=== PATIENT | female | born 1960 | race Caucasian/White ===

== ENCOUNTER → 2017-12-16 08:55 | Outpatient (CLI) | payer OTHER, SELFPAY ==
--- NOTE | 2017-12-16 08:57 | HPBD_ITS ---
STUDY: DUAL ENERGY X-RAY ABSORPTIOMETRY / DXA REASON FOR EXAM: Female, 57 years old. The patient is postmenopausal. No loss of height. TECHNIQUE: Bone Mineral Density (BMD) measurements of lumbar spine and bilateral hips were obtained. COMPARISON: None. FINDINGS: Lumbar Spine (L1-L4): g/cm2 (0.957) / T-score (-1.9) / Z-score (-0.8) Findings are suggestive of osteopenia with a moderate fracture risk. Left Femur Total: g/cm2 (0.695) / T-score (-2.5) / Z-score (-1.7) Left Femoral Neck: g/cm2 (0.738) / T-score (-2.2) / Z-score (-1.0) Right Femur Total: g/cm2 (0.682) / T-score (-2.6) / Z-score (-1.8) Right Femoral Neck: g/cm2 (0.671) / T-score (-2.6) / Z-score (-1.5) HPBD/Dexa Bone Density Study (HP) IMPRESSION: The patient is considered osteoporotic as outlined below according to World Samy Organization (WHO) criteria with a high fracture risk. Reference Information: The T-score is the number of standard deviations above or below the standard which is normal for young adults at their peak bone mineral density. The World Health Organization (WHO) interprets the T-scores as follows: Above -1 Normal bone density Between -1 and -2.5 Osteopenia Equal to / or below -2.5 Osteoporosis As a practical clinical guideline, osteopenia may be graded as follows: Mild -1 through -1.5 Moderate -1.6 through -2.0 Severe -2.1 through -2.4 The Z-score is the number of standard deviations above or below age-matched controls. A Z-score of less than -1.5 would be considered abnormal. References: 1. NIH Osteoporosis and Related Bone Diseases http://www.osteo.org 2. International Society for Clinical Densitometry http://www.iscd.org 3. National Osteoporosis Foundation http://www.nof.org Electronically Signed: Cheng Strickland MD at 9:56 EST Tel [phone], Service support ,
== END ==
PROVIDERS: Family Provider Family Medicine; PCP Family Medicine; Visit Provider Obstetrics & Gynecology
DX: Z78.0 Asymptomatic menopausal state (principal)
CPT/HCPCS: 77080

== ENCOUNTER → 2018-11-22 07:49 | Outpatient (CLI) | payer OTHER, SELFPAY ==
--- NOTE | 2018-11-22 07:55 | BI_ITS ---
MAMMOGRAPHY - BILATERAL SCREENING REASON FOR EXAM: Female, 58 years old. Routine annual screening examination. PERTINENT HISTORY: Mother with breast cancer. Grandmother with breast cancer. TECHNIQUE: Digital bilateral breast tuan (3D mammographic acquisition) in the CC and MLO projections. 2-D mediolateral oblique (MLO) and craniocaudad (CC) views of both breasts were obtained. CAD: Full Field Digital Mammography with Computer Added Detection was performed. COMPARISON: Comparison is made with prior study dated April 17, 2018 and November 14, 2016. FINDINGS: Breast Composition: The breasts are heterogeneously dense, which may obscure small masses. There are no dominant masses or suspicious calcifications. No other significant abnormalities are identified. There has been no significant change since the prior study. BI/SCREENING MAMM (CAD), BILAT IMPRESSION: Stable bilateral screening mammogram. Yearly follow-up mammogram recommended. (A) ASSESSMENT CATEGORY: BIRADS Category 1: Negative. A letter regarding these results will be sent to the patient by the facility within 30 days. Approximately 10% of breast cancers are not detected by mammography. A normal mammogram should not delay biopsy of a clinically suspicious abnormality. [id number] Electronically Signed: Cheng Strickland MD at 9:17 EST Tel [phone], Service support ,
== END ==
PROVIDERS: Family Provider Family Medicine; PCP Family Medicine; Referring Provider Obstetrics & Gynecology; Visit Provider Obstetrics & Gynecology
DX: Z12.31 Encounter for screening mammogram for malignant neoplasm of breast (principal)
CPT/HCPCS: 77063; 77067

== ENCOUNTER → 2019-01-03 12:40 | Outpatient (CLI) | payer OTHER, SELFPAY ==
--- NOTE | 2019-01-03 12:47 | MRI_ITS ---
STUDY: BILATERAL BREAST MR WITHOUT AND WITH CONTRAST REASON FOR EXAM: Female, 58 years old. Family history of breast cancer. Dense breasts on mammography. TECHNIQUE: Multi-sequence multi-echo imaging of both breasts was performed with a dedicated breast coil. T1-weighted and T2-weighted images were performed before the administration of contrast. T1-weighted images were also performed after the administration of Gadavist 7 IV without complications. COMPARISON: Bilateral screening mammograms dated November 17, 2017 and November 22, 2018. FINDINGS: RIGHT BREAST: The breast tissue is heterogeneously dense with no background enhancement. There are no abnormal enhancing masses or areas of non-mass enhancement in the right breast. LEFT BREAST: The breast tissue is heterogeneously dense with no background enhancement. There are no abnormal enhancing masses or areas of non-mass enhancement in the left breast. There are no enlarged or abnormal lymph nodes. There is no abnormality in the visualized regions of the chest or liver. MRI/Breast Bilateral W/O and W IMPRESSION: Normal breast MR examination with contrast. CATEGORY: BIRADS Category 1: Negative. A letter regarding these results will be sent to the patient by the facility within 30 days. Electronically Signed: Justus Rai MD at 11:10 EST , Service support ,
== END ==
PROVIDERS: Family Provider Family Medicine; PCP Family Medicine; Referring Provider Obstetrics & Gynecology; Visit Provider Obstetrics & Gynecology
DX: R92.2 Inconclusive mammogram (principal)
CPT/HCPCS: 77049; A9585; C8908

== ENCOUNTER → 2019-03-23 11:22 | Outpatient (CLI) | payer OTHER, SELFPAY ==
[2019-03-25 14:00] LABS: HPV Reflexed? NOT INDICATED
== END ==
PROVIDERS: Visit Provider Obstetrics & Gynecology
DX: Z12.4 Encounter for screening for malignant neoplasm of cervix (principal)
CPT/HCPCS: 88175; G0145

== ENCOUNTER → 2020-04-23 12:26 | Outpatient (CLI) | payer OTHER, SELFPAY ==
--- NOTE | 2020-04-23 12:28 | BI_ITS ---
MAMMOGRAPHY - BILATERAL SCREENING REASON FOR EXAM: Female, 59 years old. Routine annual screening examination. PERTINENT HISTORY: Mother with breast cancer. Grandmother with breast cancer. TECHNIQUE: Digital bilateral breast rinku (3D mammographic acquisition) in the CC and MLO projections. 2-D mediolateral oblique (MLO) and craniocaudad (CC) views of both breasts were obtained. CAD: Full Field Digital Mammography with Computer Added Detection was performed. COMPARISON: Comparison is made with prior study dated November 22, 2018 and November 17, 2017. FINDINGS: Breast Composition: The breasts are heterogeneously dense, which may obscure small masses. There are no dominant masses or suspicious calcifications. No other significant abnormalities are identified. There has been no significant change since the prior study. BI/SCREEN MAMM (CAD) W/RINKU BILAT IMPRESSION: Stable bilateral screening mammogram. Yearly follow-up mammogram recommended. (A) ASSESSMENT CATEGORY: BIRADS Category 1: Negative. A letter regarding these results will be sent to the patient by the facility within 30 days. Approximately 10% of breast cancers are not detected by mammography. A normal mammogram should not delay biopsy of a clinically suspicious abnormality. [id number] Electronically Signed: Cheng Strickland, at 13:25 EDT , Service support ,
== END ==
PROVIDERS: PCP Family Medicine; Referring Provider Family Medicine; Visit Provider Family Medicine
DX: Z12.31 Encounter for screening mammogram for malignant neoplasm of breast (principal)
CPT/HCPCS: 77063; 77067

== ENCOUNTER → 2020-07-16 11:53 | Outpatient (CLI) | payer OTHER, SELFPAY ==
[2020-07-16 12:53] LABS: Bacteria 0 SEEN /hpf (None Seen); Mucous, Urine 0 SEEN /hpf (<or=2+); Red Blood Cells-Urine 0 SEEN /hpf (0-5); Squamous Epithelial Cells - UA 0 SEEN /hpf (5-10)
[2020-07-16 15:54] LABS: Color, Urine Yellow (Yellow); Glucose, Dipstick Normal (Normal); Ketone-Dipstick Negative (Negative); Leukocyte Esterase-Dipstick 100 /ul (Negative); Nitrite-Dipstick Negative (Negative); Occult Blood-Urine Negative /ul (Negative); Protein-Dipstick Negative (Negative); Urine Bilirubin Dipstick Negative (Negative); Urine Clarity Clear (Clear); Urine Urobilinogen Normal (Normal)
[2020-07-16 16:21] LABS: White Blood Cells 0-5 SEEN /hpf (0-5)
== END ==
PROVIDERS: PCP Family Medicine; Referring Provider Family Medicine; Visit Provider Family Medicine
DX: R31.9 Hematuria, unspecified (principal)
CPT/HCPCS: 81001

== ENCOUNTER 2020-11-21 14:24 | Outpatient (RCR) | payer OTHER, SELFPAY | END 2020-12-16 23:59 | LOC: LABSPEC 14:24 | PROVIDERS: PCP Family Medicine; Referring Provider Family Medicine Geriatric Medicine; Visit Provider Family Medicine Geriatric Medicine | DX: Z03.818 Encounter for observation for suspected exposure to other biological agents ruled out (principal) | CPT/HCPCS: 87426 ==

== ENCOUNTER 2021-01-24 08:22 | Inpatient (IN) | payer OTHER, SELFPAY ==
[2021-01-24] VITALS (18 sets, daily range): BP systolic 97–138; BP diastolic 53–103; PULSE 69–112; RESP 12–21; TEMP 36.2–37.1; O2SAT 97–100; BMI 21.4; BMI 21.3
--- NOTE | 2021-01-24 08:41 | ED.DCSUM_ITS ---
History of Present Illness Chief Complaint: Nausea/Vomiting Informant: Patient Narrative: 60-year-old female presenting with abdominal pain which she states is in her lower abdomen as well as acid reflux symptoms. She states that when she eats she starts to get dyspepsia and abdominal pains. She is not had a fever. Her first time vomiting was this morning. She is not tried anything for acid reflux or pain. Patient denies any significant medical history although she has had an appendectomy. Patient has not had fever or chills. She denies urinary complaints. She denies diarrhea but states that she is somewhat constipated. Past Medical History - Allergies and Home Meds Allergies/Adverse Reactions: Allergies No Known Allergies Allergy (Verified 01/24/21 08:26) Prior records reviewed: Yes Past Medical History: - - Denies significant medical history Lives: Spouse/ Significant Other Smoking Status: Never smoker Alcohol: Occasional Drugs: None Review of Systems General: Denies: Chills, Fever, Sweats Eyes: Denies: Visual changes - bilaterally, Diplopia ENT: Denies: Rhinorrhea, Sore throat Cardiovascular: Denies: Chest pain, Palpitations Respiratory: Denies: Dyspnea, Cough, Dyspnea on exertion Gastrointestinal: Reports: Abdominal pain, Nausea, Vomiting, Constipation. Denies: Diarrhea, Melena, Hematochezia Genitourinary: Denies: Dysuria, Hematuria, Frequency Musculoskeletal: Denies: Myalgias, Arthralgias Skin: Denies: Rash, Abscess Neurological: Denies: Headache, Weakness, Parasthesia, Numbness Psych: Denies: Depression, Anxiety, Suicidal thoughts Physical Exam Vital Signs/Narrative: Vital Signs Temp Pulse Resp BP Pulse Ox 01/24/21 08:26 97.1 F L 112 H 16 136/103 H 99 01/24/21 08:24 97.1 F L 112 H 16 136/103 H 99 Inital Vital Signs reviewed: Yes General: Well nourished, No Acute Distress Head: Normocephalic, Atraumatic Eyes: Perrl, EOMI. Negative for: Pale conjunctiva, Scleral icterus ENT: Moist mucous membranes, No rhinorrhea Cardiovascular: Regular rate, Regular rhythm Respiratory: No distress, CTA bilaterally Abdomen: Soft, Nondistended, Tender - Tenderness to palpation in the supraumbilical region in the midline. Abdomen is nonperitoneal. Extremities: Nontender, No edema Skin: Normal color, No rash. Negative for: Cyanosis, Diaphoresis Neurological: Alert, Oriented x3, Cranial nerves II-XII grossly intact Psychological: Normal affect, Normal Mood Diagnostic/Tx/Re-eval Clinical Impression(s) from Imaging Studies Abdomen/Pelvis CT 01/24/21 08:43 IMPRESSION: Severe constipation Hepatic hemangioma versus venous malformation (consider nonemergent ultrasound/MRI evaluation) Nonobstructing bilateral renal stones Additional nonemergent findings, as above Electronically Signed: Zhang Washington, at 10:08 EST Tel , Service support , Laboratory Data 01/24/21 01/24/21 01/24/21 08:59 08:59 08:59 WBC 5.9 RBC 5.19 Hgb 16.6 H Hct 48.1 H MCV 92.7 MCH 32.0 MCHC 34.5 RDW Std Deviation 42.7 RDW Coeff of Hope 12.7 Plt Count 225 MPV 10.1 Immature Gran % (Auto) 0.200 Neut % (Auto) 70.0 Lymph % (Auto) 23.6 [place] % (Auto) 5.2 Eos % (Auto) 0.3 Baso % (Auto) 0.7 Absolute Neuts (auto) 4.2 Absolute Lymphs (auto) 1.40 Nucleated RBC % 0 Sodium 139 Potassium 3.8 Chloride 103 Carbon Dioxide 15.0 L Anion Gap 21 H BUN 11 Creatinine 1.38 H Estim Creat Clear Calc 36.97 Est GFR (MDRD) Af Amer 50 L Est GFR (MDRD) Non-Af 41 L BUN/Creatinine Ratio 8.0 L Glucose 499 H* Calcium 9.6 Total Bilirubin 0.80 AST 7 L ALT 21 Alkaline Phosphatase 83 Total Protein 7.8 Albumin 4.4 Globulin 3.4 Albumin/Globulin Ratio 1.3 Lipase 45 L Acetone Level MODERATE H - Medical Decision Making 60-year-old female presenting with nausea and vomiting for a couple of weeks he also describes dyspepsia and GERD symptoms. She has lower abdominal pain and cramping. Lab work shows white blood cell count 5.9, hemoglobin 16.6, platelets 225. On CMP creatinine is 1.38 from previous 0.76 and her GFR is down from 82- 41 representing acute kidney injury LFTs are normal. Glucose 499 anion gap 21 moderate acetone representing DKA. Patient was given 2 L of IV fluids. CT of the abdomen pelvis showed constipation without acute abnormality. Repeat GGT was 321. Hospitalist requests admission to ICU and starting of insulin drip. This was started at a slow rate. Patient transported to ICU in stable condition. Impression: 1. Diabetic ketoacidosis 2. 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
--- NOTE | 2021-01-24 08:43 | CT_ITS ---
STUDY: CT ABDOMEN AND PELVIS WITH CONTRAST REASON FOR EXAM: Female, 60 years old. abdominal pain RADIATION DOSAGE (If Supplied By Facility): CTDIvol = ( 8.02 ) mGy, DLP = ( 286.96 ) mGycm TECHNIQUE: Transaxial images were obtained from the dome of the diaphragm to the symphysis pubis without oral contrast. IV 100mL Isovue-300 was administered. Sagittal and coronal images were reconstructed. Individualized dose optimization techniques were used for this CT. COMPARISON: None. FINDINGS: Lung bases: Unremarkable. Heart: Unremarkable. Liver: 2.5 cm hypervascular hepatic lesion (axial image 6 series 2). Mild hepatic steatosis. Gallbladder/biliary ducts: Unremarkable. Pancreas: Unremarkable. Spleen: Unremarkable. Adrenal glands: Unremarkable. Kidneys/ureters/bladder: Bilateral extrarenal pelvis. Bilateral nonobstructing renal stones measuring up to 4 mm (axial image 24 series 2). Nondilated ureters. Distended urinary bladder without focal wall abnormality. Uterus/adnexa: Physiologic appearance/atrophy. Large bowel/small bowel: Severe constipation. No perforation. No pneumatosis. No obstruction. Appendix: Poorly visualized. No secondary signs of acute appendicitis. Gastroesophageal junction/stomach: Unremarkable. Retroperitoneum/lymph nodes: No intra-abdominal free air. No ascites. No pathologically enlarged lymph nodes. Vascular: Unremarkable. Osseous structures: Degenerative changes with grade 1 spondylolisthesis at L4-5. Chronic appearing L1 superior endplate collapse Schmorl''s node versus compression fracture. No acute process. Subcutaneous/soft tissues: Small fat-containing umbilical hernia. No acute process. CT/Abdomen/Pelvis W IV Cont ONLY IMPRESSION: Severe constipation Hepatic hemangioma versus venous malformation (consider nonemergent ultrasound/MRI evaluation) Nonobstructing bilateral renal stones Additional nonemergent findings, as above Electronically Signed: Zhang Washington DO at 10:08 EST Tel , Service support ,
[2021-01-24] MEDS: 0.9% Normal Saline 1,000 ML 999 ML IV ×3 (09:00→12:05)
[2021-01-24 09:09] LABS: Absolute Neutrophil Count 4.2 X10^3/uL (2.0-7.7); Basophil# 0.04 X10^3/uL; Basophil% 0.7 % (0-1); Eosinophil# 0.02 X10^3/uL; Eosinophils% 0.3 % (0-5); Hematocrit 48.1 % (37-47); Hemoglobin 16.6 g/dL (12.0-15.0); Lymphocyte % 23.6 % (19-41); Mean Corp Hgb Conc 34.5 g/dL (32-36); Mean Corpuscular Volume 92.7 fL (81-99); Mean Platelet Vol. 10.1 fl (6.2-12.0); Monocyte# 0.31 X10^3/uL; Monocyte% 5.2 % (0-10); NRBC Flagged by Analyzer 0 % (0-5); Neutrophil # 4.16 X10^3/uL (2.7-7.7); Platelet Count 225 K/mm3 (150-450); RBC Distribution Width CV 12.7 % (11.6-14.6); RBC Distribution Width SD 42.7 fl (35.1-43.9); Red Blood Count 5.19 M/mm3 (4.2-5.4); White Blood Count 5.9 K/mm3 (4.4-11.0)
[2021-01-24] MEDS: Famotidine 200 MG/20 ML MDV 20 MG in 0.9% Normal Saline (Pres. free 8 ML 300 MG IV (09:11)
[2021-01-24 09:37] LABS: ALB/GLOB Ratio 1.3 RATIO (0.9-2.4); AST(SGOT) 7 U/L (15-37); Alanine Aminotransfer ALT/SGPT 21 U/L (13-56); Albumin, Serum 4.4 g/dL (3.2-5.0); Alkaline Phosphatase 83 U/L (45-117); Anion Gap 21 (5-15); BUN 11 mg/dL (7-18); Calcium,Total 9.6 mg/dL (8.5-10.1); Chloride 103 mmol/L (98-107); Creatinine, Serum 1.38 mg/dL (0.55-1.02); EST Glomerular Filtration Rate 41 mL/min (>60); Est Glom Filt Rate - Afr Amer 50 mL/min (>60); Estimated Creatinine Clearance 36.97 ml/min; Globulin 3.4 g/dL (2.2-4.2); Glucose 499 mg/dL (74-106); Lipase 45 U/L (73-393); Potassium 3.8 mmol/L (3.5-5.1); Protein, Total 7.8 g/dL (6.4-8.2); Sodium Level 139 mmol/L (136-145)
[2021-01-24 12:16] LABS: Bedside Glucose 321 mg/dL (70-110)
--- NOTE | 2021-01-24 12:16 | ED.RN ---
insulin did not come before the pt went up to the floor, yousuf bill in icu was made aware that the medication was not given yet.
[2021-01-24 12:48] LABS: Anion Gap 15 (5-15); BUN 7 mg/dL (7-18); BUN/Creat Ratio 12.8 RATIO (10-20); Calcium,Total 5.8 mg/dL (8.5-10.1); Chloride 123 mmol/L (98-107); Creatinine, Serum 0.55 mg/dL (0.55-1.02); EST Glomerular Filtration Rate 120 mL/min (>60); Est Glom Filt Rate - Afr Amer 145 mL/min (>60); Estimated Creatinine Clearance 92.76 ml/min; Glucose 273 mg/dL (74-106); Potassium 3.2 mmol/L (3.5-5.1); Sodium Level 147 mmol/L (136-145)
[2021-01-24 12:49] LABS: Hemoglobin A1c 12.4 % (3.8-5.6)
[2021-01-24] MEDS: 0.9% Normal Saline 1,000 ML 500 ML IV (13:09)
[2021-01-24 13:20] LABS: Bedside Glucose 317 mg/dL (70-110)
--- NOTE | 2021-01-24 13:35 | CON.PCM_ITS ---
Reason for Consult Date of Consultation: 01/24/21 Reason for Consultation: Diabetic ketoacidosis History of Present Illness: The patient is a 60-year-old female, with a history as outlined below, who presented to the emergency department on January 24 with complaints of abdominal pain, nausea and vomiting. The patient reported that her symptoms have been present now for the course of the last week. She also reported the presence of dysuria. She denies a prior diagnosis of diabetes mellitus. On presentation to the emergency department, the patient was noted to be afebrile but was tachycardic and otherwise hemodynamically stable. She was maintaining appropriate oxygen saturations on room air. Laboratory evaluation revealed a normal white blood cell count. Chemistry profile was notable for a bicarbonate of 15, anion gap of 21 and creatinine of 1.38. Glucose was elevated to 499. Hemoglobin A1c was noted to be 12.4. Moderate serum acetone was noted. CT abdomen/pelvis revealed severe constipation with nonobstructing bilateral renal stones. The patient received supplemental IV fluid hydration and was started on a continuous insulin infusion. She was subsequently admitted to the medical intensive care unit for management of her diabetic ketoacidosis. Past Medical History Allergies No Known Allergies Allergy (Verified 01/24/21 08:26) Home Medications: Ambulatory Orders Medication Instructions Recorded NK 01/24/21 Lives: Spouse/ Significant Other Smoking Status: Never smoker Alcohol: Occasional Drugs: None Review of Systems Constitutional: Denies: Chills, Fever, Weight Change HEENT: Denies: Head Aches, Sinus Congestion, Sinus Drainage Cardiovascular: Denies: Chest Pain, Palpitations Respiratory: Denies: Cough, Shortness of breath at rest, Sputum production Gastrointestinal: Reports: Abdominal Pain, Nausea, Vomiting Genitourinary: Reports: Dysuria Musculoskeletal: Denies: Joint Pain, Joint Tenderness Skin: Denies: Rash, Wounds Neurological: Denies: Numbness, Tingling, Focal weakness Psychiatric: Denies: Anxiety, Depression, Homicidal Ideations, Suicidal Ideations Hematologic/ Lymphatic: Denies: Easy Bruising, Easy Bleeding Objective: The patient's most recent lab work, culture data and imaging studies have all been personally reviewed. - Physical Exam Vitals/I&O's: Vital Signs Temp Pulse Resp BP Pulse Ox 97.6 F L 85 16 126/70 H 98 01/24/21 11:15 01/24/21 11:15 01/24/21 11:15 01/24/21 11:15 01/24/21 11:15 Oxygen Delivery Method Room Air Weight: 125 lb Body Mass Index (BMI) 21.4 Finger Stick Blood Glucose 317 Intake and Output for Last 24 Hours 01/22/21 01/23/21 01/24/21 23:59 23:59 23:59 Intake Total Balance General: Alert, Cooperative, No apparent distress HEENT: Atraumatic, PERRLA, Normocephalic Oral: Dry Mucosa Neck: Supple, No Nodes, Trachea Midline Lungs: Normal air movement, No rhonchi, No wheeze, No rales Cardiovascular: Normal S1, Normal S2, Tachycardic Abdomen: Bowel Sounds Present, Soft, Non Tender Extremities: No clubbing, No cyanosis, No edema Skin: No breakdown Musculoskeletal: No Tenderness to Palpation of Joints or Extremities Lymphatic: No Cervical, Supraclavicular, or Inguinal Adenopathy Neurological: Cranial nerves II-XII grossly intact, Neuro grossly intact Psych/Mental Status: Alert and oriented to time, place, person, mood and affect Labs (Last 48 Hours) 01/24/21 01/24/21 01/24/21 08:59 08:59 08:59 WBC 5.9 RBC 5.19 Hgb 16.6 H Hct 48.1 H MCV 92.7 MCH 32.0 MCHC 34.5 RDW Std Deviation 42.7 RDW Coeff of Hope 12.7 Plt Count 225 MPV 10.1 Immature Gran % (Auto) 0.200 Neut % (Auto) 70.0 Lymph % (Auto) 23.6 [place] % (Auto) 5.2 Eos % (Auto) 0.3 Baso % (Auto) 0.7 Absolute Neuts (auto) 4.2 Absolute Lymphs (auto) 1.40 Nucleated RBC % 0 Sodium 139 Potassium 3.8 Chloride 103 Carbon Dioxide 15.0 L Anion Gap 21 H BUN 11 Creatinine 1.38 H Estim Creat Clear Calc 36.97 Est GFR (MDRD) Af Amer 50 L Est GFR (MDRD) Non-Af 41 L BUN/Creatinine Ratio 8.0 L Glucose 499 H* Hemoglobin A1c Calcium 9.6 Total Bilirubin 0.80 AST 7 L ALT 21 Alkaline Phosphatase 83 Total Protein 7.8 Albumin 4.4 Globulin 3.4 Albumin/Globulin Ratio 1.3 Lipase 45 L Acetone Level MODERATE H POC Glucose 01/24/21 01/24/21 01/24/21 12:12 12:18 12:18 WBC RBC Hgb Hct MCV MCH MCHC RDW Std Deviation RDW Coeff of Hope Plt Count MPV Immature Gran % (Auto) Neut % (Auto) Lymph % (Auto) [place] % (Auto) Eos % (Auto) Baso % (Auto) Absolute Neuts (auto) Absolute Lymphs (auto) Nucleated RBC % Sodium 147 H Potassium 3.2 L Chloride 123 H Carbon Dioxide 9.0 L* Anion Gap 15 BUN 7 Creatinine 0.55 Estim Creat Clear Calc 92.76 Est GFR (MDRD) Af Amer 145 Est GFR (MDRD) Non-Af 120 BUN/Creatinine Ratio 12.8 Glucose 273 H Hemoglobin A1c 12.4 H Calcium 5.8 L* Total Bilirubin AST ALT Alkaline Phosphatase Total Protein Albumin Globulin Albumin/Globulin Ratio Lipase Acetone Level POC Glucose 321 H 01/24/21 13:06 WBC RBC Hgb Hct MCV MCH MCHC RDW Std Deviation RDW Coeff of Hope Plt Count MPV Immature Gran % (Auto) Neut % (Auto) Lymph % (Auto) [place] % (Auto) Eos % (Auto) Baso % (Auto) Absolute Neuts (auto) Absolute Lymphs (auto) Nucleated RBC % Sodium Potassium Chloride Carbon Dioxide Anion Gap BUN Creatinine Estim Creat Clear Calc Est GFR (MDRD) Af Amer Est GFR (MDRD) Non-Af BUN/Creatinine Ratio Glucose Hemoglobin A1c Calcium Total Bilirubin AST ALT Alkaline Phosphatase Total Protein Albumin Globulin Albumin/Globulin Ratio Lipase Acetone Level POC Glucose 317 H Clinical Impression(s) from Imaging Studies Abdomen/Pelvis CT 01/24/21 08:43 IMPRESSION: Severe constipation Hepatic hemangioma versus venous malformation (consider nonemergent ultrasound/MRI evaluation) Nonobstructing bilateral renal stones Additional nonemergent findings, as above Electronically Signed: Zhang Washington DO at 10:08 EST Tel , Service support , Current Medications Dextrose (Dextrose 50%-Water 25 Gm/50 Ml Disp.Syrin) 0 gm IV X1 PRN; Protocol PRN Reason: Hypoglycemia Protocol Dextrose (Dextrose 50%-Water 25 Gm/50 Ml Disp.Syrin) 0 gm IV X1 PRN; Protocol PRN Reason: HYPOGLYCEMIA Enoxaparin Sodium (Enoxaparin 40 Mg/0.4 Ml Syringe) 40 mg SC DAILY [facility] Insulin Human Lispro 100 unit/ (Sodium Chloride) 100 mls @ 2.835 mls/hr CONT INF .[id number] [facility]; Protocol Last Infusion: 01/24/21 13:00 Dose: 3 mls/hr Documented by: Sodium Chloride () 1,000 mls @ 500 mls/hr IV .Q2H [facility] Stop: 01/24/21 14:59 Last Admin: 01/24/21 13:09 Dose: 500 mls/hr Documented by: Nitroglycerin (Nitroglycerin (Inpatient Use) 0.4 Mg Tab.Subl) 0.4 mg SL Q5M PRN PRN Reason: CARDIAC/CHEST PAIN Ondansetron HCl (Ondansetron 4 Mg/2 Ml Vial) 4 mg IV Q8H PRN PRN PRN Reason: NAUSEA/VOMITING Assessment/Plan RECOMMENDATIONS: 1. Continue aggressive supplemental IV fluid hydration. 2. Aggressive electrolyte repletion. 3. Continue insulin infusion until anion gap has been closed x2. 4. Nutrition services to provide diabetic education. IMPRESSIONS: 1. Newly diagnosed diabetes mellitus with DKA Continue current medical management per DKA protocol with aggressive supplemental IV fluid hydration, electrolyte repletion and continuous insulin infusion until anion gap has been closed x2. Following this, the patient can be transition to a basal insulin regimen with sliding scale coverage. Diabetic education to be provided by nutrition services. 2. Acute kidney injury Likely prerenal in etiology and related to osmotic diuresis in the setting of diabetic ketoacidosis. Anticipate improvement with volume resuscitation. Continue to monitor urine output. No current indication for renal replacement therapy. This note was generated with [employer] dictation software. It may contain incorrect words, spelling, and punctuation that were not noted in checking the note before signing. Inpatient E&M: 01205 Init Hosp L3
[2021-01-24 14:20] LABS: Bedside Glucose 228 mg/dL (70-110)
--- NOTE | 2021-01-24 14:29 | HP.PCM_ITS ---
History of Present Illness Date of Admission: 01/24/21 Chief Complaint: nausea, general malaise The patient is a 60 year old F with no significant past medical history who was admitted through the ED with a complaint of general malaise and nausea. Patient said she has been feeling this way for a few days, and had also been eating frequently without feeling full. He also complained of lower abdominal pain but denied any fever or chest pain. She says she has been urinating frequently but she thought it was because she had been drinking a lot of water. Review of systems otherwise negative. She does admit to a family history of diabetes but does not have any significant personal health history. In the ED, she was noted to have a temperature of 97.6 with blood pressure of 126/70, pulse rate of 85 and respiratory rate of 16. Labs done showed sodium of 139 with bicarb of 15 and anion gap of 21 with potassium of 3.8 and creatinine of 1.38. Blood glucose was 499. CT of the abdomen and pelvis showed severe constipation and hepatic hemangioma versus venous malformation as well as nonobstructing bilateral renal stones. She has been admitted to be managed for DKA in the newly diagnosed diabetic. [] Past Medical History Allergies No Known Allergies Allergy (Verified 01/24/21 08:26) Home Medications: Ambulatory Orders Medication Instructions Recorded NK 01/24/21 Surgical History: no surgical history Lives: Spouse/ Significant Other Smoking Status: Never smoker Tobacco Use: Non-smoker Alcohol: Occasional Drugs: None Review of Systems Constitutional: Reports: Malaise, Weakness, Fatigue. Denies: Anorexia, Chills, Fever, Weight Change Eyes: Denies: Blurred vision HEENT: Denies: Head Aches, Sinus Congestion, Sinus Drainage Cardiovascular: Denies: Chest Pain, Palpitations Respiratory: Denies: Cough, Shortness of Breath, Shortness of breath at rest, Shortness of breath upon exertion, Sputum production Gastrointestinal: Reports: Abdominal Pain. Denies: Nausea, Vomiting Genitourinary: Denies: Dysuria Musculoskeletal: Denies: Joint Pain, Joint Tenderness Skin: Denies: Rash, Wounds Neurological: Denies: Numbness, Tingling, Focal weakness Psychiatric: Denies: Anxiety, Depression, Homicidal Ideations, Suicidal Ideations Hematologic/ Lymphatic: Denies: Easy Bruising, Easy Bleeding VTE Information - Inpt Only VTE Present on Admission: No VTE Pharm Prophylaxis ordered?: Yes - Physical Exam Vitals/I&O's: Vital Signs Temp Pulse Resp BP Pulse Ox 97.6 F L 85 16 126/70 H 98 01/24/21 11:15 01/24/21 11:15 01/24/21 11:15 01/24/21 11:15 01/24/21 11:15 Oxygen Delivery Method Room Air Weight: 125 lb 0.034 oz Body Mass Index (BMI) 21.3 Finger Stick Blood Glucose 317 Intake and Output for Last 24 Hours 01/22/21 01/23/21 01/24/21 23:59 23:59 23:59 Intake Total 3011.4 / 3011.4 Balance 3011.4 / 3011.4 General: Alert, Oriented x3, Cooperative, No apparent distress HEENT: Atraumatic, PERRLA, EOMI, Normocephalic Oral: Dry Mucosa Neck: Supple, No JVD, Negative Carotid Bruits Lungs: Clear to auscultation, Normal air movement, No rhonchi, No wheeze, No rales Cardiovascular: Regular rate, Regular Rhythm, Normal S1, Normal S2, No murmurs Abdomen: Bowel Sounds Present, Soft, Non Tender, Non-Distended, No Hepato- splenomegaly Extremities: No clubbing, No cyanosis, No edema, Capillary Refill Less than 3 Seconds Skin: No rashes, No breakdown Musculoskeletal: No Tenderness to Palpation of Joints or Extremities Lymphatic: No Cervical, Supraclavicular, or Inguinal Adenopathy Neurological: Cranial nerves II-XII grossly intact, Neuro grossly intact, Motor Exam 5/5 strength throughout Psych/Mental Status: Normal Affect, Appropriate, Alert and oriented to time, place, person, mood and affect Laboratory Results 01/24/21 08:59: WBC 5.9, RBC 5.19, Hgb 16.6 H, Hct 48.1 H, MCV 92.7, MCH 32.0, MCHC 34.5, RDW Std Deviation 42.7, RDW Coeff of Hope 12.7, Plt Count 225, MPV 10.1, Immature Gran % (Auto) 0.200, Neut % (Auto) 70.0, Lymph % (Auto) 23.6, [place] % (Auto) 5.2, Eos % (Auto) 0.3, Baso % (Auto) 0.7, Absolute Neuts (auto) 4.2, Absolute Lymphs (auto) 1.40, Nucleated RBC % 0 01/24/21 08:59: Sodium 139, Potassium 3.8, Chloride 103, Carbon Dioxide 15.0 L, Anion Gap 21 H, BUN 11, Creatinine 1.38 H, Estim Creat Clear Calc 36.97, Est GFR (MDRD) Af Amer 50 L, Est GFR (MDRD) Non-Af 41 L, BUN/Creatinine Ratio 8.0 L, Glucose 499 H*, Calcium 9.6, Total Bilirubin 0.80, AST 7 L, ALT 21, Alkaline Phosphatase 83, Total Protein 7.8, Albumin 4.4, Globulin 3.4, Albumin/Globulin Ratio 1.3, Lipase 45 L 01/24/21 08:59: Acetone Level MODERATE H 01/24/21 12:12: POC Glucose 321 H 01/24/21 12:18: Hemoglobin A1c 12.4 H 01/24/21 12:18: Sodium 147 H, Potassium 3.2 L, Chloride 123 H, Carbon Dioxide 9.0 L*, Anion Gap 15, BUN 7, Creatinine 0.55, Estim Creat Clear Calc 92.76, Est GFR (MDRD) Af Amer 145, Est GFR (MDRD) Non-Af 120, BUN/Creatinine Ratio 12.8, Glucose 273 H, Calcium 5.8 L* 01/24/21 13:06: POC Glucose 317 H 01/24/21 14:16: POC Glucose 228 H Diagnostic Data Abdomen/Pelvis CT 01/24/21 08:43 IMPRESSION: Severe constipation Hepatic hemangioma versus venous malformation (consider nonemergent ultrasound/MRI evaluation) Nonobstructing bilateral renal stones Additional nonemergent findings, as above Electronically Signed: Zhang Washington DO at 10:08 EST Tel , Service support , Current Medications Dextrose (Dextrose 50%-Water 25 Gm/50 Ml Disp.Syrin) 0 gm IV X1 PRN; Protocol PRN Reason: Hypoglycemia Protocol Dextrose (Dextrose 50%-Water 25 Gm/50 Ml Disp.Syrin) 0 gm IV X1 PRN; Protocol PRN Reason: HYPOGLYCEMIA Enoxaparin Sodium (Enoxaparin 40 Mg/0.4 Ml Syringe) 40 mg SC DAILY [facility] Insulin Human Lispro 100 unit/ (Sodium Chloride) 100 mls @ 2.835 mls/hr CONT INF .[id number] [facility]; Protocol Last Infusion: 01/24/21 13:00 Dose: 3 mls/hr Documented by: Sodium Chloride () 1,000 mls @ 500 mls/hr IV .Q2H [facility] Stop: 01/24/21 14:59 Last Admin: 01/24/21 13:09 Dose: 500 mls/hr Documented by: Nitroglycerin (Nitroglycerin (Inpatient Use) 0.4 Mg Tab.Subl) 0.4 mg SL Q5M PRN PRN Reason: CARDIAC/CHEST PAIN Ondansetron HCl (Ondansetron 4 Mg/2 Ml Vial) 4 mg IV Q8H PRN PRN PRN Reason: NAUSEA/VOMITING Sodium Chloride (0.9% Saline Lock 10 Ml Syringe) 10 - 40 ml IV UD PRN PRN Reason: SALINE FLUSH Assessment/Plan 60 y/o admitted with a complaint of nausea and abdominal pain as well as generalised malaise #Diabetic ketoacidosis in a newly diagnosed diabetic * admit to ICU * anion gap was 21, and bicarb was 15; serum acetone was moderate * hydrate with IVF NS * start on insulin drip * accuchecks q1hrly * BMP q4hrly * A1C checked is 12.6 * CT of the abdomen showed severe constipation, hepatic hemangioma vs venouos malformation and nonobstructing renal stones * critical care consulted * once blood sugar is <250, will switch to D5 1/2NS and start on SQ insulin * #Newly diagnosed diabetes mellitus: currently in DKA as above. #Anion gap metabolic acidosis * Anion gap is 21. This is likely due to DKA. Will hydrate with IV fluids and trend. #Hypocalcemia; calcium is 5.8. Will replace. Will check magnesium level. #GALINDO: Creatinine was 1.38. Most likely due to dehydration from DKA. Will hydrate with fluids and trend creatinine. DVT prophylaxis: lovenox Code status: Full code * Patient counseled extensively about different types of CODE STATUS including full code, DNR CCA and DNR CCA. Patient elects to be full code. * Total [id number] time 17 minutes. Inpatient E&M: 63013 Init Hosp L3 Procedures: 22896 Advncd Care Plan 30 Min
--- NOTE | 2021-01-24 15:43 | PCM.NTREPORT ---
Nutrition Therapy Report - History Nutrition Services has been consulted to:: Manage nutrient details of diet order, Conduct nutrition education Current diet / nutrition support order:: NPO - Anthropometric Measurements Height:: 5 ft 4.17 in Weight:: 56.7 kg Body Mass Index (BMI):: 21.3 - Relevant Labs Relevant Labs:: Hgb 16.6 g/dL (12.0-15.0) H 01/24/21 08:59 Hct 48.1 % (37-47) H 01/24/21 08:59 Sodium 147 mmol/L (136-145) H 01/24/21 12:18 Potassium 3.2 mmol/L (3.5-5.1) L 01/24/21 12:18 Chloride 123 mmol/L (98-107) H 01/24/21 12:18 Carbon Dioxide 9.0 mmol/L (21.0-32.0) L* 01/24/21 12:18 Anion Gap 21 (5-15) H 01/24/21 08:59 Creatinine 1.38 mg/dL (0.55-1.02) H 01/24/21 08:59 Est GFR (MDRD) Af Amer 50 mL/min (>60) L 01/24/21 08:59 Est GFR (MDRD) Non-Af 41 mL/min (>60) L 01/24/21 08:59 BUN/Creatinine Ratio 8.0 RATIO (10-20) L 01/24/21 08:59 Glucose 273 mg/dL (74-106) H 01/24/21 12:18 Hemoglobin A1c 12.4 % (3.8-5.6) H 01/24/21 12:18 Calcium 5.8 mg/dL (8.5-10.1) L* 01/24/21 12:18 AST 7 U/L (15-37) L 01/24/21 08:59 Lipase 45 U/L (73-393) L 01/24/21 08:59 - Assessment Food / Nutrition-Related History:: Reports decreased appetite d/t feeling unwell. Was eating more frequently (every 2 hours) recently vs standard 3 meals/day d/t nausea. Reports ~15-20# wt loss x 1 month, significant for acute malnutrition. 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 - Nutrition Diagnosis Problem / Etiology / Signs & Symptoms (PES):: acute, severe malnutrition r/t inadequate energy intake and metabolic dysfunction d/t hyperglycemia as evidenced by reported wt loss of 20#/14% x 1 month, estimated PO intake meeting <75% of nutritional needs x 1 month Evidence of Malnutrition Exists:: Yes Severe PCM:: Acute Illness - Nutrition Intervention Nutrition Prescription:: [id number] calories/day (1.3xRMR). 50-60 g protein/day (1g/kg). 1680mL fluid/day (1mL/calorie) - Food / Nutrient Delivery Interventions Summary of nutrition intervention:: Extensive discussion w/ pt about sources of CHO in diet. Encouraged to use plate method for CHO control. Discussed relationship of fiber and blood sugar. Pt was receptive to information and appeared interested in outpatient follow-up for further education and teaching. Nutrition support ordered as / adjusted to:: when appropriate for PO diet, recommend consistent CHO, 1600 calorie controlled diet. Nutrition education provided?: Yes - MNT Monitoring Further MNT monitoring and evaluation required?: Yes MNT Follow-up in:: 1-2 days
[2021-01-24 16:14] LABS: Anion Gap 12 (5-15); BUN 7 mg/dL (7-18); BUN/Creat Ratio 10.5 RATIO (10-20); Calcium,Total 6.5 mg/dL (8.5-10.1); Chloride 126 mmol/L (98-107); Creatinine, Serum 0.66 mg/dL (0.55-1.02); EST Glomerular Filtration Rate 96 mL/min (>60); Est Glom Filt Rate - Afr Amer 116 mL/min (>60); Glucose 179 mg/dL (74-106); Sodium Level 151 mmol/L (136-145)
[2021-01-24 19:01] LABS: Anion Gap 12 (5-15); BUN 7 mg/dL (7-18); BUN/Creat Ratio 8.1 RATIO (10-20); Calcium,Total 8.7 mg/dL (8.5-10.1); Chloride 121 mmol/L (98-107); Creatinine, Serum 0.86 mg/dL (0.55-1.02); EST Glomerular Filtration Rate 71 mL/min (>60); Est Glom Filt Rate - Afr Amer 86 mL/min (>60); Estimated Creatinine Clearance 59.32 ml/min; Glucose 129 mg/dL (74-106); Potassium 4.4 mmol/L (3.5-5.1); Sodium Level 148 mmol/L (136-145)
[2021-01-24 22:50] LABS: Bedside Glucose 269 mg/dL (70-110)
--- NOTE | 2021-01-24 23:48 | NURSING ---
2233: Dr. Butcher notified of patient's HS blood sugar of 268. Patient was not ordered any night time insulin coverage. Via telephone order, Dr. Butcher ordered to give 15units of Lantus at [address] patient back on insulin drip at 1unit/hour for 4 hours and then to discontinue the insulin gtt.
[2021-01-25] VITALS (18 sets, daily range): BP systolic 96–109; BP diastolic 47–63; PULSE 64–87; RESP 10–21; TEMP 36.7–37.1; O2SAT 97–100
[2021-01-25] LABS: Anion Gap 9 (5-15); BUN 8 mg/dL (7-18); BUN/Creat Ratio 8.6 RATIO (10-20); Calcium,Total 8.2 mg/dL (8.5-10.1); Chloride 116 mmol/L (98-107); Creatinine, Serum 0.93 mg/dL (0.55-1.02); EST Glomerular Filtration Rate 65 mL/min (>60); Est Glom Filt Rate - Afr Amer 79 mL/min (>60); Estimated Creatinine Clearance 54.86 ml/min; Glucose 257 mg/dL (74-106); Potassium 3.5 mmol/L (3.5-5.1); Sodium Level 144 mmol/L (136-145)
[2021-01-25] MEDS: Potassium Chloride Oral Tablet 20 MEQ 40 MEQ PO (01:00)
[2021-01-25 05:40] LABS: Absolute Neutrophil Count 3.3 X10^3/uL (2.0-7.7); Basophil# 0.03 X10^3/uL; Basophil% 0.5 % (0-1); Eosinophil# 0.07 X10^3/uL; Eosinophils% 1.2 % (0-5); Hemoglobin 11.8 g/dL (12.0-15.0); Lymphocyte % 33.5 % (19-41); Mean Corp Hgb Conc 34.7 g/dL (32-36); Mean Corpuscular Hgb 32.2 pg (27.0-32.0); Mean Corpuscular Volume 92.9 fL (81-99); Monocyte% 7.1 % (0-10); NRBC Flagged by Analyzer 0 % (0-5); Neutrophil # 3.25 X10^3/uL (2.7-7.7); Neutrophil % 57.3 % (47-70); Platelet Count 144 K/mm3 (150-450); RBC Distribution Width CV 12.9 % (11.6-14.6); RBC Distribution Width SD 43.6 fl (35.1-43.9); Red Blood Count 3.66 M/mm3 (4.2-5.4); White Blood Count 5.7 K/mm3 (4.4-11.0)
--- NOTE | 2021-01-25 05:42 | PN_ITS ---
Subjective: The patient was seen and examined at the bedside this morning. Events from the last 24 hours have been reviewed. The patient is currently afebrile, hemodynamically stable and maintaining appropriate oxygen saturations on room air. The patient's anion gap remains closed. Potassium is low this morning at 3.3. Objective: The patient's most recent lab work, culture data and imaging studies have all been personally reviewed. General: Alert, Oriented x3, Cooperative, No apparent distress HEENT: Atraumatic, PERRLA, Normocephalic Oral: Moist Mucosa, No Gingival or Mucosal Lesions/ Ulcerations Neck: Supple, No Nodes, Trachea Midline Lungs: Normal air movement Cardiovascular: Regular rate, Regular Rhythm Abdomen: Bowel Sounds Present, Soft, Non Tender Extremities: No clubbing, No cyanosis, No edema Skin: No breakdown Musculoskeletal: No Tenderness to Palpation of Joints or Extremities Lymphatic: No Cervical, Supraclavicular, or Inguinal Adenopathy Neurological: Cranial nerves II-XII grossly intact, Neuro grossly intact Psych/Mental Status: Alert and oriented to time, place, person, mood and affect Vital Signs Temp Pulse Resp BP Pulse Ox 98.2 F 73 12 103/51 L 99 01/25/21 00:00 01/25/21 03:46 01/25/21 03:00 01/25/21 02:00 01/25/21 03:00 Oxygen Delivery Method Room Air Weight: 124 lb 1.924 oz Body Mass Index (BMI) 21.3 Finger Stick Blood Glucose 317 Intake and Output for Last 24 Hours 01/23/21 01/24/21 01/25/21 23:59 23:59 23:59 Intake Total 4143.0 / 4143.0 Output Total 300 / 300 Balance 4143.0 / 4143.0 -300 / -300 Labs (Last 48 Hours) 01/24/21 01/24/21 01/24/21 08:59 08:59 08:59 WBC 5.9 RBC 5.19 Hgb 16.6 H Hct 48.1 H MCV 92.7 MCH 32.0 MCHC 34.5 RDW Std Deviation 42.7 RDW Coeff of Hope 12.7 Plt Count 225 MPV 10.1 Immature Gran % (Auto) 0.200 Neut % (Auto) 70.0 Lymph % (Auto) 23.6 [place] % (Auto) 5.2 Eos % (Auto) 0.3 Baso % (Auto) 0.7 Absolute Neuts (auto) 4.2 Absolute Lymphs (auto) 1.40 Nucleated RBC % 0 Sodium 139 Potassium 3.8 Chloride 103 Carbon Dioxide 15.0 L Anion Gap 21 H BUN 11 Creatinine 1.38 H Estim Creat Clear Calc 36.97 Est GFR (MDRD) Af Amer 50 L Est GFR (MDRD) Non-Af 41 L BUN/Creatinine Ratio 8.0 L Glucose 499 H* Hemoglobin A1c Calcium 9.6 Total Bilirubin 0.80 AST 7 L ALT 21 Alkaline Phosphatase 83 Troponin I Total Protein 7.8 Albumin 4.4 Globulin 3.4 Albumin/Globulin Ratio 1.3 Lipase 45 L Acetone Level MODERATE H POC Glucose 01/24/21 01/24/21 01/24/21 12:12 12:18 12:18 WBC RBC Hgb Hct MCV MCH MCHC RDW Std Deviation RDW Coeff of Hope Plt Count MPV Immature Gran % (Auto) Neut % (Auto) Lymph % (Auto) [place] % (Auto) Eos % (Auto) Baso % (Auto) Absolute Neuts (auto) Absolute Lymphs (auto) Nucleated RBC % Sodium 147 H Potassium 3.2 L Chloride 123 H Carbon Dioxide 9.0 L* Anion Gap 15 BUN 7 Creatinine 0.55 Estim Creat Clear Calc 92.76 Est GFR (MDRD) Af Amer 145 Est GFR (MDRD) Non-Af 120 BUN/Creatinine Ratio 12.8 Glucose 273 H Hemoglobin A1c 12.4 H Calcium 5.8 L* Total Bilirubin AST ALT Alkaline Phosphatase Troponin I Total Protein Albumin Globulin Albumin/Globulin Ratio Lipase Acetone Level POC Glucose 321 H 01/24/21 01/24/21 01/24/21 12:18 13:06 14:16 WBC RBC Hgb Hct MCV MCH MCHC RDW Std Deviation RDW Coeff of Hope Plt Count MPV Immature Gran % (Auto) Neut % (Auto) Lymph % (Auto) [place] % (Auto) Eos % (Auto) Baso % (Auto) Absolute Neuts (auto) Absolute Lymphs (auto) Nucleated RBC % Sodium Potassium Chloride Carbon Dioxide Anion Gap BUN Creatinine Estim Creat Clear Calc Est GFR (MDRD) Af Amer Est GFR (MDRD) Non-Af BUN/Creatinine Ratio Glucose Hemoglobin A1c Calcium Total Bilirubin AST ALT Alkaline Phosphatase Troponin I < 0.015 Total Protein Albumin Globulin Albumin/Globulin Ratio Lipase Acetone Level POC Glucose 317 H 228 H 01/24/21 01/24/21 01/24/21 15:25 15:25 18:15 WBC RBC Hgb Hct MCV MCH MCHC RDW Std Deviation RDW Coeff of Hope Plt Count MPV Immature Gran % (Auto) Neut % (Auto) Lymph % (Auto) [place] % (Auto) Eos % (Auto) Baso % (Auto) Absolute Neuts (auto) Absolute Lymphs (auto) Nucleated RBC % Sodium 151 H 148 H Potassium 3.0 L 4.4 Chloride 126 H 121 H Carbon Dioxide 13.0 L 15.0 L Anion Gap 12 12 BUN 7 7 Creatinine 0.66 0.86 Estim Creat Clear Calc 77.30 59.32 Est GFR (MDRD) Af Amer 116 86 Est GFR (MDRD) Non-Af 96 71 BUN/Creatinine Ratio 10.5 8.1 L Glucose 179 H 129 H Hemoglobin A1c Calcium 6.5 L* 8.7 Total Bilirubin AST ALT Alkaline Phosphatase Troponin I < 0.015 Total Protein Albumin Globulin Albumin/Globulin Ratio Lipase Acetone Level POC Glucose 01/24/21 01/24/21 01/24/21 18:15 22:19 23:30 WBC RBC Hgb Hct MCV MCH MCHC RDW Std Deviation RDW Coeff of Hope Plt Count MPV Immature Gran % (Auto) Neut % (Auto) Lymph % (Auto) [place] % (Auto) Eos % (Auto) Baso % (Auto) Absolute Neuts (auto) Absolute Lymphs (auto) Nucleated RBC % Sodium 144 Potassium 3.5 Chloride 116 H Carbon Dioxide 19.0 L Anion Gap 9 BUN 8 Creatinine 0.93 Estim Creat Clear Calc 54.86 Est GFR (MDRD) Af Amer 79 Est GFR (MDRD) Non-Af 65 BUN/Creatinine Ratio 8.6 L Glucose 257 H Hemoglobin A1c Calcium 8.2 L Total Bilirubin AST ALT Alkaline Phosphatase Troponin I < 0.015 Total Protein Albumin Globulin Albumin/Globulin Ratio Lipase Acetone Level POC Glucose 269 H 01/24/21 01/25/21 01/25/21 23:30 05:30 05:30 WBC 5.7 RBC 3.66 L Hgb 11.8 L Hct 34.0 L MCV 92.9 MCH 32.2 H MCHC 34.7 RDW Std Deviation 43.6 RDW Coeff of Hope 12.9 Plt Count 144 L MPV 10.0 Immature Gran % (Auto) 0.400 Neut % (Auto) 57.3 Lymph % (Auto) 33.5 [place] % (Auto) 7.1 Eos % (Auto) 1.2 Baso % (Auto) 0.5 Absolute Neuts (auto) 3.3 Absolute Lymphs (auto) 1.90 Nucleated RBC % 0 Sodium Pending Potassium Pending Chloride Pending Carbon Dioxide Pending Anion Gap Pending BUN Pending Creatinine Pending Estim Creat Clear Calc Est GFR (MDRD) Af Amer Pending Est GFR (MDRD) Non-Af Pending BUN/Creatinine Ratio Pending Glucose Pending Hemoglobin A1c Calcium Pending Total Bilirubin AST ALT Alkaline Phosphatase Troponin I Total Protein Albumin Globulin Albumin/Globulin Ratio Lipase Acetone Level MODERATE H POC Glucose 01/25/21 05:30 WBC RBC Hgb Hct MCV MCH MCHC RDW Std Deviation RDW Coeff of Hope Plt Count MPV Immature Gran % (Auto) Neut % (Auto) Lymph % (Auto) [place] % (Auto) Eos % (Auto) Baso % (Auto) Absolute Neuts (auto) Absolute Lymphs (auto) Nucleated RBC % Sodium Potassium Chloride Carbon Dioxide Anion Gap BUN Creatinine Estim Creat Clear Calc Est GFR (MDRD) Af Amer Est GFR (MDRD) Non-Af BUN/Creatinine Ratio Glucose Hemoglobin A1c Calcium Total Bilirubin AST ALT Alkaline Phosphatase Troponin I Total Protein Albumin Globulin Albumin/Globulin Ratio Lipase Acetone Level Pending POC Glucose Clinical Impression(s) from Imaging Studies Abdomen/Pelvis CT 01/24/21 08:43 IMPRESSION: Severe constipation Hepatic hemangioma versus venous malformation (consider nonemergent ultrasound/MRI evaluation) Nonobstructing bilateral renal stones Additional nonemergent findings, as above Electronically Signed: Zhang Washington DO at 10:08 EST Tel , Service support , Medical Necessity - Tobacco Use Smoking Status: Never smoker Tobacco Use: Non-smoker Assessment/Plan RECOMMENDATIONS: 1. Okay to discontinue insulin infusion and transition to basal and sliding scale insulin coverage. 2. Additional potassium repletion as ordered. 3. Advance diet. 4. The patient is medically stable for transfer out of the intensive care unit. Will sign off from a critical care perspective. IMPRESSIONS: 1. Newly diagnosed diabetes mellitus with DKA Resolved. The patient was treated per protocol with supplemental IV fluid hydration and continuous insulin infusion until anion gap was closed x2. She will be transition to basal and sliding scale insulin coverage at this time. Diet can be advanced accordingly. Diabetic education provided. The patient will require close outpatient follow-up. 2. Acute kidney injury Resolved. Likely prerenal in etiology and related to osmotic diuresis in the setting of diabetic ketoacidosis. 3. Hypokalemia Additional electrolyte repletion as ordered. Recheck levels in the morning. This note was generated with [employer] dictation software. It may contain incorrect words, spelling, and punctuation that were not noted in checking the note before signing. Inpatient E&M: 74737 Subs Hosp L2
[2021-01-25 05:58] LABS: Anion Gap 7 (5-15); BUN 8 mg/dL (7-18); BUN/Creat Ratio 10.6 RATIO (10-20); Calcium,Total 8.2 mg/dL (8.5-10.1); Chloride 116 mmol/L (98-107); Creatinine, Serum 0.76 mg/dL (0.55-1.02); EST Glomerular Filtration Rate 83 mL/min (>60); Est Glom Filt Rate - Afr Amer 100 mL/min (>60); Estimated Creatinine Clearance 67.13 ml/min; Glucose 161 mg/dL (74-106); Potassium 3.3 mmol/L (3.5-5.1); Sodium Level 144 mmol/L (136-145)
[2021-01-25] MEDS: Insulin Lispro 100 UNIT/ML INSULN.PEN SC ×7 (08:16→22:34)
[2021-01-25] MEDS: Potassium Chloride Oral Tablet 20 MEQ 60 MEQ PO (08:16)
[2021-01-25] MEDS: Enoxaparin 40 MG/0.4 ML Syringe SC (08:17)
[2021-01-25] MEDS: 0.9% Saline Lock 10 ML Syringe IV (08:23)
--- NOTE | 2021-01-25 10:05 | CASEMGMT ---
RN CM DELIVERY STOCK CLERK CM to room to meet with patient for initial transition planning/care coordination assessment. RN CM introduced self and role at [facility]. Pt voices understanding and consents to assessment at this time. Pt resting in bed in no distress at this time. Pt is A/O at this time and answers all questions appropriately. Care providers, pharmacy, and demographics verified/updated at this time. PCP: Dr Marie--has an appt on Sunday 01/28 @ 1000 Specialists: None. 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 Pt given Dr Crawford's rac card w/address and contact info. Preferred Pharmacy: [facility] Retail pharmacy Insurance: [facility] [employer] Prescription Benefit: Yes LNOK: Has both LW and Healthcare POA, who is her , Jeremy. Pt states she would like to talk to SW to update POA. CAM, Brittney, updated. Living Arrangements: Lives w/her in 2-story home w/1-2 steps to enter. Independent. Works part-time as a [employer] @ [employer]. Transportation: Pt states drives self and states no transportation concerns at this time. also drives. DME/Diabetic teaching: Has no DME. Pt is a new diabetic. Pt will need a glucometer. Script obtained from Dr Crouch and given to pt. electronic engineering draftsperson to provide diabetic teaching, BS's checks, and self-admin of insulin. Fundraising Director has met with pt and provided Diabetic Clinic info for further education/teaching. HHC/SNF: No history of either. No needs identified. Pt wishes to return home and states has no concerns with going home at time of discharge. CM to follow for any further discharge planning/needs. Pt voices no further concerns/needs at this time. Advised pt to ask for CM if any further questions/concerns/needs arise. Voices understanding. PLAN: Home w/spousal support and discharge plans in place. electronic engineering draftsperson to provide diabetic teaching, BS's checks, and self-admin of insulin. Fundraising Director has met with pt and provided Diabetic Clinic info for further education/teaching. Zahar CORCORANN RN TIFFANIE
--- NOTE | 2021-01-25 11:10 | PCM.PN.HOSP ---
Subjective: Patient seen and examined. She has no complaints this morning. Review of symptoms otherwise negative. Anion gap is closed and she is now on subcu Lantus. She has remained hemodynamically stable. Vitals/I&O's: Vital Signs Temp Pulse Resp BP Pulse Ox 98.8 F 74 18 104/62 97 01/25/21 11:00 01/25/21 11:00 01/25/21 11:00 01/25/21 11:00 01/25/21 11:00 Oxygen Delivery Method Room Air Weight: 124 lb 1.924 oz Body Mass Index (BMI) 21.3 Finger Stick Blood Glucose 317 Intake and Output for Last 24 Hours 01/23/21 01/24/21 01/25/21 23:59 23:59 23:59 Intake Total 4143.0 / 4143.0 1726.35 / 1726.35 Output Total 300 / 300 Balance 4143.0 / 4143.0 1426.35 / 1426.35 General: Alert, Oriented x3, Cooperative, No apparent distress HEENT: Atraumatic, PERRLA, EOMI, Normocephalic Oral: moist mucosa Neck: Supple, No JVD, Negative Carotid Bruits Lungs: Clear to auscultation, Normal air movement, No rhonchi, No wheeze, No rales Cardiovascular: Regular rate, Regular Rhythm, Normal S1, Normal S2, No murmurs Abdomen: Bowel Sounds Present, Soft, Non Tender, Non-Distended, No Hepato-splenomegaly Extremities: No clubbing, No cyanosis, No edema, Capillary Refill Less than 3 Seconds Skin: No rashes, No breakdown Musculoskeletal: No Tenderness to Palpation of Joints or Extremities Lymphatic: No Cervical, Supraclavicular, or Inguinal Adenopathy Neurological: Cranial nerves II-XII grossly intact, Neuro grossly intact, Motor Exam 5/5 strength throughout Psych/Mental Status: Normal Affect, Appropriate, Alert and oriented to time, place, person, mood and affect Laboratory Results 01/24/21 12:12: POC Glucose 321 H 01/24/21 12:18: Hemoglobin A1c 12.4 H 01/24/21 12:18: Sodium 147 H, Potassium 3.2 L, Chloride 123 H, Carbon Dioxide 9.0 L*, Anion Gap 15, BUN 7, Creatinine 0.55, Estim Creat Clear Calc 92.76, Est GFR (MDRD) Af Amer 145, Est GFR (MDRD) Non-Af 120, BUN/Creatinine Ratio 12.8, Glucose 273 H, Calcium 5.8 L* 01/24/21 12:18: Troponin I < 0.015 01/24/21 13:06: POC Glucose 317 H 01/24/21 14:16: POC Glucose 228 H 01/24/21 15:25: Sodium 151 H, Potassium 3.0 L, Chloride 126 H, Carbon Dioxide 13.0 L, Anion Gap 12, BUN 7, Creatinine 0.66, Estim Creat Clear Calc 77.30, Est GFR (MDRD) Af Amer 116, Est GFR (MDRD) Non-Af 96, BUN/Creatinine Ratio 10.5, Glucose 179 H, Calcium 6.5 L* 01/24/21 15:25: Troponin I < 0.015 01/24/21 18:15: Sodium 148 H, Potassium 4.4, Chloride 121 H, Carbon Dioxide 15.0 L, Anion Gap 12, BUN 7, Creatinine 0.86, Estim Creat Clear Calc 59.32, Est GFR (MDRD) Af Amer 86, Est GFR (MDRD) Non-Af 71, BUN/Creatinine Ratio 8.1 L, Glucose 129 H, Calcium 8.7 01/24/21 18:15: Troponin I < 0.015 01/24/21 22:19: POC Glucose 269 H 01/24/21 23:30: Sodium 144, Potassium 3.5, Chloride 116 H, Carbon Dioxide 19.0 L, Anion Gap 9, BUN 8, Creatinine 0.93, Estim Creat Clear Calc 54.86, Est GFR (MDRD) Af Amer 79, Est GFR (MDRD) Non-Af 65, BUN/Creatinine Ratio 8.6 L, Glucose 257 H, Calcium 8.2 L 01/24/21 23:30: Acetone Level MODERATE H 01/25/21 05:30: WBC 5.7, RBC 3.66 L, Hgb 11.8 L, Hct 34.0 L, MCV 92.9, MCH 32.2 H, MCHC 34.7, RDW Std Deviation 43.6, RDW Coeff of Hope 12.9, Plt Count 144 L, MPV 10.0, Immature Gran % (Auto) 0.400, Neut % (Auto) 57.3, Lymph % (Auto) 33.5, Beadle % (Auto) 7.1, Eos % (Auto) 1.2, Baso % (Auto) 0.5, Absolute Neuts (auto) 3.3, Absolute Lymphs (auto) 1.90, Nucleated RBC % 0 01/25/21 05:30: Sodium 144, Potassium 3.3 L, Chloride 116 H, Carbon Dioxide 21.0, Anion Gap 7, BUN 8, Creatinine 0.76, Estim Creat Clear Calc 67.13, Est GFR (MDRD) Af Amer 100, Est GFR (MDRD) Non-Af 83, BUN/Creatinine Ratio 10.6, Glucose 161 H, Calcium 8.2 L 01/25/21 05:30: Acetone Level SMALL H Diagnostic Data Abdomen/Pelvis CT 01/24/21 08:43 IMPRESSION: Severe constipation Hepatic hemangioma versus venous malformation (consider nonemergent ultrasound/MRI evaluation) Nonobstructing bilateral renal stones Additional nonemergent findings, as above Electronically Signed: Zhang Washington DO at 10:08 EST Tel , Service support , Current Medications Dextrose (Dextrose 50%-Water 25 Gm/50 Ml Disp.Syrin) 0 gm IV X1 PRN; Protocol PRN Reason: Hypoglycemia Protocol Dextrose (Dextrose 50%-Water 25 Gm/50 Ml Disp.Syrin) 0 gm IV X1 PRN; Protocol PRN Reason: HYPOGLYCEMIA Enoxaparin Sodium (Enoxaparin 40 Mg/0.4 Ml Syringe) 40 mg SC DAILY [facility] Last Admin: 01/25/21 08:17 Dose: 40 mg Documented by: Glucagon (Glucagon 1 Mg/Ml Syringe) 1 mg IM .X1 PRN PRN Reason: Hypoglycemia Insulin Glargine (Insulin Glargine 100 Units/Ml Pen) 15 units SC BID [facility] Last Admin: 01/25/21 08:17 Dose: 15 u Documented by: Insulin Human Lispro (Insulin Lispro 100 Unit/Ml Insuln.Pen) 0 unit SC ACHS [facility]; Protocol Last Admin: 01/25/21 08:17 Dose: 2 u Documented by: Insulin Human Lispro (Insulin Lispro 100 Unit/Ml Insuln.Pen) 5 unit SC TIDAC [facility] Last Admin: 01/25/21 08:16 Dose: 5 u Documented by: Nitroglycerin (Nitroglycerin (Inpatient Use) 0.4 Mg Tab.Subl) 0.4 mg SL Q5M PRN PRN Reason: CARDIAC/CHEST PAIN Ondansetron HCl (Ondansetron 4 Mg/2 Ml Vial) 4 mg IV Q8H PRN PRN PRN Reason: NAUSEA/VOMITING Sodium Chloride (0.9% Saline Lock 10 Ml Syringe) 10 - 40 ml IV UD PRN PRN Reason: SALINE FLUSH Last Admin: 01/25/21 08:23 Dose: 10 ml Documented by: STROKE Vital Signs/Narrative: Vital Signs Temp Pulse Resp BP BP Pulse Ox 01/25/21 11:00 98.8 F 74 18 104/62 97 01/25/21 10:00 84 19 H 105/60 98 01/25/21 09:00 81 17 109/56 L 98 01/25/21 08:00 98.8 F 74 17 105/63 99 Medical Necessity - Tobacco Use Smoking Status: Never smoker Tobacco Use: Non-smoker Assessment/Plan 60 y/o admitted with a complaint of nausea and abdominal pain as well as generalised malaise #Diabetic ketoacidosis in a newly diagnosed diabetic anion gap has now closed. on lantus sq 10 units daily will start on metformin 500mg bid critical care on board accuchecks [facility]. ISS. #Newly diagnosed diabetes mellitus: as above. A1C was 12.4 #Anion gap metabolic acidosis resolved. bicarb is 21 today and anion gap is 7 #Hypocalcemia; resolved. calcium is now 8.2. #GALINDO: Resolved. Cr is 0.76 now DVT prophylaxis: lovenox Code status: Full code Disposition; transfer out of the ICU to Med surg today. For likely dc tomorrow Inpatient E&M: 37089 Subs Hosp L2
[2021-01-25 11:36] LABS: Bedside Glucose 221 mg/dL (70-110)
--- NOTE | 2021-01-25 13:32 | NURSING ---
report called to ashli at 1330 on MS3
--- NOTE | 2021-01-25 14:50 | CASEMGMT ---
Social Work SW assisted pt in completing health care POA and Living Will. Pt naming her Jeremy glasgow as HCPOA. Original given to pt and copy placed on pt chart. BART Patterson
[2021-01-25 16:46] LABS: Bedside Glucose 269 mg/dL (70-110)
[2021-01-25 22:40] LABS: Bedside Glucose 327 mg/dL (70-110)
[2021-01-26] VITALS (7 sets, daily range): BP systolic 93–112; BP diastolic 58–66; PULSE 75–94; RESP 16–18; TEMP 36.7–36.8; O2SAT 97–98
--- NOTE | 2021-01-26 | NURSING ---
2233. this RN went in to check blood sugar and give insulin for pts HS med pass. this RN educated pt about the different types of insulin and taught pt using the teachback method of how to self check her sugars and how to self administer insulin via the insulin pens. pt administered insulin in her ABD. pt also taught where she can administer the injections, and was educated to rotate sites. this RN made sure that pt had newly diabetic teaching packet and pt agreed. pt denies further questions at this time
[2021-01-26] MEDS: Insulin Lispro 100 UNIT/ML INSULN.PEN SC ×4 (06:38→12:14)
[2021-01-26 06:45] LABS: Bedside Glucose 205 mg/dL (70-110)
[2021-01-26 09:05] LABS: Anion Gap 8 (5-15); BUN 9 mg/dL (7-18); BUN/Creat Ratio 10.1 RATIO (10-20); Calcium,Total 8.1 mg/dL (8.5-10.1); Chloride 107 mmol/L (98-107); Creatinine, Serum 0.89 mg/dL (0.55-1.02); EST Glomerular Filtration Rate 68 mL/min (>60); Est Glom Filt Rate - Afr Amer 82 mL/min (>60); Estimated Creatinine Clearance 57.32 ml/min; Glucose 202 mg/dL (74-106); Potassium 3.4 mmol/L (3.5-5.1); Sodium Level 139 mmol/L (136-145)
--- NOTE | 2021-01-26 10:43 | DCINST_ITS ---
You will use the following diet at home:: Calorie/Carbohydrate Controlled (specify 1200, 1400, etc) - 1800 calories Your food should be the consistency of: Regular Your liquids should be the consistency of: Regular/Thin Discharge Activity: Return to Normal Activity Weight Bearing Status: Weight bearing as tolerated Call your doctor if you observe: Shortness of breath, Swelling in the ankles, Chest pain, Increased palpitations (irregular heartbeat) Instructions: Using Injected Insulin, Oral Therapy for Type 2 Diabetes, Diabetes: Understanding Carbohydrates, Healthy Meals for Diabetes, Diabetes: Caring for Your Body Additional Instructions: check your blood sugar in the morning and evening before meals, and keep a blood sugar log. Present this to your PCP and sunglass clip attacher when you follow up, for adjustment of insulin dose as needed. Follow up with ict educator on outpatient basis. Allergies/Adverse Reactions: Allergies No Known Allergies Allergy (Verified 01/24/21 08:26) Medications to take at Discharge Insulin Glargine [Lantus SoloStar Pen] 20 units SC DAILY #10 pen 01/26/21 Metformin HCl 500 mg PO BID #60 tab 01/26/21 The following prescriptions were given: Insulin Glargine [Lantus SoloStar Pen] 20 units SC DAILY #10 pen Transmission Status: Pending to [facility] Metformin HCl 500 mg PO BID #60 tab Transmission Status: Pending to [facility] Orders to be completed after discharge: Glucometer Location: None Selected Primary Care Physician: Alfredo Marie MD [Primary Care Provider] - Please follow up with your Primary Care Physician in: 1-2 weeks Test Results: Test results from this visit will be discussed in further detail at your follow- up appointment, if applicable. Please Follow Up With: Alfredo Marie MD Please Follow Up With: Mayo Crawford MD When: 1-2 weeks to establish care for diabetes mellitus Proposed Discharge Date: 01/26/21
--- NOTE | 2021-01-26 10:46 | DS.PCM_ITS ---
Discharge Date and Diagnosis Date of Admission: 01/24/21 Date of Discharge: 01/26/21 - Primary Discharge Diagnosis Acute Problems: DKA newly diagnosed diabetes Hospital Course and Treatment Imaging Results: Diagnostic Data Abdomen/Pelvis CT 01/24/21 08:43 IMPRESSION: Severe constipation Hepatic hemangioma versus venous malformation (consider nonemergent ultrasound/MRI evaluation) Nonobstructing bilateral renal stones Additional nonemergent findings, as above Electronically Signed: Zhang Monacojohn, DO at 10:08 EST Tel , Service support , critical care- Dr Crouch Operations: None Summary of Care Provided: The patient is a 60 year old F with no significant past medical history who was admitted through the ED with a complaint of general malaise and nausea. Patient said she has been feeling this way for a few days, and had also been eating frequently without feeling full. He also complained of lower abdominal pain but denied any fever or chest pain. She says she has been urinating frequently but she thought it was because she had been drinking a lot of water. Review of systems otherwise negative. She does admit to a family history of diabetes but does not have any significant personal health history. In the ED, she was noted to have a temperature of 97.6 with blood pressure of 126/70, pulse rate of 85 and respiratory rate of 16. Labs done showed sodium of 139 with bicarb of 15 and anion gap of 21 with potassium of 3.8 and creatinine of 1.38. Blood glucose was 499. CT of the abdomen and pelvis showed severe constipation and hepatic hemangioma versus venous malformation as well as nonobstructing bilateral renal stones. She was admitted to be managed for DKA in a newly diagnosed diabetic as well as anion gap metabolic acidosis due to DKA. She was started on insulin drip, and admitted to the ICU. SHe was also aggressively hydrated with IVF. A1C was 12.4. Her sugars trended down and anion gap closed. She was switched to Lantus and was initially 10 units daily but this was increased to 15 units twice daily. She was transferred out of the ICU. Postop course was unclear about mild hypokalemia. She remained stable and was discharged home on 02/13/2020 with. She was started on Metformin 500 mg twice daily and discharged on Lantus 20 units daily; she was given a daily dose to help with compliance as she recently diagnosed diabetic. She was counseled to check care blood sugars in the mornings and evenings and to keep a log to present to her PCP and metal and plastic heater to evaluate, for decision to be made about adjustment of insulin dose as needed. She was referred to [place] [facility] and is to follow- up with her PCP as well. Patient seen and examined prior to discharge. She had no complaints. Review of systems otherwise negative. Labs and vitals reviewed. Home medication reviewed and reconciled. O/E: Vital Signs Temp Pulse Resp BP Pulse Ox 98.0 F 87 16 112/66 97 01/26/21 11:10 01/26/21 11:10 01/26/21 11:10 01/26/21 11:10 01/26/21 11:10 General: Alert, Oriented x3, Cooperative, No apparent distress HEENT: Atraumatic, PERRLA, EOMI, Normocephalic Oral: moist mucosa Neck: Supple, No JVD, Negative Carotid Bruits Lungs: Clear to auscultation, Normal air movement, No rhonchi, No wheeze, No rales Cardiovascular: Regular rate, Regular Rhythm, Normal S1, Normal S2, No murmurs Abdomen: Bowel Sounds Present, Soft, Non Tender, Non-Distended, No Hepato- splenomegaly Extremities: No clubbing, No cyanosis, No edema, Capillary Refill Less than 3 Seconds Skin: No rashes, No breakdown Musculoskeletal: No Tenderness to Palpation of Joints or Extremities Lymphatic: No Cervical, Supraclavicular, or Inguinal Adenopathy Neurological: Cranial nerves II-XII grossly intact, Neuro grossly intact, Motor Exam 5/5 strength throughout Psych/Mental Status: Normal Affect, Appropriate, Alert and oriented to time, place, person, mood and affect Plan is for discharge home today. - Physical Exam Vitals/I&O's: Vital Signs Temp Pulse Resp BP Pulse Ox 98.2 F 94 16 108/66 98 01/26/21 07:54 01/26/21 08:02 01/26/21 07:54 01/26/21 07:54 01/26/21 07:54 Oxygen Delivery Method Room Air Weight: 125 lb 10.616 oz Body Mass Index (BMI) 21.3 Finger Stick Blood Glucose 317 Intake and Output for Last 24 Hours 01/24/21 01/25/21 01/26/21 23:59 23:59 23:59 Intake Total 4143.0 / 4143.0 2176.35 / 2176.35 350 / 350 Output Total 300 / 300 Balance 4143.0 / 4143.0 1876.35 / 1876.35 350 / 350 Laboratory Results 01/25/21 11:20: POC Glucose 221 H 01/25/21 16:36: POC Glucose 269 H 01/25/21 22:29: POC Glucose 327 H 01/26/21 06:37: POC Glucose 205 H 01/26/21 08:45: Sodium 139, Potassium 3.4 L, Chloride 107, Carbon Dioxide 24.0, Anion Gap 8, BUN 9, Creatinine 0.89, Estim Creat Clear Calc 57.32, Est GFR (MDRD) Af Amer 82, Est GFR (MDRD) Non-Af 68, BUN/Creatinine Ratio 10.1, Glucose 202 H, Calcium 8.1 L Current Medications Dextrose (Dextrose 50%-Water 25 Gm/50 Ml Disp.Syrin) 0 gm IV X1 PRN; Protocol PRN Reason: Hypoglycemia Protocol Dextrose (Dextrose 50%-Water 25 Gm/50 Ml Disp.Syrin) 0 gm IV X1 PRN; Protocol PRN Reason: HYPOGLYCEMIA Enoxaparin Sodium (Enoxaparin 40 Mg/0.4 Ml Syringe) 40 mg SC DAILY [facility] Last Admin: 01/25/21 08:17 Dose: 40 mg Documented by: Glucagon (Glucagon 1 Mg/Ml Syringe) 1 mg IM .X1 PRN PRN Reason: Hypoglycemia Insulin Glargine (Insulin Glargine 100 Units/Ml Pen) 15 units SC BID [facility] Last Admin: 01/25/21 22:30 Dose: 15 u Documented by: Insulin Human Lispro (Insulin Lispro 100 Unit/Ml Insuln.Pen) 0 unit SC ACHS [facility]; Protocol Last Admin: 01/26/21 06:38 Dose: 4 u Documented by: Insulin Human Lispro (Insulin Lispro 100 Unit/Ml Insuln.Pen) 5 unit SC TIDAC [facility] Last Admin: 01/26/21 06:38 Dose: 5 u Documented by: Nitroglycerin (Nitroglycerin (Inpatient Use) 0.4 Mg Tab.Subl) 0.4 mg SL Q5M PRN PRN Reason: CARDIAC/CHEST PAIN Ondansetron HCl (Ondansetron 4 Mg/2 Ml Vial) 4 mg IV Q8H PRN PRN PRN Reason: NAUSEA/VOMITING Sodium Chloride (0.9% Saline Lock 10 Ml Syringe) 10 - 40 ml IV UD PRN PRN Reason: SALINE FLUSH Last Admin: 01/25/21 08:23 Dose: 10 ml Documented by: Discharge Diet: Low fat/ Low Cholesterol Discharge Activity: Return to Normal Activity Weight Bearing Status: Weight bearing as tolerated Call your doctor if you observe: Shortness of breath, Swelling in the ankles, Chest pain, Increased palpitations (irregular heartbeat) Home Medications: Medications to take at Discharge Insulin Glargine [Lantus SoloStar Pen] 20 units SC DAILY #10 pen 01/26/21 Metformin HCl 500 mg PO BID #60 tab 01/26/21 [place], Insulin Disposable [Novofine Autocover 30G Needle] 1 ea MISCELL. UD #1 box 01/26/21 Following Prescriptions Were Given to Patient: Insulin Glargine [Lantus SoloStar Pen] 20 units SC DAILY #10 pen Transmission Status: Received by [facility] Metformin HCl 500 mg PO BID #60 tab Transmission Status: Received by [facility] [place], Insulin Disposable [Novofine Autocover 30G Needle] 1 ea MISCELL. UD #1 box Transmission Status: Pending to [facility] Other Amb Orders: Glucometer Location: None Selected Primary Care Physician: Alfredo Marie MD [Primary Care Provider] - Please follow up with your Primary Care Physician in: 1-2 weeks Please Follow Up With: Alfredo Marie MD Please Follow Up With: Mayo Crawford MD When: 1-2 weeks to establish care for diabetes mellitus Patient Instructions: Using Injected Insulin, Oral Therapy for Type 2 Diabetes, Healthy Meals for Diabetes, Diabetes: Understanding Carbohydrates, Diabetes: Caring for Your Body Disposition: Home Minutes spent on discharge:: 40 Patient Condition:: Stable Medical Necessity - Tobacco Use Smoking Status: Never smoker Tobacco Use: Non-smoker Meaningful Use Info Meaningful Use Diagnoses (Choose all that apply): None applicable Inpatient E&M: 59791 Disch Hosp
[2021-01-26] MEDS: Potassium Chloride Oral Tablet 20 MEQ 40 MEQ PO (11:12)
--- NOTE | 2021-01-26 12:18 | NURSING ---
Pt checked blood sugar of 321 with home glucometer for discharge teaching.
== END 2021-01-26 13:25 | disposition home or self-care (01) | DRG 638 ==
LOC: ED 09:23 → ICU 11:13 → MS3 01-25 14:16
PROVIDERS: Internal Medicine; Admitting Provider Student in an Organized Health Care Education/Training Program; Emergency Provider Student in an Organized Health Care Education/Training Program; PCP Family Medicine; Visit Provider Student in an Organized Health Care Education/Training Program
DX: E11.10 Type 2 diabetes mellitus with ketoacidosis without coma (principal); N17.9 Acute kidney failure, unspecified; Z83.3 Family history of diabetes mellitus; E83.51 Hypocalcemia; E86.0 Dehydration; E87.6 Hypokalemia; K59.00 Constipation, unspecified
CPT/HCPCS: 36415; 74177; 80048; 80053; 82009; 82962; 83036; 83690; 84484; 85025; 94762; 97802; 97803; 99284; J7030; Q9967; A4216; J0610; J3490

== ENCOUNTER → 2021-01-28 10:55 | Outpatient (CLI) | payer OTHER, SELFPAY ==
[2021-01-24 15:55] VITALS: BMI 21.3
[2021-01-28 12:58] LABS: Anion Gap 12 (5-15); BUN 9 mg/dL (7-18); BUN/Creat Ratio 12.6 RATIO (10-20); Calcium,Total 8.8 mg/dL (8.5-10.1); Chloride 97 mmol/L (98-107); Creatinine, Serum 0.72 mg/dL (0.55-1.02); EST Glomerular Filtration Rate 88 mL/min (>60); Est Glom Filt Rate - Afr Amer 107 mL/min (>60); Glucose 339 mg/dL (74-106); Potassium 4.1 mmol/L (3.5-5.1); Sodium Level 135 mmol/L (136-145)
== END ==
PROVIDERS: PCP Family Medicine; Visit Provider Family Medicine
DX: E11.9 Type 2 diabetes mellitus without complications (principal)
CPT/HCPCS: 36415; 80048

== ENCOUNTER 2021-01-30 14:30 | Outpatient (RCR) | payer OTHER, SELFPAY ==
[2021-01-24 15:55] VITALS: BMI 21.3
== END 2021-02-13 23:59 ==
LOC: DC 14:30
PROVIDERS: PCP Family Medicine; Visit Provider Family Medicine
DX: E11.9 Type 2 diabetes mellitus without complications (principal)
CPT/HCPCS: G0108

== ENCOUNTER → 2021-02-13 06:36 | Outpatient (CLI) | payer OTHER, SELFPAY ==
[2021-01-24 15:55] VITALS: BMI 21.3
--- NOTE | 2021-02-13 06:48 | MRI_ITS ---
MR Abdomen WO/W Contrast 02/13/2021 7:15 AM COMPARISON: CT 01/24/2021 CLINICAL HISTORY: LIVER LESION TECHNIQUE: Multiplanar T1 and T2 weighted, diffusion and dynamic post-gadolinium images were obtained through the abdomen. FINDINGS: Liver: In the dome of the liver there is an irregularly-shaped T1 hypointense/T2 hyperintense lesion measuring 2 x 2.9 x 1.4 cm. It is in close proximity to a branch of the right hepatic vein and branches of the portal vein. It follows the signal characteristics of the hepatic vein, including after contrast administration. Gallbladder: Unremarkable Spleen: Unremarkable Pancreas: Unremarkable Adrenal Glands: Unremarkable Kidneys: Bilateral non-obstructing renal stones. 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 Electronically Signed: Kali López MD at 23:48 EDT Tel , Service support ,
== END ==
PROVIDERS: PCP Family Medicine; Referring Provider Family Medicine; Visit Provider Family Medicine
DX: K76.9 Liver disease, unspecified (principal)
CPT/HCPCS: 74183; A9575; A4216

== ENCOUNTER 2021-02-27 08:30 | Outpatient (RCR) | payer OTHER, SELFPAY ==
[2021-01-24 15:55] VITALS: BMI 21.3
== END 2021-03-15 23:59 ==
LOC: DC 08:30
PROVIDERS: PCP Family Medicine; Visit Provider Family Medicine
DX: E11.9 Type 2 diabetes mellitus without complications (principal)
CPT/HCPCS: 97802; G0108

== ENCOUNTER → 2021-03-18 15:21 | Outpatient (CLI) | payer OTHER, SELFPAY ==
[2021-01-24 15:55] VITALS: BMI 21.3
[2021-03-18 17:55] LABS: Insulin 6.1 mU/L (2.6-37.6)
[2021-03-18 18:16] LABS: ALB/GLOB Ratio 1.4 RATIO (0.9-2.4); AST(SGOT) 18 U/L (15-37); Alanine Aminotransfer ALT/SGPT 30 U/L (13-56); Albumin, Serum 4.2 g/dL (3.2-5.0); Alkaline Phosphatase 67 U/L (45-117); Anion Gap 7 (5-15); BUN 13 mg/dL (7-18); BUN/Creat Ratio 18.7 RATIO (10-20); Calcium,Total 9.1 mg/dL (8.5-10.1); Chloride 100 mmol/L (98-107); EST Glomerular Filtration Rate 91 mL/min (>60); Est Glom Filt Rate - Afr Amer 110 mL/min (>60); Globulin 3.1 g/dL (2.2-4.2); Glucose 211 mg/dL (74-106); Magnesium 2.2 mg/dL (1.6-2.6); Protein, Total 7.3 g/dL (6.4-8.2); Sodium Level 137 mmol/L (136-145); Thyroid Stim Hormone (TSH) 1.48 uIU/mL (0.358-3.74)
[2021-03-18 18:17] LABS: Microalbumin,Random Urine 13.2 mg/L (NO RANGE EST.); Microalbumin:Creatinine Ratio 14.5 mg/g CRE (<30 mg/g CRE)
[2021-03-20 16:38] LABS: Anti-Thyroglobulin AB < 1.0 IU/mL (0.0-0.9); Thyroglobulin, Serum Qt. 17.8 ng/mL (1.5-38.5); Thyroid Peroxidase AB 255 IU/mL (0-34)
== END ==
PROVIDERS: PCP Family Medicine; Referring Provider Internal Medicine Endocrinology, Diabetes & Metabolism; Visit Provider Internal Medicine Endocrinology, Diabetes & Metabolism
DX: E11.9 Type 2 diabetes mellitus without complications (principal); E04.0 Nontoxic diffuse goiter; E55.9 Vitamin D deficiency, unspecified; E83.42 Hypomagnesemia
CPT/HCPCS: 36415; 80053; 82043; 82306; 82570; 83525; 83735; 84432; 84443; 86376; 86800

== ENCOUNTER 2021-04-10 07:58 | Outpatient (RCR) | payer OTHER, SELFPAY ==
[2021-01-24 15:55] VITALS: BMI 21.3
== END 2021-04-10 23:59 | disposition home or self-care (01) ==
LOC: DC 07:58
PROVIDERS: PCP Family Medicine; Visit Provider Family Medicine
DX: E11.9 Type 2 diabetes mellitus without complications (principal)
CPT/HCPCS: 97803

== ENCOUNTER → 2021-05-01 08:28 | Outpatient (CLI) | payer OTHER, SELFPAY ==
[2021-01-24 15:55] VITALS: BMI 21.3
--- NOTE | 2021-05-01 08:31 | BI_ITS ---
MAMMOGRAPHY - BILATERAL SCREENING REASON FOR EXAM: Female, 60 years old. Routine annual screening examination. PERTINENT HISTORY: Mother with breast cancer. Grandmother with breast cancer. TECHNIQUE: Digital bilateral breast tuan (3D mammographic acquisition) in the CC and MLO projections. 2-D mediolateral oblique (MLO) and craniocaudad (CC) views of both breasts were obtained. CAD: Full Field Digital Mammography with Computer Added Detection was performed. COMPARISON: Comparison is made with prior examination dated 04/23/2020 and 11/22/2018. FINDINGS: Breast Composition: The breasts are heterogeneously dense, which may obscure small masses. There are no dominant masses or suspicious calcifications. No other significant abnormalities are identified. There has been no significant change since the prior study. BI/SCREENING MAMM (CAD), BILAT IMPRESSION: Stable bilateral screening mammogram. Yearly follow-up mammogram recommended. (A) ASSESSMENT CATEGORY: BIRADS Category 1: Negative. A letter regarding these results will be sent to the patient by the facility within 30 days. Approximately 10% of breast cancers are not detected by mammography. A normal mammogram should not delay biopsy of a clinically suspicious abnormality. [id number] Electronically Signed: Cheng Strickland MD at 9:23 EDT , Service support ,
== END ==
PROVIDERS: PCP Family Medicine; Referring Provider Family Medicine; Visit Provider Family Medicine
DX: Z12.31 Encounter for screening mammogram for malignant neoplasm of breast (principal)
CPT/HCPCS: 77063; 77067

== ENCOUNTER → 2021-05-06 10:25 | Outpatient (CLI) | payer OTHER, SELFPAY ==
[2021-01-24 15:55] VITALS: BMI 21.3
[2021-05-06 12:38] LABS: Hemoglobin A1c 5.7 % (3.8-5.6)
[2021-05-06 12:50] LABS: ALB/GLOB Ratio 1.3 RATIO (0.9-2.4); AST(SGOT) 12 U/L (15-37); Alanine Aminotransfer ALT/SGPT 20 U/L (13-56); Albumin, Serum 3.9 g/dL (3.2-5.0); Alkaline Phosphatase 53 U/L (45-117); Anion Gap 6 (5-15); BUN 15 mg/dL (7-18); BUN/Creat Ratio 21.6 RATIO (10-20); Calcium,Total 9.1 mg/dL (8.5-10.1); Chloride 103 mmol/L (98-107); Cholesterol 190 mg/dL (200); Creatinine, Serum 0.69 mg/dL (0.55-1.02); EST Glomerular Filtration Rate 91 mL/min (>60); Est Glom Filt Rate - Afr Amer 111 mL/min (>60); Glucose 108 mg/dL (74-106); High Density Lipoprotein 89 mg/dL; Potassium 3.8 mmol/L (3.5-5.1); Protein, Total 6.9 g/dL (6.4-8.2); Sodium Level 138 mmol/L (136-145); Triglycerides 65 mg/dL; Very Low Density Lipoprotein 13 mg/dL (5-40)
== END ==
PROVIDERS: PCP Family Medicine
DX: E11.9 Type 2 diabetes mellitus without complications (principal); E78.2 Mixed hyperlipidemia
CPT/HCPCS: 36415; 80053; 80061; 83036

== ENCOUNTER → 2021-06-03 15:05 | Outpatient (CLI) | payer OTHER, SELFPAY ==
[2021-01-24 15:55] VITALS: BMI 21.3
[2021-06-03 18:12] LABS: Vitamin B12 458 pg/mL (211-911); Vitamin D,25 Hydroxy 51.5 ng/mL
[2021-06-03 18:30] LABS: ALB/GLOB Ratio 1.4 RATIO (0.9-2.4); AST(SGOT) 20 U/L (15-37); Alanine Aminotransfer ALT/SGPT 54 U/L (13-56); Albumin, Serum 4.1 g/dL (3.2-5.0); Alkaline Phosphatase 59 U/L (45-117); Anion Gap 6 (5-15); BUN 14 mg/dL (7-18); BUN/Creat Ratio 17.8 RATIO (10-20); Calcium,Total 8.9 mg/dL (8.5-10.1); Chloride 107 mmol/L (98-107); Creatinine, Serum 0.79 mg/dL (0.55-1.02); EST Glomerular Filtration Rate 79 mL/min (>60); Est Glom Filt Rate - Afr Amer 95 mL/min (>60); Ferritin 130 ng/mL (8-252); Glucose 95 mg/dL (74-106); Iron 93 ug/dL (50-170); Potassium 3.8 mmol/L (3.5-5.1); Protein, Total 7.1 g/dL (6.4-8.2); Sodium Level 141 mmol/L (136-145); Thyroid Stim Hormone (TSH) 0.98 uIU/mL (0.358-3.74)
[2021-06-05 16:08] LABS: Endomysial Antibody IgA Negative (Negative); Immunoglobulin A 201 mg/dL (87-352)
[2021-06-05 16:45] LABS: C-Peptide 1.1 ng/mL (1.1-4.4); t-Transglutaminase IgA <2 U/mL (0-3)
== END ==
PROVIDERS: PCP Family Medicine
DX: E10.9 Type 1 diabetes mellitus without complications (principal); E06.3 Autoimmune thyroiditis; E55.9 Vitamin D deficiency, unspecified; E61.1 Iron deficiency; K90.9 Intestinal malabsorption, unspecified; N20.0 Calculus of kidney
CPT/HCPCS: 36415; 80053; 82306; 82607; 82728; 82784; 83516; 83540; 84443; 84681; 86255

== ENCOUNTER → 2021-06-06 07:19 | Outpatient (CLI) | payer OTHER, SELFPAY ==
[2021-01-24 15:55] VITALS: BMI 21.3
== END ==
PROVIDERS: PCP Family Medicine
DX: E10.9 Type 1 diabetes mellitus without complications (principal); E06.3 Autoimmune thyroiditis; E55.9 Vitamin D deficiency, unspecified; E61.1 Iron deficiency; D51.9 Vitamin B12 deficiency anemia, unspecified; K90.9 Intestinal malabsorption, unspecified
CPT/HCPCS: 81050

== ENCOUNTER → 2021-07-08 11:15 | Outpatient (CLI) | payer OTHER, SELFPAY ==
[2021-07-11 08:59] LABS: HPV APTIMA, High Risk Negative (Negative)
[2021-07-11 09:00] LABS: HPV Reflexed? YES, CHARGE PATIENT
== END ==
PROVIDERS: PCP Family Medicine; Referring Provider Family Medicine; Visit Provider Nurse Practitioner Family
DX: Z12.4 Encounter for screening for malignant neoplasm of cervix (principal)
CPT/HCPCS: 87624; 88175; G0145

== ENCOUNTER → 2021-08-14 09:04 | Outpatient (CLI) | payer OTHER, SELFPAY ==
--- NOTE | 2021-08-14 09:22 | BD_ITS ---
STUDY: DUAL ENERGY X-RAY ABSORPTIOMETRY / DXA REASON FOR EXAM: Female, 60 years old. M85.89. Patient is postmenopausal. TECHNIQUE: Bone Mineral Density (BMD) measurements of lumbar spine and bilateral hips were obtained. COMPARISON: Comparison is made with prior study dated 12/16/2017. FINDINGS: Lumbar Spine (L1-L4): g/cm2 (0.809) / T-score (-2.2) / Z-score (-0.6) Findings are suggestive of osteopenia with a high fracture risk. Left Femur Total: g/cm2 (0.656) / T-score (-2.3) / Z-score (-1.3) Left Femoral Neck: g/cm2 (0.544) / T-score (-2.7) / Z-score (-1.4) Right Femur Total: g/cm2 (0.636) / T-score (-2.5) / Z-score (-1.5) Right Femoral Neck: g/cm2 (0.493) / T-score (-3.2) / Z-score (-1.8) The T-Scores on the most recent prior examination were: Lumbar Spine (L1-L4): There has been worsening of bone density since the previous examination. Left Femur Total: which represents an improvement of 2.9%. Right Femur Total: which represents an improvement of 1.8%. BD/Dexa Bone Density Study IMPRESSION: The patient is considered osteoporotic as outlined below according to World Samy Organization (WHO) criteria with a high fracture risk. There has been improvement of bone density since the previous examination. Reference Information: The T-score is the number of standard deviations above or below the standard which is normal for young adults at their peak bone mineral density. The World Health Organization (WHO) interprets the T-scores as follows: Above -1 Normal bone density Between -1 and -2.5 Osteopenia Equal to / or below -2.5 Osteoporosis As a practical clinical guideline, osteopenia may be graded as follows: Mild -1 through -1.5 Moderate -1.6 through -2.0 Severe -2.1 through -2.4 The Z-score is the number of standard deviations above or below age-matched controls. A Z-score of less than -1.5 would be considered abnormal. References: 1. NIH Osteoporosis and Related Bone Diseases www osteo.org 2. International Society for Clinical Densitometry www iscd.org 3. National Osteoporosis Foundation www nof.org Electronically Signed: Cheng Strickland MD at 8:42 EDT , Service support ,
== END ==
PROVIDERS: PCP Family Medicine; Referring Provider Internal Medicine Endocrinology, Diabetes & Metabolism; Visit Provider Internal Medicine Endocrinology, Diabetes & Metabolism
DX: M85.89 Other specified disorders of bone density and structure, multiple sites (principal)
CPT/HCPCS: 77080

== ENCOUNTER → 2021-08-26 08:07 | Outpatient (CLI) | payer OTHER, SELFPAY ==
[2021-08-26 10:10] LABS: Hemoglobin A1c 5.5 % (3.8-5.6)
[2021-08-26 10:17] LABS: ALB/GLOB Ratio 1.2 RATIO (0.9-2.4); AST(SGOT) 20 U/L (15-37); Alanine Aminotransfer ALT/SGPT 34 U/L (13-56); Albumin, Serum 3.6 g/dL (3.2-5.0); Alkaline Phosphatase 50 U/L (45-117); Anion Gap 7 (5-15); BUN 14 mg/dL (7-18); BUN/Creat Ratio 19.6 RATIO (10-20); Calcium,Total 8.7 mg/dL (8.5-10.1); Chloride 104 mmol/L (98-107); Creatinine, Serum 0.72 mg/dL (0.55-1.02); EST Glomerular Filtration Rate 88 mL/min (>60); Est Glom Filt Rate - Afr Amer 106 mL/min (>60); Glucose 104 mg/dL (74-106); Potassium 3.9 mmol/L (3.5-5.1); Protein, Total 6.6 g/dL (6.4-8.2); Sodium Level 141 mmol/L (136-145)
== END ==
PROVIDERS: PCP Family Medicine; Referring Provider Internal Medicine Endocrinology, Diabetes & Metabolism; Visit Provider Internal Medicine Endocrinology, Diabetes & Metabolism
DX: E11.9 Type 2 diabetes mellitus without complications (principal)
CPT/HCPCS: 36415; 80053; 83036

== ENCOUNTER → 2021-09-11 12:43 | Outpatient (CLI) | payer OTHER, SELFPAY ==
[2021-09-11 15:27] LABS: ALB/GLOB Ratio 1.1 RATIO (0.9-2.4); AST(SGOT) 22 U/L (15-37); Alanine Aminotransfer ALT/SGPT 42 U/L (13-56); Albumin, Serum 3.9 g/dL (3.2-5.0); Alkaline Phosphatase 56 U/L (45-117); Anion Gap 6 (5-15); BUN 21 mg/dL (7-18); BUN/Creat Ratio 27.5 RATIO (10-20); Calcium,Total 9.1 mg/dL (8.5-10.1); Chloride 102 mmol/L (98-107); Creatinine, Serum 0.76 mg/dL (0.55-1.02); EST Glomerular Filtration Rate 81 mL/min (>60); Est Glom Filt Rate - Afr Amer 98 mL/min (>60); Globulin 3.4 g/dL (2.2-4.2); Glucose 142 mg/dL (74-106); Potassium 4.2 mmol/L (3.5-5.1); Protein, Total 7.3 g/dL (6.4-8.2); Sodium Level 138 mmol/L (136-145)
[2021-09-12 08:22] LABS: PTHIN 43.3 pg/mL (18.4-80.1)
== END ==
PROVIDERS: PCP Family Medicine; Referring Provider Internal Medicine Endocrinology, Diabetes & Metabolism; Visit Provider Internal Medicine Endocrinology, Diabetes & Metabolism
DX: E10.9 Type 1 diabetes mellitus without complications (principal); E21.5 Disorder of parathyroid gland, unspecified
CPT/HCPCS: 36415; 80053; 83970

== ENCOUNTER → 2021-11-14 07:08 | Outpatient (CLI) | payer OTHER, SELFPAY ==
[2021-11-14 10:42] LABS: ALB/GLOB Ratio 1.2 RATIO (0.9-2.4); AST(SGOT) 23 U/L (15-37); Alanine Aminotransfer ALT/SGPT 37 U/L (13-56); Albumin, Serum 3.6 g/dL (3.2-5.0); Alkaline Phosphatase 51 U/L (45-117); Anion Gap 7 (5-15); BUN 16 mg/dL (7-18); BUN/Creat Ratio 23.2 RATIO (10-20); Calcium,Total 8.9 mg/dL (8.5-10.1); Chloride 104 mmol/L (98-107); Creatinine, Serum 0.69 mg/dL (0.55-1.02); EST Glomerular Filtration Rate 92 mL/min (>60); Est Glom Filt Rate - Afr Amer 111 mL/min (>60); Globulin 2.9 g/dL (2.2-4.2); Glucose 100 mg/dL (74-106); Potassium 3.7 mmol/L (3.5-5.1); Protein, Total 6.5 g/dL (6.4-8.2); Sodium Level 140 mmol/L (136-145)
[2021-11-14 10:48] LABS: Hemoglobin A1c 5.8 % (3.8-5.6)
== END ==
PROVIDERS: PCP Nurse Practitioner Family; Referring Provider Internal Medicine Endocrinology, Diabetes & Metabolism; Visit Provider Internal Medicine Endocrinology, Diabetes & Metabolism
DX: E11.9 Type 2 diabetes mellitus without complications (principal)
CPT/HCPCS: 36415; 80053; 83036

== ENCOUNTER 2021-11-21 10:30 | Outpatient (CLI) | payer OTHER, SELFPAY | END 2021-11-21 23:59 | disposition short-term general hospital (02) | LOC: LABSPEC 10:30 | PROVIDERS: PCP Nurse Practitioner Family; Referring Provider Physician Assistant; Visit Provider Physician Assistant | DX: Z11.52 Encounter for screening for COVID-19 (principal) | CPT/HCPCS: 87635; U0003; U0005 ==

== ENCOUNTER 2022-02-26 07:32 | Outpatient (CLI) | payer OTHER, SELFPAY ==
[2022-02-26 10:46] LABS: Microalbumin:Creatinine Ratio 10.3 mg/g CRE (<30 mg/g CRE)
[2022-02-26 10:50] LABS: ALB/GLOB Ratio 1.3 RATIO (0.9-2.4); AST(SGOT) 21 U/L (15-37); Alanine Aminotransfer ALT/SGPT 39 U/L (13-56); Albumin, Serum 3.7 g/dL (3.2-5.0); Alkaline Phosphatase 55 U/L (45-117); Anion Gap 5 (5-15); BUN 15 mg/dL (7-18); BUN/Creat Ratio 18.2 RATIO (10-20); Calcium,Total 8.9 mg/dL (8.5-10.1); Chloride 107 mmol/L (98-107); Cholesterol 205 mg/dL (200); Creatinine, Serum 0.83 mg/dL (0.55-1.02); EST Glomerular Filtration Rate 74 mL/min (>60); Est Glom Filt Rate - Afr Amer 90 mL/min (>60); Globulin 2.9 g/dL (2.2-4.2); Glucose 81 mg/dL (74-106); High Density Lipoprotein 97 mg/dL; Potassium 3.8 mmol/L (3.5-5.1); Protein, Total 6.6 g/dL (6.4-8.2); Sodium Level 141 mmol/L (136-145); Thyroid Stim Hormone (TSH) 2.54 uIU/mL (0.358-3.74); Triglycerides 42 mg/dL; Very Low Density Lipoprotein 8 mg/dL (5-40)
== END 2022-02-26 23:59 | disposition home or self-care (01) ==
LOC: MTLAB 07:34
PROVIDERS: PCP Nurse Practitioner Family; Referring Provider Internal Medicine Endocrinology, Diabetes & Metabolism; Visit Provider Internal Medicine Endocrinology, Diabetes & Metabolism
DX: E10.9 Type 1 diabetes mellitus without complications (principal); E04.0 Nontoxic diffuse goiter; E78.2 Mixed hyperlipidemia
CPT/HCPCS: 36415; 80053; 80061; 82043; 82570; 83036; 84443

== ENCOUNTER → 2022-06-20 | Outpatient (CLI) | payer OTHER, SELFPAY ==
[2022-06-20 10:25] LABS: Vitamin D,25 Hydroxy 77.5 ng/mL
[2022-06-20 10:42] LABS: ALB/GLOB Ratio 1.3 RATIO (0.9-2.4); AST(SGOT) 28 U/L (15-37); Alanine Aminotransfer ALT/SGPT 43 U/L (13-56); Albumin, Serum 3.8 g/dL (3.2-5.0); Alkaline Phosphatase 49 U/L (45-117); Anion Gap 5 (5-15); BUN 19 mg/dL (7-18); BUN/Creat Ratio 25.5 RATIO (10-20); Calcium,Total 8.7 mg/dL (8.5-10.1); Chloride 105 mmol/L (98-107); Cholesterol 192 mg/dL (200); Creatinine, Serum 0.74 mg/dL (0.55-1.02); EST Glomerular Filtration Rate 84 mL/min (>60); Est Glom Filt Rate - Afr Amer 101 mL/min (>60); Glucose 80 mg/dL (74-106); High Density Lipoprotein 96 mg/dL; Potassium 3.7 mmol/L (3.5-5.1); Protein, Total 6.8 g/dL (6.4-8.2); Sodium Level 139 mmol/L (136-145); Triglycerides 47 mg/dL; Very Low Density Lipoprotein 9 mg/dL (5-40)
== END | disposition home or self-care (01) ==
LOC: MTLAB 07:05
PROVIDERS: PCP Nurse Practitioner Family; Referring Provider Internal Medicine Endocrinology, Diabetes & Metabolism; Visit Provider Internal Medicine Endocrinology, Diabetes & Metabolism
DX: E10.9 Type 1 diabetes mellitus without complications (principal); E55.9 Vitamin D deficiency, unspecified; E78.2 Mixed hyperlipidemia
CPT/HCPCS: 36415; 80053; 80061; 82306

== ENCOUNTER → 2022-07-14 | Outpatient (CLI) | payer OTHER, SELFPAY ==
--- NOTE | 2022-07-14 12:33 | BI_ITS ---
MAMMOGRAPHY - BILATERAL SCREENING REASON FOR EXAM: Female, 61 years old. Routine annual screening examination. PERTINENT HISTORY: Mother with breast cancer. Grandmother with breast cancer. TECHNIQUE: Digital bilateral breast rinku (3D mammographic acquisition) in the CC and MLO projections. 2-D mediolateral oblique (MLO) and craniocaudad (CC) views of both breasts were obtained. CAD: Full Field Digital Mammography with Computer Added Detection was performed. COMPARISON: Comparison is made with prior study dated 05/01/2021 and 04/23/2020. FINDINGS: Breast Composition: The breasts are extremely dense, which lowers the sensitivity of mammography. There are no dominant masses or suspicious calcifications. No other significant abnormalities are identified. There has been no significant change since the prior study. BI/SCRN MAMM (CAD)W/RINKU BILAT IMPRESSION: Stable bilateral screening mammogram. Yearly follow-up mammogram recommended. (A) ASSESSMENT CATEGORY: BIRADS Category 1: Negative. A letter regarding these results will be sent to the patient by the facility within 30 days. Approximately 10% of breast cancers are not detected by mammography. A normal mammogram should not delay biopsy of a clinically suspicious abnormality. [id number] Electronically Signed: Cheng Strickland MD at 13:13 EDT ,
== END | disposition home or self-care (01) ==
LOC: OPBI 12:31
PROVIDERS: PCP Family Medicine; Visit Provider Family Medicine
DX: Z12.31 Encounter for screening mammogram for malignant neoplasm of breast (principal)
CPT/HCPCS: 77063; 77067

== ENCOUNTER → 2022-11-03 | Outpatient (CLI) | payer OTHER, SELFPAY ==
[2022-11-03 10:35] LABS: Hemoglobin A1c 6.2 % (3.8-5.6)
[2022-11-03 11:01] LABS: ALB/GLOB Ratio 1.1 RATIO (0.9-2.4); AST(SGOT) 26 U/L (15-37); Alanine Aminotransfer ALT/SGPT 41 U/L (13-56); Albumin, Serum 3.7 g/dL (3.2-5.0); Alkaline Phosphatase 49 U/L (45-117); Anion Gap 3 (5-15); BUN 17 mg/dL (7-18); Chloride 104 mmol/L (98-107); Creatinine, Serum 0.74 mg/dL (0.55-1.02); EST Glomerular Filtration Rate 85 mL/min (>60); Est Glom Filt Rate - Afr Amer 102 mL/min (>60); Globulin 3.3 g/dL (2.2-4.2); Glucose 101 mg/dL (74-106); Potassium 4.3 mmol/L (3.5-5.1); Sodium Level 138 mmol/L (136-145); Thyroid Stim Hormone (TSH) 1.99 uIU/mL (0.358-3.74)
== END | disposition home or self-care (01) ==
LOC: LAB 09:35
PROVIDERS: PCP Family Medicine; Referring Provider Internal Medicine Endocrinology, Diabetes & Metabolism; Visit Provider Internal Medicine Endocrinology, Diabetes & Metabolism
DX: E10.9 Type 1 diabetes mellitus without complications (principal); E04.0 Nontoxic diffuse goiter
CPT/HCPCS: 36415; 80053; 83036; 84443

== ENCOUNTER 2022-12-03 08:48 | Day surgery (SDC) | payer OTHER, SELFPAY ==
[2022-12-03] VITALS (8 sets, daily range): BP systolic 86–108; BP diastolic 48–59; PULSE 60–70; RESP 14–16; TEMP 36.1–36.6; O2SAT 100; BMI 18.9
[2022-12-03] MEDS: Lactated Ringers 1,000 ML 15 ML IV (09:15)
--- NOTE | 2022-12-03 09:23 | PCM.HP.STD ---
HPI - General General Date of Admission: 12/03/22 Date of Service: 12/03/22 Chief Complaint: Screening colonoscopy HPI Narrative TEMITOPE WELLS, is a 62 F who presents today for screening colonoscopy. She has past medical history positive for insulin-dependent diabetes mellitus. She is not having abdominal pain. She denied any cramping. She denied any nausea. She denies any chest pain or shortness of breath. All other 16 review of systems are negative except as per body mentioned HPI. COUNTS INCLUDE 234 BEDS AT THE [facility] Medical History (Updated 11/28/22 @ 11:20 by Latoya Graham) Diabetes type I Dietary restriction Cierra's disease Insulin dependent diabetes mellitus Non-smoker Post-menopausal Thyroid disease Home Medications pen needle, diabetic, safety 30 gauge x 1/3 ##1 01/26/21 [Rx Last Taken Unknown] calcium phosphate-vitamin D3 250 mg calcium-250 unit chewable tablet 1 tab PO DAILY 10/06/22 [History Last Taken Unknown] cholecalciferol (vitamin D3) 25 mcg (1,000 unit) capsule 25 mcg PO DAILY 10/06/22 [History Last Taken Unknown] ibandronate 150 mg tablet 150 mg PO QMONTH 10/06/22 [History Last Taken Unknown] pen needle, diabetic 31 gauge x 1/4 (1st Tier Unifine Pentips) 10/06/22 [History Last Taken Unknown] selenium 200 mcg capsule 200 mcg PO DAILY 10/06/22 [History Last Taken Unknown] insulin glargine U-300 conc 300 unit/mL (1.5 mL) subcutaneous pen (Toujeo SoloStar U-300 Insulin) 60 unit subcut DAILY 11/28/22 [History Last Taken Unknown] Allergy/AdvReac Type Severity Reaction Status Date / Time No Known Allergies Allergy Verified 12/03/22 09:12 Family History (Updated 10/06/22 @ 10:22 by Martha Crawford) Father Cancer Myelofibrosis Brother Diabetes Renal failure Renal transplant recipient Uncle Diabetes Grandmother Myocardial infarction Mother Myocardial infarction Breast cancer Surgical History Hx of appendectomy Social History Smoking Status: Never smoker alcohol intake: current alcohol intake frequency: a few times a month Alcohol type: wine substance use type: does not use what type of physical activity do you participate in: walking ROS Review of Systems ROS Unobtainable: other Constitutional Constitutional: Denies fatigue, fever(s), poor appetite, weight gain or weight loss ENT HEENT: Denies mouth lesions Cardiovascular Cardiovascular: Denies abdominal bloating, abdominal edema or abdominal pain Respiratory/Chest Respiratory/Chest: Denies change in mental status, change in phlegm color, chest congestion or chest tightness Gastrointestinal Gastrointestinal: Denies belching, bloating, change in bowel habits, change in stool character, chewing difficulty, coffee ground emesis, constipation, cramping, diarrhea, dyspepsia, dysphagia, early satiety, excessive flatus, fecal incontinence, heartburn, hematemesis, hematochezia, hemorrhoids, loose stools, melena, nausea, odynophagia, rectal bleeding, tenesmus, vomiting or weight changes Genitourinary Genitourinary: Denies abdominal discomfort, burning urination or itching Musculoskeletal Musculoskeletal: Reports as per HPI; Denies muscle weakness or myalgias Integumentary Integumentary: Denies jaundice Neurologic Neurologic: Denies lack of coordination or weakness Psychiatric Psychiatric: Denies confusion, depression, memory loss, mood swings, paranoia or suicidal ideation Endocrine Endocrinology: Denies systems reviewed and no addt'l complaints, except as documented Hematologic/Lymphatic Hematologic/Lymphatic: Denies anemia, easy bleeding, easy bruising or lymphadenopathy Allergic/Immunologic Allergic/Immunologic: Denies systems reviewed and no addt'l complaints, except as documented Vital Signs Vital Signs Vital Signs: 12/03/22 09:13 12/03/22 09:13 Temperature 97.9 F Temperature Source Temporal Pulse Rate 70 Respiratory Rate 16 Respiratory Pattern Normal Blood Pressure 108/57 L Blood Pressure Mean 74 Blood Pressure Source Monitor Blood Pressure Position Semi-Fowlers Blood Pressure Location Right Arm Pulse Ox 100 Oxygen Delivery Method Room Air Weight Weight: 110 lb 3.698 oz Body Mass Index (BMI) 18.9 Physical Exam Const alert, oriented x3, no apparent distress, healthy appearing and well nourished General Appearance: cooperative, comfortable, well kempt and well developed Orientation / Consciousness: awake and oriented to person HEENT Head and Scalp: normocephalic and atraumatic Face and Sinus: normal facial exam Mouth: oral and palatal mucosa normal Eyes General Eye: normal appearance of both eyes Neck full ROM Lymph Lymphatic: no lymphadenopathy noted Chest inspection of chest normal Resp normal respiratory effort and no use of accessory muscles Cardio regular rate and regular rhythm GI normal to inspection, nondistended, normoactive bowel sounds, soft to palpation, non-tender, non-distended and no masses Auscultation: normoactive bowel sounds Palpation: soft Percussion: normal to percussion Rectal Exam: visual inspection normal and normal sphincter tone no CVA tenderness Back/Spine no CVA tenderness and normal ROM Extremity normal to inspection Peripheral Pulses: Yes pulses 2+ throughout Skin no rashes or lesions noted General Skin Exam: no breakdown, elasticity normal and turgor normal Neuro oriented x3 Motor Exam: strength 5/5 throughout Psych mental status grossly normal Appearance: grossly normal Attitude: calm Activity / Motor Behavior: appropriate eye contact Speech: normal speech Thought Process: normal thought process Thought Content: normal thought content Attention / Concentration: attention grossly intact Memory / Cognition: memory grossly intact Insight: insight good Judgement: judgement good Assessment & Plan Assessment/Plan (1) Encounter for screening for malignant neoplasm of colon: PLAN: She was explained alternatives, risk, benefits including not withstanding bleeding, infection, sepsis, perforation, need for emergent urgent . She will have an ASA of 1.
--- NOTE | 2022-12-03 09:56 | OP.COLON_ITS ---
Patient Name: Racheal Dias Procedure Date: 12/03/2022 9:54 AM Date of : 1960 Age: 62 Procedure: Colonoscopy Indications: Screening for colorectal malignant neoplasm Providers: Gunner Nolen DO Medicines: Monitored Anesthesia Care Patient Profile: Last Colonoscopy: more than 10 years ago. Complications: No immediate complications. Procedure: Pre-Anesthesia Assessment: - Prior to the procedure, a History and Physical was performed, and patient medications and allergies were reviewed. The risks and benefits of the procedure and the sedation options and risks were discussed with the patient. All questions were answered and informed consent was obtained. Patient identification and proposed procedure were verified by the physician in the pre-procedure area. Mental Status Examination: alert and oriented. Airway Examination: normal oropharyngeal airway and neck mobility. Respiratory Examination: clear to auscultation. Prophylactic Antibiotics: The patient does not require prophylactic antibiotics. Prior Anticoagulants: The patient has taken no previous anticoagulant or antiplatelet agents. ASA Grade Assessment: II - A patient with mild systemic disease. After reviewing the risks and benefits, the patient was deemed in satisfactory condition to undergo the procedure. The anesthesia plan was to use monitored anesthesia care (MAC). Immediately prior to administration of medications, the patient was re-assessed for adequacy to receive sedatives. The heart rate, respiratory rate, oxygen saturations, blood pressure, adequacy of pulmonary ventilation, and response to care were monitored throughout the procedure. The physical status of the patient was re-assessed after the procedure. After I obtained informed consent, the scope was passed under direct vision. Throughout the procedure, the patient's blood pressure, pulse, and oxygen saturations were monitored continuously. The colonoscope was introduced through the anus and advanced to the cecum, identified by appendiceal orifice and ileocecal valve. The colonoscopy was performed without difficulty. The patient tolerated the procedure well. The quality of the bowel preparation was good. Findings: The perianal and digital rectal examinations were normal. No other significant abnormalities were identified in a careful examination of the remainder of the colon. The retroflexed view of the distal rectum and anal verge was normal and showed no anal or rectal abnormalities. Impression: - No specimens collected. Recommendation: - Discharge patient to home. - Resume previous diet. - Continue present medications. - Repeat colonoscopy in 10 years for screening purposes. Procedure Code(s): --- Professional --- G0121, Colorectal cancer screening; colonoscopy on individual not meeting criteria for high risk CPT copyright 2017 [employer]. All rights reserved. The codes documented in this report are preliminary and upon remote medical coder review may be revised to meet current compliance requirements. Gunner Nolen DO 12/03/2022 9:56:21 AM This report has been signed electronically. Number of Addenda: 0 Note Initiated On: 12/03/2022 9:54 AM
--- NOTE | 2022-12-03 09:56 | OP.CCLET_ITS ---
12/03/2022 Deena Gibbons Do Re : Colonoscopy procedure for Racheal Dias Dear Shai This procedure was performed on Saturday, December 03, 2022. My impressions and recommendations are as follows: Impressions : - No specimens collected. Recommendations : - Discharge patient to home. - Resume previous diet. - Continue present medications. - Repeat colonoscopy in 10 years for screening purposes. My findings are described in the full procedure note, which is enclosed. If I can be of further assistance, please feel free to contact me at . Sincerely, Gunner Nolen, 12/03/2022 9:56:21 AM This report has been signed electronically.
[2022-12-03 10:01] LABS: Bedside Glucose 91 mg/dL (74-106)
== END 2022-12-03 10:51 | disposition home or self-care (01) ==
LOC: EN 08:53 → AC 08:54
PROVIDERS: PCP Family Medicine; Referring Provider Family Medicine; Visit Provider Internal Medicine Gastroenterology
PROC: 0DJD8ZZ Inspection of Lower Intestinal Tract, Via Natural or Artificial Opening Endoscopic (ICD-10-PCS; CPT 45378; principal; 2022-12-03 09:55)
DX: Z12.11 Encounter for screening for malignant neoplasm of colon (principal); E10.9 Type 1 diabetes mellitus without complications; Z79.4 Long term (current) use of insulin
CPT/HCPCS: G0121; 82962; J7120; J2405

== ENCOUNTER → 2023-02-19 | Outpatient (CLI) | payer OTHER, SELFPAY ==
[2023-02-19 10:06] LABS: ALB/GLOB Ratio 1.3 RATIO (0.9-2.4); AST(SGOT) 22 U/L (15-37); Alanine Aminotransfer ALT/SGPT 39 U/L (13-56); Albumin, Serum 3.6 g/dL (3.2-5.0); Alkaline Phosphatase 42 U/L (45-117); Anion Gap 9 (5-15); BUN 15 mg/dL (7-18); BUN/Creat Ratio 19.3 RATIO (10-20); Calcium,Total 8.6 mg/dL (8.5-10.1); Chloride 104 mmol/L (98-107); Cholesterol 200 mg/dL (200); Creatinine, Serum 0.78 mg/dL (0.55-1.02); EST Glomerular Filtration Rate 80 mL/min (>60); Est Glom Filt Rate - Afr Amer 96 mL/min (>60); Globulin 2.7 g/dL (2.2-4.2); Glucose 81 mg/dL (74-106); High Density Lipoprotein 96 mg/dL; Potassium 3.9 mmol/L (3.5-5.1); Protein, Total 6.3 g/dL (6.4-8.2); Sodium Level 141 mmol/L (136-145); Thyroid Stim Hormone (TSH) 2.17 uIU/mL (0.358-3.74); Triglycerides 39 mg/dL; Very Low Density Lipoprotein 8 mg/dL (5-40)
[2023-02-19 10:12] LABS: Hemoglobin A1c 5.9 % (3.8-5.6); Microalbumin,Random Urine 14.6 mg/L (NO RANGE EST.); Vitamin D,25 Hydroxy 82.4 ng/mL
== END | disposition home or self-care (01) ==
LOC: MTLAB 07:16
PROVIDERS: PCP Family Medicine; Referring Provider Internal Medicine Endocrinology, Diabetes & Metabolism; Visit Provider Internal Medicine Endocrinology, Diabetes & Metabolism
DX: E10.9 Type 1 diabetes mellitus without complications (principal); E78.2 Mixed hyperlipidemia; E06.3 Autoimmune thyroiditis; E55.9 Vitamin D deficiency, unspecified
CPT/HCPCS: 36415; 80053; 80061; 82043; 82306; 83036; 84443

== ENCOUNTER → 2023-05-22 | Outpatient (CLI) | payer OTHER, SELFPAY ==
[2023-05-22 15:43] LABS: ALB/GLOB Ratio 1.3 RATIO (0.9-2.4); AST(SGOT) 23 U/L (15-37); Alanine Aminotransfer ALT/SGPT 35 U/L (13-56); Albumin, Serum 3.8 g/dL (3.2-5.0); Alkaline Phosphatase 42 U/L (45-117); Anion Gap 3 (5-15); BUN 15 mg/dL (7-18); BUN/Creat Ratio 19.9 RATIO (10-20); Calcium,Total 8.7 mg/dL (8.5-10.1); Chloride 103 mmol/L (98-107); Creatinine, Serum 0.75 mg/dL (0.55-1.02); EST Glomerular Filtration Rate 83 mL/min (>60); Est Glom Filt Rate - Afr Amer 100 mL/min (>60); Globulin 2.9 g/dL (2.2-4.2); Glucose 85 mg/dL (74-106); Protein, Total 6.7 g/dL (6.4-8.2); Sodium Level 137 mmol/L (136-145)
[2023-05-22 16:02] LABS: Hemoglobin A1c 5.8 % (3.8-5.6)
[2023-05-25 12:08] LABS: C-Peptide 0.7 ng/mL (1.1-4.4)
== END | disposition home or self-care (01) ==
LOC: MTLAB 12:48
PROVIDERS: PCP Family Medicine; Referring Provider Internal Medicine Endocrinology, Diabetes & Metabolism; Visit Provider Internal Medicine Endocrinology, Diabetes & Metabolism
DX: E10.9 Type 1 diabetes mellitus without complications (principal)
CPT/HCPCS: 36415; 80053; 83036; 84681

== ENCOUNTER → 2023-08-19 | Outpatient (CLI) | payer OTHER, SELFPAY ==
[2023-08-19 13:03] LABS: Vitamin D,25 Hydroxy 72.2 ng/mL
[2023-08-19 13:04] LABS: ALB/GLOB Ratio 1.2 RATIO (0.9-2.4); AST(SGOT) 19 U/L (15-37); Alanine Aminotransfer ALT/SGPT 33 U/L (13-56); Albumin, Serum 3.6 g/dL (3.2-5.0); Alkaline Phosphatase 44 U/L (45-117); Anion Gap 4 (5-15); BUN 18 mg/dL (7-18); BUN/Creat Ratio 22.7 RATIO (10-20); Chloride 104 mmol/L (98-107); Creatinine, Serum 0.79 mg/dL (0.55-1.02); EST Glomerular Filtration Rate 78 mL/min (>60); Est Glom Filt Rate - Afr Amer 94 mL/min (>60); Globulin 2.9 g/dL (2.2-4.2); Glucose 73 mg/dL (74-106); Potassium 3.9 mmol/L (3.5-5.1); Protein, Total 6.5 g/dL (6.4-8.2); Sodium Level 138 mmol/L (136-145); Thyroid Stim Hormone (TSH) 1.77 uIU/mL (0.358-3.74)
[2023-08-19 13:33] LABS: Hemoglobin A1c 5.7 % (3.8-5.6)
== END | disposition home or self-care (01) ==
LOC: MTLAB 09:54
PROVIDERS: PCP Family Medicine; Referring Provider Internal Medicine Endocrinology, Diabetes & Metabolism; Visit Provider Internal Medicine Endocrinology, Diabetes & Metabolism
DX: E10.9 Type 1 diabetes mellitus without complications (principal); E06.3 Autoimmune thyroiditis; E55.9 Vitamin D deficiency, unspecified
CPT/HCPCS: 36415; 80053; 82306; 83036; 84443

== ENCOUNTER → 2023-09-16 | Outpatient (CLI) | payer OTHER, SELFPAY ==
--- NOTE | 2023-09-16 12:49 | BI_ITS ---
MAMMOGRAPHY - BILATERAL SCREENING REASON FOR EXAM: Female, 62 years old. Routine annual screening examination. PERTINENT HISTORY: Mother with breast cancer. Grandmother with breast cancer. TECHNIQUE: Digital bilateral breast rinku (3D mammographic acquisition) in the CC and MLO projections. 2-D mediolateral oblique (MLO) and craniocaudad (CC) views of both breasts were obtained. CAD: Full Field Digital Mammography with Computer Added Detection was performed. COMPARISON: Comparison is made with prior study July 14, 2022 and May 01, 2021. FINDINGS: Breast Composition: The breasts are extremely dense, which lowers the sensitivity of mammography. There are no dominant masses or suspicious calcifications. No other significant abnormalities are identified. There has been no significant change since the prior study. BI/SCRN MAMM (CAD)W/RINKU BILAT IMPRESSION: Stable bilateral screening mammogram. Yearly follow-up mammogram recommended. (A) ASSESSMENT CATEGORY: BIRADS Category 1: Negative. A letter regarding these results will be sent to the patient by the facility within 30 days. Approximately 10% of breast cancers are not detected by mammography. A normal mammogram should not delay biopsy of a clinically suspicious abnormality. [id number] Electronically Signed: Cheng Strickland MD at 13:36 EDT ,
== END | disposition home or self-care (01) ==
LOC: OPBI 12:48
PROVIDERS: PCP Family Medicine; Referring Provider Family Medicine; Visit Provider Family Medicine
DX: Z12.31 Encounter for screening mammogram for malignant neoplasm of breast (principal)
CPT/HCPCS: 77063; 77067

== ENCOUNTER → 2023-11-24 | Outpatient (CLI) | payer OTHER, SELFPAY ==
[2023-11-24 12:41] LABS: ALB/GLOB Ratio 1.2 RATIO (0.9-2.4); AST(SGOT) 23 U/L (15-37); Alanine Aminotransfer ALT/SGPT 42 U/L (13-56); Albumin, Serum 3.7 g/dL (3.2-5.0); Alkaline Phosphatase 51 U/L (45-117); Anion Gap 4 (5-15); BUN 18 mg/dL (7-18); BUN/Creat Ratio 22.8 RATIO (10-20); Calcium,Total 9.2 mg/dL (8.5-10.1); Chloride 104 mmol/L (98-107); Creatinine, Serum 0.79 mg/dL (0.55-1.02); EST Glomerular Filtration Rate 78 mL/min (>60); Est Glom Filt Rate - Afr Amer 94 mL/min (>60); Globulin 3.1 g/dL (2.2-4.2); Glucose 98 mg/dL (74-106); Potassium 3.9 mmol/L (3.5-5.1); Protein, Total 6.8 g/dL (6.4-8.2); Sodium Level 139 mmol/L (136-145)
[2023-11-24 12:44] LABS: Hemoglobin A1c 6.1 % (3.8-5.6)
== END | disposition home or self-care (01) ==
LOC: MTLAB 10:37
PROVIDERS: PCP Family Medicine; Referring Provider Internal Medicine Endocrinology, Diabetes & Metabolism; Visit Provider Internal Medicine Endocrinology, Diabetes & Metabolism
DX: E10.9 Type 1 diabetes mellitus without complications (principal)
CPT/HCPCS: 36415; 80053; 83036

== ENCOUNTER → 2024-02-22 | Outpatient (CLI) | payer OTHER, SELFPAY ==
[2024-02-22 10:58] LABS: Microalbumin,Random Urine 5.3 mg/L (NO RANGE EST.); Microalbumin:Creatinine Ratio 38.3 mg/g CRE (<30 mg/g CRE)
[2024-02-22 11:09] LABS: ALB/GLOB Ratio 1.4 RATIO (0.9-2.4); AST(SGOT) 22 U/L (15-37); Alanine Aminotransfer ALT/SGPT 37 U/L (13-56); Albumin, Serum 3.8 g/dL (3.2-5.0); Alkaline Phosphatase 48 U/L (45-117); Anion Gap 6 (5-15); BUN 21 mg/dL (7-18); BUN/Creat Ratio 25.2 RATIO (10-20); Calcium,Total 8.7 mg/dL (8.5-10.1); Chloride 104 mmol/L (98-107); Cholesterol 209 mg/dL (200); Creatinine, Serum 0.83 mg/dL (0.55-1.02); EST Glomerular Filtration Rate 73 mL/min (>60); Est Glom Filt Rate - Afr Amer 89 mL/min (>60); Globulin 2.8 g/dL (2.2-4.2); Glucose 100 mg/dL (74-106); High Density Lipoprotein 102 mg/dL; Potassium 4.1 mmol/L (3.5-5.1); Protein, Total 6.6 g/dL (6.4-8.2); Sodium Level 138 mmol/L (136-145); Thyroid Stim Hormone (TSH) 1.43 uIU/mL (0.358-3.74); Triglycerides 34 mg/dL; Very Low Density Lipoprotein 7 mg/dL (5-40)
[2024-02-22 11:17] LABS: Hemoglobin A1c 6.1 % (3.8-5.6)
[2024-02-23 17:07] LABS: C-Peptide 0.5 ng/mL (1.1-4.4); Thyroglobulin Antibody < 1.0 IU/mL (0.0-0.9); Thyroid Peroxidase AB 65 IU/mL (0-34)
== END | disposition home or self-care (01) ==
PROVIDERS: PCP Family Medicine; Referring Provider Internal Medicine Endocrinology, Diabetes & Metabolism; Visit Provider Internal Medicine Endocrinology, Diabetes & Metabolism
DX: E10.9 Type 1 diabetes mellitus without complications (principal); E78.2 Mixed hyperlipidemia
CPT/HCPCS: 36415; 80053; 80061; 82043; 82570; 83036; 84443; 84681; 86376; 86800

== ENCOUNTER → 2024-06-21 | Outpatient (CLI) | payer OTHER, SELFPAY ==
[2024-06-21 15:59] LABS: Hemoglobin A1c 5.8 % (3.8-5.6)
[2024-06-21 16:12] LABS: Creatinine, Urine (random) < 13.00 mg/dL (NO RANGE EST.); Microalbumin,Random Urine < 5.0 mg/L (NO RANGE EST.)
[2024-06-21 16:14] LABS: ALB/GLOB Ratio 1.2 RATIO (0.9-2.4); AST(SGOT) 29 U/L (15-37); Alanine Aminotransfer ALT/SGPT 45 U/L (13-56); Albumin, Serum 3.6 g/dL (3.2-5.0); Alkaline Phosphatase 40 U/L (45-117); Anion Gap 6 (5-15); BUN 14 mg/dL (7-18); Calcium,Total 8.9 mg/dL (8.5-10.1); Chloride 106 mmol/L (98-107); Creatinine, Serum 0.78 mg/dL (0.55-1.02); EST Glomerular Filtration Rate 79 mL/min (>60); Est Glom Filt Rate - Afr Amer 96 mL/min (>60); Glucose 89 mg/dL (74-106); Magnesium 2.3 mg/dL (1.6-2.6); Protein, Total 6.6 g/dL (6.4-8.2); Sodium Level 140 mmol/L (136-145)
== END | disposition home or self-care (01) ==
LOC: MTLAB 11:01
PROVIDERS: PCP Family Medicine; Referring Provider Internal Medicine Endocrinology, Diabetes & Metabolism; Visit Provider Internal Medicine Endocrinology, Diabetes & Metabolism
DX: E10.9 Type 1 diabetes mellitus without complications (principal); E83.42 Hypomagnesemia
CPT/HCPCS: 36415; 80053; 82043; 82570; 83036; 83735

== ENCOUNTER → 2024-09-05 | Outpatient (CLI) | payer OTHER, SELFPAY ==
[2024-09-05 10:39] LABS: Vitamin D,25 Hydroxy 55.4 ng/mL
[2024-09-05 11:11] LABS: ALB/GLOB Ratio 1.3 RATIO (0.9-2.4); AST(SGOT) 22 U/L (15-37); Alanine Aminotransfer ALT/SGPT 31 U/L (13-56); Albumin, Serum 3.6 g/dL (3.2-5.0); Alkaline Phosphatase 43 U/L (45-117); Anion Gap 6 (5-15); BUN 17 mg/dL (7-18); BUN/Creat Ratio 22.3 RATIO (10-20); Calcium,Total 9.3 mg/dL (8.5-10.1); Chloride 106 mmol/L (98-107); Creatinine, Serum 0.76 mg/dL (0.55-1.02); EST Glomerular Filtration Rate 81 mL/min (>60); Est Glom Filt Rate - Afr Amer 98 mL/min (>60); Globulin 2.7 g/dL (2.2-4.2); Glucose 102 mg/dL (74-106); Potassium 4.1 mmol/L (3.5-5.1); Protein, Total 6.3 g/dL (6.4-8.2); Sodium Level 139 mmol/L (136-145)
[2024-09-05 11:47] LABS: Hemoglobin A1c 6.4 % (3.8-5.6)
== END | disposition home or self-care (01) ==
PROVIDERS: PCP Family Medicine; Referring Provider Internal Medicine Endocrinology, Diabetes & Metabolism; Visit Provider Internal Medicine Endocrinology, Diabetes & Metabolism
DX: E10.9 Type 1 diabetes mellitus without complications (principal); E55.9 Vitamin D deficiency, unspecified
CPT/HCPCS: 36415; 80053; 82306; 83036

== ENCOUNTER → 2024-09-29 | Outpatient (CLI) | payer MEDICARE, OTHER, SELFPAY ==
--- NOTE | 2024-09-29 07:34 | BI_ITS ---
MAMMOGRAPHY - BILATERAL SCREENING REASON FOR EXAM: Female, 63 years old. Routine annual screening examination. PERTINENT HISTORY: Mother with breast cancer. Grandmother with breast cancer. TECHNIQUE: Digital bilateral breast tuan (3D mammographic acquisition) in the CC and MLO projections. 2-D mediolateral oblique (MLO) and craniocaudad (CC) views of both breasts were obtained. CAD: Full Field Digital Mammography with Computer Added Detection was performed. COMPARISON: Comparison is made with prior study September 16, 2023 and July 14, 2022. FINDINGS: Breast Composition: The breasts are extremely dense, which lowers the sensitivity of mammography. There are no dominant masses or suspicious calcifications. No other significant abnormalities are identified. There has been no significant change since the prior study. BI/SCREENING MAMM (CAD), BILAT IMPRESSION: Stable bilateral screening mammogram. Yearly follow-up mammogram recommended. (A) ASSESSMENT CATEGORY: BIRADS Category 1: Negative. A letter regarding these results will be sent to the patient by the facility within 30 days. Approximately 10% of breast cancers are not detected by mammography. A normal mammogram should not delay biopsy of a clinically suspicious abnormality. [id number] Electronically Signed: Cheng Strickland MD at 8:40 EST ,
== END | disposition home or self-care (01) ==
PROVIDERS: PCP Family Medicine; Referring Provider Nurse Practitioner Family; Visit Provider Nurse Practitioner Family
DX: Z12.31 Encounter for screening mammogram for malignant neoplasm of breast (principal)
CPT/HCPCS: 77067

== ENCOUNTER → 2024-12-02 | Outpatient (CLI) | payer MEDICARE, OTHER, SELFPAY ==
[2024-12-02 11:25] LABS: ALB/GLOB Ratio 1.2 RATIO (0.9-2.4); AST(SGOT) 20 U/L (15-37); Alanine Aminotransfer ALT/SGPT 24 U/L (13-56); Albumin, Serum 3.7 g/dL (3.2-5.0); Alkaline Phosphatase 44 U/L (45-117); Anion Gap 6 (5-15); BUN 14 mg/dL (7-18); Calcium,Total 9.1 mg/dL (8.5-10.1); Chloride 105 mmol/L (98-107); Cholesterol 202 mg/dL (200); EST Glomerular Filtration Rate 89 mL/min (>60); Est Glom Filt Rate - Afr Amer 108 mL/min (>60); Glucose 107 mg/dL (74-106); High Density Lipoprotein 102 mg/dL; Potassium 4.1 mmol/L (3.5-5.1); Protein, Total 6.7 g/dL (6.4-8.2); Sodium Level 139 mmol/L (136-145); Triglycerides 33 mg/dL; Very Low Density Lipoprotein 7 mg/dL (5-40)
[2024-12-02 11:55] LABS: Hemoglobin A1c 6.6 % (3.8-5.6)
== END | disposition home or self-care (01) ==
LOC: MTLAB 09:34
PROVIDERS: PCP Family Medicine; Referring Provider Internal Medicine Endocrinology, Diabetes & Metabolism; Visit Provider Internal Medicine Endocrinology, Diabetes & Metabolism
DX: E10.9 Type 1 diabetes mellitus without complications (principal); E78.2 Mixed hyperlipidemia; E06.3 Autoimmune thyroiditis

== ENCOUNTER → 2025-03-02 | Outpatient (CLI) | payer MEDICARE, OTHER, SELFPAY ==
[2025-03-02 16:19] LABS: ALB/GLOB Ratio 2.2 RATIO (0.9-2.4); AST(SGOT) 27 U/L (<=31); Alanine Aminotransfer ALT/SGPT 33 U/L (<=34); Albumin, Serum 4.5 g/dL (3.4-4.8); Alkaline Phosphatase 41 U/L (35-104); Anion Gap 12 (5-15); BUN 18 mg/dL (4-19); BUN/Creat Ratio 22.8 RATIO (10-20); Calcium,Total 9.4 mg/dL (7.6-11.0); Carbon Dioxide 27.8 mmol/L (21.0-32.0); Chloride 101 mmol/L (98-108); Cholesterol 197 mg/dL (<=200); Creatinine, Serum 0.78 mg/dL (0.70-1.20); EST Glomerular Filtration Rate 85 (>60); Globulin 2.1 g/dL (2.2-4.2); Glucose 94 mg/dL (70-99); High Density Lipoprotein 97 mg/dL; Low Density Lipoprotein Calc. 92 mg/dL; Potassium 4.1 mmol/L (3.3-5.1); Protein, Total 6.6 g/dL (5.9-8.4); Sodium Level 140 mmol/L (133-145); Total Bilirubin 0.99 mg/dL (0.00-1.30); Triglycerides 42 mg/dL; Very Low Density Lipoprotein 8 mg/dL (5-40); cholesterol:hdl ratio screen 2.03
[2025-03-04 04:07] LABS: C-Peptide 0.4 ng/mL (1.1-4.4)
== END | disposition home or self-care (01) ==
LOC: MTLAB 11:28
PROVIDERS: PCP Family Medicine; Referring Provider Internal Medicine Endocrinology, Diabetes & Metabolism; Visit Provider Internal Medicine Endocrinology, Diabetes & Metabolism
DX: E10.9 Type 1 diabetes mellitus without complications (principal); E78.2 Mixed hyperlipidemia
CPT/HCPCS: 36415; 80053; 80061; 83036; 84681

== ENCOUNTER → 2025-05-30 | Outpatient (CLI) | payer MEDICARE, OTHER, SELFPAY ==
[2025-05-30 15:47] LABS: AST(SGOT) 25 U/L (<=31); Alanine Aminotransfer ALT/SGPT 30 U/L (<=34); Albumin, Serum 4.2 g/dL (3.4-4.8); Alkaline Phosphatase 37 U/L (35-104); Anion Gap 10 (5-15); BUN 19 mg/dL (4-19); BUN/Creat Ratio 24.9 RATIO (10-20); Calcium,Total 9.4 mg/dL (7.6-11.0); Carbon Dioxide 26.3 mmol/L (21.0-32.0); Chloride 104 mmol/L (98-108); Globulin 2.1 g/dL (2.2-4.2); Glucose 86 mg/dL (70-99); Potassium 4.2 mmol/L (3.3-5.1)
[2025-05-30 15:56] LABS: Creatinine, Urine (random) 17.50 mg/dL (28.00-217.00); Microalbumin,Random Urine < 12.0 mg/L (<20 mg/L)
--- OUTSIDE RECORDS SUMMARY | 2025-05-30 21:02 | XMS RPT_ITS | CCD ---
Author Organization [facility] Care Team Providers Care Bobbin Dumper Name Role Phone WILLIAN Fields Primary Care Provider WILLIAN Fields Referring Provider DoctorDr. Diaz Attending Provider DO Deena Gibbons Primary Care Provider 1([facility] )[phone] Martha Crawford Attending Provider Unavailable DO Deena Gibbons Referring Provider 1([facility])[phone] Friend, Dr. Martino Attending Provider 1([facility])[phone] Friend, Dr. Martino Other Provider 1([facility] [place])[phone] DO Deena Gibbons Primary Care Provider [phone] DO Deena Gibbons Referring Provider 1([facility])[phone] Friend, Dr. Martino Attending Provider Friend, Dr. Martino Other Provider 1([facility] [place])[phone] Greg Michaud MD Primary Care Provider 1([facility] [place])[phone] Dr. Curt Robles DO Attending Provider Dr. Curt Robles DO Referring Provider Curt Robles Referring Unavailable Jaswant, Chalon Primary Care Unavailable Curt Robles Attending Unavailable Curt Robles Attending Unavailable Curt Robles Referring Unavailable Jaswant, Chalon Primary Care Unavailable Curt Robles Referring Unavailable Curt oRbles Attending Unavailable Jaswant, Chalon Primary Care Unavailable Curt Robles Referring Unavailable Jaswant, Chalon Primary Care Unavailable Curt Robles Attending Unavailable Lori Mason Attending Unavailable Lori Mason Referring Unavailable Jaswant, Chalon Primary Care Unavailable Medications Current Medications Medication Drug Class(es) Dates Sig (Normalized) Sig (Original) Calcium Phosphate-Vitamin D3 (6 sources) Start: 10-06-2022 take 1 tablet by mouth once daily Calcium Phosphate-Vitamin D3 Active 1 TABLET PO DAILY October 06, 2022 1:00am Start: 10-06-2022 take 1 tablet by radha th once daily Calcium Phosphate-Vitamin D3 Active 1 TABLET PO DAILY October 06, 2022 12:00am Start: 10-06-2022 Calcium Phosph ate-Vitamin D3 Active TABLET PO October 06, 2022 12:00am Calcium Phosphate-Vitamin D3 250 mg calcium- 250 unit tablet,chewable (1 source) Start: 10-06-2022 Calcium Phosphate-Vitamin D3 250 mg calcium- 250 unit tablet,chewable Active 1 {tbl} PO DAILY October 06, 2022 1:00am cholecalciferol 0.025 mg oral capsule (7 sources) Vitamin D Start: 10-06-2022 take 1 capsule by mouth once daily Cholecalciferol (Vitamin D3) 25 mcg (1,000 unit) capsule Active 25 ug PO DAILY October 06, 2022 1:00am ibandronic acid 150 mg oral tablet (7 sources) Bisphosphonate Start: 10-06-2022 take 1 tablet by mouth every month Ibandronate 150 mg tablet Active 150 mg PO EVERY MONTH October 06, 2022 1:00am 1.5 ml insulin glargine 300 unt/ml pen injector (11 sources) Insulin Analog Start: 11-28-2022 Insulin Glargine U-300 Conc (Toujeo Solostar U-300 Insulin) 300 unit/mL (1.5 mL) Insulin Pen Active 60 U SC DAILY November 28, 2022 1:00am Start: 10-06-2022 Insulin Glargi ne U-300 Conc (Toujeo Max U-300 Solostar) 300 unit/mL (3 mL) insulin pen Active 30 UNIT SC DAILY October 06, 2022 12:00am Start: 01-26-2021 Insulin Glargi ne Active 20 UNITS SC DAILY January 26, 2021 10:45am metFORMIN hydrochloride 500 mg oral tablet (4 sources) Biguanide Start: 01-26-2021 take 500 mg by mouth twice daily Metformin Active 500 MG PO TWICE A DAY January 26, 2021 12:00am Pen Needle, Diabetic, Safety (9 sources) Start: 01-26-2021 Pen Needle, Diabetic, Safety Active 1 EACH MISCELL. DIRECTED January 26, 2021 12:23pm Start: 01-26-2021 Pen Needle, Di abetic, Safety Active 1 EACH MISCELL. DIRECTED January 26, 2021 12:00am Start: 01-26-2021 Pen Needle, Di abetic, Safety Active 1 EACH MISCELL. DIRECTED January 26, 2021 1:00am Pen Needle, Diabetic, Safety 1 EACH needle (1 source) Start: 01-26-2021 Pen Needle, Di abetic, Safety 1 EACH needle Active 1 NMA MISCELL. DIRECTED January 26, 2021 1:00am Selenium (6 sources) Start: 10-06-2022 take 200 ug by mouth once daily Selenium Active 200 MCG PO DAILY October 06, 2022 1:00am Start: 10-06-2022 take 200 ug by mouth once neela y Selenium Active 200 MCG PO DAILY October 06, 2022 12:00am Selenium 200 mcg capsule (1 source) Start: 10-06-2022 take 1 capsule by mouth once daily Selenium 200 mcg capsule Active 200 ug PO DAILY October 06, 2022 1:00am Problems Active Problems Problem Classification Problem Date Documented Da te Episodic/Chronic Diabetes mellitus without complication (11 sources) Diabetes mellitus; Translations: [Type 2 diabetes mellitus without complications] Onset: 03-07-2025 10-06-2022 Chronic Past or Other Problems Problem Classification Problem Date Documented Da te Episodic/Chronic Other screening for suspected conditions (not mental disorders or infectious disease) (10 sources) Patient encounter status; Translations: [Encounter for screening for malignant neoplasm of colon] Onset: 10-26-2024 10-06-2022 Episodic Results Test Name Value Interpretation Reference Range Facility C-Peptideon 03-04-2025 C PEPTIDE 0.4 ng/mL Low 1.1-4.4 [facility] Comment on above: Result Comment: C-Pe ptide reference interval is for fasting patients. Performed at: - [facility] [id number] [employer] And Sh[employer] Laborer: Mac Padilla PhD, Phone: [phone] Performed By: #### L 3100.7750, L500.4100, L500.4050, L501.9985 #### [facility] [address] [place], [place], [id number] Anion gap in Serum or Plasma Ordered By: Curt Robles on 03-02-2025 Anion gap [Moles/Vol] 12 mmol/L 5-15 [facility] BUN/creatinine ratioOrdered By: Curt Robles on 03-02-2025 Urea nitrogen/Creatinine [Mass ratio] 22.8 mg/mg High 10-20 [facility] Bilirubin, totalOrdered By: Curt Robles on 03-02-2025 Bilirubin [Mass/Vol] 0.99 mg/dL 0.00-1.30 [facility] C-peptideOrdered By: Curt zheng on 03-02-2025 C-Peptide 0.4 ng/mL Low 1.1-4.4 [facility] Comment on above: C-Peptide reference interval is for fasting patients.Performed at: [facility] [id number] Director: Mac Padilla PhD, Phone: [phone] Calculated very low density lipoprotein (VLDL) cholesterol measurementOrdered By: Curt Robles on 03-02-2025 VLDL Cholesterol 8 mg/dL 5-40 [facility] Carbon dioxide, total [Moles /volume] in Central venous bloodOrdered By: Curt Robles on 03-02-2025 CO2 [Moles/Vol] 27.8 mmol/L 21.0-32.0 [facility] Chloride assayOrdered By: Davis Robles on 03-02-2025 Chloride [Moles/Vol] 101 mmol/L 98-108 [facility] Comprehensive Metabolic Prof ilon 03-02-2025 Albumin [Mass/Vol] 4.5 g/dL Normal 3.4-4.8 [facility] Comment on above: Performed By: #### L 3100.7750, L500.4100, L500.4050, [id number] #### [facility] [address] [place], [address] Albumin/Globulin [Mass ratio] 2.2 {ratio} Normal 0.9-2.4 [facility] Comment on above: Performed By: #### L [id number], L500.4100, L500.4050, [id number] #### [facility] [address] [place], [address] ALK PHOS 41 U/L Normal 35-104 [facility] Comment on above: Performed By: #### L [id number], L500.4100, L500.4050, [id number] #### [facility] [address] [place], [address] ALT [Catalytic activity/Vol] 33 U/L Normal <=34 [facility] Comment on above: Performed By: #### L [id number], L500.4100, L500.4050, [id number] #### [facility] [address] [place], [address] AST [Catalytic activity/Vol] 27 U/L Normal <=31 [facility] Comment on above: Performed By: #### L [id number], L500.4100, L500.4050, [id number] #### [facility] [address] [place], [address] Bilirubin [Mass/Vol] 0.99 mg/dL Normal 0.00-1.30 [facility] Comment on above: Performed By: #### L [id number], L500.4100, L500.4050, [id number] #### [facility] [address] [place], [address] BUN/CRE 22.8 RATIO High 10-20 [facility] Comment on above: Performed By: #### L [id number], L500.4100, L500.4050, [id number] #### [facility] [address] [place], [address] Calcium [Mass/Vol] 9.4 mg/dL Normal 7.6-11.0 [facility] Comment on above: Performed By: #### L [id number], L500.4100, L500.4050, [id number] #### [facility] [address] [place], [address] Chloride [Moles/Vol] 101 mmol/L Normal 98-108 [facility] Comment on above: Performed By: #### L [id number], L500.4100, L500.4050, [id number] #### [facility] [address] [place], [address] CO2 [Moles/Vol] 27.8 mmol/L Normal 21.0-32.0 [facility] Comment on above: Performed By: #### L [id number], L500.4100, L500.4050, [id number] #### [facility] [address] [place], [address] Creatinine [Mass/Vol] 0.78 mg/dL Normal 0.70-1.20 [facility] Comment on above: Performed By: #### L [id number], L500.4100, L500.4050, [id number] #### [facility] [address] [place], [address] GAP 12 Normal 5-15 [facility] Comment on above: Performed By: #### L [id number], L500.4100, L500.4050, [id number] #### [facility] [address] [place], [address] GFR/1.73 sq M.predicted among non-blacks MDRD (S/P/Bld) [Vol rate/Area] 85 mL/min/{1.73_m2} Normal >60 [facility] Comment on above: Result Comment: mL/m in/1.73m2 CKD-EPI Creatinine Equation (2020) Performed By: #### L [id number], L500.4100, L500.4050, [id number] #### [facility] [address] [place], [address] Globulin (S) [Mass/Vol] 2.1 g/dL Low 2.2-4.2 [facility] Comment on above: Performed By: #### L [id number], L500.4100, L500.4050, [id number] #### [facility] [address] [place], [address] Glucose [Mass/Vol] 94 mg/dL Normal 70-99 [facility] Comment on above: Performed By: #### L 3100.7750, L500.4100, L500.4050, [id number] #### [facility] [address] [place], [address] Potassium [Moles/Vol] 4.1 mmol/L Normal 3.3-5.1 [facility] Comment on above: Performed By: #### L [id number], L500.4100, L500.4050, [id number] #### [facility] [address] [place], [address] Sodium [Moles/Vol] 140 mmol/L Normal 133-145 [facility] Comment on above: Performed By: #### L 3100.7750, L500.4100, L500.4050, [id number] #### [facility] [address] [place], [address] T PROT 6.6 g/dL Normal 5.9-8.4 [facility] Comment on above: Performed By: #### L [id number], L500.4100, L500.4050, [id number] #### [facility] [address] [place], [address] Urea nitrogen [Mass/Vol] 18 mg/dL Normal 4-19 [facility] Comment on above: Performed By: #### L [id number], L500.4100, L500.4050, [id number] #### [facility] [address] [place], [address] GFR/1.73 sq M.predicted [place] g non-blacks MDRD (S/P/Bld) [Vol rate/Area]Ordered By: Curt Robles on 03-02-2025 Estimated GFR (MDRD) Non-Af Amer 85 >60 [facility] Comment on above: mL/min/1.73m2 CKD-EP I Creatinine Equation (2020) Hemoglobin A1con 03-02-2025 HbA1c (Bld) [Mass fraction] 6.0 % High <=5.6 [facility] Comment on above: Result Comment: Norm al < 5.7 % Prediabetic 5.7 - 6.4 % Diabetic >or= 6.5 % Please note range changes. Performed By: #### L 3100.7750, L500.4100, L500.4050, [id number] #### [facility] [address] [place], [address] Hemoglobin A1c percentageOrd ered By: Curt Robles on 03-02-2025 HbA1c (Bld) [Mass fraction] 6.0 % High <5.7 [facility] Comment on above: Normal < 5.7 % Predi abetic 5.7 - 6.4 % Diabetic >or= 6.5 % Please note range changes. LDL calc ser/plasOrdered By: Curt Robles on 03-02-2025 LDL Cholesterol, Calculated 92 mg/dL [facility] Comment on above: Mfyvdtwtuq=555-876 m g/dL & Higher Vpda=076 mg/dL or greater Laboratory - Chemistry and C hemistry - challengeOrdered By: Curt Robles on 03-02-2025 AST [Catalytic activity/Vol] 27 U/L <32 [facility] Lipid Profileon 03-02-2025 CHOL:HDL 2.03 Normal [facility] Comment on above: Performed By: #### L 3100.7750, L500.4100, L500.4050, [id number] #### [facility] [address] [place], [address] Cholesterol [Mass/Vol] 197 mg/dL Normal <=200 [facility] Comment on above: Result Comment: Chol esterol level, Desirable <200 mg/dL Borderline high cholesterol 200-239 mg/dL High cholesterol >=240 mg/dL Recommendations of the NCEP Adult Treatment Panel for the following risk-cutoff thresholds for the [place] population. Performed By: #### L 3100.7750, L500.4100, L500.4050, L501.9985 #### [facility] [address] [place], [address] Cholesterol in HDL [Mass/Vol] 97 mg/dL Normal [facility] Comment on above: Result Comment: Jamila onal Cholesterol Education Program (NCEP) guidelines: <40 mg/dL: Low HDL-cholesterol (major risk factor for CHD) >= 60 mg/dL: High HDL-cholesterol (negative risk factor for CHD) HDL-cholesterol is affected by a number of factors, e.g. smoking, exercise, hormones, sex and age. Performed By: #### L [id number], L500.4100, L500.4050, [id number] #### [facility] [address] [place], [address] Cholesterol in LDL [Mass/Vol] 92 mg/dL Normal [facility] Comment on above: Result Comment: Bord bplcnn=500-979 mg/dL Higher Msmw=460 mg/dL or greater Performed By: #### L 3100.7750, L500.4100, L500.4050, [id number] #### [facility] [address] [place], [address] Cholesterol in VLDL [Mass/Vol] 8 mg/dL Normal 5-40 [facility] Comment on above: Performed By: #### L 3100.7750, L500.4100, L500.4050, [id number] #### [facility] [address] [place], [address] Triglyceride [Mass/Vol] 42 mg/dL Normal [facility] Comment on above: Result Comment: The drugs N-Acetylcysteine and Metamizole may falsely depress this assay. Normal range: <150 mg/dL Borderline High: 150-199 mg/dL High: 200-499 mg/dL Very High: >500 mg/dL Performed By: #### L 3100.7750, L500.4100, L500.4050, [id number] #### [facility] [address] [place], [address] Potassium (Unsp spec) [Mass/ Vol]Ordered By: Curt Robles on 03-02-2025 Potassium [Moles/Vol] 4.1 mmol/L 3.3-5.1 [facility] Screening total cholesterol/ high density lipoprotein (HDL) cholesterol ratioOrdered By: Curt Robles on 03-02-2025 Cholesterol.total/Cho lesterol in HDL [Mass ratio] 2.03 {ratio} [facility] Serum creatinine measurement (mass/volume)Ordered By: Curt Robles on 03-02-2025 Creatinine [Mass/Vol] 0.78 mg/dL 0.70-1.20 [facility] Serum globulin measurementOr dered By: Curt Robles on 03-02-2025 Globulin (S) [Mass/Vol] 2.1 g/dL Low 2.2-4.2 [facility] Serum glucose measurement (m ass/volume)Ordered By: Curt Robles on 03-02-2025 Glucose [Mass/Vol] 94 mg/dL 70-99 [facility] Serum or plasma alanine anna otransferase (ALT) measurementOrdered By: Curt Robles on 03-02-2025 ALT [Catalytic activity/Vol] 33 U/L <35 [facility] Serum or plasma albumin chasidy urement (mass/volume)Ordered By: Curt Robles on 03-02-2025 Albumin [Mass/Vol] 4.5 g/dL 3.4-4.8 [facility] Serum or plasma albumin/glob ulin mass ratioOrdered By: Curt Robles on 03-02-2025 Albumin/Globulin [Mass ratio] 2.2 {ratio} 0.9-2.4 [facility] Serum or plasma alkaline compa sphatase measurementOrdered By: Curt Robles on 03-02-2025 ALP [Catalytic activity/Vol] 41 U/L 35-104 [facility] Serum or plasma calcium chasidy urement (mass/volume)Ordered By: Curt Robles 03-02-2025 Calcium [Mass/Vol] 9.4 mg/dL 7.6-11.0 [facility] Serum or plasma cholesterol in HDL measurement (mass/volume)Ordered By: Curt Robles 03-02-2025 Cholesterol in HDL [Mass/Vol] 97 mg/dL >40 [facility] Comment on above: National Cholesterol Education Program (NCEP) guidelines:<40 mg/dL: Low HDL-cholesterol (major risk factor for CHD)>= 60 mg/dL: High HDL-cholesterol (negative risk factor for CHD)HDL-cholesterol is affected by a number of factors, e.g. smoking, exercise, hormones, sex and age. Serum or plasma cholesterol measurement (mass/volume)Ordered By: Curt Robles 03-02-2025 Cholesterol [Mass/Vol] 197 mg/dL <201 [facility] Comment on above: Cholesterol level, D esirable <200 mg/dLBorderline high cholesterol 200-239 mg/dLHigh cholesterol >=240 mg/dLRecommendations of the NCEP Adult Treatment Panel for the following risk-cutoff thresholds for the [place] population. Serum or plasma urea nitroge n measurement (mass/volume)Ordered By: Curt Robles on 03-02-2025 Urea nitrogen [Mass/Vol] 18 mg/dL 4-19 [facility] Sodium levelOrdered By: Harjit Robles on 03-02-2025 Sodium [Moles/Vol] 140 mmol/L 133-145 [facility] Total proteinOrdered By: Jesus Robles on 03-02-2025 Protein [Mass/Vol] 6.6 g/dL 5.9-8.4 [facility] Triglycerides measurementOrd ered By: Curt Robles on 03-02-2025 Triglyceride [Mass/Vol] 42 mg/dL <199 [facility] Comment on above: The drugs N-Acetylcy steine and Metamizole may falsely depress this assay. Normal range: <150 mg/dLBorderline High: 150-199 mg/dLHigh: 200-499 mg/dLVery High: >500 mg/dL Albumin to globulin ratioOrd ered By: Curt Robles on 12-02-2024 Albumin/Globulin [Mass ratio] 1.2 {ratio} 0.9-2.4 [facility] Bilirubin, totalOrdered By: Curt Robles on 12-02-2024 Bilirubin [Mass/Vol] 1.00 mg/dL 0.20-1.00 [facility] Comment on above: For patients on eltr ombopag therapy, use of Dimension [employer] TBIL is not recommended. Blood urea nitrogen (BUN)/cr eatinine ratioOrdered By: Curt Robles on 12-02-2024 Urea nitrogen/Creatinine [Mass ratio] 20.0 mg/mg 10-20 [facility] Carbon dioxide measurementOr dered By: Curt Robles on 12-02-2024 CO2 [Moles/Vol] 29.0 mmol/L 21.0-32.0 [facility] Chloride measurementOrdered By: Curt Robles on 12-02-2024 Chloride [Moles/Vol] 105 mmol/L 98-107 [facility] Comprehensive Metabolic Prof ilon 12-02-2024 Albumin [Mass/Vol] 3.7 g/dL Normal 3.2-5.0 [facility] Comment on above: Performed By: #### L 501.9524, L501.9915, L500.4100, L500.4050 #### [facility] [address] [place] [address]. [place], [address] Albumin/Globulin [Mass ratio] 1.2 {ratio} Normal 0.9-2.4 [facility] Comment on above: Performed By: #### L [id number], [id number], L500.4100, L500.4050 #### [facility] [address] [place], [address] ALK P 44 U/L Low 45-117 [facility] Comment on above: Performed By: #### L [id number], [id number], L500.4100, L500.4050 #### [facility] [address] [place], [address] ALT [Catalytic activity/Vol] 24 U/L Normal 13-56 [facility] Comment on above: Performed By: #### L [id number], [id number], L500.4100, L500.4050 #### [facility] [address] [place], [address] AST [Catalytic activity/Vol] 20 U/L Normal 15-37 [facility] Comment on above: Performed By: #### L [id number], [id number], L500.4100, L500.4050 #### [facility] [address] [place], [address] Bilirubin [Mass/Vol] 1.00 mg/dL Normal 0.20-1.00 [facility] Comment on above: Result Comment: For patients on eltrombopag therapy, use of Dimension [employer] TBIL is not recommended. Performed By: #### L [id number], [id number], L500.4100, L500.4050 #### [facility] [address] [place], [address] BUN/CRE 20.0 RATIO Normal 10-20 [facility] Comment on above: Performed By: #### L [id number], [id number], L500.4100, L500.4050 #### [facility] [address] [place], [address] CA,Total 9.1 mg/dL Normal 8.5-10.1 [facility] Comment on above: Performed By: #### L [id number], [id number], L500.4100, L500.4050 #### [facility] [address] [place], [address] Chloride [Moles/Vol] 105 mmol/L Normal 98-107 [facility] Comment on above: Performed By: #### L [id number], [id number], L500.4100, L500.4050 #### [facility] [address] [place], [address] CO2 [Moles/Vol] 29.0 mmol/L Normal 21.0-32.0 [facility] Comment on above: Performed By: #### L [id number], [id number], L500.4100, L500.4050 #### [facility] [address] [place], [address] Creatinine [Mass/Vol] 0.70 mg/dL Normal 0.55-1.02 [facility] Comment on above: Result Comment: The validity of the calculated GFR GFRAA in patients over 70 years has not been determined. Clinical correlation is essential. Performed By: #### L [id number], L501.9985, L500.4100, L500.4050 #### [facility] [address] [place], [address] EST GFR - AA 108 mL/min Normal >60 [facility] Comment on above: Result Comment: Afri can [place] GFR Calc Performed By: #### L [id number], [id number], L500.4100, L500.4050 #### [facility] [address] [place], [address] GAP 6 Normal 5-15 [facility] Comment on above: Performed By: #### L [id number], [id number], L500.4100, L500.4050 #### [facility] [address] [place], [address] GFR/1.73 sq M.predicted among non-blacks MDRD (S/P/Bld) [Vol rate/Area] 89 mL/min/{1.73_m2} Normal >60 [facility] Comment on above: Result Comment: Non- GFR Calc Performed By: #### L [id number], L501.9985, L500.4100, L500.4050 #### [facility] [address] [place], [address] Globulin (S) [Mass/Vol] 3.0 g/dL Normal 2.2-4.2 [facility] Comment on above: Performed By: #### L [id number], [id number], L500.4100, L500.4050 #### [facility] [address] [place], [address] Glucose [Mass/Vol] 107 mg/dL High 74-106 [facility] Comment on above: Result Comment: Fast ing Glucose result from 100 to 125 mg/dL suggests IMPAIRED HOMEOSTASIS per A.D.A. criteria. Performed By: #### L [id number], L501.9985, L500.4100, L500.4050 #### [facility] [address] [place], [address] Potassium [Moles/Vol] 4.1 mmol/L Normal 3.5-5.1 [facility] Comment on above: Performed By: #### L [id number], [id number], L500.4100, L500.4050 #### [facility] [address] [place], [address] Sodium [Moles/Vol] 139 mmol/L Normal 136-145 [facility] Comment on above: Performed By: #### L [id number], [id number], L500.4100, L500.4050 #### [facility] [address] [place], [address] T PROT 6.7 g/dL Normal 6.4-8.2 [facility] Comment on above: Performed By: #### L [id number], [id number], L500.4100, L500.4050 #### [facility] [address] [place], [address] Urea nitrogen [Mass/Vol] 14 mg/dL Normal 7-18 [facility] Comment on above: Performed By: #### L [id number], [id number], L500.4100, L500.4050 #### [facility] [address] [place], [address] Estimated glomerular filtrat ion rate (GFR) AmericanOrdered By: Curt Robles on 12-02-2024 Estimated GFR (MDRD) Amer 108 mL/min >60 [facility] Comment on above: GFR Calc Glomerular filtration rate ( GFR) estimationOrdered By: Curt Robles on 12-02-2024 Estimated GFR (MDRD) Non-Af Amer 89 mL/min >60 [facility] Comment on above: Non- GFR Calc Glucose measurementOrdered B y: Curt Robles on 12-02-2024 Glucose [Mass/Vol] 107 mg/dL High 74-106 [facility] Comment on above: Fasting Glucose resu lt from 100 to 125 mg/dL suggests IMPAIRED HOMEOSTASIS per A.D.A. criteria. Hemoglobin A1con 12-02-2024 HbA1c (Bld) [Mass fraction] 6.6 % High 3.8-5.6 [facility] Comment on above: Result Comment: Norm al < 5.7 % Prediabetic 5.7 - 6.4 % Diabetic >or= 6.5 % Please note range changes. Performed By: #### L 501.9520, L501.9985, L500.4100, L500.4050 #### [facility] [address] [place], [address] Hemoglobin A1c percentageOrd ered By: Curt Robles on 12-02-2024 HbA1c (Bld) [Mass fraction] 6.6 % High 3.8-5.6 [facility] Comment on above: Normal < 5.7 % Predi abetic 5.7 - 6.4 % Diabetic >or= 6.5 % Please note range changes. High density lipoprotein (HD L) measurementOrdered By: Curt Robles on 12-02-2024 Cholesterol in HDL [Mass/Vol] 102 mg/dL >40 [facility] Comment on above: The drugs N-Acetylcy steine and Metamizole may falsely depress this assay. Reference Range HDL <40 mg/dL Low HDL Cholesterol HDL >or= 60 mg/dL High HDL Cholesterol Laboratory - Chemistry and C hemistry - challengeOrdered By: Curt Robles on 12-02-2024 AST [Catalytic activity/Vol] 20 U/L 15-37 [facility] Lipid Profileon 12-02-2024 Cholesterol [Mass/Vol] 202 mg/dL High 200 [facility] Comment on above: Result Comment: <200 mg/dL Desirable 200-240 mg/dL Borderline >240 mg/dL High Risk Performed By: #### L 501.9520, L501.9985, L500.4100, L500.4050 #### [facility] [address] [place], [address] Cholesterol in HDL [Mass/Vol] 102 mg/dL Normal [facility] Comment on above: Result Comment: The drugs N-Acetylcysteine and Metamizole may falsely depress this assay. Reference Range HDL <40 mg/dL Low HDL Cholesterol HDL >or= 60 mg/dL High HDL Cholesterol Performed By: #### L 501.9520, L501.9985, L500.4100, L500.4050 #### [facility] [address] [place], [address] Cholesterol in LDL [Mass/Vol] 93 mg/dL Normal 0-130 [facility] Comment on above: Performed By: #### L 501.9520, L501.9985, L500.4100, L500.4050 #### [facility] [address] [place], [address] Cholesterol in VLDL [Mass/Vol] 7 mg/dL Normal 5-40 [facility] Comment on above: Performed By: #### L 501.9520, L501.9985, L500.4100, L500.4050 #### [facility] [address] [place], [address] Triglyceride [Mass/Vol] 33 mg/dL Normal [facility] Comment on above: Result Comment: The drugs N-Acetylcysteine and Metamizole may falsely depress this assay. Serum Triglycerides Reference Interval Normal <150 mg/dL Borderline high 150 - 199 mg/dL High 200 - 499 mg/dL Very High > or = 500 mg/dL Performed By: #### L 501.9520, L501.9985, L500.4100, L500.4050 #### [facility] [address] [place], [address] Low density lipoprotein (LDL ) cholesterol measurementOrdered By: Curt Robles on 12-02-2024 Cholesterol in LDL [Mass/Vol] 93 mg/dL 0-130 [facility] Potassium measurementOrdered By: Curt Robles on 12-02-2024 Potassium [Moles/Vol] 4.1 mmol/L 3.5-5.1 [facility] Serum anion gap measurementO rdered By: Curt Robles on 12-02-2024 Anion gap [Moles/Vol] 6 mmol/L 5-15 [facility] Serum globulin measurementOr dered By: Curt Roblse on 12-02-2024 Globulin (S) [Mass/Vol] 3.0 g/dL 2.2-4.2 [facility] Serum or plasma alanine anna otransferase (ALT) measurementOrdered By: Curt Robles on 12-02-2024 ALT [Catalytic activity/Vol] 24 U/L 13-56 [facility] Serum or plasma albumin chasidy urement (mass/volume)Ordered By: Curt Robles on 12-02-2024 Albumin [Mass/Vol] 3.7 g/dL 3.2-5.0 [facility] Serum or plasma alkaline compa sphatase measurementOrdered By: Curt Robles on 12-02-2024 ALP [Catalytic activity/Vol] 44 U/L Low 45-117 [facility] Serum or plasma calcium chasidy urement (mass/volume)Ordered By: Curt Robles on 12-02-2024 Calcium [Mass/Vol] 9.1 mg/dL 8.5-10.1 [facility] Serum or plasma cholesterol measurement (mass/volume)Ordered By: Curt Robles on 12-02-2024 Cholesterol [Mass/Vol] 202 mg/dL High <200 [facility] Comment on above: <200 mg/dL Desirable 200-240 mg/dL Borderline >240 mg/dL High Risk Serum or plasma creatinine m easurement (mass/volume)Ordered By: Curt Robles on 12-02-2024 Creatinine [Mass/Vol] 0.70 mg/dL 0.55-1.02 [facility] Comment on above: The validity of the calculated GFR & GFRAA in patients over 70 years has not been determined. Clinical correlation is essential. Serum or plasma urea nitroge n measurement (mass/volume)Ordered By: Curt Robles on 12-02-2024 Urea nitrogen [Mass/Vol] 14 mg/dL 7-18 [facility] Sodium levelOrdered By: Harjit Robles on 12-02-2024 Sodium [Moles/Vol] 139 mmol/L 136-145 [facility] TSH QnOrdered By: Curt conner on 12-02-2024 Thyroid Stimulating Hormone (TSH) 1.740 uIU/mL 0.358-3.740 [facility] Thyroid Stim Hormone (TSH)on 12-02-2024 TSH 1.740 uIU/mL Normal 0.358-3.740 [facility] Comment on above: Performed By: #### L 501.8691, L501.9991, L500.4100, L500.4050 #### [facility] [address] [place], [address] Total proteinOrdered By: Jesus Robles on 12-02-2024 Protein [Mass/Vol] 6.7 g/dL 6.4-8.2 [facility] Triglycerides measurementOrd ered By: Curt Travis on 12-02-2024 Triglyceride [Mass/Vol] 33 mg/dL <199 [facility] Comment on above: The drugs N-Acetylcy steine and Metamizole may falsely depress this assay.Serum Triglycerides Reference Interval Normal <150 mg/dL Borderline high 150 - 199 mg/dL High 200 - 499 mg/dL Very High > or = 500 mg/dL Very low density lipoprotein (VLDL) cholesterol measurementOrdered By: Curt Robles on 12-02-2024 VLDL Cholesterol 7 mg/dL 5-40 [facility] SCREENING MAMM (CAD), BILATo n 09-29-2024 SCREENING [facility]AMM (CAD[facility] [address] [place] [address] SCREENING MAMM (CAD), BILAT MR#: [id number] Acct: [id number] Name: TEMITOPE WELLS Rep #: [id number] : 1960 F 63 From: Cheng womack MD PCP: Dr. 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 Routine annual screening examination. PERTINENT HISTORY: Mother with breast cancer. Grandmother with breast cancer. TECHNIQUE: Digital bilateral breast tuan (3D mammographic acquisition) in the CC and MLO projections. 2-D mediolateral oblique (MLO) and craniocaudad (CC) views of both breasts were obtained. CAD: Full Field Digital Mammography with Computer Added Detection was performed. COMPARISON: Comparison is made with prior study September 16, 2023 and July 14, 2022. FINDINGS: Breast Composition: The breasts are extremely dense, which lowers the sensitivity of mammography. There are no dominant masses or suspicious calcifications. No other significant abnormalities are identified. There has been no significant change since the prior study. BI/SCREENING MAMM (CAD), BILAT IMPRESSION: Stable bilateral screening mammogram. Yearly follow-up mammogram recommended. (A) ASSESSMENT CATEGORY: BIRADS Category 1: Negative. A letter regarding these results will be sent to the patient by the facility within 30 days. Approximately 10% of breast cancers are not detected by mammography. A normal mammogram should not delay biopsy of a clinically suspicious abnormality. [id number] Electronically Signed: Cheng Strickland MD at 8:40 EST Reading Location ID and State: [address] [place] [address] , Service support , CC: WILLIAN Mason; Dr. Greg Michaud MD Director Of Parks And Recreation: Signed Normal [facility] Comprehensive Metabolic Prof ilon 09-05-2024 Albumin [Mass/Vol] 3.6 g/dL Normal 3.2-5.0 [facility] Comment on above: Performed By: #### L 3100.7750, L500.4100, L500.4050, L501.9985 #### [facility] [address] [place], [address] Albumin/Globulin [Mass ratio] 1.3 {ratio} Normal 0.9-2.4 [facility] Comment on above: Performed By: #### L 3100.7750, L500.4100, L500.4050, L501.9985 #### [facility] [address] [place], [address] ALK P 43 U/L Low 45-117 [facility] Comment on above: Performed By: #### L 3100.7750, L500.4100, L500.4050, L501.9985 #### [facility] [address] [place], [address] ALT [Catalytic activity/Vol] 31 U/L Normal 13-56 [facility] Comment on above: Performed By: #### L 3100.7750, L500.4100, L500.4050, L501.9985 #### [facility] [address] [place], [address] AST [Catalytic activity/Vol] 22 U/L Normal 15-37 [facility] Comment on above: Performed By: #### L 3100.7750, L500.4100, L500.4050, L501.9985 #### [facility] [address] [place], [address] Bilirubin [Mass/Vol] 0.80 mg/dL Normal 0.20-1.00 [facility] Comment on above: Result Comment: For patients on eltrombopag therapy, use of Dimension [employer] TBIL is not recommended. Performed By: #### L 3100.7750, L500.4100, L500.4050, L501.9985 #### [facility] [address] [place], [address] BUN/CRE 22.3 RATIO High 10-20 [facility] Comment on above: Performed By: #### L 3100.7750, L500.4100, L500.4050, L501.9985 #### [facility] [address] [place], [address] CA,Total 9.3 mg/dL Normal 8.5-10.1 [facility] Comment on above: Performed By: #### L 3100.7750, L500.4100, L500.4050, L501.9985 #### [facility] [address] [place], [address] Chloride [Moles/Vol] 106 mmol/L Normal 98-107 [facility] Comment on above: Performed By: #### L 3100.7750, L500.4100, L500.4050, L501.9985 #### [facility] [address] [place], [address] CO2 [Moles/Vol] 28.0 mmol/L Normal 21.0-32.0 [facility] Comment on above: Performed By: #### L 3100.7750, L500.4100, L500.4050, L501.9985 #### [facility] [address] [place], [address] Creatinine [Mass/Vol] 0.76 mg/dL Normal 0.55-1.02 [facility] Comment on above: Result Comment: The validity of the calculated GFR GFRAA in patients over 70 years has not been determined. Clinical correlation is essential. Performed By: #### L 3100.7750, L500.4100, L500.4050, L501.9985 #### [facility] [address] [place], [address] EST GFR - AA 98 mL/min Normal >60 [facility] Comment on above: Result Comment: Afri can [place] GFR Calc Performed By: #### L 3100.7750, L500.4100, L500.4050, L501.9985 #### [facility] [address] [place], [address] GAP 6 Normal 5-15 [facility] Comment on above: Performed By: #### L 3100.7750, L500.4100, L500.4050, L501.9985 #### [facility] [address] [place], [address] GFR/1.73 sq M.predicted among non-blacks MDRD (S/P/Bld) [Vol rate/Area] 81 mL/min/{1.73_m2} Normal >60 [facility] Comment on above: Result Comment: Non- GFR Calc Performed By: #### L 3100.7750, L500.4100, L500.4050, L501.9985 #### [facility] [address] [place], [address] Globulin (S) [Mass/Vol] 2.7 g/dL Normal 2.2-4.2 [facility] Comment on above: Performed By: #### L 3100.7750, L500.4100, L500.4050, L501.9985 #### [facility] [address] [place], [address] Glucose [Mass/Vol] 102 mg/dL Normal 74-106 [facility] Comment on above: Result Comment: Fast ing Glucose result from 100 to 125 mg/dL suggests IMPAIRED HOMEOSTASIS per A.D.A. criteria. Performed By: #### L 3100.7750, L500.4100, L500.4050, L501.9985 #### [facility] [address] [place], [address] Potassium [Moles/Vol] 4.1 mmol/L Normal 3.5-5.1 [facility] Comment on above: Performed By: #### L 3100.7750, L500.4100, L500.4050, L501.9985 #### [facility] [address] [place], [address] Sodium [Moles/Vol] 139 mmol/L Normal 136-145 [facility] Comment on above: Performed By: #### L 3100.7750, L500.4100, L500.4050, L501.9985 #### [facility] [address] [place], [address] T PROT 6.3 g/dL Low 6.4-8.2 [facility] Comment on above: Performed By: #### L 3100.7750, L500.4100, L500.4050, L501.9985 #### [facility] [address] [place], [address] Urea nitrogen [Mass/Vol] 17 mg/dL Normal 7-18 [facility] Comment on above: Performed By: #### L 3100.7750, L500.4100, L500.4050, L501.9985 #### [facility] [address] [place], [address] Hemoglobin A1con 09-05-2024 HbA1c (Bld) [Mass fraction] 6.4 % High 3.8-5.6 [facility] Comment on above: Result Comment: Norm al < 5.7 % Prediabetic 5.7 - 6.4 % Diabetic >or= 6.5 % Please note range changes. Performed By: #### L 3100.7750, L500.4100, L500.4050, L501.9985 #### [facility] [address] [place], [address] Vitamin D,25 Hydroxyon 09-05 Vitamin D 25-OH 55.4 ng/mL Normal [facility] Comment on above: Result Comment: Korin min D 25(OH) Status Range Deficiency <20 ng/mL (50nmol/L) Insufficiency 20 - 30 ng/mL (50 - 75 nmol/L) Sufficiency 30 - 100 ng/mL (75 - 250 nmol/L) Toxicity >100 ng/mL (>250 nmol/L) Performed By: #### L 3100.7750, L500.4100, L500.4050, L501.9985 #### [facility] [address] [place], [address] Comprehensive Metabolic Prof ilon 06-21-2024 Albumin [Mass/Vol] 3.6 g/dL Normal 3.2-5.0 [facility] Comment on above: Performed By: #### L 3100.7750, L500.4100, L500.4050, L501.9985 #### [facility] [address] [place], [address] Albumin/Globulin [Mass ratio] 1.2 {ratio} Normal 0.9-2.4 [facility] Comment on above: Performed By: #### L 3100.7750, L500.4100, L500.4050, L501.9985 #### [facility] [address] [place], [address] ALK P 40 U/L Low 45-117 [facility] Comment on above: Performed By: #### L 3100.7750, L500.4100, L500.4050, L501.9985 #### [facility] [address] [place], [address] ALT [Catalytic activity/Vol] 45 U/L Normal 13-56 [facility] Comment on above: Performed By: #### L 3100.7750, L500.4100, L500.4050, L501.9985 #### [facility] [address] [place], [address] AST [Catalytic activity/Vol] 29 U/L Normal 15-37 [facility] Comment on above: Performed By: #### L 3100.7750, L500.4100, L500.4050, L501.9985 #### [facility] [address] [place], [address] Bilirubin [Mass/Vol] 0.90 mg/dL Normal 0.20-1.00 [facility] Comment on above: Result Comment: For patients on eltrombopag therapy, use of Dimension [employer] TBIL is not recommended. Performed By: #### L 3100.7750, L500.4100, L500.4050, L501.9985 #### [facility] [address] [place], [address] BUN/CRE 18.0 RATIO Normal 10-20 [facility] Comment on above: Performed By: #### L 3100.7750, L500.4100, L500.4050, L501.9985 #### [facility] [address] [place], [address] CA,Total 8.9 mg/dL Normal 8.5-10.1 [facility] Comment on above: Performed By: #### L 3100.7750, L500.4100, L500.4050, L501.9985 #### [facility] [address] [place] [place], [address] Chloride [Moles/Vol] 106 mmol/L Normal 98-107 [facility] Comment on above: Performed By: #### L 3100.7750, L500.4100, L500.4050, L501.9985 #### [facility] [address] [place], [address] CO2 [Moles/Vol] 28.0 mmol/L Normal 21.0-32.0 [facility] Comment on above: Performed By: #### L 3100.7750, L500.4100, L500.4050, L501.9985 #### [facility] [address] [place], [address] Creatinine [Mass/Vol] 0.78 mg/dL Normal 0.55-1.02 [facility] Comment on above: Result Comment: The validity of the calculated GFR GFRAA in patients over 70 years has not been determined. Clinical correlation is essential. Performed By: #### L 3100.7750, L500.4100, L500.4050, L501.9985 #### [facility] [address] [place], [address] EST GFR - AA 96 mL/min Normal >60 [facility] Comment on above: Result Comment: Afri can [place] GFR Calc Performed By: #### L 3100.7750, L500.4100, L500.4050, L501.9985 #### [facility] [address] [place], [address] GAP 6 Normal 5-15 [facility] Comment on above: Performed By: #### L 3100.7750, L500.4100, L500.4050, L501.9985 #### [facility] [address] [place], [address] GFR/1.73 sq M.predicted among non-blacks MDRD (S/P/Bld) [Vol rate/Area] 79 mL/min/{1.73_m2} Normal >60 [facility] Comment on above: Result Comment: Non- GFR Calc Performed By: #### L 3100.7750, L500.4100, L500.4050, L501.9985 #### [facility] [address] [place], [address] Globulin (S) [Mass/Vol] 3.0 g/dL Normal 2.2-4.2 [facility] Comment on above: Performed By: #### L 3100.7750, L500.4100, L500.4050, L501.9985 #### [facility] [address] [place], [address] Glucose [Mass/Vol] 89 mg/dL Normal 74-106 [facility] Comment on above: Performed By: #### L 3100.7750, L500.4100, L500.4050, L501.9985 #### [facility] [address] [place], [address] Potassium [Moles/Vol] 4.0 mmol/L Normal 3.5-5.1 [facility] Comment on above: Performed By: #### L 3100.7750, L500.4100, L500.4050, L501.9985 #### [facility] [address] [place], [address] Sodium [Moles/Vol] 140 mmol/L Normal 136-145 [facility] Comment on above: Performed By: #### L 3100.7750, L500.4100, L500.4050, L501.9985 #### [facility] [address] [place], [address] T PROT 6.6 g/dL Normal 6.4-8.2 [facility] Comment on above: Performed By: #### L 3100.7750, L500.4100, L500.4050, L501.9985 #### [facility] [address] [place], [address] Urea nitrogen [Mass/Vol] 14 mg/dL Normal 7-18 [facility] Comment on above: Performed By: #### L 3100.7750, L500.4100, L500.4050, L501.9985 #### [facility] [address] [place], [address] Hemoglobin A1con 06-21-2024 HbA1c (Bld) [Mass fraction] 5.8 % High 3.8-5.6 [facility] Comment on above: Result Comment: Norm al < 5.7 % Prediabetic 5.7 - 6.4 % Diabetic >or= 6.5 % Please note range changes. Performed By: #### L 501.5200, L502.0250, L501.9985, L500.4050 #### [facility] [address] [place], [address] Magnesiumon 06-21-2024 Magnesium [Mass/Vol] 2.3 mg/dL Normal 1.6-2.6 [facility] Comment on above: Performed By: #### L 3100.7750, L500.4100, L500.4050, L501.9985 #### [facility] [address] [place], [address] Microalb:Creat Ratio,Random URon 06-21-2024 MALB:CRE TNP Normal <30 mg/g CRE [facility] Comment on above: Performed By: #### L 501.5200, L502.0250, L501.9985, L500.4050 #### [facility] [address] [place], [address] MICROALBUMIN,UR < 5.0 Normal NO RANGE EST. [facility] Comment on above: Performed By: #### L 501.5200, L502.0250, L501.9985, L500.4050 #### [facility] [address] [place], [address] UR CREAT < 13.00 Normal NO RANGE EST. [facility] Comment on above: Performed By: #### L 501.5200, L502.0250, L501.9985, L500.4050 #### [facility] [address] [place], [address] Basophil percentageOrdered B y: Curt Robles on 02-22-2024 Bilirubin [Mass/Vol] 1.00 mg/dL 0.20-1.00 [facility] Comment on above: For patients on eltr ombopag therapy, use of Dimension [employer] TBIL is not recommended. Chloride [Moles/Vol] 104 mmol/L 98-107 [facility] Cholesterol [Mass/Vol] 209 mg/dL <200 [facility] Comment on above: <200 mg/dL Desirable 200-240 mg/dL Borderline >240 mg/dL High Risk Glucose [Mass/Vol] 100 mg/dL 74-106 [facility] Comment on above: Fasting Glucose resu lt from 100 to 125 mg/dL suggests IMPAIRED HOMEOSTASIS per A.D.A. criteria. Potassium [Moles/Vol] 4.1 mmol/L 3.5-5.1 [facility] Protein [Mass/Vol] 6.6 g/dL 6.4-8.2 [facility] Sodium [Moles/Vol] 138 mmol/L 136-145 [facility] Triglyceride [Mass/Vol] 34 mg/dL <199 [facility] Comment on above: The drugs N-Acetylcy steine and Metamizole may falsely depress this assay.Serum Triglycerides Reference Interval Normal <150 mg/dL Borderline high 150 - 199 mg/dL High 200 - 499 mg/dL Very High > or = 500 mg/dL Laboratory - Chemistry and C hemistry - challengeOrdered By: Curt Robles on 02-22-2024 Albumin/Globulin [Mass ratio] 1.4 {ratio} 0.9-2.4 [facility] ALP [Catalytic activity/Vol] 48 U/L 45-117 [facility] ALT [Catalytic activity/Vol] 37 U/L 13-56 [facility] Cholesterol in HDL [Mass/Vol] 102 mg/dL >40 [facility] Comment on above: The drugs N-Acetylcy steine and Metamizole may falsely depress this assay. Reference Range HDL <40 mg/dL Low HDL Cholesterol HDL >or= 60 mg/dL High HDL Cholesterol Cholesterol in LDL [Mass/Vol] 100 mg/dL 0-130 [facility] CO2 [Moles/Vol] 28.0 mmol/L 21.0-32.0 [facility] Globulin (S) [Mass/Vol] 2.8 g/dL 2.2-4.2 [facility] Urea nitrogen/Creatinine [Mass ratio] 25.2 mg/mg 10-20 [facility] No Panel InformationOrdered By: Curt Robles on 02-22-2024 C-Peptide 0.5 ng/mL 1.1-4.4 [facility] Comment on above: C-Peptide reference interval is for fasting patients. Estimated GFR (MDRD) Amer 89 mL/min >60 [facility] Comment on above: GFR Calc Estimated GFR (MDRD) Non-Af Amer 73 mL/min >60 [facility] Comment on above: Non- GFR Calc Thyroglobulin Antibody < 1.0 IU/mL 0.0-0.9 [facility] Comment on above: Thyroglobulin Antibo dy measured by Armando CoulterMethodologyIt should be noted that the presence of thyroglobulinantibodies may not be pathogenic nor diagnostic, especiallyat very low levels. The assay art sales consultant has found thatfour percent of individuals without evidence of thyroiddisease or autoimmunity will have positive TgAb levels upto 4 IU/mL. Urine Microalbumin/Creatini ne Ratio 38.3 mg/g CRE <30 [facility] [facility] Cholesterol 7 mg/dL 5-40 [facility] Serum or plasma calcium chasidy urement (mass/volume)Ordered By: Curt Robles on 02-22-2024 Calcium [Mass/Vol] 8.7 mg/dL 8.5-10.1 [facility] Serum or plasma creatinine m easurement (mass/volume)Ordered By: Curt Robles on 02-22-2024 Creatinine [Mass/Vol] 0.83 mg/dL 0.55-1.02 [facility] Comment on above: The validity of the calculated GFR & GFRAA in patients over 70 years has not been determined. Clinical correlation is essential. Serum or plasma thyroid stim ulating hormone (TSH) measurement (units/volume)Ordered By: Curt Robles on 02-22-2024 TSH Qn 1.43 uIU/mL 0.358-3.74 [facility] Serum or plasma thyroperoxid ase antibody assay (units/volume)Ordered By: Curt Robles on 02-22-2024 TPO Ab Qn 65 [IU]/mL 0-34 [facility] Comment on above: Performed at: [address] [id number] Director: Mac Padilla PhD, Phone: [phone] Serum or plasma urea nitroge n measurement (mass/volume)Ordered By: Curt Robles on 02-22-2024 Urea nitrogen [Mass/Vol] 21 mg/dL 7-18 [facility] Thin prep Papanicolaou smear with manual screeningOrdered By: Curt Robles on 02-22-2024 Thin prep Papanicolaou smear with manual screening 3.8 g/dL 3.2-5.0 [facility] Thin prep Papanicolaou smear with manual screening 22 U/L 15-37 [facility] Thin prep Papanicolaou smear with manual screening 6 5-15 [facility] Thin prep Papanicolaou smear with manual screening 5.3 mg/L NO RANGE EST. [facility] Urine creatinine measurement (mass/volume)Ordered By: Curt Robles on 02-22-2024 Creatinine (U) [Mass/Vol] 13.80 mg/dL NO RANGE EST. [facility] Whole blood hemoglobin A1c/t otal hemoglobin ratio (mass fraction)Ordered By: Curt Robles on 02-22-2024 HbA1c (Bld) [Mass fraction] 6.1 % 3.8-5.6 [facility] Comment on above: Normal < 5.7 % Predi abetic 5.7 - 6.4 % Diabetic >or= 6.5 % Please note range changes. Basophil percentageOrdered B y: Curt Robles on 11-24-2023 Bilirubin [Mass/Vol] 1.00 mg/dL 0.20-1.00 [facility] Comment on above: For patients on eltr ombopag therapy, use of Dimension [employer] TBIL is not recommended. Chloride [Moles/Vol] 104 mmol/L 98-107 [facility] Glucose [Mass/Vol] 98 mg/dL 74-106 [facility] Potassium [Moles/Vol] 3.9 mmol/L 3.5-5.1 [facility] Protein [Mass/Vol] 6.8 g/dL 6.4-8.2 [facility] Sodium [Moles/Vol] 139 mmol/L 136-145 [facility] Laboratory - Chemistry and C hemistry - challengeOrdered By: Curt Robles on 11-24-2023 ALP [Catalytic activity/Vol] 51 U/L 45-117 [facility] ALT [Catalytic activity/Vol] 42 U/L 13-56 [facility] CO2 [Moles/Vol] 31.0 mmol/L 21.0-32.0 [facility] Globulin (S) [Mass/Vol] 3.1 g/dL 2.2-4.2 [facility] Urea nitrogen/Creatinine [Mass ratio] 22.8 mg/mg 10-20 [facility] No Panel InformationOrdered By: Curt Robles on 11-24-2023 Estimated GFR (MDRD) Amer 94 mL/min >60 [facility] Comment on above: GFR Calc Estimated GFR (MDRD) Non-Af Amer 78 mL/min >60 [facility] Comment on above: Non- GFR Calc Serum or plasma albumin chasidy urement (mass/volume)Ordered By: Curt Robles on 11-24-2023 Albumin [Mass/Vol] 3.7 g/dL 3.2-5.0 [facility] Serum or plasma albumin/glob ulin mass ratioOrdered By: Curt Robles on 11-24-2023 Albumin/Globulin [Mass ratio] 1.2 {ratio} 0.9-2.4 [facility] Serum or plasma calcium chasidy urement (mass/volume)Ordered By: Curt Robles on 11-24-2023 Calcium [Mass/Vol] 9.2 mg/dL 8.5-10.1 [facility] Serum or plasma creatinine m easurement (mass/volume)Ordered By: Curt Robles on 11-24-2023 Creatinine [Mass/Vol] 0.79 mg/dL 0.55-1.02 [facility] Comment on above: The validity of the calculated GFR & GFRAA in patients over 70 years has not been determined. Clinical correlation is essential. Serum or plasma urea nitroge n measurement (mass/volume)Ordered By: Curt Robles on 11-24-2023 Urea nitrogen [Mass/Vol] 18 mg/dL 7-18 [facility] Thin prep Papanicolaou smear with manual screeningOrdered By: Curt Robles on 11-24-2023 Thin prep Papanicolaou smear with manual screening 23 U/L 15-37 [facility] Thin prep Papanicolaou smear with manual screening 4 5-15 [facility] Whole blood hemoglobin A1c/t otal hemoglobin ratio (mass fraction)Ordered By: Curt Robles on 11-24-2023 HbA1c (Bld) [Mass fraction] 6.1 % 3.8-5.6 [facility] Comment on above: Normal < 5.7 % Predi abetic 5.7 - 6.4 % Diabetic >or= 6.5 % Please note range changes. Basophil percentageOrdered B y: Curt Robles on 08-19-2023 Bilirubin [Mass/Vol] 0.90 mg/dL 0.20-1.00 [facility] Comment on above: For patients on eltr ombopag therapy, use of [employer] TBIL is not recommended. Chloride [Moles/Vol] 104 mmol/L 98-107 [facility] Glucose [Mass/Vol] 73 mg/dL 74-106 [facility] Potassium [Moles/Vol] 3.9 mmol/L 3.5-5.1 [facility] Protein [Mass/Vol] 6.5 g/dL 6.4-8.2 [facility] Sodium [Moles/Vol] 138 mmol/L 136-145 [facility] Laboratory - Chemistry and C hemistry - challengeOrdered By: Curt Robles on 08-19-2023 ALP [Catalytic activity/Vol] 44 U/L 45-117 [facility] ALT [Catalytic activity/Vol] 33 U/L 13-56 [facility] CO2 [Moles/Vol] 30.0 mmol/L 21.0-32.0 [facility] Globulin (S) [Mass/Vol] 2.9 g/dL 2.2-4.2 [facility] Urea nitrogen/Creatinine [Mass ratio] 22.7 mg/mg 10-20 [facility] No Panel InformationOrdered By: Curt Robles on 08-19-2023 Estimated GFR (MDRD) Amer 94 mL/min >60 [facility] Comment on above: GFR Calc Estimated GFR (MDRD) Non-Af Amer 78 mL/min >60 [facility] Comment on above: Non- GFR Calc Thyroid Stimulating Hormone (TSH) 1.77 uIU/mL 0.358-3.74 [facility] Vitamin D 25-Hydroxy 72.2 ng/mL [facility] Comment on above: Vitamin D 25(OH) Sta tus Range Deficiency <20 ng/mL (50nmol/L) Insufficiency 20 - 30 ng/mL (50 - 75 nmol/L) Sufficiency 30 - 100 ng/mL (75 - 250 nmol/L) Toxicity >100 ng/mL (>250 nmol/L) Serum or plasma albumin chasidy urement (mass/volume)Ordered By: Curt Robles on 08-19-2023 Albumin [Mass/Vol] 3.6 g/dL 3.2-5.0 [facility] Serum or plasma albumin/glob ulin mass ratioOrdered By: Curt Robles on 08-19-2023 Albumin/Globulin [Mass ratio] 1.2 {ratio} 0.9-2.4 [facility] Serum or plasma calcium chasidy urement (mass/volume)Ordered By: Curt Robles on 08-19-2023 Calcium [Mass/Vol] 9.0 mg/dL 8.5-10.1 [facility] Serum or plasma creatinine m easurement (mass/volume)Ordered By: Curt Robles on 08-19-2023 Creatinine [Mass/Vol] 0.79 mg/dL 0.55-1.02 [facility] Comment on above: The validity of the calculated GFR & GFRAA in patients over 70 years has not been determined. Clinical correlation is essential. Serum or plasma urea nitroge n measurement (mass/volume)Ordered By: Curt Robles on 08-19-2023 Urea nitrogen [Mass/Vol] 18 mg/dL 7-18 [facility] Thin prep Papanicolaou smear with manual screeningOrdered By: Curt Robles on 08-19-2023 Thin prep Papanicolaou smear with manual screening 19 U/L 15-37 [facility] Thin prep Papanicolaou smear with manual screening 4 5-15 [facility] Whole blood hemoglobin A1c/t otal hemoglobin ratio (mass fraction)Ordered By: Curt Robles on 08-19-2023 HbA1c (Bld) [Mass fraction] 5.7 % 3.8-5.6 [facility] Comment on above: Normal < 5.7 % Predi abetic 5.7 - 6.4 % Diabetic >or= 6.5 % Please note range changes. Basophil percentageOrdered B y: Dr. Robles on 02-19-2023 Bilirubin [Mass/Vol] 0.90 mg/dL 0.20-1.00 [facility] Comment on above: For patients on eltr ombopag therapy, use of [employer] TBIL is not recommended. Chloride [Moles/Vol] 104 mmol/L 98-107 [facility] Cholesterol [Mass/Vol] 200 mg/dL <200 [facility] Comment on above: <200 mg/dL Desirable 200-240 mg/dL Borderline >240 mg/dL High Risk Glucose [Mass/Vol] 81 mg/dL 74-106 [facility] Potassium [Moles/Vol] 3.9 mmol/L 3.5-5.1 [facility] Protein [Mass/Vol] 6.3 g/dL 6.4-8.2 [facility] Sodium [Moles/Vol] 141 mmol/L 136-145 [facility] Triglyceride [Mass/Vol] 39 mg/dL <199 [facility] Comment on above: The drugs N-Acetylcy steine and Metamizole may falsely depress this assay.Serum Triglycerides Reference Interval Normal <150 mg/dL Borderline high 150 - 199 mg/dL High 200 - 499 mg/dL Very High > or = 500 mg/dL Laboratory - Chemistry and C hemistry - challengeOrdered By: Dr. Robles on 02-19-2023 ALP [Catalytic activity/Vol] 42 U/L 45-117 [facility] ALT [Catalytic activity/Vol] 39 U/L 13-56 [facility] CO2 [Moles/Vol] 28.0 mmol/L 21.0-32.0 [facility] Globulin (S) [Mass/Vol] 2.7 g/dL 2.2-4.2 [facility] Urea nitrogen/Creatinine [Mass ratio] 19.3 mg/mg 10-20 [facility] No Panel InformationOrdered By: Dr. Robles on 02-19-2023 Estimated GFR (MDRD) Amer 96 mL/min >60 [facility] Comment on above: GFR Calc Estimated GFR (MDRD) Non-Af Amer 80 mL/min >60 [facility] Comment on above: Non- GFR Calc Thyroid Stimulating Hormone (TSH) 2.17 uIU/mL 0.358-3.74 [facility] Vitamin D 25-Hydroxy 82.4 ng/mL [facility] Comment on above: Vitamin D 25(OH) Sta tus Range Deficiency <20 ng/mL (50nmol/L) Insufficiency 20 - 30 ng/mL (50 - 75 nmol/L) Sufficiency 30 - 100 ng/mL (75 - 250 nmol/L) Toxicity >100 ng/mL (>250 nmol/L) Serum or plasma albumin chasidy urement (mass/volume)Ordered By: Dr. Robles on 02-19-2023 Albumin [Mass/Vol] 3.6 g/dL 3.2-5.0 [facility] Serum or plasma albumin/glob ulin mass ratioOrdered By: Dr. Robles on 02-19-2023 Albumin/Globulin [Mass ratio] 1.3 {ratio} 0.9-2.4 [facility] Serum or plasma calcium chasidy urement (mass/volume)Ordered By: Dr. Robles on 02-19-2023 Calcium [Mass/Vol] 8.6 mg/dL 8.5-10.1 [facility] Serum or plasma cholesterol in HDL measurement (mass/volume)Ordered By: Dr. Robles on 02-19-2023 Cholesterol in HDL [Mass/Vol] 96 mg/dL >40 [facility] Comment on above: The drugs N-Acetylcy steine and Metamizole may falsely depress this assay. Reference Range HDL <40 mg/dL Low HDL Cholesterol HDL >or= 60 mg/dL High HDL Cholesterol Serum or plasma cholesterol in VLDL measurement (mass/volume)Ordered By: Dr. Robles on 02-19-2023 Cholesterol in VLDL [Mass/Vol] 8 mg/dL 5-40 [facility] Serum or plasma creatinine m easurement (mass/volume)Ordered By: Dr. Robles on 02-19-2023 Creatinine [Mass/Vol] 0.78 mg/dL 0.55-1.02 [facility] Comment on above: The validity of the calculated GFR & GFRAA in patients over 70 years has not been determined. Clinical correlation is essential. Serum or plasma low density lipoprotein (LDL) cholesterol measurement (mass/volume)Ordered By: Dr. Robles on 02-19-2023 Cholesterol in LDL [Mass/Vol] 96 mg/dL 0-130 [facility] Serum or plasma urea nitroge n measurement (mass/volume)Ordered By: Dr. Robles on 02-19-2023 Urea nitrogen [Mass/Vol] 15 mg/dL 7-18 [facility] Thin prep Papanicolaou smear with manual screeningOrdered By: Dr. Robles on 02-19-2023 Thin prep Papanicolaou smear with manual screening 22 U/L 15-37 [facility] Thin prep Papanicolaou smear with manual screening 9 5-15 [facility] Thin prep Papanicolaou smear with manual screening 14.6 mg/L NO RANGE EST. [facility] Whole blood hemoglobin A1c/t otal hemoglobin ratio (mass fraction)Ordered By: Dr. Robles on 02-19-2023 HbA1c (Bld) [Mass fraction] 5.9 % 3.8-5.6 [facility] Comment on above: Normal < 5.7 % Predi abetic 5.7 - 6.4 % Diabetic >or= 6.5 % Please note range changes. Glucose Glucometer (BldC) [M ass/Vol]Ordered By: Gunner Nolen on 12-03-2022 Glucose [Mass/Vol] 91 mg/dL 74-106 [facility] Comment on above: MANAGEMENT OF PATIEN T CARE PER NURSING PROTOCOL Basophil percentageOrdered B y: Dr. Robles on 11-03-2022 Bilirubin [Mass/Vol] 1.10 mg/dL 0.20-1.00 [facility] Comment on above: For patients on eltr ombopag therapy, use of [employer] TBIL is not recommended. Chloride [Moles/Vol] 104 mmol/L 98-107 [facility] Glucose [Mass/Vol] 101 mg/dL 74-106 [facility] Comment on above: Fasting Glucose resu lt from 100 to 125 mg/dL suggests IMPAIRED HOMEOSTASIS per A.D.A. criteria. Potassium [Moles/Vol] 4.3 mmol/L 3.5-5.1 [facility] Protein [Mass/Vol] 7.0 g/dL 6.4-8.2 [facility] Sodium [Moles/Vol] 138 mmol/L 136-145 [facility] Laboratory - Chemistry and C hemistry - challengeOrdered By: Dr. Robles on 11-03-2022 ALP [Catalytic activity/Vol] 49 U/L 45-117 [facility] ALT [Catalytic activity/Vol] 41 U/L 13-56 [facility] CO2 [Moles/Vol] 31.0 mmol/L 21.0-32.0 [facility] Globulin (S) [Mass/Vol] 3.3 g/dL 2.2-4.2 [facility] Urea nitrogen/Creatinine [Mass ratio] 23.0 mg/mg 10-20 [facility] No Panel InformationOrdered By: Dr. Robles on 11-03-2022 Estimated GFR (MDRD) Amer 102 mL/min >60 [facility] Comment on above: GFR Calc Estimated GFR (MDRD) Non-Af Amer 85 mL/min >60 [facility] Comment on above: Non- GFR Calc Thyroid Stimulating Hormone (TSH) 1.99 uIU/mL 0.358-3.74 [facility] Serum or plasma albumin chasidy urement (mass/volume)Ordered By: Dr. Robles on 11-03-2022 Albumin [Mass/Vol] 3.7 g/dL 3.2-5.0 [facility] Serum or plasma albumin/glob ulin mass ratioOrdered By: Dr. Robles on 11-03-2022 Albumin/Globulin [Mass ratio] 1.1 {ratio} 0.9-2.4 [facility] Serum or plasma calcium chasidy urement (mass/volume)Ordered By: Dr. Robles on 11-03-2022 Calcium [Mass/Vol] 9.0 mg/dL 8.5-10.1 [facility] Serum or plasma creatinine m easurement (mass/volume)Ordered By: Dr. Robles on 11-03-2022 Creatinine [Mass/Vol] 0.74 mg/dL 0.55-1.02 [facility] Comment on above: The validity of the calculated GFR & GFRAA in patients over 70 years has not been determined. Clinical correlation is essential. Serum or plasma urea nitroge n measurement (mass/volume)Ordered By: Dr. Robles on 11-03-2022 Urea nitrogen [Mass/Vol] 17 mg/dL 7-18 [facility] Thin prep Papanicolaou smear with manual screeningOrdered By: Dr. Robles on 11-03-2022 Thin prep Papanicolaou smear with manual screening 26 U/L 15-37 [facility] Thin prep Papanicolaou smear with manual screening 3 5-15 [facility] Whole blood hemoglobin A1c/t otal hemoglobin ratio (mass fraction)Ordered By: Dr. Robles on 11-03-2022 HbA1c (Bld) [Mass fraction] 6.2 % 3.8-5.6 [facility] Comment on above: Normal < 5.7 % Predi abetic 5.7 - 6.4 % Diabetic >or= 6.5 % Please note range changes. Basophil percentageon 2021 Bilirubin [Mass/Vol] 1.00 mg/dL 0.20-1.00 [facility] Work Phone: Comment on above: For patients on eltr ombopag therapy, use of [employer] TBIL is not recommended. Chloride [Moles/Vol] 105 mmol/L 98-107 [facility] Work Phone: Cholesterol [Mass/Vol] 192 mg/dL <200 [facility] Work Phone: Comment on above: <200 mg/dL Desirable 200-240 mg/dL Borderline >240 mg/dL High Risk Glucose [Mass/Vol] 80 mg/dL 74-106 [facility] Work Phone: Potassium [Moles/Vol] 3.7 mmol/L 3.5-5.1 [facility] Work Phone: Protein [Mass/Vol] 6.8 g/dL 6.4-8.2 [facility] Work Phone: Sodium [Moles/Vol] 139 mmol/L 136-145 [facility] Work Phone: Triglyceride [Mass/Vol] 47 mg/dL <199 [facility] Work Phone: Comment on above: The drugs N-Acetylcy steine and Metamizole may falsely depress this assay.Serum Triglycerides Reference Interval Normal <150 mg/dL Borderline high 150 - 199 mg/dL High 200 - 499 mg/dL Very High > or = 500 mg/dL Laboratory - Chemistry and C hemistry - challengeon 06-20-2022 ALP [Catalytic activity/Vol] 49 U/L 45-117 [facility] Work Phone: ALT [Catalytic activity/Vol] 43 U/L 13-56 [facility] Work Phone: CO2 [Moles/Vol] 29.0 mmol/L 21.0-32.0 [facility] Work Phone: Globulin (S) [Mass/Vol] 3.0 g/dL 2.2-4.2 [facility] Work Phone: Urea nitrogen/Creatinine [Mass ratio] 25.5 mg/mg 10-20 [facility] Work Phone: No Panel Informationon 06-20 Estimated GFR (MDRD) Amer 101 mL/min >60 [facility] Work Phone: Comment on above: GFR Calc Estimated GFR (MDRD) Non-Af Amer 84 mL/min >60 [facility] Work Phone: Comment on above: Non- GFR Calc Vitamin D 25-Hydroxy 77.5 ng/mL [facility] Work Phone: Comment on above: Vitamin D 25(OH) Sta tus Range Deficiency <20 ng/mL (50nmol/L) Insufficiency 20 - 30 ng/mL (50 - 75 nmol/L) Sufficiency 30 - 100 ng/mL (75 - 250 nmol/L) Toxicity >100 ng/mL (>250 nmol/L) Serum or plasma albumin chasidy urement (mass/volume)on 06-20-2022 Albumin [Mass/Vol] 3.8 g/dL 3.2-5.0 [facility] Work Phone: Serum or plasma albumin/glob ulin mass ratioon 06-20-2022 Albumin/Globulin [Mass ratio] 1.3 {ratio} 0.9-2.4 [facility] Work Phone: Serum or plasma calcium chasidy urement (mass/volume)on 06-20-2022 Calcium [Mass/Vol] 8.7 mg/dL 8.5-10.1 [facility] Work Phone: Serum or plasma cholesterol in HDL measurement (mass/volume)on 06-20-2022 Cholesterol in HDL [Mass/Vol] 96 mg/dL >40 [facility] Work Phone: Comment on above: The drugs N-Acetylcy steine and Metamizole may falsely depress this assay. Reference Range HDL <40 mg/dL Low HDL Cholesterol HDL >or= 60 mg/dL High HDL Cholesterol Serum or plasma cholesterol in VLDL measurement (mass/volume)on 06-20-2022 Cholesterol in VLDL [Mass/Vol] 9 mg/dL 5-40 [facility] Work Phone: Serum or plasma creatinine m easurement (mass/volume)on 06-20-2022 Creatinine [Mass/Vol] 0.74 mg/dL 0.55-1.02 [facility] Work Phone: Comment on above: The validity of the calculated GFR & GFRAA in patients over 70 years has not been determined. Clinical correlation is essential. Serum or plasma low density lipoprotein (LDL) cholesterol measurement (mass/volume)on 06-20-2022 Cholesterol in LDL [Mass/Vol] 87 mg/dL 0-130 [facility] Work Phone: Serum or plasma urea nitroge n measurement (mass/volume)on 06-20-2022 Urea nitrogen [Mass/Vol] 19 mg/dL 7-18 [facility] Work Phone: Thin prep Papanicolaou smear with manual screeningon 06-20-2022 Thin prep Papanicolaou smear with manual screening 28 U/L 15-37 [facility] Work Phone: Thin prep Papanicolaou smear with manual screening 5 5-15 [facility] Work Phone: Basophil percentageon 2021 Bilirubin [Mass/Vol] 0.90 mg/dL 0.20-1.00 [facility] Work Phone: Comment on above: For patients on eltr ombopag therapy, use of [employer] TBIL is not recommended. Chloride [Moles/Vol] 107 mmol/L 98-107 [facility] Work Phone: Cholesterol [Mass/Vol] 205 mg/dL <200 [facility] Work Phone: Comment on above: <200 mg/dL Desirable 200-240 mg/dL Borderline >240 mg/dL High Risk Glucose [Mass/Vol] 81 mg/dL 74-106 [facility] Work Phone: Potassium [Moles/Vol] 3.8 mmol/L 3.5-5.1 [facility] Work Phone: Protein [Mass/Vol] 6.6 g/dL 6.4-8.2 [facility] Work Phone: Sodium [Moles/Vol] 141 mmol/L 136-145 [facility] Work Phone: Triglyceride [Mass/Vol] 42 mg/dL <199 [facility] Work Phone: Comment on above: The drugs N-Acetylcy steine and Metamizole may falsely depress this assay.Serum Triglycerides Reference Interval Normal <150 mg/dL Borderline high 150 - 199 mg/dL High 200 - 499 mg/dL Very High > or = 500 mg/dL Laboratory - Chemistry and C hemistry - challengeon 02-26-2022 ALP [Catalytic activity/Vol] 55 U/L 45-117 [facility] Work Phone: ALT [Catalytic activity/Vol] 39 U/L 13-56 [facility] Work Phone: CO2 [Moles/Vol] 29.0 mmol/L 21.0-32.0 [facility] Work Phone: Globulin (S) [Mass/Vol] 2.9 g/dL 2.2-4.2 [facility] Work Phone: Urea nitrogen/Creatinine [Mass ratio] 18.2 mg/mg 10-20 [facility] Work Phone: No Panel Informationon 02-26 Estimated GFR (MDRD) Amer 90 mL/min >60 [facility] Work Phone: Comment on above: GFR Calc Estimated GFR (MDRD) Non-Af Amer 74 mL/min >60 [facility] Work Phone: Comment on above: Non- GFR Calc Thyroid Stimulating Hormone (TSH) 2.54 uIU/mL 0.358-3.74 [facility] Work Phone: Urine Microalbumin/Creatini ne Ratio 10.3 mg/g CRE <30 [facility] Work Phone: Serum or plasma albumin chasidy urement (mass/volume)on 02-26-2022 Albumin [Mass/Vol] 3.7 g/dL 3.2-5.0 [facility] Work Phone: Serum or plasma albumin/glob ulin mass ratioon 02-26-2022 Albumin/Globulin [Mass ratio] 1.3 {ratio} 0.9-2.4 [facility] Work Phone: Serum or plasma calcium chasidy urement (mass/volume)on 02-26-2022 Calcium [Mass/Vol] 8.9 mg/dL 8.5-10.1 [facility] Work Phone: Serum or plasma cholesterol in HDL measurement (mass/volume)on 02-26-2022 Cholesterol in HDL [Mass/Vol] 97 mg/dL >40 [facility] Work Phone: Comment on above: The drugs N-Acetylcy steine and Metamizole may falsely depress this assay. Reference Range HDL <40 mg/dL Low HDL Cholesterol HDL >or= 60 mg/dL High HDL Cholesterol Serum or plasma cholesterol in VLDL measurement (mass/volume)on 02-26-2022 Cholesterol in VLDL [Mass/Vol] 8 mg/dL 5-40 [facility] Work Phone: Serum or plasma creatinine m easurement (mass/volume)on 02-26-2022 Creatinine [Mass/Vol] 0.83 mg/dL 0.55-1.02 [facility] Work Phone: Comment on above: The validity of the calculated GFR & GFRAA in patients over 70 years has not been determined. Clinical correlation is essential. Serum or plasma low density lipoprotein (LDL) cholesterol measurement (mass/volume)on 02-26-2022 Cholesterol in LDL [Mass/Vol] 100 mg/dL 0-130 [facility] Work Phone: Serum or plasma urea nitroge n measurement (mass/volume)on 02-26-2022 Urea nitrogen [Mass/Vol] 15 mg/dL 7-18 [facility] Work Phone: Thin prep Papanicolaou smear with manual screeningon 02-26-2022 Thin prep Papanicolaou smear with manual screening 21 U/L 15-37 [facility] Work Phone: Thin prep Papanicolaou smear with manual screening 5 5-15 [facility] Work Phone: Thin prep Papanicolaou smear with manual screening 7.0 mg/L NO RANGE EST. [facility] Work Phone: Urine creatinine measurement (mass/volume)on 02-26-2022 Creatinine (U) [Mass/Vol] 67.70 mg/dL NO RANGE EST. [facility] Work Phone: Whole blood hemoglobin A1c/t otal hemoglobin ratio (mass fraction)on 02-26-2022 HbA1c (Bld) [Mass fraction] 6.0 % 3.8-5.6 [facility] Work Phone: Comment on above: Normal < 5.7 % Predi abetic 5.7 - 6.4 % Diabetic >or= 6.5 % Please note range changes. Laboratory - Microbiology an d Antimicrobial susceptibilityon 11-21-2021 SARS-CoV-2 (COVID-19) RNA ZULLY+probe Ql (Unsp spec) Not detected Not Detect [facility] Work Phone: Comment on above: Normal Reference Ran ge: Not DetectedMethod:(RT-PCR) real-time reverse transcriptase PCRLuminex DHARMESH Instrument*The Food and Drug Administration (FDA) has issued an Emergency Use Authorization (EAU) for the DHARMESH SARS-CoV-2 Assay for the rapid detection of the virus that causes COVID-19. This test has been validated, but the FDAs independent review of this validation is pending.*Negative results do not preclude infection and should not be used as the sole basis for treatment or patient management. [employer] specimen types and timing for peak viral levels during infections caused by SARS-CoV-2 have not been determined. Collection of multiple specimens from the same patient may be necessary to detect the virus. The possibility of a false negative result should be considered if the patient has clinical presentation or has had recent exposure. Basophil percentageon 2020 Bilirubin [Mass/Vol] 0.90 mg/dL 0.20-1.00 [facility] Work Phone: Comment on above: For patients on eltr ombopag therapy, use of Dimension [employer] TBIL is not recommended. Chloride [Moles/Vol] 104 mmol/L 98-107 [facility] Work Phone: Glucose [Mass/Vol] 100 mg/dL 74-106 [facility] Work Phone: Comment on above: Fasting Glucose resu lt from 100 to 125 mg/dL suggests IMPAIRED HOMEOSTASIS per A.D.A. criteria.Please note revised GLUCOSE reference range effective 2017. Potassium [Moles/Vol] 3.7 mmol/L 3.5-5.1 [facility] Work Phone: Protein [Mass/Vol] 6.5 g/dL 6.4-8.2 [facility] Work Phone: Sodium [Moles/Vol] 140 mmol/L 136-145 [facility] Work Phone: Laboratory - Chemistry and C hemistry - challengeon 11-14-2021 ALP [Catalytic activity/Vol] 51 U/L 45-117 [facility] Work Phone: ALT [Catalytic activity/Vol] 37 U/L 13-56 [facility] Work Phone: CO2 [Moles/Vol] 29.0 mmol/L 21.0-32.0 [facility] Work Phone: Globulin (S) [Mass/Vol] 2.9 g/dL 2.2-4.2 [facility] Work Phone: Urea nitrogen/Creatinine [Mass ratio] 23.2 mg/mg 10-20 [facility] Work Phone: No Panel Informationon 11-14 Estimated GFR (MDRD) Amer 111 mL/min >60 [facility] Work Phone: Comment on above: GFR Calc Estimated GFR (MDRD) Non-Af Amer 92 mL/min >60 [facility] Work Phone: Comment on above: Non- GFR Calc Serum or plasma albumin chasidy urement (mass/volume)on 11-14-2021 Albumin [Mass/Vol] 3.6 g/dL 3.2-5.0 [facility] Work Phone: Serum or plasma albumin/glob ulin mass ratioon 11-14-2021 Albumin/Globulin [Mass ratio] 1.2 {ratio} 0.9-2.4 [facility] Work Phone: Serum or plasma calcium chasidy urement (mass/volume)on 11-14-2021 Calcium [Mass/Vol] 8.9 mg/dL 8.5-10.1 [facility] Work Phone: Serum or plasma creatinine m easurement (mass/volume)on 11-14-2021 Creatinine [Mass/Vol] 0.69 mg/dL 0.55-1.02 [facility] Work Phone: Comment on above: The validity of the calculated GFR & GFRAA in patients over 70 years has not been determined. Clinical correlation is essential. Serum or plasma urea nitroge n measurement (mass/volume)on 11-14-2021 Urea nitrogen [Mass/Vol] 16 mg/dL 7-18 [facility] Work Phone: Thin prep Papanicolaou smear with manual screeningon 11-14-2021 Thin prep Papanicolaou smear with manual screening 23 U/L 15-37 [facility] Work Phone: Thin prep Papanicolaou smear with manual screening 7 5-15 [facility] Work Phone: Whole blood hemoglobin A1c/t otal hemoglobin ratio (mass fraction)on 11-14-2021 HbA1c (Bld) [Mass fraction] 5.8 % 3.8-5.6 [facility] Work Phone: Comment on above: Normal < 5.7 % Predi abetic 5.7 - 6.4 % Diabetic >or= 6.5 % Please note range changes. Vital Signs Date Time Vital Sign Value Performing Clinician Tony shields 12-03-2022 10:15-0500 Body temperature 97 [degF] DO Deena Shai Work Phone: [facility] 12-03-2022 10:15-0500 Diastolic blood pressure 59 mm[Hg] DO Deena Shai Work Phone: [facility] 12-03-2022 10:15-0500 Heart rate 60 /min DO Deena Shai Work Phone: [facility] 12-03-2022 10:15-0500 Respiratory rate 16 /min DO Deena Shai Work Phone: [facility] 12-03-2022 10:15-0500 SaO2% (BldA) [Mass fraction] 100 % DO Deena Shai Work Phone: [facility] 12-03-2022 10:15-0500 Systolic blood pressure 101 mm[Hg] DO Deena Shai Work Phone: [facility] 12-03-2022 09:13-0500 Body height 162.56 cm DO Deena Shai Work Phone: [facility] 12-03-2022 09:13-0500 Body mass index (BMI) [Ratio] 18.9 kg/m2 DO Deena Shai Work Phone: [facility] 12-03-2022 09:13-0500 Body weight 50 kg DO Deena Shai Work Phone: [facility] 10-06-2022 10:33-0500 Body height 165.1 cm DO Deena Shai Work Phone: [facility] Work Phone: 10-06-2022 10:33-0500 Body mass index (BMI) [Ratio] 18.8 kg/m2 DO Deena Gibbons Work Phone: [facility] 10-06-2022 10:[id number] Body weight 51.25 kg DO Deena Gibbons Work Phone: [facility] Encounters Encounter Date Encounter Type Care Provider Facility Start: 03-02-2025 End: 03-02-2025 ambulatory Greg Michaud MD Work Phone: [facility] Work Phone: Start: 03-02-2025 End: 03-02-[address] Curt Benavides [place] Work Phone: Start: 03-02-2025 End: 03-02-[facility] Start: 12-02-2024 End: 12-02-[address] Curt Robles [facility] [place] Work Phone: Start: 12-02-2024 End: 12-02-2024 ambulatory Curt Robles Facility:[facility] Start: 09-29-2024 End: 09-29-2024 ambulatory Lori Mason Facility:[facility] Start: 09-05-2024 End: 09-05-2024 [facility] Start: 06-21-2024 End: 06-21-2024 [facility] Start: 02-22-2024 End: 02-22-2024 ambulatory [facility] Work Phone: Start: 02-22-2024 End: 02-22-2024 Patient encounter procedure [facility] Work Phone: Start: 11-24-2023 End: 11-24-2023 ambulatory [facility] Work Phone: Start: 11-24-2023 End: 11-24-2023 [facility] Work [facility] Start: 09-16-2023 End: 09-16-2023 ambulatory [facility] Work Phone: Start: 09-16-2023 End: 09-16-2023 Patient encounter procedure [facility] Work Phone: Start: 08-19-2023 End: 08-19-2023 Patient encounter procedure [facility] [place] Work Phone: Start: 02-19-2023 End: 02-19-2023 ambulatory DO Deena M Shai Work Phone: [facility] Work Phone: Start: 02-19-2023 End: 02-19-2023 Patient encounter procedure DO Deena Castroer [facility] Start: 12-03-2022 Non-patient / Non-visit DO Skyler Castroer Work Phone: [facility] Start: 12-03-2022 End: 12-03-2022 Admission to same day surgery center DO Deena Castroer Work Phone: [facility] Start: 12-03-2022 End: 12-03-2022 ambulatory DO Deena M Shai Work Phone: [facility] Work Phone: Start: 11-03-2022 End: 11-03-2022 ambulatory DO Deena M Shai Work Phone: [facility] Work Phone: Start: 11-03-2022 End: 11-03-2022 Patient encounter procedure DO Deena Shai [facility] Start: 10-06-2022 Non-patient / Non-visit DO Skyler northn Shai Work Phone: [facility] Start: 07-14-2022 End: 07-14-2022 ambulatory [facility] Work Phone: Start: 07-14-2022 End: 07-14-2022 Patient encounter procedure [facility] Start: 06-20-2022 End: 06-20-2022 Patient encounter procedure [facility] Start: 02-26-2022 End: 02-26-2022 Patient encounter procedure LOW PRESSURE KETTLE OPERATOR-Myriam Fields Work Phone: [facility] Start: 11-21-2021 End: 11-21-2021 Patient encounter procedure LOW PRESSURE KETTLE OPERATOR-Myriam Fields Work Phone: [facility] Start: 11-14-2021 Patient encounter procedure LOW PRESSURE KETTLE OPERATOR-Myriam Fields Work Phone: [facility] Procedures Date Procedure Procedure Detail Performing Clinician Start: 09-16-2023 Screening mammography Start: 12-03-2022 Colonoscopy DO Deenabrandyn Negretenger Work Phone: Start: 07-14-2022 Screening mammography Plan of Treatment Date Care Activity Detail Author Start: 12-03-2022 Patient discharge [facility] Colonoscopy [facility] Work Phone: Colonoscopy [facility] Patient referral [facility] Work Phone: Immunizations Immunization Date Immunization Notes Care Provider Oly gross 09-18-2021 influenza, injectabl e, quadrivalent, preservative free [facility] 09-18-2021 influenza, seasonal, injectable LOW PRESSURE KETTLE OPERATOR-Myriam Fields Work Phone: [facility] 12-17-2020 Covid (Moderna) LOW PRESSURE KETTLE OPERATOR-Myriam Fields Work Phone: [facility] 11-19-2020 Covid (Moderna) LOW PRESSURE KETTLE OPERATOR-Myriam Fields Work Phone: [facility] 09-24-2020 influenza, injectabl e, quadrivalent, preservative free [facility] 09-24-2020 influenza, seasonal, injectable LOW PRESSURE KETTLE OPERATOR-C Evelia Barkman Work Phone: [facility] 08-31-2019 influenza, injectabl e, quadrivalent, preservative free [facility] 08-31-2019 influenza, seasonal, injectable LOW PRESSURE KETTLE OPERATOR-C Evelia Barkman Work Phone: [facility] 08-25-2018 influenza, injectabl e, quadrivalent, preservative free [facility] 08-25-2018 influenza, seasonal, injectable LOW PRESSURE KETTLE OPERATOR-C Evelia Barkman Work Phone: [facility] 09-02-2017 influenza, injectabl e, quadrivalent, preservative free [facility] 09-02-2017 influenza, seasonal, injectable LOW PRESSURE KETTLE OPERATOR-C Evelia Barkman Work Phone: [facility] 08-14-2016 influenza, injectabl e, quadrivalent, preservative free [facility] 08-14-2016 influenza, seasonal, injectable LOW PRESSURE KETTLE OPERATOR-C Evelia Barkman Work Phone: [facility] 08-16-2015 influenza, injectabl e, quadrivalent, preservative free [facility] 08-16-2015 influenza, seasonal, injectable LOW PRESSURE KETTLE OPERATOR-C Evelia Barkman Work Phone: [facility] 08-16-2014 influenza, injectabl e, quadrivalent, preservative free [facility] 08-16-2014 influenza, seasonal, injectable LOW PRESSURE KETTLE OPERATOR-C Evelia Barkman Work Phone: [facility] Payers Date Payer Category Payer Medicare [id number] 2024 Self-pay [id number] 2024 Unknown [id number] [facility] [id number] Unknown [id number] Unknown [id number] Unknown [id number] Unknown [id number] Unknown [id number] Social History Date Type Detail Facility Start: 04-02-2021 End: 11-28-2022 Tobacco smoking status NHIS Unknown if ever smoked [facility] Start: 01-24-2021 Occasional [facility] Start: 01-24-2021 None [facility] Start: 01-24-2021 Spouse/ Signif icant Other [facility] Start: 01-24-2021 Non-smoker [facility] Start: 1960 Sex Assigned At Female W [facility] Start: 11-28-2022 Tobacco smoking status NHIS Never smoked tobacco (finding) [facility] Start: 03-07-2025 Sex Female (finding) [facility] Medical Equipment Procedure Code Equipment Code Equipment Origin al Text Equipment Identifier Dates Pen Needle, Diab etic (1st Tier Unifine Pentips) 31 gauge x 1/4 needle Start: 10-06-2022 Pen Needle, Diab etic (1st Tier Unifine Pentips) 31 gauge x 1/4 needle Start: 10-06-2022 Pen Needle, Diab etic (1st Tier Unifine Pentips) 31 gauge x 1/4 needle Start: 10-06-2022 Pen Needle, Diab etic (1st Tier Unifine Pentips) 31 gauge x 1/4 needle Start: 10-06-2022 Pen Needle, Diab etic (1st Tier Unifine Pentips) 31 gauge x 1/4 needle Start: 10-06-2022 Pen Needle, Diab etic (1st Tier Unifine Pentips) 31 gauge x 1/4 needle Start: 10-06-2022 Pen Needle, Diab etic (1st Tier Unifine Pentips) 31 gauge x 1/4 needle Start: 10-06-2022 Goals Date Patient Goal Desired Activity /State Mental Status Date Assessment Result Facility 12-03-2022 Cognitive function Voice/Name [facility] Work Phone: Procedure note 12-03-2022 Note Date & Type Note Facility 12-03-2022 Procedure note [facility] Procedure note 12-03-2022 Note Date & Type Note Facility 12-03-2022 Procedure note [facility] Evaluation note Note Date & Type Note Facility Evaluation note No assessment information availa ble [facility] Work Phone: Evaluation note Note Date & Type Note Facility Evaluation note Diagnosis Onset Date Encounter for screening for malignant neoplasm of colon acute [facility] Work Phone: History and physical note Note Date & Type Note Facility History and physical note Note Date/Time December 03, 2022 9:25am [facility] Medical Records Department [address] [place] [address] History & Physical Exam 12/03/22922 MR#: [id number] Acct: [id number] Name: TEMITOPE WELLS Rep #:[id number] : 1960 62 From: Gunner Friend DO PCP: Deena Gibbons DO Status:REG S DC Location: [place] [address] HPI - General General Date of Admission: 12/03/22 Date of Service: 12/03/22 Chief Complaint: Screening colonoscopy HPI Narrative TEMITOPE WELLS, is a 62 F who presents today for screening colonoscopy. She has past medical history positive for insulin-dependent diabetes mellitus. She is not having abdominal pain. She denied any cramping. She denied any nausea. She denies any chest pain or shortness of breath. All other 16 review of systems are negative except as per body mentioned HPI. [facility] Medical History (Updated 11/28/22 @ 11:20 by Latoya Graham) Diabetes type I Dietary restriction Cierra's disease Insulin dependent diabetes mellitus Non-smoker Post-menopausal Thyroid disease Home Medications pen needle, diabetic, safety 30 gauge x 1/3 ##1 01/26/21 [Rx Last Taken Unknown] calcium phosphate-vitamin D3 250 mg calcium-250 unit chewable tablet 1 tab PO DAILY 10/06/22 [History Last Taken Unknown] cholecalciferol (vitamin D3) 25 mcg (1,000 unit) capsule 25 mcg PO DAILY 10/06/22 [History Last Taken Unknown] ibandronate 150 mg tablet 150 mg PO QMONTH 10/06/22 [History Last Taken Unknown] pen needle, diabetic 31 gauge x 1/4 (1st Tier Unifine Pentips) 10/06/22 [History Last Taken Unknown] selenium 200 mcg capsule 200 mcg PO DAILY 10/06/22 [History Last Taken Unknown] insulin glargine U-300 conc 300 unit/mL (1.5 mL) subcutaneous pen (Toujeo SoloStar U-300 Insulin) 60 unit subcut DAILY 11/28/22 [History Last Taken Unknown] Allergy/AdvReac Type Severity Reaction Status Date / Time No Known Allergies Allergy Verified 12/03/22 09:12 Family History (Updated 10/06/22 @ 10:22 by Martha Crawford) Father Cancer Myelofibrosis Brother Diabetes Renal failure Renal transplant recipient Uncle Diabetes Grandmother Myocardial infarction Mother Myocardial infarction Breast cancer Surgical History Hx of appendectomy Social History Smoking Status: Never smoker alcohol intake: current alcohol intake frequency: a few times a month Alcohol type: wine substance use type: does not use what type of physical activity do you participate in: walking ROS Review of Systems ROS Unobtainable: other Constitutional Constitutional: Denies fatigue, fever(s), poor appetite, weight gain or weight loss ENT HEENT: Denies mouth lesions Cardiovascular Cardiovascular: Denies abdominal bloating, abdominal edema or abdominal pain Respiratory/Chest Respiratory/Chest: Denies change in mental status, change in phlegm color, chestcongestion or chest tightness Gastrointestinal Gastrointestinal: Denies belching, bloating, change in bowel habits, change in stool character, chewing difficulty, coffee ground emesis, constipation, cramping, diarrhea, dyspepsia, dysphagia, early satiety, excessive flatus, fecalincontinence, heartburn, hematemesis, hematochezia, hemorrhoids, loose stools, melena, nausea, odynophagia, rectal bleeding, tenesmus, vomiting or weight changes Genitourinary Genitourinary: Denies abdominal discomfort, burning urination or itching Musculoskeletal Musculoskeletal: Reports as per HPI; Denies muscle weakness or myalgias Integumentary Integumentary: Denies jaundice Neurologic Neurologic: Denies lack of coordination or weakness Psychiatric Psychiatric: Denies confusion, depression, memory loss, mood swings, paranoia orsuicidal ideation Endocrine Endocrinology: Denies systems reviewed and no addt'l complaints, except as documented Hematologic/Lymphatic Hematologic/Lymphatic: Denies anemia, easy bleeding, easy bruising or lymphadenopathy Allergic/Immunologic Allergic/Immunologic: Denies systems reviewed and no addt'l complaints, except as documented Vital Signs Vital Signs Vital Signs: 12/03/22 09:13 12/03/22 09:13 Temperature 97.9 F Temperature Source Temporal Pulse Rate 70 Respiratory Rate 16 Respiratory Pattern Normal Blood Pressure 108/57 L Blood Pressure Mean 74 Blood Pressure Source Monitor Blood Pressure Position Semi-Fowlers Blood Pressure Location Right Arm Pulse Ox 100 Oxygen Delivery Method Room Air Weight Weight: 110 lb 3.698 oz Body Mass Index (BMI) 18.9 Physical Exam Const alert, oriented x3, no apparent distress, healthy appearing and well nourished General Appearance: cooperative, comfortable, well kempt and well developed Orientation / Consciousness: awake and oriented to person HEENT Head and Scalp: normocephalic and atraumatic Face and Sinus: normal facial exam Mouth: oral and palatal mucosa normal Eyes General Eye: normal appearance of both eyes Neck full ROM Lymph Lymphatic: no lymphadenopathy noted Chest inspection of chest normal Resp normal respiratory effort and no use of accessory muscles Cardio regular rate and regular rhythm GI normal to inspection, nondistended, normoactive bowel sounds, soft to palpation,non-tender, non-distended and no masses Auscultation: normoactive bowel sounds Palpation: soft Percussion: normal to percussion Rectal Exam: visual inspection normal and normal sphincter tone no CVA tenderness Back/Spine no CVA tenderness and normal ROM Extremity normal to inspection Peripheral Pulses: Yes pulses 2+ throughout Skin no rashes or lesions noted General Skin Exam: no breakdown, elasticity normal and turgor normal Neuro oriented x3 Motor Exam: strength 5/5 throughout Psych mental status grossly normal Appearance: grossly normal Attitude: calm Activity / Motor Behavior: appropriate eye contact Speech: normal speech Thought Process: normal thought process Thought Content: normal thought content Attention / Concentration: attention grossly intact Memory / Cognition: memory grossly intact Insight: insight good Judgement: judgement good Assessment & Plan Assessment/Plan (1) Encounter for screening for malignant neoplasm of colon: PLAN: She was explained alternatives, risk, benefits including not withstanding bleeding, infection, sepsis, perforation, need for emergent urgent . She will have an ASA of 1. 12/03/22 0925 <Electronically signed by Gunner Nolen DO> Cosigner Signature (if applicable): CC: Deena Gibbons DO; Gunner Nolen DO~ Signed [facility] Work Phone: Reason for referral (narrative) Note Date & Type Note Facility Reason for referral (narrative) No reason for referral information available [facility] Work Phone: Chief Complaint and Reason for Visit Chief Complaint COVID TEST Chief Complaint SCREENING Chief Complaint Amb Documentation Chief Complaint Amb Documentation Reason for Visit Encounter for screen ing for malignant neoplasm of colon Reason for Visit Encounter for screen ing for malignant neoplasm of colon Chief Complaint Admit Date FASTING December 02, 2024 9 :33am Family History No Family History Records Found Relationship Condition Age at Onset Recorded Date/T pretty Not Specified Malignant neoplasm of breast Unknown father Malignant neoplasm Unknown brother Diabetes mellitus Unknown uncle Diabetes mellitus Unknown grandmother Myocardial infarction Unknown mother Myocardial infarction Unknown Relationship Condition Age at Onset Recorded Date/T pretty father Malignant neoplasm Unknown Myelofibrosis Unknown brother Diabetes mellitus Unknown Renal failure Unknown History of kidney transplant Unknown uncle Diabetes mellitus Unknown grandmother Myocardial infarction Unknown mother Myocardial infarction Unknown Malignant neoplasm of breast Unknown Advance Directives No Advanced Directives Records Found Advance Directive Response Recorded Date/ Time Living Will No January 24, 2021 12:17pm Power of Associate Sales No January 24 12:17pm Advance Directive Response Recorded Date/ Time Living Will No January 24, 2021 11:17am Power of Associate Sales No January 24 11:17am Advance Directive Response Recorded Date/ Time Name of Medical Power of Associate Sales SOFIE WELLS November 28, 2022 11:20am Living Will Yes November 28 11:20am Power of Associate Sales Yes November 28, 2022 11:20am Advance Directive Response Recorded Date/ Time Name of Medical Power of Associate Sales SOFIE WELLS November 28, 2022 12:20pm Living Will Yes November 28 12:20pm Power of Associate Sales Yes November 28, 2022 12:20pm Advance Directive Response Recorded Date/ Time Living Will Yes November 28 11:20am Power of Associate Sales Yes November 28, 2022 11:20am Advance Directive Response Recorded Date/ Time Living Will Yes November 28 12:20pm Power of Associate Sales Yes November 28, 2022 12:20pm Summary Purpose Additional Source Comments Goals (unrecognized section and content) Goals may be documented in a n alternate sectionGoals may be documented in an alternate sectionGoals may be documented in an alternate sectionGoals may be documented in an alternate sectionGoals may be documented in an alternate sectionGoals may be documented in an alternate sectionGoals may be documented in an alternate section Care Teams (unrecognized sec tion and content) Team Status: Active Member Role Status Dates Dr. Alfredo Hodgson MD Family Provider Active Deena Gibbons , DO Primary Care Provider Active Team Status: Active Member Role Status Dates Deena Gibbons , DO Primary Care Provider Active Martha Crawford Attending Provider Active Team Status: Active Member Role Status Dates Deena Gibbons , DO Primary Care Provider, Referring Provider Active Dr. Gunner Nolen , DO Attending Provider, Other Prov ider Active Team Status: Inactive Member Role Status Dates Deena Gibbons , DO Primary Care Provider, Referring Provider Active Dr. Gunner Nolen , DO Attending Provider Active Team Status: Inactive Member Role Status Dates Deena Gibbons , DO Primary Care Provider Active Dr. Curt Robles , DO Attending Provider, Referring Provider Active Team Status: Inactive Member Role Status Dates Deena Gibbons , DO Primary Care Provi priyank, Attending Provider, Referring Provider Active Team Status: Active Member Role Status Dates Dr. Alfredo Hodgson MD Family Provider Active Greg Michaud MD Primary Care Provider Active Team Status: Inactive Member Role Status Dates Gerg Michaud MD Primary Care Provider Active Dr. Curt Robles , DO Attending Provider, Referring Provider Active Team Status: Inactive Member Role Status Dates Greg Michaud MD Primary Care Provider Active St art: December 02, 2024 End: December 02, 2024 Dr. Curt Robles DO Attending Provider Active Start: December 02, 2024 End: December 02, 2024 Dr. Curt Robles DO Referring Provider Active Start: December 02, 2024 End: December 02, 2024 Team Status: Inactive Member Role Status Dates Greg Michaud MD Primary Care Provider Active St art: March 02, 2025 End: March 02, 2025 Dr. Curt Robles DO Attending Provider Active Start: March 02, 2025 End: March 02, 2025 Dr. Curt Robles DO Referring Provider Active Start: March 02, 2025 End: March 02, 2025 INFORMATION SOURCE (unrecogn ized section and content) DATE CREATED AUTHOR 03/09/2025 [facility] FOR RECORDS PERTAINING TO PATIENTS WHO ARE OR HAVE BEEN ENROLLED IN A CHEMICAL DEPENDENCY/SUBSTANCEABUSE PROGRAM, SOME INFORMATION MAY BE OMITTED. This clinical summary was aggregated from multiple sources. Caution should be exercised in using it in the provision of clinical care. This summary normalizes information from multiple sources, and as a consequence, information in this document may materially change the coding, format and clinical context of patient data. In addition, data may be omitted in some cases. CLINICAL DECISIONS SHOULD BE BASED ON THE PRIMARY CLINICAL RECORDS. [employer] provides no warranty or guarantee of the accuracy or completeness of information in this document.
--- OUTSIDE RECORDS SUMMARY | 2025-05-30 21:02 | XMS RPT_ITS | CCD ---
Author Organization [facility] Care Team Providers Care Neonatal Critical Care Nurse Name Role Phone WILLIAN Fields Primary Care Provider WILLIAN Fields Referring Provider DoctorDr. Diaz Attending Provider DO Deena Gibbons Primary Care Provider 1([facility] )[phone] Martha Crawford Attending Provider Unavailable DO Deena Gibbons Referring Provider 1([facility])[phone] Friend, Dr. Martino Attending Provider 1([facility])[phone] Friend, Dr. Martino Other Provider 1([facility])[phone] DO Deena Gibbons Primary Care Provider DO Deena Gibbons Referring Provider 1([facility])[phone] Friend, Dr. Martino Attending Provider Friend, Dr. Martino Other Provider 1([facility])[phone] Greg Michaud MD Primary Care Provider 1([facility])[phone] Dr. Curt Robles DO Attending Provider Dr. Curt Robles DO Referring Provider Curt Robles Referring Unavailable Jaswant, Chalon Primary Care Unavailable Curt Robles Attending Unavailable Curt Robles Attending Unavailable Curt Robles Referring Unavailable Jaswant, Chalon Primary Care Unavailable Curt Robles Referring Unavailable Curt Robles Attending Unavailable Jaswant, Chalon Primary Care Unavailable [...] 03-04-2025 C PEPTIDE 0.4 ng/mL Low 1.1-4.4 [facility] Comment on above: Result Comment: C-Pe ptide reference interval is for fasting patients. Performed at: - [facility] [id number] [employer] Foreman: Mac Padilla PhD, Phone: [phone] Performed By: #### L 3100.7750, L500.4100, L500.4050, L501.9985 #### [facility] [address] [place], [place], [id number] Anion gap in Serum or Plasma Ordered By: Curt Robles on 03-02-2025 Anion gap [Moles/Vol] 12 mmol/L 5-15 [facility] BUN/creatinine ratioOrdered By: Curt Robles on 03-02-2025 Urea nitrogen/Creatinine [Mass ratio] 22.8 mg/mg High 10-20 [facility] Bilirubin, totalOrdered By: Curt Robles on 03-02-2025 Bilirubin [Mass/Vol] 0.99 mg/dL 0.00-1.30 [facility] C-peptideOrdered By: Curt zheng on 03-02-2025 C-Peptide 0.4 ng/mL Low 1.1-4.4 [facility] Comment on above: C-Peptide reference interval is for fasting patients.Performed at: [facility] [id number] Director: Mac Padilla PhD, Phone: [phone] Calculated very low density lipoprotein (VLDL) cholesterol measurementOrdered By: Cutr Robles on 03-02-2025 VLDL Cholesterol 8 mg/dL 5-40 [facility] Carbon dioxide, total [Moles /volume] in Central venous bloodOrdered By: Curt Robles on 03-02-2025 CO2 [Moles/Vol] 27.8 mmol/L 21.0-32.0 [facility] Chloride assayOrdered By: Davis Robles on 03-02-2025 Chloride [Moles/Vol] 101 mmol/L 98-108 [facility] Comprehensive Metabolic Prof ilon 03-02-2025 Albumin [Mass/Vol] 4.5 g/dL Normal 3.4-4.8 [facility] Comment on above: Performed By: #### L 3100.7750, L500.4100, L500.4050, L501.9985 #### [facility] [address] [place], [address] Albumin/Globulin [Mass ratio] 2.2 {ratio} Normal 0.9-2.4 [facility] Comment on above: Performed By: #### L 3100.7750, L500.4100, L500.4050, L501.9985 #### [facility] [address] [place], [address] ALK PHOS 41 U/L Normal 35-104 [facility] Comment on above: Performed By: #### L 3100.7750, L500.4100, L500.4050, L501.9985 #### [facility] [address] [place], [address] ALT [Catalytic activity/Vol] 33 U/L Normal <=34 [facility] Comment on above: Performed By: #### L 3100.7750, L500.4100, L500.4050, L501.9985 #### [facility] [address] [place], [address] AST [Catalytic activity/Vol] 27 U/L Normal <=31 [facility] Comment on above: Performed By: #### L 3100.7750, L500.4100, L500.4050, L501.9985 #### [facility] [address] [place], [address] Bilirubin [Mass/Vol] 0.99 mg/dL Normal 0.00-1.30 [facility] Comment on above: Performed By: #### L 3100.7750, L500.4100, L500.4050, L501.9985 #### [facility] [address] [place], [address] BUN/CRE 22.8 RATIO High 10-20 [facility] Comment on above: Performed By: #### L 3100.7750, L500.4100, L500.4050, L501.9985 #### [facility] [address] [place], [address] Calcium [Mass/Vol] 9.4 mg/dL Normal 7.6-11.0 [facility] Comment on above: Performed By: #### L 3100.7750, L500.4100, L500.4050, L501.9985 #### [facility] [address] [place], [address] Chloride [Moles/Vol] 101 mmol/L Normal 98-108 [facility] Comment on above: Performed By: #### L 3100.7750, L500.4100, L500.4050, L501.9985 #### [facility] [address] [place], [address] CO2 [Moles/Vol] 27.8 mmol/L Normal 21.0-32.0 [facility] Comment on above: Performed By: #### L 3100.7750, L500.4100, L500.4050, L501.9985 #### [facility] [address] [place], [address] Creatinine [Mass/Vol] 0.78 mg/dL Normal 0.70-1.20 [facility] Comment on above: Performed By: #### L 3100.7750, L500.4100, L500.4050, L501.9985 #### [facility] [address] [place], [address] GAP 12 Normal 5-15 [facility] Comment on above: Performed By: #### L 3100.7750, L500.4100, L500.4050, L501.9985 #### [facility] [address] [place], [address] GFR/1.73 sq M.predicted among non-blacks MDRD (S/P/Bld) [Vol rate/Area] 85 mL/min/{1.73_m2} Normal >60 [facility] Comment on above: Result Comment: mL/m in/1.73m2 CKD-EPI Creatinine Equation (2020) Performed By: #### L 3100.7750, L500.4100, L500.4050, L501.9985 #### [facility] [address] [place], [address] Globulin (S) [Mass/Vol] 2.1 g/dL Low 2.2-4.2 [facility] Comment on above: Performed By: #### L 3100.7750, L500.4100, L500.4050, L501.9985 #### [facility] [address] [place], [address] Glucose [Mass/Vol] 94 mg/dL Normal 70-99 [facility] Comment on above: Performed By: #### L 3100.7750, L500.4100, L500.4050, L501.9985 #### [facility] [address] [place], [address] Potassium [Moles/Vol] 4.1 mmol/L Normal 3.3-5.1 [facility] Comment on above: Performed By: #### L 3100.7750, L500.4100, L500.4050, L501.9985 #### [facility] [address] [place], [address] Sodium [Moles/Vol] 140 mmol/L Normal 133-145 [facility] Comment on above: Performed By: #### L 3100.7750, L500.4100, L500.4050, L501.9985 #### [facility] [address] [place], [address] T PROT 6.6 g/dL Normal 5.9-8.4 [facility] Comment on above: Performed By: #### L 3100.7750, L500.4100, L500.4050, L501.9985 #### [facility] [address] [place], [address] Urea nitrogen [Mass/Vol] 18 mg/dL Normal 4-19 [facility] Comment on above: Performed By: #### L 3100.7750, L500.4100, L500.4050, L501.9985 #### [facility] [address] [place], [address] GFR/1.73 sq M.predicted [place] non-blacks MDRD (S/P/Bld) [Vol rate/Area]Ordered By: Curt Robles on 03-02-2025 Estimated GFR (MDRD) Non-Af Amer 85 >60 [facility] Comment on above: mL/min/1.73m2 CKD-EP I Creatinine Equation (2020) Hemoglobin A1con 03-02-2025 HbA1c (Bld) [Mass fraction] 6.0 % High <=5.6 [facility] Comment on above: Result Comment: Norm al < 5.7 % Prediabetic 5.7 - 6.4 % Diabetic >or= 6.5 % Please note range changes. Performed By: #### L 3100.7750, L500.4100, L500.4050, L501.9985 #### [facility] [address] [place], [address] Hemoglobin A1c percentageOrd ered By: Curt Robles on 03-02-2025 HbA1c (Bld) [Mass fraction] 6.0 % High <5.7 [facility] Comment on above: Normal < 5.7 % Predi abetic 5.7 - 6.4 % Diabetic >or= 6.5 % Please note range changes. LDL calc ser/plasOrdered By: Curt Robles on 03-02-2025 LDL Cholesterol, Calculated 92 mg/dL [facility] Comment on above: Mbtlxcxpex=009-448 m g/dL & Higher Toer=919 mg/dL or greater Laboratory - Chemistry and C hemistry - challengeOrdered By: Curt Robles on 03-02-2025 AST [Catalytic activity/Vol] 27 U/L <32 [facility] Lipid Profileon 03-02-2025 CHOL:HDL 2.03 Normal [facility] Comment on above: Performed By: #### L 3100.7750, L500.4100, L500.4050, L501.9985 #### [facility] [address] [place], [address] Cholesterol [Mass/Vol] 197 mg/dL Normal <=200 [facility] Comment on above: Result Comment: Chol esterol level, Desirable <200 mg/dL Borderline high cholesterol 200-239 mg/dL High cholesterol >=240 mg/dL Recommendations of the NCEP Adult Treatment Panel for the following risk-cutoff thresholds for the [place] population. Performed By: #### L 3100.7750, L500.4100, L500.4050, L501.9985 #### [facility] [address] [place], [address] Cholesterol in HDL [Mass/Vol] 97 mg/dL Normal [facility] Comment on above: Result Comment: Jamila onal Cholesterol Education Program (NCEP) guidelines: <40 mg/dL: Low HDL-cholesterol (major risk factor for CHD) >= 60 mg/dL: High HDL-cholesterol (negative risk factor for CHD) HDL-cholesterol is affected by a number of factors, e.g. smoking, exercise, hormones, sex and age. Performed By: #### L 3100.7750, L500.4100, L500.4050, L501.9985 #### [facility] [address] [place], [address] Cholesterol in LDL [Mass/Vol] 92 mg/dL Normal [facility] Comment on above: Result Comment: Bord hbowyg=733-405 mg/dL Higher Sckt=193 mg/dL or greater Performed By: #### L 3100.7750, L500.4100, L500.4050, L501.9985 #### [facility] [address] [place], [address] Cholesterol in VLDL [Mass/Vol] 8 mg/dL Normal 5-40 [facility] Comment on above: Performed By: #### L 3100.7750, L500.4100, L500.4050, L501.9985 #### [facility] [address] [place], [address] Triglyceride [Mass/Vol] 42 mg/dL Normal [facility] Comment on above: Result Comment: The drugs N-Acetylcysteine and Metamizole may falsely depress this assay. Normal range: <150 mg/dL Borderline High: 150-199 mg/dL High: 200-499 mg/dL Very High: >500 mg/dL Performed By: #### L 3100.7750, L500.4100, L500.4050, L501.9985 #### [facility] [address] [place], [address] Potassium (Unsp spec) [Mass/ Vol]Ordered By: Curt Robles on 03-02-2025 Potassium [Moles/Vol] 4.1 mmol/L 3.3-5.1 [facility] Screening total cholesterol/ high density lipoprotein (HDL) cholesterol ratioOrdered By: Curt Robles on 03-02-2025 Cholesterol.total/Cho lesterol in HDL [Mass ratio] 2.03 {ratio} [facility] Serum creatinine measurement (mass/volume)Ordered By: Curt Robles on 03-02-2025 Creatinine [Mass/Vol] 0.78 mg/dL 0.70-1.20 [facility] Serum globulin measurementOr dered By: Curt Robles on 03-02-2025 Globulin (S) [Mass/Vol] 2.1 g/dL Low 2.2-4.2 [facility] Serum glucose measurement (m ass/volume)Ordered By: Curt Robles on 03-02-2025 Glucose [Mass/Vol] 94 mg/dL 70-99 [facility] Serum or plasma alanine anna otransferase (ALT) measurementOrdered By: Curt Robles on 03-02-2025 ALT [Catalytic activity/Vol] 33 U/L <35 [facility] Serum or plasma albumin chasidy urement (mass/volume)Ordered By: Curt Robles on 03-02-2025 Albumin [Mass/Vol] 4.5 g/dL 3.4-4.8 [facility] Serum or plasma albumin/glob ulin mass ratioOrdered By: Curt Robles on 03-02-2025 Albumin/Globulin [Mass ratio] 2.2 {ratio} 0.9-2.4 [facility] Serum or plasma alkaline compa sphatase measurementOrdered By: Curt Robles on 03-02-2025 ALP [Catalytic activity/Vol] 41 U/L 35-104 [facility] Serum or plasma calcium chasidy urement (mass/volume)Ordered By: Curt Robles 03-02-2025 Calcium [Mass/Vol] 9.4 mg/dL 7.6-11.0 [facility] Serum or plasma cholesterol in HDL measurement (mass/volume)Ordered By: Curt Robels 03-02-2025 Cholesterol in HDL [Mass/Vol] 97 mg/dL >40 [facility] Comment on above: National Cholesterol Education Program (NCEP) guidelines:<40 mg/dL: Low HDL-cholesterol (major risk factor for CHD)>= 60 mg/dL: High HDL-cholesterol (negative risk factor for CHD)HDL-cholesterol is affected by a number of factors, e.g. smoking, exercise, hormones, sex and age. Serum or plasma cholesterol measurement (mass/volume)Ordered By: Curt Robles 03-02-2025 Cholesterol [Mass/Vol] 197 mg/dL <201 [facility] Comment on above: Cholesterol level, D esirable <200 mg/dLBorderline high cholesterol 200-239 mg/dLHigh cholesterol >=240 mg/dLRecommendations of the NCEP Adult Treatment Panel for the following risk-cutoff thresholds for the [place] population. Serum or plasma urea nitroge n measurement (mass/volume)Ordered By: Curt Robles on 03-02-2025 Urea nitrogen [Mass/Vol] 18 mg/dL 4-19 [facility] Sodium levelOrdered By: Harjit Robles on 03-02-2025 Sodium [Moles/Vol] 140 mmol/L 133-145 [facility] Total proteinOrdered By: Jesus Robles on 03-02-2025 Protein [Mass/Vol] 6.6 g/dL 5.9-8.4 [facility] Triglycerides measurementOrd ered By: Curt Robles on 03-02-2025 Triglyceride [Mass/Vol] 42 mg/dL <199 [facility] Comment on above: The drugs N-Acetylcy steine and Metamizole may falsely depress this assay. Normal range: <150 mg/dLBorderline High: 150-199 mg/dLHigh: 200-499 mg/dLVery High: >500 mg/dL Albumin to globulin ratioOrd ered By: Curt Robles on 12-02-2024 Albumin/Globulin [Mass ratio] 1.2 {ratio} 0.9-2.4 [facility] Bilirubin, totalOrdered By: Curt Robles on 12-02-2024 Bilirubin [Mass/Vol] 1.00 mg/dL 0.20-1.00 [facility] Comment on above: For patients on eltr ombopag therapy, use of Dimension [place] TBIL is not recommended. Blood urea nitrogen (BUN)/cr eatinine ratioOrdered By: Curt Robles on 12-02-2024 Urea nitrogen/Creatinine [Mass ratio] 20.0 mg/mg 10-20 [facility] Carbon dioxide measurementOr dered By: Curt Robles on 12-02-2024 CO2 [Moles/Vol] 29.0 mmol/L 21.0-32.0 [facility] Chloride measurementOrdered By: Curt Robles on 12-02-2024 Chloride [Moles/Vol] 105 mmol/L 98-107 [facility] Comprehensive Metabolic Prof ilon 12-02-2024 Albumin [Mass/Vol] 3.7 g/dL Normal 3.2-5.0 [facility] Comment on above: Performed By: #### L 501.9579, L501.9916, L500.4100, L500.4050 #### [facility] [address] [place] [address]. [place], [address] Albumin/Globulin [Mass ratio] 1.2 {ratio} Normal 0.9-2.4 [facility] Comment on above: Performed By: #### L 501.9520, L501.9985, L500.4100, L500.4050 #### [facility] [address] [place], [address] ALK P 44 U/L Low 45-117 [facility] Comment on above: Performed By: #### L 501.9520, L501.9985, L500.4100, L500.4050 #### [facility] [address] [place], [address] ALT [Catalytic activity/Vol] 24 U/L Normal 13-56 [facility] Comment on above: Performed By: #### L 501.9520, L501.9985, L500.4100, L500.4050 #### [facility] [address] [place], [address] AST [Catalytic activity/Vol] 20 U/L Normal 15-37 [facility] Comment on above: Performed By: #### L 501.9520, L501.9985, L500.4100, L500.4050 #### [facility] [address] [place], [address] Bilirubin [Mass/Vol] 1.00 mg/dL Normal 0.20-1.00 [facility] Comment on above: Result Comment: For patients on eltrombopag therapy, use of Dimension [place] TBIL is not recommended. Performed By: #### L 501.9520, L501.9985, L500.4100, L500.4050 #### [facility] [address] [place], [address] BUN/CRE 20.0 RATIO Normal 10-20 [facility] Comment on above: Performed By: #### L 501.9520, L501.9985, L500.4100, L500.4050 #### [facility] [address] [place], [address] CA,Total 9.1 mg/dL Normal 8.5-10.1 [facility] Comment on above: Performed By: #### L 501.9520, L501.9985, L500.4100, L500.4050 #### [facility] [address] [place], [address] Chloride [Moles/Vol] 105 mmol/L Normal 98-107 [facility] Comment on above: Performed By: #### L 501.9520, L501.9985, L500.4100, L500.4050 #### [facility] [address] [place], [address] CO2 [Moles/Vol] 29.0 mmol/L Normal 21.0-32.0 [facility] Comment on above: Performed By: #### L 501.9520, L501.9985, L500.4100, L500.4050 #### [facility] [address] [place], [address] Creatinine [Mass/Vol] 0.70 mg/dL Normal 0.55-1.02 [facility] Comment on above: Result Comment: The validity of the calculated GFR GFRAA in patients over 70 years has not been determined. Clinical correlation is essential. Performed By: #### L 501.9520, L501.9985, L500.4100, L500.4050 #### [facility] [address] [place], [address] EST GFR - AA 108 mL/min Normal >60 [facility] Comment on above: Result Comment: Afri can [place] GFR Calc Performed By: #### L 501.9520, L501.9985, L500.4100, L500.4050 #### [facility] [address] [place], [address] GAP 6 Normal 5-15 [facility] Comment on above: Performed By: #### L 501.9520, L501.9985, L500.4100, L500.4050 #### [facility] [address] [place], [address] GFR/1.73 sq M.predicted among non-blacks MDRD (S/P/Bld) [Vol rate/Area] 89 mL/min/{1.73_m2} Normal >60 [facility] Comment on above: Result Comment: Non- GFR Calc Performed By: #### L 501.9520, L501.9985, L500.4100, L500.4050 #### [facility] [address] [place], [address] Globulin (S) [Mass/Vol] 3.0 g/dL Normal 2.2-4.2 [facility] Comment on above: Performed By: #### L 501.9520, L501.9985, L500.4100, L500.4050 #### [facility] [address] [place], [address] Glucose [Mass/Vol] 107 mg/dL High 74-106 [facility] Comment on above: Result Comment: Fast ing Glucose result from 100 to 125 mg/dL suggests IMPAIRED HOMEOSTASIS per A.D.A. criteria. Performed By: #### L 501.9520, L501.9985, L500.4100, L500.4050 #### [facility] [address] [place], [address] Potassium [Moles/Vol] 4.1 mmol/L Normal 3.5-5.1 [facility] Comment on above: Performed By: #### L 501.9520, L501.9985, L500.4100, L500.4050 #### [facility] [address] [place], [address] Sodium [Moles/Vol] 139 mmol/L Normal 136-145 [facility] Comment on above: Performed By: #### L 501.9520, L501.9985, L500.4100, L500.4050 #### [facility] [address] [place], [address] T PROT 6.7 g/dL Normal 6.4-8.2 [facility] Comment on above: Performed By: #### L 501.9520, L501.9985, L500.4100, L500.4050 #### [facility] [address] [place], [address] Urea nitrogen [Mass/Vol] 14 mg/dL Normal 7-18 [facility] Comment on above: Performed By: #### L 501.9520, L501.9985, L500.4100, L500.4050 #### [facility] [address] [place], [address] Estimated glomerular filtrat ion rate (GFR) AmericanOrdered By: Curt Roblse on 12-02-2024 Estimated GFR (MDRD) Amer 108 mL/min >60 [facility] Comment on above: GFR Calc Glomerular filtration rate ( GFR) estimationOrdered By: Curt Robles on 12-02-2024 Estimated GFR (MDRD) Non-Af Amer 89 mL/min >60 [facility] Comment on above: Non- GFR Calc Glucose measurementOrdered B y: Curt Robles on 12-02-2024 Glucose [Mass/Vol] 107 mg/dL High 74-106 [facility] Comment on above: Fasting Glucose resu lt from 100 to 125 mg/dL suggests IMPAIRED HOMEOSTASIS per A.D.A. criteria. Hemoglobin A1con 12-02-2024 HbA1c (Bld) [Mass fraction] 6.6 % High 3.8-5.6 [facility] Comment on above: Result Comment: Norm al < 5.7 % Prediabetic 5.7 - 6.4 % Diabetic >or= 6.5 % Please note range changes. Performed By: #### L 501.9520, L501.9985, L500.4100, L500.4050 #### [facility] [address] [place], [address] Hemoglobin A1c percentageOrd ered By: Curt Robles on 12-02-2024 HbA1c (Bld) [Mass fraction] 6.6 % High 3.8-5.6 [facility] Comment on above: Normal < 5.7 % Predi abetic 5.7 - 6.4 % Diabetic >or= 6.5 % Please note range changes. High density lipoprotein (HD L) measurementOrdered By: Curt Robles on 12-02-2024 Cholesterol in HDL [Mass/Vol] 102 mg/dL >40 [facility] Comment on above: The drugs N-Acetylcy steine and Metamizole may falsely depress this assay. Reference Range HDL <40 mg/dL Low HDL Cholesterol HDL >or= 60 mg/dL High HDL Cholesterol Laboratory - Chemistry and C hemistry - challengeOrdered By: Curt Robles on 12-02-2024 AST [Catalytic activity/Vol] 20 U/L 15-37 [facility] Lipid Profileon 12-02-2024 Cholesterol [Mass/Vol] 202 mg/dL High 200 [facility] Comment on above: Result Comment: <200 mg/dL Desirable 200-240 mg/dL Borderline >240 mg/dL High Risk Performed By: #### L 501.9520, L501.9985, L500.4100, L500.4050 #### [facility] [address] [place], [address] Cholesterol in HDL [Mass/Vol] 102 mg/dL Normal [facility] Comment on above: Result Comment: The drugs N-Acetylcysteine and Metamizole may falsely depress this assay. Reference Range HDL <40 mg/dL Low HDL Cholesterol HDL >or= 60 mg/dL High HDL Cholesterol Performed By: #### L 501.9520, L501.9985, L500.4100, L500.4050 #### [facility] [address] [place], [address] Cholesterol in LDL [Mass/Vol] 93 mg/dL Normal 0-130 [facility] Comment on above: Performed By: #### L 501.9520, L501.9985, L500.4100, L500.4050 #### [facility] [address] [place], [address] Cholesterol in VLDL [Mass/Vol] 7 mg/dL Normal 5-40 [facility] Comment on above: Performed By: #### L 501.9520, L501.9985, L500.4100, L500.4050 #### [facility] [address] [place], [address] Triglyceride [Mass/Vol] 33 mg/dL Normal [facility] Comment on above: Result Comment: The drugs N-Acetylcysteine and Metamizole may falsely depress this assay. Serum Triglycerides Reference Interval Normal <150 mg/dL Borderline high 150 - 199 mg/dL High 200 - 499 mg/dL Very High > or = 500 mg/dL Performed By: #### L 501.9520, L501.9985, L500.4100, L500.4050 #### [facility] [address] [place], [address] Low density lipoprotein (LDL ) cholesterol measurementOrdered By: Curt Robles on 12-02-2024 Cholesterol in LDL [Mass/Vol] 93 mg/dL 0-130 [facility] Potassium measurementOrdered By: Curt Robles on 12-02-2024 Potassium [Moles/Vol] 4.1 mmol/L 3.5-5.1 [facility] Serum anion gap measurementO rdered By: Curt Robles on 12-02-2024 Anion gap [Moles/Vol] 6 mmol/L 5-15 [facility] Serum globulin measurementOr dered By: Curt Robles on 12-02-2024 Globulin (S) [Mass/Vol] 3.0 g/dL 2.2-4.2 [facility] Serum or plasma alanine anna otransferase (ALT) measurementOrdered By: Curt Robles on 12-02-2024 ALT [Catalytic activity/Vol] 24 U/L 13-56 [facility] Serum or plasma albumin chasidy urement (mass/volume)Ordered By: Curt Robles on 12-02-2024 Albumin [Mass/Vol] 3.7 g/dL 3.2-5.0 [facility] Serum or plasma alkaline compa sphatase measurementOrdered By: Curt Robles on 12-02-2024 ALP [Catalytic activity/Vol] 44 U/L Low 45-117 [facility] Serum or plasma calcium chasidy urement (mass/volume)Ordered By: Curt Robles on 12-02-2024 Calcium [Mass/Vol] 9.1 mg/dL 8.5-10.1 [facility] Serum or plasma cholesterol measurement (mass/volume)Ordered By: Curt Robles on 12-02-2024 Cholesterol [Mass/Vol] 202 mg/dL High <200 [facility] Comment on above: <200 mg/dL Desirable 200-240 mg/dL Borderline >240 mg/dL High Risk Serum or plasma creatinine m easurement (mass/volume)Ordered By: Curt Robles on 12-02-2024 Creatinine [Mass/Vol] 0.70 mg/dL 0.55-1.02 [facility] Comment on above: The validity of the calculated GFR & GFRAA in patients over 70 years has not been determined. Clinical correlation is essential. Serum or plasma urea nitroge n measurement (mass/volume)Ordered By: Curt Robles on 12-02-2024 Urea nitrogen [Mass/Vol] 14 mg/dL 7-18 [facility] Sodium levelOrdered By: Harjit Robles on 12-02-2024 Sodium [Moles/Vol] 139 mmol/L 136-145 [facility] TSH QnOrdered By: Curt conner on 12-02-2024 Thyroid Stimulating Hormone (TSH) 1.740 uIU/mL 0.358-3.740 [facility] Thyroid Stim Hormone (TSH)on 12-02-2024 TSH 1.740 uIU/mL Normal 0.358-3.740 [facility] Comment on above: Performed By: #### L 501.4361, L501.9997, L500.4100, L500.4050 #### [facility] [address] [place], [address] Total proteinOrdered By: Jesus Robles on 12-02-2024 Protein [Mass/Vol] 6.7 g/dL 6.4-8.2 [facility] Triglycerides measurementOrd ered By: Curt Traivs on 12-02-2024 Triglyceride [Mass/Vol] 33 mg/dL <199 [facility] Comment on above: The drugs N-Acetylcy steine and Metamizole may falsely depress this assay.Serum Triglycerides Reference Interval Normal <150 mg/dL Borderline high 150 - 199 mg/dL High 200 - 499 mg/dL Very High > or = 500 mg/dL Very low density lipoprotein (VLDL) cholesterol measurementOrdered By: Curt Robles on 12-02-2024 VLDL Cholesterol 7 mg/dL 5-40 [facility] SCREENING MAMM (CAD), BILATo n 09-29-2024 [facility] [address] [place] [address] SCREENING MAMM (CAD), BILAT MR#: [id number] Acct: [id number] Name: TEMITOPE WELLS Rep #: [id number] : 1960 F 63 From: Cheng womack MD PCP: Dr. 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 [id number] Electronically Signed: Cheng Strickland MD at 8:40 EST Reading Location ID and State: [address] [place] [address] , Service support , CC: WILLIAN Mason; Dr. Greg Michaud MD Section Maintainer: Signed Normal [facility] Comprehensive Metabolic Prof ilon 09-05-2024 Albumin [Mass/Vol] 3.6 g/dL Normal 3.2-5.0 [facility] Comment on above: Performed By: #### L 3100.7750, L500.4100, L500.4050, L501.9985 #### [facility] [address] [place], [address] Albumin/Globulin [Mass ratio] 1.3 {ratio} Normal 0.9-2.4 [facility] Comment on above: Performed By: #### L 3100.7750, L500.4100, L500.4050, L501.9985 #### [facility] [address] [place], [address] ALK P 43 U/L Low 45-117 [facility] Comment on above: Performed By: #### L 3100.7750, L500.4100, L500.4050, L501.9985 #### [facility] [address] [place], [address] ALT [Catalytic activity/Vol] 31 U/L Normal 13-56 [facility] Comment on above: Performed By: #### L 3100.7750, L500.4100, L500.4050, L501.9985 #### [facility] [address] [place], [address] AST [Catalytic activity/Vol] 22 U/L Normal 15-37 [facility] Comment on above: Performed By: #### L 3100.7750, L500.4100, L500.4050, L501.9985 #### [facility] [address] [place], [address] Bilirubin [Mass/Vol] 0.80 mg/dL Normal 0.20-1.00 [facility] Comment on above: Result Comment: For patients on eltrombopag therapy, use of Dimension [place] TBIL is not recommended. Performed By: #### L 3100.7750, L500.4100, L500.4050, L501.9985 #### [facility] [address] [place], [address] BUN/CRE 22.3 RATIO High 10-20 [facility] Comment on above: Performed By: #### L 3100.7750, L500.4100, L500.4050, L501.9985 #### [facility] [address] [place], [address] CA,Total 9.3 mg/dL Normal 8.5-10.1 [facility] Comment on above: Performed By: #### L 3100.7750, L500.4100, L500.4050, L501.9985 #### [facility] [address] [place], [address] Chloride [Moles/Vol] 106 mmol/L Normal 98-107 [facility] Comment on above: Performed By: #### L 3100.7750, L500.4100, L500.4050, L501.9985 #### [facility] [address] [place], [address] CO2 [Moles/Vol] 28.0 mmol/L Normal 21.0-32.0 [facility] Comment on above: Performed By: #### L 3100.7750, L500.4100, L500.4050, L501.9985 #### [facility] [address] [place], [address] Creatinine [Mass/Vol] 0.76 mg/dL Normal 0.55-1.02 [facility] Comment on above: Result Comment: The validity of the calculated GFR GFRAA in patients over 70 years has not been determined. Clinical correlation is essential. Performed By: #### L 3100.7750, L500.4100, L500.4050, L501.9985 #### [facility] [address] [place], [address] EST GFR - AA 98 mL/min Normal >60 [facility] Comment on above: Result Comment: Afri can [place] GFR Calc Performed By: #### L 3100.7750, L500.4100, L500.4050, L501.9985 #### [facility] [address] [place], [address] GAP 6 Normal 5-15 [facility] Comment on above: Performed By: #### L 3100.7750, L500.4100, L500.4050, L501.9985 #### [facility] [address] [place], [address] GFR/1.73 sq M.predicted among non-blacks MDRD (S/P/Bld) [Vol rate/Area] 81 mL/min/{1.73_m2} Normal >60 [facility] Comment on above: Result Comment: Non- GFR Calc Performed By: #### L 3100.7750, L500.4100, L500.4050, L501.9985 #### [facility] [address] [place], [address] Globulin (S) [Mass/Vol] 2.7 g/dL Normal 2.2-4.2 [facility] Comment on above: Performed By: #### L 3100.7750, L500.4100, L500.4050, L501.9985 #### [facility] [address] [place], [address] Glucose [Mass/Vol] 102 mg/dL Normal 74-106 [facility] Comment on above: Result Comment: Fast ing Glucose result from 100 to 125 mg/dL suggests IMPAIRED HOMEOSTASIS per A.D.A. criteria. Performed By: #### L 3100.7750, L500.4100, L500.4050, L501.9985 #### [facility] [address] [place], [address] Potassium [Moles/Vol] 4.1 mmol/L Normal 3.5-5.1 [facility] Comment on above: Performed By: #### L 3100.7750, L500.4100, L500.4050, L501.9985 #### [facility] [address] [place], [address] Sodium [Moles/Vol] 139 mmol/L Normal 136-145 [facility] Comment on above: Performed By: #### L 3100.7750, L500.4100, L500.4050, L501.9985 #### [facility] [address] [place], [address] T PROT 6.3 g/dL Low 6.4-8.2 [facility] Comment on above: Performed By: #### L 3100.7750, L500.4100, L500.4050, L501.9985 #### [facility] [address] [place], [address] Urea nitrogen [Mass/Vol] 17 mg/dL Normal 7-18 [facility] Comment on above: Performed By: #### L 3100.7750, L500.4100, L500.4050, L501.9985 #### [facility] [address] [place], [address] Hemoglobin A1con 09-05-2024 HbA1c (Bld) [Mass fraction] 6.4 % High 3.8-5.6 [facility] Comment on above: Result Comment: Norm al < 5.7 % Prediabetic 5.7 - 6.4 % Diabetic >or= 6.5 % Please note range changes. Performed By: #### L 3100.7750, L500.4100, L500.4050, L501.9985 #### [facility] [address] [place], [address] Vitamin D,25 Hydroxyon 09-05 Vitamin D 25-OH 55.4 ng/mL Normal [facility] Comment on above: Result Comment: Korin min D 25(OH) Status Range Deficiency <20 ng/mL (50nmol/L) Insufficiency 20 - 30 ng/mL (50 - 75 nmol/L) Sufficiency 30 - 100 ng/mL (75 - 250 nmol/L) Toxicity >100 ng/mL (>250 nmol/L) Performed By: #### L 3100.7750, L500.4100, L500.4050, L501.9985 #### [facility] [address] [place], [address] Comprehensive Metabolic Prof ilon 06-21-2024 Albumin [Mass/Vol] 3.6 g/dL Normal 3.2-5.0 [facility] Comment on above: Performed By: #### L 3100.7750, L500.4100, L500.4050, L501.9985 #### [facility] [address] [place], [address] Albumin/Globulin [Mass ratio] 1.2 {ratio} Normal 0.9-2.4 [facility] Comment on above: Performed By: #### L 3100.7750, L500.4100, L500.4050, L501.9985 #### [facility] [address] [place], [address] ALK P 40 U/L Low 45-117 [facility] Comment on above: Performed By: #### L 3100.7750, L500.4100, L500.4050, L501.9985 #### [facility] [address] [place], [address] ALT [Catalytic activity/Vol] 45 U/L Normal 13-56 [facility] Comment on above: Performed By: #### L 3100.7750, L500.4100, L500.4050, L501.9985 #### [facility] [address] [place], [address] AST [Catalytic activity/Vol] 29 U/L Normal 15-37 [facility] Comment on above: Performed By: #### L 3100.7750, L500.4100, L500.4050, L501.9985 #### [facility] [address] [place], [address] Bilirubin [Mass/Vol] 0.90 mg/dL Normal 0.20-1.00 [facility] Comment on above: Result Comment: For patients on eltrombopag therapy, use of Dimension [place] TBIL is not recommended. Performed By: #### L 3100.7750, L500.4100, L500.4050, L501.9985 #### [facility] [address] [place], [address] BUN/CRE 18.0 RATIO Normal 10-20 [facility] Comment on above: Performed By: #### L 3100.7750, L500.4100, L500.4050, L501.9985 #### [facility] [address] [place], [address] CA,Total 8.9 mg/dL Normal 8.5-10.1 [facility] Comment on above: Performed By: #### L 3100.7750, L500.4100, L500.4050, L501.9985 #### [facility] [address] [place], [address] Chloride [Moles/Vol] 106 mmol/L Normal 98-107 [facility] Comment on above: Performed By: #### L 3100.7750, L500.4100, L500.4050, L501.9985 #### [facility] [address] [place], [address] CO2 [Moles/Vol] 28.0 mmol/L Normal 21.0-32.0 [facility] Comment on above: Performed By: #### L 3100.7750, L500.4100, L500.4050, L501.9985 #### [facility] [address] [place], [address] Creatinine [Mass/Vol] 0.78 mg/dL Normal 0.55-1.02 [facility] Comment on above: Result Comment: The validity of the calculated GFR GFRAA in patients over 70 years has not been determined. Clinical correlation is essential. Performed By: #### L 3100.7750, L500.4100, L500.4050, L501.9985 #### [facility] [address] [place], [address] EST GFR - AA 96 mL/min Normal >60 [facility] Comment on above: Result Comment: Afri can [place] GFR Calc Performed By: #### L 3100.7750, L500.4100, L500.4050, L501.9985 #### [facility] [address] [place], [address] GAP 6 Normal 5-15 [facility] Comment on above: Performed By: #### L 3100.7750, L500.4100, L500.4050, L501.9985 #### [facility] [address] [place], [address] GFR/1.73 sq M.predicted among non-blacks MDRD (S/P/Bld) [Vol rate/Area] 79 mL/min/{1.73_m2} Normal >60 [facility] Comment on above: Result Comment: Non- GFR Calc Performed By: #### L 3100.7750, L500.4100, L500.4050, L501.9985 #### [facility] [address] [place], [address] Globulin (S) [Mass/Vol] 3.0 g/dL Normal 2.2-4.2 [facility] Comment on above: Performed By: #### L 3100.7750, L500.4100, L500.4050, L501.9985 #### [facility] [address] [place], [address] Glucose [Mass/Vol] 89 mg/dL Normal 74-106 [facility] Comment on above: Performed By: #### L 3100.7750, L500.4100, L500.4050, L501.9985 #### [facility] [address] [place], [address] Potassium [Moles/Vol] 4.0 mmol/L Normal 3.5-5.1 [facility] Comment on above: Performed By: #### L 3100.7750, L500.4100, L500.4050, L501.9985 #### [facility] [address] [place], [address] Sodium [Moles/Vol] 140 mmol/L Normal 136-145 [facility] Comment on above: Performed By: #### L 3100.7750, L500.4100, L500.4050, L501.9985 #### [facility] [address] [place], [address] T PROT 6.6 g/dL Normal 6.4-8.2 [facility] Comment on above: Performed By: #### L 3100.7750, L500.4100, L500.4050, L501.9985 #### [facility] [address] [place], [address] Urea nitrogen [Mass/Vol] 14 mg/dL Normal 7-18 [facility] Comment on above: Performed By: #### L 3100.7750, L500.4100, L500.4050, L501.9985 #### [facility] [address] [place], [address] Hemoglobin A1con 06-21-2024 HbA1c (Bld) [Mass fraction] 5.8 % High 3.8-5.6 [facility] Comment on above: Result Comment: Norm al < 5.7 % Prediabetic 5.7 - 6.4 % Diabetic >or= 6.5 % Please note range changes. Performed By: #### L 501.5200, L502.0250, L501.9985, L500.4050 #### [facility] [address] [place], [address] Magnesiumon 06-21-2024 Magnesium [Mass/Vol] 2.3 mg/dL Normal 1.6-2.6 [facility] Comment on above: Performed By: #### L 3100.7750, L500.4100, L500.4050, L501.9985 #### [facility] [address] [place], [address] Microalb:Creat Ratio,Random URon 06-21-2024 MALB:CRE TNP Normal <30 mg/g CRE [facility] Comment on above: Performed By: #### L 501.5200, L502.0250, L501.9985, L500.4050 #### [facility] [address] [place], [address] MICROALBUMIN,UR < 5.0 Normal NO RANGE EST. [facility] Comment on above: Performed By: #### L 501.5200, L502.0250, L501.9985, L500.4050 #### [facility] [address] [place], [address] UR CREAT < 13.00 Normal NO RANGE EST. [facility] Comment on above: Performed By: #### L 501.5200, L502.0250, L501.9985, L500.4050 #### [facility] [address] [place], [address] Basophil percentageOrdered B y: Curt Robles on 02-22-2024 Bilirubin [Mass/Vol] 1.00 mg/dL 0.20-1.00 [facility] Comment on above: For patients on eltr ombopag therapy, use of Dimension [place] TBIL is not recommended. Chloride [Moles/Vol] 104 mmol/L 98-107 [facility] Cholesterol [Mass/Vol] 209 mg/dL <200 [facility] Comment on above: <200 mg/dL Desirable 200-240 mg/dL Borderline >240 mg/dL High Risk Glucose [Mass/Vol] 100 mg/dL 74-106 [facility] Comment on above: Fasting Glucose resu lt from 100 to 125 mg/dL suggests IMPAIRED HOMEOSTASIS per A.D.A. criteria. Potassium [Moles/Vol] 4.1 mmol/L 3.5-5.1 [facility] Protein [Mass/Vol] 6.6 g/dL 6.4-8.2 [facility] Sodium [Moles/Vol] 138 mmol/L 136-145 [facility] Triglyceride [Mass/Vol] 34 mg/dL <199 [facility] Comment on above: The drugs N-Acetylcy steine and Metamizole may falsely depress this assay.Serum Triglycerides Reference Interval Normal <150 mg/dL Borderline high 150 - 199 mg/dL High 200 - 499 mg/dL Very High > or = 500 mg/dL Laboratory - Chemistry and C hemistry - challengeOrdered By: Curt Robles on 02-22-2024 Albumin/Globulin [Mass ratio] 1.4 {ratio} 0.9-2.4 [facility] ALP [Catalytic activity/Vol] 48 U/L 45-117 [facility] ALT [Catalytic activity/Vol] 37 U/L 13-56 [facility] Cholesterol in HDL [Mass/Vol] 102 mg/dL >40 [facility] Comment on above: The drugs N-Acetylcy steine and Metamizole may falsely depress this assay. Reference Range HDL <40 mg/dL Low HDL Cholesterol HDL >or= 60 mg/dL High HDL Cholesterol Cholesterol in LDL [Mass/Vol] 100 mg/dL 0-130 [facility] CO2 [Moles/Vol] 28.0 mmol/L 21.0-32.0 [facility] Globulin (S) [Mass/Vol] 2.8 g/dL 2.2-4.2 [facility] Urea nitrogen/Creatinine [Mass ratio] 25.2 mg/mg 10-20 [facility] No Panel InformationOrdered By: Curt Robles on 02-22-2024 C-Peptide 0.5 ng/mL 1.1-4.4 [facility] Comment on above: C-Peptide reference interval is for fasting patients. Estimated GFR (MDRD) Amer 89 mL/min >60 [facility] Comment on above: GFR Calc Estimated GFR (MDRD) Non-Af Amer 73 mL/min >60 [facility] Comment on above: Non- GFR Calc Thyroglobulin Antibody < 1.0 IU/mL 0.0-0.9 [facility] Comment on above: Thyroglobulin Antibo dy measured by Armando CoulterMethodologyIt should be noted that the presence of thyroglobulinantibodies may not be pathogenic nor diagnostic, especiallyat very low levels. The assay cardiology physician assistant has found thatfour percent of individuals without evidence of thyroiddisease or autoimmunity will have positive TgAb levels upto 4 IU/mL. Urine Microalbumin/Creatini ne Ratio 38.3 mg/g CRE <30 [facility] VLDL Cholesterol 7 mg/dL 5-40 [facility] Serum or plasma calcium chasidy urement (mass/volume)Ordered By: Curt Robles on 02-22-2024 Calcium [Mass/Vol] 8.7 mg/dL 8.5-10.1 [facility] Serum or plasma creatinine m easurement (mass/volume)Ordered By: Curt Robles on 02-22-2024 Creatinine [Mass/Vol] 0.83 mg/dL 0.55-1.02 [facility] Comment on above: The validity of the calculated GFR & GFRAA in patients over 70 years has not been determined. Clinical correlation is essential. Serum or plasma thyroid stim ulating hormone (TSH) measurement (units/volume)Ordered By: Curt Robles on 02-22-2024 TSH Qn 1.43 uIU/mL 0.358-3.74 [facility] Serum or plasma thyroperoxid ase antibody assay (units/volume)Ordered By: Curt Robles on 02-22-2024 TPO Ab Qn 65 [IU]/mL 0-34 [facility] Comment on above: Performed at: [address] [id number] Director: Mac Padilla PhD, Phone: [phone] Serum or plasma urea nitroge n measurement (mass/volume)Ordered By: Curt Robles on 02-22-2024 Urea nitrogen [Mass/Vol] 21 mg/dL 7-18 [facility] Thin prep Papanicolaou smear with manual screeningOrdered By: Curt Robles on 02-22-2024 Thin prep Papanicolaou smear with manual screening 3.8 g/dL 3.2-5.0 [facility] Thin prep Papanicolaou smear with manual screening 22 U/L 15-37 [facility] Thin prep Papanicolaou smear with manual screening 6 5-15 [facility] Thin prep Papanicolaou smear with manual screening 5.3 mg/L NO RANGE EST. [facility] Urine creatinine measurement (mass/volume)Ordered By: Curt Robles on 02-22-2024 Creatinine (U) [Mass/Vol] 13.80 mg/dL NO RANGE EST. [facility] Whole blood hemoglobin A1c/t otal hemoglobin ratio (mass fraction)Ordered By: Curt Robles on 02-22-2024 HbA1c (Bld) [Mass fraction] 6.1 % 3.8-5.6 [facility] Comment on above: Normal < 5.7 % Predi abetic 5.7 - 6.4 % Diabetic >or= 6.5 % Please note range changes. Basophil percentageOrdered B y: Curt Robles on 11-24-2023 Bilirubin [Mass/Vol] 1.00 mg/dL 0.20-1.00 [facility] Comment on above: For patients on eltr ombopag therapy, use of Dimension [place] TBIL is not recommended. Chloride [Moles/Vol] 104 mmol/L 98-107 [facility] Glucose [Mass/Vol] 98 mg/dL 74-106 [facility] Potassium [Moles/Vol] 3.9 mmol/L 3.5-5.1 [facility] Protein [Mass/Vol] 6.8 g/dL 6.4-8.2 [facility] Sodium [Moles/Vol] 139 mmol/L 136-145 [facility] Laboratory - Chemistry and C hemistry - challengeOrdered By: Curt Robles on 11-24-2023 ALP [Catalytic activity/Vol] 51 U/L 45-117 [facility] ALT [Catalytic activity/Vol] 42 U/L 13-56 [facility] CO2 [Moles/Vol] 31.0 mmol/L 21.0-32.0 [facility] Globulin (S) [Mass/Vol] 3.1 g/dL 2.2-4.2 [facility] Urea nitrogen/Creatinine [Mass ratio] 22.8 mg/mg 10-20 [facility] No Panel InformationOrdered By: Curt Robles on 11-24-2023 Estimated GFR (MDRD) Amer 94 mL/min >60 [facility] Comment on above: GFR Calc Estimated GFR (MDRD) Non-Af Amer 78 mL/min >60 [facility] Comment on above: Non- GFR Calc Serum or plasma albumin chasidy urement (mass/volume)Ordered By: Curt Robles on 11-24-2023 Albumin [Mass/Vol] 3.7 g/dL 3.2-5.0 [facility] Serum or plasma albumin/glob ulin mass ratioOrdered By: Curt Robles on 11-24-2023 Albumin/Globulin [Mass ratio] 1.2 {ratio} 0.9-2.4 [facility] Serum or plasma calcium chasidy urement (mass/volume)Ordered By: Curt Robles on 11-24-2023 Calcium [Mass/Vol] 9.2 mg/dL 8.5-10.1 [facility] Serum or plasma creatinine m easurement (mass/volume)Ordered By: Curt Robles on 11-24-2023 Creatinine [Mass/Vol] 0.79 mg/dL 0.55-1.02 [facility] Comment on above: The validity of the calculated GFR & GFRAA in patients over 70 years has not been determined. Clinical correlation is essential. Serum or plasma urea nitroge n measurement (mass/volume)Ordered By: Curt Robles on 11-24-2023 Urea nitrogen [Mass/Vol] 18 mg/dL 7-18 [facility] Thin prep Papanicolaou smear with manual screeningOrdered By: Curt Robles on 11-24-2023 Thin prep Papanicolaou smear with manual screening 23 U/L 15-37 [facility] Thin prep Papanicolaou smear with manual screening 4 5-15 [facility] Whole blood hemoglobin A1c/t otal hemoglobin ratio (mass fraction)Ordered By: Curt Robles on 11-24-2023 HbA1c (Bld) [Mass fraction] 6.1 % 3.8-5.6 [facility] Comment on above: Normal < 5.7 % Predi abetic 5.7 - 6.4 % Diabetic >or= 6.5 % Please note range changes. Basophil percentageOrdered B y: Curt Robles on 08-19-2023 Bilirubin [Mass/Vol] 0.90 mg/dL 0.20-1.00 [facility] Comment on above: For patients on eltr ombopag therapy, use of [place] TBIL is not recommended. Chloride [Moles/Vol] 104 mmol/L 98-107 [facility] Glucose [Mass/Vol] 73 mg/dL 74-106 [facility] Potassium [Moles/Vol] 3.9 mmol/L 3.5-5.1 [facility] Protein [Mass/Vol] 6.5 g/dL 6.4-8.2 [facility] Sodium [Moles/Vol] 138 mmol/L 136-145 [facility] Laboratory - Chemistry and C hemistry - challengeOrdered By: Curt Robles on 08-19-2023 ALP [Catalytic activity/Vol] 44 U/L 45-117 [facility] ALT [Catalytic activity/Vol] 33 U/L 13-56 [facility] CO2 [Moles/Vol] 30.0 mmol/L 21.0-32.0 [facility] Globulin (S) [Mass/Vol] 2.9 g/dL 2.2-4.2 [facility] Urea nitrogen/Creatinine [Mass ratio] 22.7 mg/mg 10-20 [facility] No Panel InformationOrdered By: Curt Robles on 08-19-2023 Estimated GFR (MDRD) Amer 94 mL/min >60 [facility] Comment on above: GFR Calc Estimated GFR (MDRD) Non-Af Amer 78 mL/min >60 [facility] Comment on above: Non- GFR Calc Thyroid Stimulating Hormone (TSH) 1.77 uIU/mL 0.358-3.74 [facility] Vitamin D 25-Hydroxy 72.2 ng/mL [facility] Comment on above: Vitamin D 25(OH) Sta tus Range Deficiency <20 ng/mL (50nmol/L) Insufficiency 20 - 30 ng/mL (50 - 75 nmol/L) Sufficiency 30 - 100 ng/mL (75 - 250 nmol/L) Toxicity >100 ng/mL (>250 nmol/L) Serum or plasma albumin chasidy urement (mass/volume)Ordered By: Curt Robles on 08-19-2023 Albumin [Mass/Vol] 3.6 g/dL 3.2-5.0 [facility] Serum or plasma albumin/glob ulin mass ratioOrdered By: Curt Robles on 08-19-2023 Albumin/Globulin [Mass ratio] 1.2 {ratio} 0.9-2.4 [facility] Serum or plasma calcium chasidy urement (mass/volume)Ordered By: Curt Robles on 08-19-2023 Calcium [Mass/Vol] 9.0 mg/dL 8.5-10.1 [facility] Serum or plasma creatinine m easurement (mass/volume)Ordered By: Curt Robles on 08-19-2023 Creatinine [Mass/Vol] 0.79 mg/dL 0.55-1.02 [facility] Comment on above: The validity of the calculated GFR & GFRAA in patients over 70 years has not been determined. Clinical correlation is essential. Serum or plasma urea nitroge n measurement (mass/volume)Ordered By: Curt Robles on 08-19-2023 Urea nitrogen [Mass/Vol] 18 mg/dL 7-18 [facility] Thin prep Papanicolaou smear with manual screeningOrdered By: Curt Robles on 08-19-2023 Thin prep Papanicolaou smear with manual screening 19 U/L 15-37 [facility] Thin prep Papanicolaou smear with manual screening 4 5-15 [facility] Whole blood hemoglobin A1c/t otal hemoglobin ratio (mass fraction)Ordered By: Curt Robles on 08-19-2023 HbA1c (Bld) [Mass fraction] 5.7 % 3.8-5.6 [facility] Comment on above: Normal < 5.7 % Predi abetic 5.7 - 6.4 % Diabetic >or= 6.5 % Please note range changes. Basophil percentageOrdered B y: Dr. Robles on 02-19-2023 Bilirubin [Mass/Vol] 0.90 mg/dL 0.20-1.00 [facility] Comment on above: For patients on eltr ombopag therapy, use of [place] TBIL is not recommended. Chloride [Moles/Vol] 104 mmol/L 98-107 [facility] Cholesterol [Mass/Vol] 200 mg/dL <200 [facility] Comment on above: <200 mg/dL Desirable 200-240 mg/dL Borderline >240 mg/dL High Risk Glucose [Mass/Vol] 81 mg/dL 74-106 [facility] Potassium [Moles/Vol] 3.9 mmol/L 3.5-5.1 [facility] Protein [Mass/Vol] 6.3 g/dL 6.4-8.2 [facility] Sodium [Moles/Vol] 141 mmol/L 136-145 [facility] Triglyceride [Mass/Vol] 39 mg/dL <199 [facility] Comment on above: The drugs N-Acetylcy steine and Metamizole may falsely depress this assay.Serum Triglycerides Reference Interval Normal <150 mg/dL Borderline high 150 - 199 mg/dL High 200 - 499 mg/dL Very High > or = 500 mg/dL Laboratory - Chemistry and C hemistry - challengeOrdered By: Dr. Robles on 02-19-2023 ALP [Catalytic activity/Vol] 42 U/L 45-117 [facility] ALT [Catalytic activity/Vol] 39 U/L 13-56 [facility] CO2 [Moles/Vol] 28.0 mmol/L 21.0-32.0 [facility] Globulin (S) [Mass/Vol] 2.7 g/dL 2.2-4.2 [facility] Urea nitrogen/Creatinine [Mass ratio] 19.3 mg/mg 10-20 [facility] No Panel InformationOrdered By: Dr. Robles on 02-19-2023 Estimated GFR (MDRD) Amer 96 mL/min >60 [facility] Comment on above: GFR Calc Estimated GFR (MDRD) Non-Af Amer 80 mL/min >60 [facility] Comment on above: Non- GFR Calc Thyroid Stimulating Hormone (TSH) 2.17 uIU/mL 0.358-3.74 [facility] Vitamin D 25-Hydroxy 82.4 ng/mL [facility] Comment on above: Vitamin D 25(OH) Sta tus Range Deficiency <20 ng/mL (50nmol/L) Insufficiency 20 - 30 ng/mL (50 - 75 nmol/L) Sufficiency 30 - 100 ng/mL (75 - 250 nmol/L) Toxicity >100 ng/mL (>250 nmol/L) Serum or plasma albumin chasidy urement (mass/volume)Ordered By: Dr. Robles on 02-19-2023 Albumin [Mass/Vol] 3.6 g/dL 3.2-5.0 [facility] Serum or plasma albumin/glob ulin mass ratioOrdered By: Dr. Robles on 02-19-2023 Albumin/Globulin [Mass ratio] 1.3 {ratio} 0.9-2.4 [facility] Serum or plasma calcium chasidy urement (mass/volume)Ordered By: Dr. Robles on 02-19-2023 Calcium [Mass/Vol] 8.6 mg/dL 8.5-10.1 [facility] Serum or plasma cholesterol in HDL measurement (mass/volume)Ordered By: Dr. Robles on 02-19-2023 Cholesterol in HDL [Mass/Vol] 96 mg/dL >40 [facility] Comment on above: The drugs N-Acetylcy steine and Metamizole may falsely depress this assay. Reference Range HDL <40 mg/dL Low HDL Cholesterol HDL >or= 60 mg/dL High HDL Cholesterol Serum or plasma cholesterol in VLDL measurement (mass/volume)Ordered By: Dr. Robles on 02-19-2023 Cholesterol in VLDL [Mass/Vol] 8 mg/dL 5-40 [facility] Serum or plasma creatinine m easurement (mass/volume)Ordered By: Dr. Robles on 02-19-2023 Creatinine [Mass/Vol] 0.78 mg/dL 0.55-1.02 [facility] Comment on above: The validity of the calculated GFR & GFRAA in patients over 70 years has not been determined. Clinical correlation is essential. Serum or plasma low density lipoprotein (LDL) cholesterol measurement (mass/volume)Ordered By: Dr. Robles on 02-19-2023 Cholesterol in LDL [Mass/Vol] 96 mg/dL 0-130 [facility] Serum or plasma urea nitroge n measurement (mass/volume)Ordered By: Dr. Robles on 02-19-2023 Urea nitrogen [Mass/Vol] 15 mg/dL 7-18 [facility] Thin prep Papanicolaou smear with manual screeningOrdered By: Dr. Robles on 02-19-2023 Thin prep Papanicolaou smear with manual screening 22 U/L 15-37 [facility] Thin prep Papanicolaou smear with manual screening 9 5-15 [facility] Thin prep Papanicolaou smear with manual screening 14.6 mg/L NO RANGE EST. [facility] Whole blood hemoglobin A1c/t otal hemoglobin ratio (mass fraction)Ordered By: Dr. Robles on 02-19-2023 HbA1c (Bld) [Mass fraction] 5.9 % 3.8-5.6 [facility] Comment on above: Normal < 5.7 % Predi abetic 5.7 - 6.4 % Diabetic >or= 6.5 % Please note range changes. Glucose Glucometer (BldC) [M ass/Vol]Ordered By: Gunner Nolen on 12-03-2022 Glucose [Mass/Vol] 91 mg/dL 74-106 [facility] Comment on above: MANAGEMENT OF PATIEN T CARE PER NURSING PROTOCOL Basophil percentageOrdered B y: Dr. Robles on 11-03-2022 Bilirubin [Mass/Vol] 1.10 mg/dL 0.20-1.00 [facility] Comment on above: For patients on eltr ombopag therapy, use of [place] TBIL is not recommended. Chloride [Moles/Vol] 104 mmol/L 98-107 [facility] Glucose [Mass/Vol] 101 mg/dL 74-106 [facility] Comment on above: Fasting Glucose resu lt from 100 to 125 mg/dL suggests IMPAIRED HOMEOSTASIS per A.D.A. criteria. Potassium [Moles/Vol] 4.3 mmol/L 3.5-5.1 [facility] Protein [Mass/Vol] 7.0 g/dL 6.4-8.2 [facility] Sodium [Moles/Vol] 138 mmol/L 136-145 [facility] Laboratory - Chemistry and C hemistry - challengeOrdered By: Dr. Robles on 11-03-2022 ALP [Catalytic activity/Vol] 49 U/L 45-117 [facility] ALT [Catalytic activity/Vol] 41 U/L 13-56 [facility] CO2 [Moles/Vol] 31.0 mmol/L 21.0-32.0 [facility] Globulin (S) [Mass/Vol] 3.3 g/dL 2.2-4.2 [facility] Urea nitrogen/Creatinine [Mass ratio] 23.0 mg/mg 10-20 [facility] No Panel InformationOrdered By: Dr. Robles on 11-03-2022 Estimated GFR (MDRD) Amer 102 mL/min >60 [facility] Comment on above: GFR Calc Estimated GFR (MDRD) Non-Af Amer 85 mL/min >60 [facility] Comment on above: Non- GFR Calc Thyroid Stimulating Hormone (TSH) 1.99 uIU/mL 0.358-3.74 [facility] Serum or plasma albumin chasidy urement (mass/volume)Ordered By: Dr. Robles on 11-03-2022 Albumin [Mass/Vol] 3.7 g/dL 3.2-5.0 [facility] Serum or plasma albumin/glob ulin mass ratioOrdered By: Dr. Robles on 11-03-2022 Albumin/Globulin [Mass ratio] 1.1 {ratio} 0.9-2.4 [facility] Serum or plasma calcium chasidy urement (mass/volume)Ordered By: Dr. Robles on 11-03-2022 Calcium [Mass/Vol] 9.0 mg/dL 8.5-10.1 [facility] Serum or plasma creatinine m easurement (mass/volume)Ordered By: Dr. Robles on 11-03-2022 Creatinine [Mass/Vol] 0.74 mg/dL 0.55-1.02 [facility] Comment on above: The validity of the calculated GFR & GFRAA in patients over 70 years has not been determined. Clinical correlation is essential. Serum or plasma urea nitroge n measurement (mass/volume)Ordered By: Dr. Robles on 11-03-2022 Urea nitrogen [Mass/Vol] 17 mg/dL 7-18 [facility] Thin prep Papanicolaou smear with manual screeningOrdered By: Dr. Robles on 11-03-2022 Thin prep Papanicolaou smear with manual screening 26 U/L 15-37 [facility] Thin prep Papanicolaou smear with manual screening 3 5-15 [facility] Whole blood hemoglobin A1c/t otal hemoglobin ratio (mass fraction)Ordered By: Dr. Robles on 11-03-2022 HbA1c (Bld) [Mass fraction] 6.2 % 3.8-5.6 [facility] Comment on above: Normal < 5.7 % Predi abetic 5.7 - 6.4 % Diabetic >or= 6.5 % Please note range changes. Basophil percentageon 2021 Bilirubin [Mass/Vol] 1.00 mg/dL 0.20-1.00 [facility] Work Phone: Comment on above: For patients on eltr ombopag therapy, use of [place] TBIL is not recommended. Chloride [Moles/Vol] 105 mmol/L 98-107 [facility] Work Phone: Cholesterol [Mass/Vol] 192 mg/dL <200 [facility] Work Phone: Comment on above: <200 mg/dL Desirable 200-240 mg/dL Borderline >240 mg/dL High Risk Glucose [Mass/Vol] 80 mg/dL 74-106 [facility] Work Phone: Potassium [Moles/Vol] 3.7 mmol/L 3.5-5.1 [facility] Work Phone: Protein [Mass/Vol] 6.8 g/dL 6.4-8.2 [facility] Work Phone: Sodium [Moles/Vol] 139 mmol/L 136-145 [facility] Work Phone: Triglyceride [Mass/Vol] 47 mg/dL <199 [facility] Work Phone: Comment on above: The drugs N-Acetylcy steine and Metamizole may falsely depress this assay.Serum Triglycerides Reference Interval Normal <150 mg/dL Borderline high 150 - 199 mg/dL High 200 - 499 mg/dL Very High > or = 500 mg/dL Laboratory - Chemistry and C hemistry - challengeon 06-20-2022 ALP [Catalytic activity/Vol] 49 U/L 45-117 [facility] Work Phone: ALT [Catalytic activity/Vol] 43 U/L 13-56 [facility] Work Phone: CO2 [Moles/Vol] 29.0 mmol/L 21.0-32.0 [facility] Work Phone: Globulin (S) [Mass/Vol] 3.0 g/dL 2.2-4.2 [facility] Work Phone: Urea nitrogen/Creatinine [Mass ratio] 25.5 mg/mg 10-20 [facility] Work Phone: No Panel Informationon 06-20 Estimated GFR (MDRD) Amer 101 mL/min >60 [facility] Work Phone: Comment on above: GFR Calc Estimated GFR (MDRD) Non-Af Amer 84 mL/min >60 [facility] Work Phone: Comment on above: Non- GFR Calc Vitamin D 25-Hydroxy 77.5 ng/mL [facility] Work Phone: Comment on above: Vitamin D 25(OH) Sta tus Range Deficiency <20 ng/mL (50nmol/L) Insufficiency 20 - 30 ng/mL (50 - 75 nmol/L) Sufficiency 30 - 100 ng/mL (75 - 250 nmol/L) Toxicity >100 ng/mL (>250 nmol/L) Serum or plasma albumin chasidy urement (mass/volume)on 06-20-2022 Albumin [Mass/Vol] 3.8 g/dL 3.2-5.0 [facility] Work Phone: Serum or plasma albumin/glob ulin mass ratioon 06-20-2022 Albumin/Globulin [Mass ratio] 1.3 {ratio} 0.9-2.4 [facility] Work Phone: Serum or plasma calcium chasidy urement (mass/volume)on 06-20-2022 Calcium [Mass/Vol] 8.7 mg/dL 8.5-10.1 [facility] Work Phone: Serum or plasma cholesterol in HDL measurement (mass/volume)on 06-20-2022 Cholesterol in HDL [Mass/Vol] 96 mg/dL >40 [facility] Work Phone: Comment on above: The drugs N-Acetylcy steine and Metamizole may falsely depress this assay. Reference Range HDL <40 mg/dL Low HDL Cholesterol HDL >or= 60 mg/dL High HDL Cholesterol Serum or plasma cholesterol in VLDL measurement (mass/volume)on 06-20-2022 Cholesterol in VLDL [Mass/Vol] 9 mg/dL 5-40 [facility] Work Phone: Serum or plasma creatinine m easurement (mass/volume)on 06-20-2022 Creatinine [Mass/Vol] 0.74 mg/dL 0.55-1.02 [facility] Work Phone: Comment on above: The validity of the calculated GFR & GFRAA in patients over 70 years has not been determined. Clinical correlation is essential. Serum or plasma low density lipoprotein (LDL) cholesterol measurement (mass/volume)on 06-20-2022 Cholesterol in LDL [Mass/Vol] 87 mg/dL 0-130 [facility] Work Phone: Serum or plasma urea nitroge n measurement (mass/volume)on 06-20-2022 Urea nitrogen [Mass/Vol] 19 mg/dL 7-18 [facility] Work Phone: Thin prep Papanicolaou smear with manual screeningon 06-20-2022 Thin prep Papanicolaou smear with manual screening 28 U/L 15-37 [facility] Work Phone: Thin prep Papanicolaou smear with manual screening 5 5-15 [facility] Work Phone: Basophil percentageon 2021 Bilirubin [Mass/Vol] 0.90 mg/dL 0.20-1.00 [facility] Work Phone: Comment on above: For patients on eltr ombopag therapy, use of [place] TBIL is not recommended. Chloride [Moles/Vol] 107 mmol/L 98-107 [facility] Work Phone: Cholesterol [Mass/Vol] 205 mg/dL <200 [facility] Work Phone: Comment on above: <200 mg/dL Desirable 200-240 mg/dL Borderline >240 mg/dL High Risk Glucose [Mass/Vol] 81 mg/dL 74-106 [facility] Work Phone: Potassium [Moles/Vol] 3.8 mmol/L 3.5-5.1 [facility] Work Phone: Protein [Mass/Vol] 6.6 g/dL 6.4-8.2 [facility] Work Phone: Sodium [Moles/Vol] 141 mmol/L 136-145 [facility] Work Phone: Triglyceride [Mass/Vol] 42 mg/dL <199 [facility] Work Phone: Comment on above: The drugs N-Acetylcy steine and Metamizole may falsely depress this assay.Serum Triglycerides Reference Interval Normal <150 mg/dL Borderline high 150 - 199 mg/dL High 200 - 499 mg/dL Very High > or = 500 mg/dL Laboratory - Chemistry and C hemistry - challengeon 02-26-2022 ALP [Catalytic activity/Vol] 55 U/L 45-117 [facility] Work Phone: ALT [Catalytic activity/Vol] 39 U/L 13-56 [facility] Work Phone: CO2 [Moles/Vol] 29.0 mmol/L 21.0-32.0 [facility] Work Phone: Globulin (S) [Mass/Vol] 2.9 g/dL 2.2-4.2 [facility] Work Phone: Urea nitrogen/Creatinine [Mass ratio] 18.2 mg/mg 10-20 [facility] Work Phone: No Panel Informationon 02-26 Estimated GFR (MDRD) Amer 90 mL/min >60 [facility] Work Phone: Comment on above: GFR Calc Estimated GFR (MDRD) Non-Af Amer 74 mL/min >60 [facility] Work Phone: Comment on above: Non- GFR Calc Thyroid Stimulating Hormone (TSH) 2.54 uIU/mL 0.358-3.74 [facility] Work Phone: Urine Microalbumin/Creatini ne Ratio 10.3 mg/g CRE <30 [facility] Work Phone: Serum or plasma albumin chasidy urement (mass/volume)on 02-26-2022 Albumin [Mass/Vol] 3.7 g/dL 3.2-5.0 [facility] Work Phone: Serum or plasma albumin/glob ulin mass ratioon 02-26-2022 Albumin/Globulin [Mass ratio] 1.3 {ratio} 0.9-2.4 [facility] Work Phone: Serum or plasma calcium chasidy urement (mass/volume)on 02-26-2022 Calcium [Mass/Vol] 8.9 mg/dL 8.5-10.1 [facility] Work Phone: Serum or plasma cholesterol in HDL measurement (mass/volume)on 02-26-2022 Cholesterol in HDL [Mass/Vol] 97 mg/dL >40 [facility] Work Phone: Comment on above: The drugs N-Acetylcy steine and Metamizole may falsely depress this assay. Reference Range HDL <40 mg/dL Low HDL Cholesterol HDL >or= 60 mg/dL High HDL Cholesterol Serum or plasma cholesterol in VLDL measurement (mass/volume)on 02-26-2022 Cholesterol in VLDL [Mass/Vol] 8 mg/dL 5-40 [facility] Work Phone: Serum or plasma creatinine m easurement (mass/volume)on 02-26-2022 Creatinine [Mass/Vol] 0.83 mg/dL 0.55-1.02 [facility] Work Phone: Comment on above: The validity of the calculated GFR & GFRAA in patients over 70 years has not been determined. Clinical correlation is essential. Serum or plasma low density lipoprotein (LDL) cholesterol measurement (mass/volume)on 02-26-2022 Cholesterol in LDL [Mass/Vol] 100 mg/dL 0-130 [facility] Work Phone: Serum or plasma urea nitroge n measurement (mass/volume)on 02-26-2022 Urea nitrogen [Mass/Vol] 15 mg/dL 7-18 [facility] Work Phone: Thin prep Papanicolaou smear with manual screeningon 02-26-2022 Thin prep Papanicolaou smear with manual screening 21 U/L 15-37 [facility] Work Phone: Thin prep Papanicolaou smear with manual screening 5 5-15 [facility] Work Phone: Thin prep Papanicolaou smear with manual screening 7.0 mg/L NO RANGE EST. [facility] Work Phone: Urine creatinine measurement (mass/volume)on 02-26-2022 Creatinine (U) [Mass/Vol] 67.70 mg/dL NO RANGE EST. [facility] Work Phone: Whole blood hemoglobin A1c/t otal hemoglobin ratio (mass fraction)on 02-26-2022 HbA1c (Bld) [Mass fraction] 6.0 % 3.8-5.6 [facility] Work Phone: Comment on above: Normal < 5.7 % Predi abetic 5.7 - 6.4 % Diabetic >or= 6.5 % Please note range changes. Laboratory - Microbiology an d Antimicrobial susceptibilityon 11-21-2021 SARS-CoV-2 (COVID-19) RNA ZULLY+probe Ql (Unsp spec) Not detected Not Detect [facility] Work Phone: Comment on above: Normal Reference [...] percentageon 2020 Bilirubin [Mass/Vol] 0.90 mg/dL 0.20-1.00 [facility] Work Phone: Comment on above: For patients on eltr ombopag therapy, use of [place] TBIL is not recommended. Chloride [Moles/Vol] 104 mmol/L 98-107 [facility] Work Phone: Glucose [Mass/Vol] 100 mg/dL 74-106 [facility] Work Phone: Comment on above: Fasting Glucose resu lt from 100 to 125 mg/dL suggests IMPAIRED HOMEOSTASIS per A.D.A. criteria.Please note revised GLUCOSE reference range effective 2017. Potassium [Moles/Vol] 3.7 mmol/L 3.5-5.1 [facility] Work Phone: Protein [Mass/Vol] 6.5 g/dL 6.4-8.2 [facility] Work Phone: Sodium [Moles/Vol] 140 mmol/L 136-145 [facility] Work Phone: Laboratory - Chemistry and C hemistry - challengeon 11-14-2021 ALP [Catalytic activity/Vol] 51 U/L 45-117 [facility] Work Phone: ALT [Catalytic activity/Vol] 37 U/L 13-56 [facility] Work Phone: CO2 [Moles/Vol] 29.0 mmol/L 21.0-32.0 [facility] Work Phone: Globulin (S) [Mass/Vol] 2.9 g/dL 2.2-4.2 [facility] Work Phone: Urea nitrogen/Creatinine [Mass ratio] 23.2 mg/mg 10-20 [facility] Work Phone: No Panel Informationon 11-14 Estimated GFR (MDRD) Amer 111 mL/min >60 [facility] Work Phone: Comment on above: GFR Calc Estimated GFR (MDRD) Non-Af Amer 92 mL/min >60 [facility] Work Phone: Comment on above: Non- GFR Calc Serum or plasma albumin chasidy urement (mass/volume)on 11-14-2021 Albumin [Mass/Vol] 3.6 g/dL 3.2-5.0 [facility] Work Phone: Serum or plasma albumin/glob ulin mass ratioon 11-14-2021 Albumin/Globulin [Mass ratio] 1.2 {ratio} 0.9-2.4 [facility] Work Phone: Serum or plasma calcium chasidy urement (mass/volume)on 11-14-2021 Calcium [Mass/Vol] 8.9 mg/dL 8.5-10.1 [facility] Work Phone: Serum or plasma creatinine m easurement (mass/volume)on 11-14-2021 Creatinine [Mass/Vol] 0.69 mg/dL 0.55-1.02 [facility] Work Phone: Comment on above: The validity of the calculated GFR & GFRAA in patients over 70 years has not been determined. Clinical correlation is essential. Serum or plasma urea nitroge n measurement (mass/volume)on 11-14-2021 Urea nitrogen [Mass/Vol] 16 mg/dL 7-18 [facility] Work Phone: Thin prep Papanicolaou smear with manual screeningon 11-14-2021 Thin prep Papanicolaou smear with manual screening 23 U/L 15-37 [facility] Work Phone: Thin prep Papanicolaou smear with manual screening 7 5-15 [facility] Work Phone: Whole blood hemoglobin A1c/t otal hemoglobin ratio (mass fraction)on 11-14-2021 HbA1c (Bld) [Mass fraction] 5.8 % 3.8-5.6 [facility] Work Phone: Comment on above: Normal < 5.7 % Predi abetic 5.7 - 6.4 % Diabetic >or= 6.5 % Please note range changes. Vital Signs Date Time Vital Sign Value Performing Clinician Tony shields 12-03-2022 10:15-0500 Body temperature 97 [degF] DO Deena Shai Work Phone: [facility] 12-03-2022 10:15-0500 Diastolic blood pressure 59 mm[Hg] DO Deena Shai Work Phone: [facility] 12-03-2022 10:15-0500 Heart rate 60 /min DO Deena Shai Work Phone: [facility] 12-03-2022 10:15-0500 Respiratory rate 16 /min DO Deena Shai Work Phone: [facility] 12-03-2022 10:15-0500 SaO2% (BldA) [Mass fraction] 100 % DO Deena Shai Work Phone: [facility] 12-03-2022 10:15-0500 Systolic blood pressure 101 mm[Hg] DO Deena Shai Work Phone: [facility] 12-03-2022 09:13-0500 Body height 162.56 cm DO Deena Shai Work Phone: [facility] 12-03-2022 09:13-0500 Body mass index (BMI) [Ratio] 18.9 kg/m2 DO Deena Shai Work Phone: [facility] 12-03-2022 09:13-0500 Body weight 50 kg DO Deena Shai Work Phone: [facility] 10-06-2022 10:33-0500 Body height 165.1 cm DO Deena Shai Work Phone: [facility] Work Phone: 10-06-2022 10:33-0500 Body mass index (BMI) [Ratio] 18.8 kg/m2 DO Deena Gibbons Work Phone: [facility] 10-06-2022 [id number] Body weight 51.25 kg DO Deena Gibbons Work Phone: [facility] Encounters Encounter Date Encounter Type Care Provider Facility Start: 03-02-2025 End: 03-02-2025 ambulatory Greg Michaud MD Work Phone: [facility] Work Phone: Start: 03-02-2025 End: 03-02-[address] Curt Benavides [place] Work Phone: Start: 03-02-2025 End: 03-02-2025 [facility] Start: 12-02-2024 End: 12-02-[address] Curt Robles [facility] [place] Work Phone: Start: 12-02-2024 End: 12-02-2024 ambulatory Curt Robles Facility:[facility] Start: 09-29-2024 End: 09-29-2024 ambulatory Lori Mason Facility:[facility] Start: 09-05-2024 End: 09-05-2024 [facility] Start: 06-21-2024 End: 06-21-2024 [facility] Start: 02-22-2024 End: 02-22-2024 ambulatory [facility] Work Phone: Start: 02-22-2024 End: 02-22-2024 Patient encounter procedure [facility] Work Phone: Start: 11-24-2023 End: 11-24-2023 ambulatory [facility] Work Phone: Start: 11-24-2023 End: 11-24-2023 [facility] Start: 09-16-2023 End: 09-16-2023 ambulatory [facility] Work Phone: Start: 09-16-2023 End: 09-16-2023 Patient encounter procedure [facility]Outpatient Breast Imaging Work Phone: Start: 08-19-2023 End: 08-19-2023 Patient encounter procedure [facility], [place] Work Phone: Start: 02-19-2023 End: 02-19-2023 ambulatory DO Deena M Shai Work Phone: [facility] Work Phone: Start: 02-19-2023 End: 02-19-2023 Patient encounter procedure DO [facility] Start: 12-03-2022 Non-patient / Non-visit DO Skyler Castroer Work Phone: [facility] Start: 12-03-2022 End: 12-03-2022 Admission to same day surgery center DO Deena Castroer Work Phone: [facility]-Endoscopy Start: 12-03-2022 End: 12-03-2022 ambulatory DO Deena M Shai Work Phone: [facility] Work Phone: Start: 11-03-2022 End: 11-03-2022 ambulatory DO Deena M Shai Work Phone: [facility] Work Phone: Start: 11-03-2022 End: 11-03-2022 Patient encounter procedure DO Deena Shai [facility] Start: 10-06-2022 Non-patient / Non-visit DO Skyler northn Shai Work Phone: [facility] Start: 07-14-2022 End: 07-14-2022 ambulatory [facility] Work Phone: Start: 07-14-2022 End: 07-14-2022 Patient encounter procedure [facility] Start: 06-20-2022 End: 06-20-2022 Patient encounter procedure [facility] Start: 02-26-2022 End: 02-26-2022 Patient encounter procedure BUS AND RAIL OPERATOR-Myriam Fields Work Phone: [facility] Start: 11-21-2021 End: 11-21-2021 Patient encounter procedure BUS AND RAIL OPERATOR-Myriam Fields Work Phone: [facility] Start: 11-14-2021 Patient encounter procedure BUS AND RAIL OPERATOR-Myriam Fields Work Phone: [facility] Procedures Date Procedure Procedure Detail Performing Clinician Start: 09-16-2023 Screening mammography Start: 12-03-2022 Colonoscopy DO Deenabrandyn Negretenger Work Phone: Start: 07-14-2022 Screening mammography Plan of Treatment Date Care Activity Detail Author Start: 12-03-2022 Patient discharge [facility] Colonoscopy [facility] Work Phone: Colonoscopy [facility] Patient referral [facility] Work Phone: Immunizations Immunization Date Immunization Notes Care Provider Oly gross 09-18-2021 influenza, injectabl e, quadrivalent, preservative free [facility] 09-18-2021 influenza, seasonal, injectable BUS AND RAIL OPERATOR-Myriam Fields Work Phone: [facility] 12-17-2020 Covid (Moderna) BUS AND RAIL OPERATOR-Myriam Fields Work Phone: [facility] 11-19-2020 Covid (Moderna) BUS AND RAIL OPERATOR-Myriam Fields Work Phone: [facility] 09-24-2020 influenza, injectabl e, quadrivalent, preservative free [facility] 09-24-2020 influenza, seasonal, injectable BUS AND RAIL OPERATOR-C Evelia Barkman Work Phone: [facility] 08-31-2019 influenza, injectabl e, quadrivalent, preservative free [facility] 08-31-2019 influenza, seasonal, injectable BUS AND RAIL OPERATOR-C Evelia Barkman Work Phone: [facility] 08-25-2018 influenza, injectabl e, quadrivalent, preservative free [facility] 08-25-2018 influenza, seasonal, injectable BUS AND RAIL OPERATOR-C Evelia Barkman Work Phone: [facility] 09-02-2017 influenza, injectabl e, quadrivalent, preservative free [facility] 09-02-2017 influenza, seasonal, injectable BUS AND RAIL OPERATOR-C Evelia Barkman Work Phone: [facility] 08-14-2016 influenza, injectabl e, quadrivalent, preservative free [facility] 08-14-2016 influenza, seasonal, injectable BUS AND RAIL OPERATOR-C Evelia Barkman Work Phone: [facility] 08-16-2015 influenza, injectabl e, quadrivalent, preservative free [facility] 08-16-2015 influenza, seasonal, injectable BUS AND RAIL OPERATOR-C Evelia Barkman Work Phone: [facility] 08-16-2014 influenza, injectabl e, quadrivalent, preservative free [facility] 08-16-2014 influenza, seasonal, injectable BUS AND RAIL OPERATOR-C Evelia Barkman Work Phone: [facility] Payers Date Payer Category Payer Medicare [id number] 2024 Self-pay [id number] 2024 Unknown [id number] Unknown [facility] [id number] Unknown [id number] Unknown [id number] Unknown [id number] Social History Date Type Detail Facility Start: 04-02-2021 End: 11-28-2022 Tobacco smoking status NHIS Unknown if ever smoked [facility] Start: 01-24-2021 Occasional [facility] Start: 01-24-2021 None [facility] Start: 01-24-2021 Spouse/ Signif icant Other [facility] Start: 01-24-2021 Non-smoker [facility] Start: 1960 Sex Assigned At Female [facility] Start: 11-28-2022 Tobacco smoking status NHIS Never smoked tobacco (finding) [facility] Start: 03-07-2025 Sex Female (finding) [facility] Medical Equipment Procedure Code Equipment Code [...] Assessment Result Facility 12-03-2022 Cognitive function Voice/Name [facility] Work Phone: Procedure note 12-03-2022 Note Date & Type Note Facility 12-03-[address] [facility] Procedure note 12-03-2022 Note Date & Type Note Facility 12-03-[address] [facility] Evaluation note Note Date & Type Note Facility Evaluation note No assessment information availa ble [facility] Work Phone: Evaluation note Note Date & Type Note Facility Evaluation note Diagnosis Onset Date Encounter for screening for malignant neoplasm of colon acute [facility] Work Phone: History and physical note Note Date & Type Note Facility History and physical note Note Date/Time December 03, 20[address] 9:[address] [facility] Records Department [address] [place] [address] History & Physical Exam 12/03/22922 MR#: [id number] Acct: [id number] Name: TEMITOPE WELLS Rep #:[id number] : 1960 62 From: Gunner Friend DO PCP: Deena Gibbons DO Status:REG S DC Location: [place] [address] HPI - General General Date of Admission: [...] negative except as per body mentioned HPI. [facility] Medical History (Updated 11/28/22 @ 11:20 by [...] Deena Gibbons DO; Gunner Nolen DO~ Signed [facility] Work Phone: Reason for referral (narrative) Note Date & Type Note Facility Reason for referral (narrative) No reason for referral information available [facility] Work Phone: Chief Complaint and Reason for [...] No January 24, 2021 12:17pm Power of Steward/Stewardess Third No January 24 12:17pm Advance Directive Response Recorded Date/ Time Living Will No January 24, 2021 11:17am Power of Steward/Stewardess Third No January 24 11:17am Advance Directive Response Recorded Date/ Time Name of Medical Power of Steward/Stewardess Third SOFIE WELLS November 28, 2022 11:20am Living Will Yes November 28 11:20am Power of Steward/Stewardess Third Yes November 28, 2022 11:20am Advance Directive Response Recorded Date/ Time Name of Medical Power of Steward/Stewardess Third SOFIE WELLS November 28, 2022 12:20pm Living Will Yes November 28 12:20pm Power of Steward/Stewardess Third Yes November 28, 2022 12:20pm Advance Directive Response Recorded Date/ Time Living Will Yes November 28 11:20am Power of Steward/Stewardess Third Yes November 28, 2022 11:20am Advance Directive Response Recorded Date/ Time Living Will Yes November 28 12:20pm Power of Steward/Stewardess Third Yes November 28, 2022 12:20pm Summary Purpose [...] Greg Michaud MD Primary Care Provider Active Dr. [...] section and content) DATE CREATED AUTHOR 03/09/2025 [facility] FOR RECORDS PERTAINING TO PATIENTS WHO ARE [...] BE BASED ON THE PRIMARY CLINICAL RECORDS. [employer] provides no warranty or guarantee of the accuracy or completeness of information in this document.
== END | disposition home or self-care (01) ==
LOC: MTLAB 11:27
PROVIDERS: PCP Family Medicine; Referring Provider Physician Assistant Medical; Visit Provider Physician Assistant Medical
DX: E10.9 Type 1 diabetes mellitus without complications (principal)
CPT/HCPCS: 36415; 80053; 82043; 82570; 83036

== ENCOUNTER → 2025-09-26 | Outpatient (CLI) | payer MEDICARE, OTHER, SELFPAY ==
--- OUTSIDE RECORDS SUMMARY | 2025-09-26 07:45 | XMS RPT_ITS | CCD ---
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 Diaz Attending Provider DO Deena Gibbons Primary Care Provider 1([facility] )[phone] Martha Crawford Attending Provider Unavailable DO Deena Gibbons Referring Provider 1([facility])[phone] Friend, Dr. Martino Attending Provider 1([facility])[phone] Friend, Dr. Martino Other Provider 1([facility])[phone] DO Deena Gibbons Primary Care Provider DO Deena Gibbons Referring Provider 1([facility])[phone] Friend, Dr. Martino Attending Provider Friend, Dr. Martino Other Provider 1([facility])[phone] Greg Michaud MD Primary Care Provider Dr. Curt Robles DO Attending Provider Dr. Curt Robles DO Referring Provider Greg Michaud MD Primary Care Provider Dr. Curt Robles DO Attending Provider Dr. Curt Robles DO Referring Provider ANY WORTHY Attending Provider ANY WORTHY Referring Provider Isabella CONSTRUCTION STONEMASON, Lori Attending Unavailable Isabella CONSTRUCTION STONEMASON, Lori Referring Unavailable Jaswant, Kentrellon Primary Care Unavailable ANY WIGGINS Attending Unavailable ANY WIGGINS Referring Unavailable Jaswant, Kentrellon Primary Care Unavailable Jaswant, Chalon Primary Care Unavailable Kentrell Michaudon Attending Unavailable Kentrell Michaudon Referring Unavailable Curt Robles Attending Unavailable Curt Robles Referring Unavailable Jaswant, Kentrellon Primary Care Unavailable Curt Robles Attending Unavailable Curt Robles Referring Unavailable Jaswant, Kentrellon Primary Care Unavailable Medications Current Medications Medication [...] D3 250 mg calcium- 250 unit tablet,chewable (2 sources) Start: 10-06-2022 Calcium Phosphate-Vitamin D3 250 mg calcium- 250 unit tablet,chewable Active 1 {tbl} PO DAILY October 06, 2022 1:00am cholecalciferol 0.025 mg oral capsule (8 sources) Vitamin D Start: 10-06-2022 take 1 capsule by mouth once daily Cholecalciferol (Vitamin D3) 25 mcg (1,000 unit) capsule Active 25 ug PO DAILY October 06, 2022 1:00am ibandronic acid 150 mg oral tablet (8 sources) Bisphosphonate Start: 10-06-2022 take 1 tablet by mouth every month Ibandronate 150 mg tablet Active 150 mg PO EVERY MONTH October 06, 2022 1:00am 1.5 ml insulin glargine 300 unt/ml pen injector (12 sources) Insulin Analog Start: 11-28-2022 Insulin Glargine [...] Pen Needle, Diabetic, Safety 1 EACH needle (2 sources) Start: 01-26-2021 Pen Needle, Di abetic, Safety [...] 06, 2022 12:00am Selenium 200 mcg capsule (2 sources) Start: 10-06-2022 take 1 capsule by mouth once daily Selenium 200 mcg capsule Active 200 ug PO DAILY October 06, 2022 1:00am Problems Problem Classification Problem Date Documented Da te Episodic/Chronic Diabetes mellitus without complication (12 sources) Diabetes mellitus; Translations: [Type 2 diabetes mellitus without complications] Onset: 06-05-2025 10-06-2022 Chronic Other screening for suspected conditions (not mental disorders or infectious disease) (12 sources) Patient encounter status; Translations: [Encounter for screening for malignant neoplasm of colon] Onset: 10-26-2024 10-06-2022 Episodic Results Test Name Value Interpretation Reference Range Facility Anion gap in Serum or Plasma Ordered By: ANY WIGGINS on 05-30-2025 Anion gap [Moles/Vol] 10 mmol/L 5-15 [facility] BUN/creatinine ratioOrdered By: ANY WIGGINS on 05-30-2025 Urea nitrogen/Creatinine [Mass ratio] 24.9 mg/mg High 10-20 [facility] Bilirubin, totalOrdered By: ANY WIGGINS on 05-30-2025 Bilirubin [Mass/Vol] 0.70 mg/dL 0.00-1.30 [facility] Carbon dioxide, total [Moles /volume] in Central venous bloodOrdered By: ANY WIGGINS on 05-30-2025 CO2 [Moles/Vol] 26.3 mmol/L 21.0-32.0 [facility] Chloride assayOrdered By: DIEGO WIGGINS on 05-30-2025 Chloride [Moles/Vol] 104 mmol/L 98-108 [facility] Comprehensive Metabolic Prof ilon 05-30-2025 Albumin [Mass/Vol] 4.2 g/dL Normal 3.4-4.8 [facility] Comment on above: Performed By: #### L 502.0250, L501.9985, L500.4050 #### [facility] [address] [place], [address] Albumin/Globulin [Mass ratio] 2.0 {ratio} Normal 0.9-2.4 [facility] Comment on above: Performed By: #### L 502.0250, L501.9985, L500.4050 #### [facility] [address] [place], [address] ALK PHOS 37 U/L Normal 35-104 [facility] Comment on above: Performed By: #### L 502.0250, [id number], L500.4050 #### [facility] [address] [place], [address] ALT [Catalytic activity/Vol] 30 U/L Normal <=34 [facility] Comment on above: Performed By: #### L 502.0250, L501.9985, L500.4050 #### [facility] [address] [place], [address] AST [Catalytic activity/Vol] 25 U/L Normal <=31 [facility] Comment on above: Performed By: #### L 502.0250, [id number], L500.4050 #### [facility] [address] [place], [address] Bilirubin [Mass/Vol] 0.70 mg/dL Normal 0.00-1.30 [facility] Comment on above: Performed By: #### L 502.0250, [id number], L500.4050 #### [facility] [address] [place], [address] BUN/CRE 24.9 RATIO High 10-20 [facility] Comment on above: Performed By: #### L 502.0250, [id number], L500.4050 #### [facility] [address] [place], [address] Calcium [Mass/Vol] 9.4 mg/dL Normal 7.6-11.0 [facility] Comment on above: Performed By: #### L 502.0250, [id number], L500.4050 #### [facility] [address] [place], [address] Chloride [Moles/Vol] 104 mmol/L Normal 98-108 [facility] Comment on above: Performed By: #### L 502.0250, [id number], L500.4050 #### [facility] [address] [place], [address] CO2 [Moles/Vol] 26.3 mmol/L Normal 21.0-32.0 [facility] Comment on above: Performed By: #### L 502.0250, L501.9985, L500.4050 #### [facility] [address] [place], [address] Creatinine [Mass/Vol] 0.78 mg/dL Normal 0.70-1.20 [facility] Comment on above: Performed By: #### L 502.0250, L501.9985, L500.4050 #### [facility] [address] [place], [address] GAP 10 Normal 5-15 [facility] Comment on above: Performed By: #### L 502.0250, L501.9985, L500.4050 #### [facility] [address] [place], [address] GFR/1.73 sq M.predicted among non-blacks MDRD (S/P/Bld) [Vol rate/Area] 85 mL/min/{1.73_m2} Normal >60 [facility] Comment on above: Result Comment: mL/m in/1.73m2 CKD-EPI Creatinine Equation (2020) Performed By: #### L 502.0250, L501.9985, L500.4050 #### [facility] [address] [place], [address] Globulin (S) [Mass/Vol] 2.1 g/dL Low 2.2-4.2 [facility] Comment on above: Performed By: #### L 502.0250, L501.9985, L500.4050 #### [facility] [address] [place], [address] Glucose [Mass/Vol] 86 mg/dL Normal 70-99 [facility] Comment on above: Performed By: #### L 502.0250, [id number], L500.4050 #### [facility] [address] [place], [address] Potassium [Moles/Vol] 4.2 mmol/L Normal 3.3-5.1 [facility] Comment on above: Performed By: #### L 502.0250, L501.9985, L500.4050 #### [facility] [address] [place], [address] Sodium [Moles/Vol] 140 mmol/L Normal 133-145 [facility] Comment on above: Performed By: #### L 502.0250, L501.9985, L500.4050 #### [facility] [address] [place], [address] T PROT 6.4 g/dL Normal 5.9-8.4 [facility] Comment on above: Performed By: #### L 502.0250, L501.9985, L500.4050 #### [facility] [address] [place], [address] Urea nitrogen [Mass/Vol] 19 mg/dL Normal 4-19 [facility] Comment on above: Performed By: #### L 502.0250, L501.9985, L500.4050 #### [facility] [address] [place], [address] Glomerular filtration rate ( GFR) estimation/1.73 sq m using serum, plasma, or whole bOrdered By: ANY WIGGINS on 05-30-2025 GFR/1.73 sq M.predicted among non-blacks MDRD (S/P/Bld) [Vol rate/Area] 85 mL/min/{1.73_m2} >60 [facility] Comment on above: mL/min/1.73m2 CKD-EP I Creatinine Equation (2020) Hemoglobin A1con 05-30-2025 HbA1c (Bld) [Mass fraction] 6.1 % High <=5.6 [facility] Comment on above: Result Comment: Norm al < 5.7 % Prediabetic 5.7 - 6.4 % Diabetic >or= 6.5 % Please note range changes. Performed By: #### L 502.0250, L501.9985, L500.4050 #### [facility] [address] [place], [address] Hemoglobin A1c percentageOrd ered By: ANY WIGGINS on 05-30-2025 HbA1c (Bld) [Mass fraction] 6.1 % High <5.7 [facility] Comment on above: Normal < 5.7 % Predi abetic 5.7 - 6.4 % Diabetic >or= 6.5 % Please note range changes. Laboratory - Chemistry and C hemistry - challengeOrdered By: ANY WIGGINS on 05-30-2025 AST [Catalytic activity/Vol] 25 U/L <32 [facility] Microalb:Creat Ratio,Random URon 05-30-2025 Creatinine [Mass/Vol] 17.50 mg/dL Low 28.00-217.00 [facility] Comment on above: Performed By: #### L 502.0250, L501.9985, L500.4050 #### [facility] [address] [facility] [address] MALB:CREAT UNABLE TO CALCULATE Normal <30 mg/g CRE [facility] Comment on above: Performed By: #### L 502.0250, L501.9985, L500.4050 #### [facility] [address] [place], [address] MICROALBUMIN,UR < 12.0 Normal <20 mg/L [facility] Comment on above: Performed By: #### L 502.0250, L501.9985, L500.4050 #### [facility] [address] [place], [address] Microalbumin/creat ratio urO rdered By: ANY WIGGINS on 05-30-2025 Urine microalbumin/creatini ne ratio measurement UNABLE TO CALCULATE mg/g CRE <30 [facility] Potassium measurement (mass/ volume)Ordered By: ANY WIGGINS on 05-30-2025 Potassium (Unsp spec) [Mass/Vol] 4.2 mmol/L 3.3-5.1 [facility] Random urine creatinine chasidy urement (mass/volume)Ordered By: ANY WIGGINS on 05-30-2025 Creatinine Unsp time (U) [Mass/Vol] 17.50 mg/dL Low 28.00-217.00 [facility] Serum creatinine measurement (mass/volume)Ordered By: ANY WIGGINS on 05-30-2025 Creatinine [Mass/Vol] 0.78 mg/dL 0.70-1.20 [facility] Serum globulin measurementOr dered By: ANY WIGGINS on 05-30-2025 Globulin (S) [Mass/Vol] 2.1 g/dL Low 2.2-4.2 [facility] Serum glucose measurement (m ass/volume)Ordered By: ANY WIGGINS on 05-30-2025 Glucose [Mass/Vol] 86 mg/dL 70-99 [facility] Serum or plasma alanine anna otransferase (ALT) measurementOrdered By: ANY WIGGINS on 05-30-2025 ALT [Catalytic activity/Vol] 30 U/L <35 [facility] Serum or plasma albumin chasidy urement (mass/volume)Ordered By: ANY WIGGINS on 05-30-2025 Albumin [Mass/Vol] 4.2 g/dL 3.4-4.8 [facility] Serum or plasma albumin/glob ulin mass ratioOrdered By: ANY WIGGINS on 05-30-2025 Albumin/Globulin [Mass ratio] 2.0 {ratio} 0.9-2.4 [facility] Serum or plasma alkaline compa sphatase measurementOrdered By: ANY WIGGINS on 05-30-2025 ALP [Catalytic activity/Vol] 37 U/L 35-104 [facility] Serum or plasma calcium chasidy urement (mass/volume)Ordered By: ANY WIGGINS on 05-30-2025 Calcium [Mass/Vol] 9.4 mg/dL 7.6-11.0 [facility] Serum or plasma urea nitroge n measurement (mass/volume)Ordered By: ANY WIGGINS on 05-30-2025 Urea nitrogen [Mass/Vol] 19 mg/dL 4-19 [facility] Sodium levelOrdered By: RICHARD WIGGINS on 05-30-2025 Sodium [Moles/Vol] 140 mmol/L 133-145 [facility] Total proteinOrdered By: WHITNEY PASTRANALEY on 05-30-2025 Protein [Mass/Vol] 6.4 g/dL 5.9-8.4 [facility] Urine albumin measurement [facility] detection limit of 20 mg/L or less (mass/volume)Ordered By: ANY ROSALIE on 05-30-2025 Albumin DL <= 20 mg/L (U) [Mass/Vol] < 12.0 mg/L <20 mg/L [facility] C-Peptideon 03-04-2025 C PEPTIDE 0.4 ng/mL Low 1.1-4.4 [facility] Comment on above: Result Comment: C-Pe ptide reference interval is for fasting patients. Performed at: [employer] [id number] [employer] Tender: Mac Padilla PhD, Phone: [phone] Performed By: #### L 500.4050, L501.9985, L3100.7750, L500.4100 #### [facility] [address] [place], [address] Anion gap in Serum or Plasma Ordered By: Curt Robles on 03-02-2025 Anion gap [Moles/Vol] 12 mmol/L 5-15 [facility] BUN/creatinine ratioOrdered By: Curt Robles on 03-02-2025 Urea nitrogen/Creatinine [Mass ratio] 22.8 mg/mg High 10-20 [facility] Bilirubin, totalOrdered By: Curt Robles on 03-02-2025 Bilirubin [Mass/Vol] 0.99 mg/dL 0.00-1.30 [facility] C-peptideOrdered By: Curt zheng on 03-02-2025 C-Peptide 0.4 ng/mL Low 1.1-4.4 [facility] Comment on above: C-Peptide reference interval is for fasting patients.Performed at: [employer] [id number] Director: Mac Padilla PhD, Phone: [phone] Calculated very low density lipoprotein (VLDL) cholesterol measurementOrdered By: Curt Robles on 03-02-2025 Calculated very low density lipoprotein (VLDL) cholesterol measurement 8 mg/dL - [facility] VLDL Cholesterol 8 mg/dL [facility] Carbon dioxide, total [Moles /volume] in Central venous bloodOrdered By: Curt Robles on 03-02-2025 CO2 [Moles/Vol] 27.8 mmol/L 21.0-32.0 [facility] Chloride assayOrdered By: Davis Robles on 03-02-2025 Chloride [Moles/Vol] 101 mmol/L 98-108 [facility] Comprehensive Metabolic Prof ilon 03-02-2025 Albumin [Mass/Vol] 4.5 g/dL Normal 3.4-4.8 [facility] Comment on above: Performed By: #### L 500.4050, L501.9985, L3100.7750, L500.4100 #### [facility] [address] [place], [address] Albumin/Globulin [Mass ratio] 2.2 {ratio} Normal 0.9-2.4 [facility] Comment on above: Performed By: #### L 500.4050, L501.9985, L3100.7750, L500.4100 #### [facility] [address] [place], [address] ALK PHOS 41 U/L Normal 35-104 [facility] Comment on above: Performed By: #### L 500.4050, L501.9985, L3100.7750, L500.4100 #### [facility] [address] [place], [address] ALT [Catalytic activity/Vol] 33 U/L Normal <=34 [facility] Comment on above: Performed By: #### L 500.4050, L501.9985, L3100.7750, L500.4100 #### [facility] [address] [place], [address] AST [Catalytic activity/Vol] 27 U/L Normal <=31 [facility] Comment on above: Performed By: #### L 500.4050, L501.9985, L3100.7750, L500.4100 #### [facility] [address] [place], [address] Bilirubin [Mass/Vol] 0.99 mg/dL Normal 0.00-1.30 [facility] Comment on above: Performed By: #### L 500.4050, L501.9985, L3100.7750, L500.4100 #### [facility] [address] [place], [address] BUN/CRE 22.8 RATIO High 10-20 [facility] Comment on above: Performed By: #### L 500.4050, L501.9985, L3100.7750, L500.4100 #### [facility] [address] [place], [address] Calcium [Mass/Vol] 9.4 mg/dL Normal 7.6-11.0 [facility] Comment on above: Performed By: #### L 500.4050, L501.9985, L3100.7750, L500.4100 #### [facility] [address] [place], [address] Chloride [Moles/Vol] 101 mmol/L Normal 98-108 [facility] Comment on above: Performed By: #### L 500.4050, L501.9985, L3100.7750, L500.4100 #### [facility] [address] [place], [address] CO2 [Moles/Vol] 27.8 mmol/L Normal 21.0-32.0 [facility] Comment on above: Performed By: #### L 500.4050, L501.9985, L3100.7750, L500.4100 #### [facility] [address] [place], [address] Creatinine [Mass/Vol] 0.78 mg/dL Normal 0.70-1.20 [facility] Comment on above: Performed By: #### L 500.4050, L501.9985, L3100.7750, L500.4100 #### [facility] [address] [place], [address] GAP 12 Normal 5-15 [facility] Comment on above: Performed By: #### L 500.4050, L501.9985, L3100.7750, L500.4100 #### [facility] [address] [place], [address] GFR/1.73 sq M.predicted among non-blacks MDRD (S/P/Bld) [Vol rate/Area] 85 mL/min/{1.73_m2} Normal >60 [facility] Comment on above: Result Comment: mL/m in/1.73m2 CKD-EPI Creatinine Equation (2020) Performed By: #### L 500.4050, L501.9985, L3100.7750, L500.4100 #### [facility] [address] [place], [address] Globulin (S) [Mass/Vol] 2.1 g/dL Low 2.2-4.2 [facility] Comment on above: Performed By: #### L 500.4050, L501.9985, L3100.7750, L500.4100 #### [facility] [address] [place], [address] Glucose [Mass/Vol] 94 mg/dL Normal 70-99 [facility] Comment on above: Performed By: #### L 500.4050, L501.9985, L3100.7750, L500.4100 #### [facility] [address] [place], [address] Potassium [Moles/Vol] 4.1 mmol/L Normal 3.3-5.1 [facility] Comment on above: Performed By: #### L 500.4050, L501.9985, L3100.7750, L500.4100 #### [facility] [address] [place], [address] Sodium [Moles/Vol] 140 mmol/L Normal 133-145 [facility] Comment on above: Performed By: #### L 500.4050, L501.9985, L3100.7750, L500.4100 #### [facility] [address] [place], [address] T PROT 6.6 g/dL Normal 5.9-8.4 [facility] Comment on above: Performed By: #### L 500.4050, L501.9985, L3100.7750, L500.4100 #### [facility] [address] [place], [address] Urea nitrogen [Mass/Vol] 18 mg/dL Normal 4-19 [facility] Comment on above: Performed By: #### L 500.4050, L501.9985, L3100.7750, L500.4100 #### [facility] [address] [place], [address] GFR/1.73 sq M.predicted [place] g non-blacks MDRD (S/P/Bld) [Vol rate/Area]Ordered By: Curt Robles on 03-02-2025 Estimated GFR (MDRD) Non-Af Amer 85 >60 [facility] Comment on above: mL/min/1.73m2 CKD-EP I Creatinine Equation (2020) Glomerular filtration rate ( GFR) estimation/1.73 sq m using serum, plasma, or whole bOrdered By: Curt Robles on 03-02-2025 GFR/1.73 sq M.predicted among non-blacks MDRD (S/P/Bld) [Vol rate/Area] 85 mL/min/{1.73_m2} >60 [facility] Comment on above: mL/min/1.73m2 CKD-EP I Creatinine Equation (2020) Hemoglobin A1con 03-02-2025 HbA1c (Bld) [Mass fraction] 6.0 % High <=5.6 [facility] Comment on above: Result Comment: Norm al < 5.7 % Prediabetic 5.7 - 6.4 % Diabetic >or= 6.5 % Please note range changes. Performed By: #### L 500.4050, L501.9985, L3100.7750, L500.4100 #### [facility] [address] [place], [place], [id number] Hemoglobin A1c percentageOrd ered By: Curt Robles on 03-02-2025 HbA1c (Bld) [Mass fraction] 6.0 % High <5.7 [facility] Comment on above: Normal < 5.7 % Predi abetic 5.7 - 6.4 % Diabetic >or= 6.5 % Please note range changes. LDL calc ser/plasOrdered By: Curt Robles on 03-02-2025 Cholesterol in LDL [Mass/Vol] 92 mg/dL [facility] Comment on above: Drokswaugj=529-846 m g/dL & Higher Egqz=567 mg/dL or greater LDL Cholesterol, Calculated 92 mg/dL [facility] Comment on above: Yawysosszc=191-231 m g/dL & Higher Ewpq=541 mg/dL or greater Laboratory - Chemistry and C hemistry - challengeOrdered By: Curt Robles on 03-02-2025 AST [Catalytic activity/Vol] 27 U/L <32 [facility] Lipid Profileon 03-02-2025 CHOL:HDL 2.03 Normal [facility] Comment on above: Performed By: #### L 500.4050, L501.9985, L3100.7750, L500.4100 #### [facility] [address] [place], [place], [address] Cholesterol [Mass/Vol] 197 mg/dL Normal <=200 [facility] Comment on above: Result Comment: Chol esterol level, Desirable <200 mg/dL Borderline high cholesterol 200-239 mg/dL High cholesterol >=240 mg/dL Recommendations of the NCEP Adult Treatment Panel for the following risk-cutoff thresholds for the [place] population. Performed By: #### L 500.4050, L501.9985, L3100.7750, L500.4100 #### [facility] [address] [place], [address] Cholesterol in HDL [Mass/Vol] 97 mg/dL Normal [facility] Comment on above: Result Comment: Jamila onal Cholesterol Education Program (NCEP) guidelines: <40 mg/dL: Low HDL-cholesterol (major risk factor for CHD) >= 60 mg/dL: High HDL-cholesterol (negative risk factor for CHD) HDL-cholesterol is affected by a number of factors, e.g. smoking, exercise, hormones, sex and age. Performed By: #### L 500.4050, L501.9985, L3100.7750, L500.4100 #### [facility] [address] [place], [address] Cholesterol in LDL [Mass/Vol] 92 mg/dL Normal [facility] Comment on above: Result Comment: Bord cdceio=716-128 mg/dL Higher Zjtb=976 mg/dL or greater Performed By: #### L 500.4050, L501.9985, L3100.7750, L500.4100 #### [facility] [address] [place], [address] Cholesterol in VLDL [Mass/Vol] 8 mg/dL Normal 5-40 [facility] Comment on above: Performed By: #### L 500.4050, L501.9985, L3100.7750, L500.4100 #### [facility] [address] [place], [address] Triglyceride [Mass/Vol] 42 mg/dL Normal [facility] Comment on above: Result Comment: The drugs N-Acetylcysteine and Metamizole may falsely depress this assay. Normal range: <150 mg/dL Borderline High: 150-199 mg/dL High: 200-499 mg/dL Very High: >500 mg/dL Performed By: #### L 500.4050, L501.9985, L3100.7750, L500.4100 #### [facility] [address] [place], [place], [address] Potassium (Unsp spec) [Mass/ Vol]Ordered By: Curt Robles on 03-02-2025 Potassium [Moles/Vol] 4.1 mmol/L 3.3-5.1 [facility] Potassium measurement (mass/ volume)Ordered By: Curt Robles on 03-02-2025 Potassium (Unsp spec) [Mass/Vol] 4.1 mmol/L 3.3-5.1 [facility] Screening total cholesterol/ high density lipoprotein (HDL) cholesterol ratioOrdered By: Curt Robles on 03-02-2025 Cholesterol.total/Cho lesterol in HDL [Mass ratio] 2.03 {ratio} [facility] Serum creatinine measurement (mass/volume)Ordered By: Curt Robles on 03-02-2025 Creatinine [Mass/Vol] 0.78 mg/dL 0.70-1.20 [facility] Serum globulin measurementOr dered By: Curt Robles on 03-02-2025 Globulin (S) [Mass/Vol] 2.1 g/dL Low 2.2-4.2 [facility] Serum glucose measurement (m ass/volume)Ordered By: Curt Robles on 03-02-2025 Glucose [Mass/Vol] 94 mg/dL 70-99 [facility] Serum or plasma alanine anna otransferase (ALT) measurementOrdered By: Curt Robles on 03-02-2025 ALT [Catalytic activity/Vol] 33 U/L <35 [facility] Serum or plasma albumin chasidy urement (mass/volume)Ordered By: Curt Robles on 03-02-2025 Albumin [Mass/Vol] 4.5 g/dL 3.4-4.8 [facility] Serum or plasma albumin/glob ulin mass ratioOrdered By: Curt Robles on 03-02-2025 Albumin/Globulin [Mass ratio] 2.2 {ratio} 0.9-2.4 [facility] Serum or plasma alkaline compa sphatase measurementOrdered By: Curt Robles on 03-02-2025 ALP [Catalytic activity/Vol] 41 U/L 35-104 [facility] Serum or plasma calcium chasidy urement (mass/volume)Ordered By: Curt Robles on 03-02-2025 Calcium [Mass/Vol] 9.4 mg/dL 7.6-11.0 [facility] Serum or plasma cholesterol in HDL measurement (mass/volume)Ordered By: Curt Robles on 03-02-2025 Cholesterol in HDL [Mass/Vol] 97 mg/dL >40 [facility] Comment on above: National Cholesterol Education Program (NCEP) guidelines:<40 mg/dL: Low HDL-cholesterol (major risk factor for CHD)>= 60 mg/dL: High HDL-cholesterol (negative risk factor for CHD)HDL-cholesterol is affected by a number of factors, e.g. smoking, exercise, hormones, sex and age. Serum or plasma cholesterol measurement (mass/volume)Ordered By: Curt Robles on 03-02-2025 Cholesterol [Mass/Vol] 197 mg/dL <201 [facility] Comment on above: Cholesterol level, D esirable <200 mg/dLBorderline high cholesterol 200-239 mg/dLHigh cholesterol >=240 mg/dLRecommendations of the NCEP Adult Treatment Panel for the following risk-cutoff thresholds for the [place] population. Serum or plasma urea nitroge n measurement (mass/volume)Ordered By: Curt Robles on 03-02-2025 Urea nitrogen [Mass/Vol] 18 mg/dL 4-19 [facility] Sodium levelOrdered By: Harjit Robles on 03-02-2025 Sodium [Moles/Vol] 140 mmol/L 133-145 [facility] Total proteinOrdered By: Jeuss Robles on 03-02-2025 Protein [Mass/Vol] 6.6 g/dL 5.9-8.4 [facility] Triglycerides measurementOrd ered By: Curt Robles on 03-02-2025 Triglyceride [Mass/Vol] 42 mg/dL <199 [facility] Comment on above: The drugs N-Acetylcy steine and Metamizole may falsely depress this assay. Normal range: <150 mg/dLBorderline High: 150-199 mg/dLHigh: 200-499 mg/dLVery High: >500 mg/dL Albumin to globulin ratioOrd ered By: Curt Robles on 12-02-2024 Albumin/Globulin [Mass ratio] 1.2 {ratio} 0.9-2.4 [facility] Bilirubin, totalOrdered By: Curt Robles on 12-02-2024 Bilirubin [Mass/Vol] 1.00 mg/dL 0.20-1.00 [facility] Comment on above: For patients on eltr ombopag therapy, use of Dimension [place] TBIL is not recommended. Blood urea nitrogen (BUN)/cr eatinine ratioOrdered By: Curt Robles on 12-02-2024 Urea nitrogen/Creatinine [Mass ratio] 20.0 mg/mg 10-20 [facility] Carbon dioxide measurementOr dered By: Curt Robles on 12-02-2024 CO2 [Moles/Vol] 29.0 mmol/L 21.0-32.0 [facility] Chloride measurementOrdered By: Curt Robles on 12-02-2024 Chloride [Moles/Vol] 105 mmol/L 98-107 [facility] Comprehensive Metabolic Prof ilon 12-02-2024 Albumin [Mass/Vol] 3.7 g/dL Normal 3.2-5.0 [facility] Comment on above: Performed By: #### L 501.9520, L501.9985, L500.4100, L500.4050 #### [facility] [address] [place], [address] Albumin/Globulin [Mass ratio] 1.2 {ratio} Normal 0.9-2.4 [facility] Comment on above: Performed By: #### L 501.9520, L501.9985, L500.4100, L500.4050 #### [facility] [address] [place], [address] ALK P 44 U/L Low 45-117 [facility] Comment on above: Performed By: #### L 501.9520, L501.9985, L500.4100, L500.4050 #### [facility] [address] [place], [address] ALT [Catalytic activity/Vol] 24 U/L Normal 13-56 [facility] Comment on above: Performed By: #### L 501.9520, L501.9985, L500.4100, L500.4050 #### [facility] [address] [place], [address] AST [Catalytic activity/Vol] 20 U/L Normal 15-37 [facility] Comment on above: Performed By: #### L 501.9520, L501.9985, L500.4100, L500.4050 #### [facility] [address] [place], [address] Bilirubin [Mass/Vol] 1.00 mg/dL Normal 0.20-1.00 [facility] Comment on above: Result Comment: For patients on eltrombopag therapy, use of Dimension [place] TBIL is not recommended. Performed By: #### L 501.9520, L501.9985, L500.4100, L500.4050 #### [facility] [address] [place], [address] BUN/CRE 20.0 RATIO Normal 10-20 [facility] Comment on above: Performed By: #### L 501.9520, L501.9985, L500.4100, L500.4050 #### [facility] [address] [place], [address] CA,Total 9.1 mg/dL Normal 8.5-10.1 [facility] Comment on above: Performed By: #### L 501.9520, L501.9985, L500.4100, L500.4050 #### [facility] [address] [place], [address] Chloride [Moles/Vol] 105 mmol/L Normal 98-107 [facility] Comment on above: Performed By: #### L 501.9520, L501.9985, L500.4100, L500.4050 #### [facility] [address] [place], [address] CO2 [Moles/Vol] 29.0 mmol/L Normal 21.0-32.0 [facility] Comment on above: Performed By: #### L 501.9520, L501.9985, L500.4100, L500.4050 #### [facility] [address] [place], [address] Creatinine [Mass/Vol] 0.70 mg/dL Normal 0.55-1.02 [facility] Comment on above: Result Comment: The validity of the calculated GFR GFRAA in patients over 70 years has not been determined. Clinical correlation is essential. Performed By: #### L 501.9520, L501.9985, L500.4100, L500.4050 #### [facility] [address] [place], [address] EST GFR - AA 108 mL/min Normal >60 [facility] Comment on above: Result Comment: Afri can [place] GFR Calc Performed By: #### L 501.9520, L501.9985, L500.4100, L500.4050 #### [facility] [address] [place], [address] GAP 6 Normal 5-15 [facility] Comment on above: Performed By: #### L 501.9520, L501.9985, L500.4100, L500.4050 #### [facility] [address] [place], [address] GFR/1.73 sq M.predicted among non-blacks MDRD (S/P/Bld) [Vol rate/Area] 89 mL/min/{1.73_m2} Normal >60 [facility] Comment on above: Result Comment: Non- GFR Calc Performed By: #### L 501.9520, L501.9985, L500.4100, L500.4050 #### [facility] [address] [place], [address] Globulin (S) [Mass/Vol] 3.0 g/dL Normal 2.2-4.2 [facility] Comment on above: Performed By: #### L 501.9520, L501.9985, L500.4100, L500.4050 #### [facility] [address] [place], [address] Glucose [Mass/Vol] 107 mg/dL High 74-106 [facility] Comment on above: Result Comment: Fast ing Glucose result from 100 to 125 mg/dL suggests IMPAIRED HOMEOSTASIS per A.D.A. criteria. Performed By: #### L 501.9520, L501.9985, L500.4100, L500.4050 #### [facility] [address] [place], [address] Potassium [Moles/Vol] 4.1 mmol/L Normal 3.5-5.1 [facility] Comment on above: Performed By: #### L 501.9520, L501.9985, L500.4100, L500.4050 #### [facility] [address] [place], [address] Sodium [Moles/Vol] 139 mmol/L Normal 136-145 [facility] Comment on above: Performed By: #### L 501.9520, L501.9985, L500.4100, L500.4050 #### [facility] [address] [place], [address] T PROT 6.7 g/dL Normal 6.4-8.2 [facility] Comment on above: Performed By: #### L 501.9520, L501.9985, L500.4100, L500.4050 #### [facility] [address] [place], [address] Urea nitrogen [Mass/Vol] 14 mg/dL Normal 7-18 [facility] Comment on above: Performed By: #### L 501.9520, L501.9985, L500.4100, L500.4050 #### [facility] [address] [place], [address] Estimated glomerular filtrat ion rate (GFR) AmericanOrdered By: Curt Robles on 12-02-2024 Estimated GFR (MDRD) Amer 108 mL/min >60 [facility] Comment on above: GFR Calc Glomerular filtration rate ( GFR) estimationOrdered By: Curt Robles on 12-02-2024 Estimated GFR (MDRD) Non-Af Amer 89 mL/min >60 [facility] Comment on above: Non- GFR Calc Glucose measurementOrdered B y: Curt Robles on 12-02-2024 Glucose [Mass/Vol] 107 mg/dL High 74-106 [facility] Comment on above: Fasting Glucose resu lt from 100 to 125 mg/dL suggests IMPAIRED HOMEOSTASIS per A.D.A. criteria. Hemoglobin A1con 12-02-2024 HbA1c (Bld) [Mass fraction] 6.6 % High 3.8-5.6 [facility] Comment on above: Result Comment: Norm al < 5.7 % Prediabetic 5.7 - 6.4 % Diabetic >or= 6.5 % Please note range changes. Performed By: #### L 502.0250, L501.9985, L500.4050 #### [facility] [address] [place], [address] Hemoglobin A1c percentageOrd ered By: Curt Robles on 12-02-2024 HbA1c (Bld) [Mass fraction] 6.6 % High 3.8-5.6 [facility] Comment on above: Normal < 5.7 % Predi abetic 5.7 - 6.4 % Diabetic >or= 6.5 % Please note range changes. High density lipoprotein (HD L) measurementOrdered By: Curt Robles on 12-02-2024 Cholesterol in HDL [Mass/Vol] 102 mg/dL >40 [facility] Comment on above: The drugs N-Acetylcy steine and Metamizole may falsely depress this assay. Reference Range HDL <40 mg/dL Low HDL Cholesterol HDL >or= 60 mg/dL High HDL Cholesterol Laboratory - Chemistry and C hemistry - challengeOrdered By: Curt Robles on 12-02-2024 AST [Catalytic activity/Vol] 20 U/L 15-37 [facility] Lipid Profileon 12-02-2024 Cholesterol [Mass/Vol] 202 mg/dL High 200 [facility] Comment on above: Result Comment: <200 mg/dL Desirable 200-240 mg/dL Borderline >240 mg/dL High Risk Performed By: #### L 501.9520, L501.9985, L500.4100, L500.4050 #### [facility] [address] [place], [address] Cholesterol in HDL [Mass/Vol] 102 mg/dL Normal [facility] Comment on above: Result Comment: The drugs N-Acetylcysteine and Metamizole may falsely depress this assay. Reference Range HDL <40 mg/dL Low HDL Cholesterol HDL >or= 60 mg/dL High HDL Cholesterol Performed By: #### L 501.9520, L501.9985, L500.4100, L500.4050 #### [facility] [address] [place], [address] Cholesterol in LDL [Mass/Vol] 93 mg/dL Normal 0-130 [facility] Comment on above: Performed By: #### L 501.9520, L501.9985, L500.4100, L500.4050 #### [facility] [address] [place], [address] Cholesterol in VLDL [Mass/Vol] 7 mg/dL Normal 5-40 [facility] Comment on above: Performed By: #### L 501.9520, L501.9985, L500.4100, L500.4050 #### [place] [facility] [address] [place], [address] Triglyceride [Mass/Vol] 33 mg/dL Normal [facility] Comment on above: Result Comment: The drugs N-Acetylcysteine and Metamizole may falsely depress this assay. Serum Triglycerides Reference Interval Normal <150 mg/dL Borderline high 150 - 199 mg/dL High 200 - 499 mg/dL Very High > or = 500 mg/dL Performed By: #### L 501.9520, L501.9985, L500.4100, L500.4050 #### [facility] [address] [place], [place], [id number] Low density lipoprotein (LDL ) cholesterol measurementOrdered By: Curt Robles on 12-02-2024 Cholesterol in LDL [Mass/Vol] 93 mg/dL 0-130 [facility] Potassium measurementOrdered By: Curt Robles on 12-02-2024 Potassium [Moles/Vol] 4.1 mmol/L 3.5-5.1 [facility] Serum anion gap measurementO rdered By: Curt Robles on 12-02-2024 Anion gap [Moles/Vol] 6 mmol/L 5-15 [facility] Serum globulin measurementOr dered By: Curt Robles on 12-02-2024 Globulin (S) [Mass/Vol] 3.0 g/dL 2.2-4.2 [facility] Serum or plasma alanine anna otransferase (ALT) measurementOrdered By: Curt Robles on 12-02-2024 ALT [Catalytic activity/Vol] 24 U/L 13-56 [facility] Serum or plasma albumin chasidy urement (mass/volume)Ordered By: Curt Robles on 12-02-2024 Albumin [Mass/Vol] 3.7 g/dL 3.2-5.0 [facility] Serum or plasma alkaline compa sphatase measurementOrdered By: Curt Robles on 12-02-2024 ALP [Catalytic activity/Vol] 44 U/L Low 45-117 [facility] Serum or plasma calcium chasidy urement (mass/volume)Ordered By: Curt Robles on 12-02-2024 Calcium [Mass/Vol] 9.1 mg/dL 8.5-10.1 [facility] Serum or plasma cholesterol measurement (mass/volume)Ordered By: Curt Robles on 12-02-2024 Cholesterol [Mass/Vol] 202 mg/dL High <200 [facility] Comment on above: <200 mg/dL Desirable 200-240 [...] 12-02-2024 Urea nitrogen [Mass/Vol] 14 mg/dL 7-18 [facility] Sodium levelOrdered By: Harjit Robles on 12-02-2024 Sodium [Moles/Vol] 139 mmol/L 136-145 [facility] TSH QnOrdered By: Curt conner on 12-02-2024 Thyroid Stimulating Hormone (TSH) 1.740 uIU/mL 0.358-3.740 [facility] Thyroid Stim Hormone (TSH)on 12-02-2024 TSH 1.740 uIU/mL Normal 0.358-3.740 [facility] Comment on above: Performed By: #### L 501.9518, L501.9985, L500.4100, L500.4050 #### [facility] [address] [place], [place], [id number] Total proteinOrdered By: Jesus Robles on 12-02-2024 Protein [Mass/Vol] 6.7 g/dL 6.4-8.2 [facility] Triglycerides measurementOrd ered By: Curt Robles on 12-02-2024 Triglyceride [Mass/Vol] 33 mg/dL <199 [facility] Comment on above: The drugs N-Acetylcy steine and Metamizole may falsely depress this assay.Serum Triglycerides Reference Interval Normal <150 mg/dL Borderline high 150 - 199 mg/dL High 200 - 499 mg/dL Very High > or = 500 mg/dL Very low density lipoprotein (VLDL) cholesterol measurementOrdered By: Curt Robles on 12-02-2024 VLDL Cholesterol 7 mg/dL 5-40 [facility] SCREENING MAMM (CAD), BILATo n 09-29-2024 SCREENING MAMM (CAD), [facility] [address] [place], [place] [address] SCREENING MAMM (CAD), [facility] MR#: [id number] Acct: [id number] Name: TEMITOPE WELLS Rep #: [id number] : 1960 F 63 From: Cheng womack MD PCP: Dr. Greg Michaud MD Status: [facility] Study: SCREENING MAMM (CAD), [facility] Date of Exam: 09/16 03/09 Exam# [id number] Ordering Dr: Lori Mason [employer]-C [id number] MAMMOGRAPHY - BILATERAL SCREENING REASON FOR EXAM: [...] delay biopsy of a clinically suspicious abnormality. [id number] Electronically Signed: Cheng Strickland MD at 8:40 EST , CC: WILLIAN Mason; Dr. Greg Michaud MD Advertising Executive: Signed Normal [facility] Basophil percentageOrdered B y: Curt Robles on 02-22-2024 Bilirubin [Mass/Vol] 1.00 mg/dL 0.20-1.00 [facility] Comment on above: For patients on eltr ombopag therapy, use of Dimension [place] TBIL is not recommended. Chloride [Moles/Vol] 104 mmol/L 98-107 [facility] Cholesterol [Mass/Vol] 209 mg/dL <200 [facility] Comment on above: <200 mg/dL Desirable 200-240 mg/dL Borderline >240 mg/dL High Risk Glucose [Mass/Vol] 100 mg/dL 74-106 [facility] Comment on above: Fasting Glucose resu lt from 100 to 125 mg/dL suggests IMPAIRED HOMEOSTASIS per A.D.A. criteria. Potassium [Moles/Vol] 4.1 mmol/L 3.5-5.1 [facility] Protein [Mass/Vol] 6.6 g/dL 6.4-8.2 [facility] Sodium [Moles/Vol] 138 mmol/L 136-145 [facility] Triglyceride [Mass/Vol] 34 mg/dL <199 [facility] Comment on above: The drugs N-Acetylcy steine and Metamizole may falsely depress this assay.Serum Triglycerides Reference Interval Normal <150 mg/dL Borderline high 150 - 199 mg/dL High 200 - 499 mg/dL Very High > or = 500 mg/dL Laboratory - Chemistry and C hemistry - challengeOrdered By: Curt Robles on 02-22-2024 Albumin/Globulin [Mass ratio] 1.4 {ratio} 0.9-2.4 [facility] ALP [Catalytic activity/Vol] 48 U/L 45-117 [facility] ALT [Catalytic activity/Vol] 37 U/L 13-56 [facility] Cholesterol in HDL [Mass/Vol] 102 mg/dL >40 [facility] Comment on above: The drugs N-Acetylcy steine and Metamizole may falsely depress this assay. Reference Range HDL <40 mg/dL Low HDL Cholesterol HDL >or= 60 mg/dL High HDL Cholesterol Cholesterol in LDL [Mass/Vol] 100 mg/dL 0-130 [facility] CO2 [Moles/Vol] 28.0 mmol/L 21.0-32.0 [facility] Globulin (S) [Mass/Vol] 2.8 g/dL 2.2-4.2 [facility] Urea nitrogen/Creatinine [Mass ratio] 25.2 mg/mg 10-20 [facility] No Panel InformationOrdered By: Curt Robles on 02-22-2024 C-Peptide 0.5 ng/mL 1.1-4.4 [facility] Comment on above: C-Peptide reference interval is for fasting patients. Estimated GFR (MDRD) Amer 89 mL/min >60 [facility] Comment on above: GFR Calc Estimated GFR (MDRD) Non-Af Amer 73 mL/min >60 [facility] Comment on above: Non- GFR Calc Thyroglobulin Antibody < 1.0 IU/mL 0.0-0.9 [facility] Comment on above: Thyroglobulin Antibo dy measured by DeposcoMethodologyIt should be noted that the presence of thyroglobulinantibodies may not be pathogenic nor diagnostic, especiallyat very low levels. The assay dental mechanic has found thatfour percent of individuals without evidence of thyroiddisease or autoimmunity will have positive TgAb levels upto 4 IU/mL. Urine Microalbumin/Creatini ne Ratio 38.3 mg/g CRE <30 [facility] VLDL Cholesterol 7 mg/dL 5-40 [facility] Serum or plasma calcium chasidy urement (mass/volume)Ordered By: Curt Robles on 02-22-2024 Calcium [Mass/Vol] 8.7 mg/dL 8.5-10.1 [facility] Serum or plasma creatinine m easurement [...] on 02-22-2024 TSH Qn 1.43 uIU/mL 0.358-3.74 [facility] Serum or plasma thyroperoxid ase antibody assay (units/volume)Ordered By: Curt Robles on 02-22-2024 TPO Ab Qn 65 [IU]/mL 0-34 [facility] Comment on above: Performed at: [employer] [facility] [place] [id number] Director: Mac Padilla PhD, Phone: [phone] Serum or plasma urea nitroge n measurement (mass/volume)Ordered By: Curt Robles on 02-22-2024 Urea nitrogen [Mass/Vol] 21 mg/dL 7-18 [facility] Thin prep Papanicolaou smear with manual screeningOrdered By: Curt Robles on 02-22-2024 Thin prep Papanicolaou smear with manual screening 3.8 g/dL 3.2-5.0 [facility] Thin prep Papanicolaou smear with manual screening 22 U/L 15-37 [facility] Thin prep Papanicolaou smear with manual screening 6 5-15 [facility] Thin prep Papanicolaou smear with manual screening 5.3 mg/L NO RANGE EST. [facility] Urine creatinine measurement (mass/volume)Ordered By: Curt Robles on 02-22-2024 Creatinine (U) [Mass/Vol] 13.80 mg/dL NO RANGE EST. [facility] Whole blood hemoglobin A1c/t otal hemoglobin ratio (mass fraction)Ordered By: Curt Robles on 02-22-2024 HbA1c (Bld) [Mass fraction] 6.1 % 3.8-5.6 [facility] Comment on above: Normal < 5.7 % Predi abetic 5.7 - 6.4 % Diabetic >or= 6.5 % Please note range changes. Basophil percentageOrdered B y: Curt Robles on 11-24-2023 Bilirubin [Mass/Vol] 1.00 mg/dL 0.20-1.00 [facility] Comment on above: For patients on eltr ombopag therapy, use of Dimension [place] TBIL is not recommended. Chloride [Moles/Vol] 104 mmol/L 98-107 [facility] Glucose [Mass/Vol] 98 mg/dL 74-106 [facility] Potassium [Moles/Vol] 3.9 mmol/L 3.5-5.1 [facility] Protein [Mass/Vol] 6.8 g/dL 6.4-8.2 [facility] Sodium [Moles/Vol] 139 mmol/L 136-145 [facility] Laboratory - Chemistry and C hemistry - challengeOrdered By: Curt Robles on 11-24-2023 ALP [Catalytic activity/Vol] 51 U/L 45-117 [facility] ALT [Catalytic activity/Vol] 42 U/L 13-56 [facility] CO2 [Moles/Vol] 31.0 mmol/L 21.0-32.0 [facility] Globulin (S) [Mass/Vol] 3.1 g/dL 2.2-4.2 [facility] Urea nitrogen/Creatinine [Mass ratio] 22.8 mg/mg 10-20 [facility] No Panel InformationOrdered By: Curt Robles on 11-24-2023 Estimated GFR (MDRD) Amer 94 mL/min >60 [facility] Comment on above: GFR Calc Estimated GFR (MDRD) Non-Af Amer 78 mL/min >60 [facility] Comment on above: Non- GFR Calc Serum or plasma albumin chasidy urement (mass/volume)Ordered By: Curt Robles on 11-24-2023 Albumin [Mass/Vol] 3.7 g/dL 3.2-5.0 [facility] Serum or plasma albumin/glob ulin mass ratioOrdered By: Curt Robles on 11-24-2023 Albumin/Globulin [Mass ratio] 1.2 {ratio} 0.9-2.4 [facility] Serum or plasma calcium chasidy urement (mass/volume)Ordered By: Curt Robles on 11-24-2023 Calcium [Mass/Vol] 9.2 mg/dL 8.5-10.1 [facility] Serum or plasma creatinine m easurement [...] 11-24-2023 Urea nitrogen [Mass/Vol] 18 mg/dL 7-18 [facility] Thin prep Papanicolaou smear with manual screeningOrdered By: Curt Robles on 11-24-2023 Thin prep Papanicolaou smear with manual screening 23 U/L 15-37 [facility] Thin prep Papanicolaou smear with manual screening 4 5-15 [facility] Whole blood hemoglobin A1c/t otal hemoglobin ratio (mass fraction)Ordered By: Curt Robles on 11-24-2023 HbA1c (Bld) [Mass fraction] 6.1 % 3.8-5.6 [facility] Comment on above: Normal < 5.7 % Predi abetic 5.7 - 6.4 % Diabetic >or= 6.5 % Please note range changes. Basophil percentageOrdered B y: Curt Robles on 08-19-2023 Bilirubin [Mass/Vol] 0.90 mg/dL 0.20-1.00 [facility] Comment on above: For patients on eltr ombopag therapy, use of Dimension [place] TBIL is not recommended. Chloride [Moles/Vol] 104 mmol/L 98-107 [facility] Glucose [Mass/Vol] 73 mg/dL 74-106 [facility] Potassium [Moles/Vol] 3.9 mmol/L 3.5-5.1 [facility] Protein [Mass/Vol] 6.5 g/dL 6.4-8.2 [facility] Sodium [Moles/Vol] 138 mmol/L 136-145 [facility] Laboratory - Chemistry and C hemistry - challengeOrdered By: Curt Robles on 08-19-2023 ALP [Catalytic activity/Vol] 44 U/L 45-117 [facility] ALT [Catalytic activity/Vol] 33 U/L 13-56 [facility] CO2 [Moles/Vol] 30.0 mmol/L 21.0-32.0 [facility] Globulin (S) [Mass/Vol] 2.9 g/dL 2.2-4.2 [facility] Urea nitrogen/Creatinine [Mass ratio] 22.7 mg/mg 10-20 [facility] No Panel InformationOrdered By: Curt Robles on 08-19-2023 Estimated GFR (MDRD) Amer 94 mL/min >60 [facility] Comment on above: GFR Calc Estimated GFR (MDRD) Non-Af Amer 78 mL/min >60 [facility] Comment on above: Non- GFR Calc Thyroid Stimulating Hormone (TSH) 1.77 uIU/mL 0.358-3.74 [facility] Vitamin D 25-Hydroxy 72.2 ng/mL [facility] Comment on above: Vitamin D 25(OH) Sta tus Range Deficiency <20 ng/mL (50nmol/L) Insufficiency 20 - 30 ng/mL (50 - 75 nmol/L) Sufficiency 30 - 100 ng/mL (75 - 250 nmol/L) Toxicity >100 ng/mL (>250 nmol/L) Serum or plasma albumin chasidy urement (mass/volume)Ordered By: Curt Robles on 08-19-2023 Albumin [Mass/Vol] 3.6 g/dL 3.2-5.0 [facility] Serum or plasma albumin/glob ulin mass ratioOrdered By: Curt Robles on 08-19-2023 Albumin/Globulin [Mass ratio] 1.2 {ratio} 0.9-2.4 [facility] Serum or plasma calcium chasidy urement (mass/volume)Ordered By: Curt Robles on 08-19-2023 Calcium [Mass/Vol] 9.0 mg/dL 8.5-10.1 [facility] Serum or plasma creatinine m easurement [...] 08-19-2023 Urea nitrogen [Mass/Vol] 18 mg/dL 7-18 [facility] Thin prep Papanicolaou smear with manual screeningOrdered By: Curt Robles on 08-19-2023 Thin prep Papanicolaou smear with manual screening 19 U/L 15-37 [facility] Thin prep Papanicolaou smear with manual screening 4 5-15 [facility] Whole blood hemoglobin A1c/t otal hemoglobin ratio (mass fraction)Ordered By: Curt Robles on 08-19-2023 HbA1c (Bld) [Mass fraction] 5.7 % 3.8-5.6 [facility] Comment on above: Normal < 5.7 % Predi abetic 5.7 - 6.4 % Diabetic >or= 6.5 % Please note range changes. Basophil percentageOrdered B y: Dr. Robles on 02-19-2023 Bilirubin [Mass/Vol] 0.90 mg/dL 0.20-1.00 [facility] Comment on above: For patients on eltr ombopag therapy, use of Dimension [place] TBIL is not recommended. Chloride [Moles/Vol] 104 mmol/L 98-107 [facility] Cholesterol [Mass/Vol] 200 mg/dL <200 [facility] Comment on above: <200 mg/dL Desirable 200-240 mg/dL Borderline >240 mg/dL High Risk Glucose [Mass/Vol] 81 mg/dL 74-106 [facility] Potassium [Moles/Vol] 3.9 mmol/L 3.5-5.1 [facility] Protein [Mass/Vol] 6.3 g/dL 6.4-8.2 [facility] Sodium [Moles/Vol] 141 mmol/L 136-145 [facility] Triglyceride [Mass/Vol] 39 mg/dL <199 [facility] Comment on above: The drugs N-Acetylcy steine and Metamizole may falsely depress this assay.Serum Triglycerides Reference Interval Normal <150 mg/dL Borderline high 150 - 199 mg/dL High 200 - 499 mg/dL Very High > or = 500 mg/dL Laboratory - Chemistry and C hemistry - challengeOrdered By: Dr. Robles on 02-19-2023 ALP [Catalytic activity/Vol] 42 U/L 45-117 [facility] ALT [Catalytic activity/Vol] 39 U/L 13-56 [facility] CO2 [Moles/Vol] 28.0 mmol/L 21.0-32.0 [facility] Globulin (S) [Mass/Vol] 2.7 g/dL 2.2-4.2 [facility] Urea nitrogen/Creatinine [Mass ratio] 19.3 mg/mg 10-20 [facility] No Panel InformationOrdered By: Dr. Robles on 02-19-2023 Estimated GFR (MDRD) Amer 96 mL/min >60 [facility] Comment on above: GFR Calc Estimated GFR (MDRD) Non-Af Amer 80 mL/min >60 [facility] Comment on above: Non- GFR Calc Thyroid Stimulating Hormone (TSH) 2.17 uIU/mL 0.358-3.74 [facility] Vitamin D 25-Hydroxy 82.4 ng/mL [facility] Comment on above: Vitamin D 25(OH) Sta tus Range Deficiency <20 ng/mL (50nmol/L) Insufficiency 20 - 30 ng/mL (50 - 75 nmol/L) Sufficiency 30 - 100 ng/mL (75 - 250 nmol/L) Toxicity >100 ng/mL (>250 nmol/L) Serum or plasma albumin chasidy urement (mass/volume)Ordered By: Dr. Robles on 02-19-2023 Albumin [Mass/Vol] 3.6 g/dL 3.2-5.0 [facility] Serum or plasma albumin/glob ulin mass ratioOrdered By: Dr. Rolbes on 02-19-2023 Albumin/Globulin [Mass ratio] 1.3 {ratio} 0.9-2.4 [facility] Serum or plasma calcium chasidy urement (mass/volume)Ordered By: Dr. Robles on 02-19-2023 Calcium [Mass/Vol] 8.6 mg/dL 8.5-10.1 [facility] Serum or plasma cholesterol in HDL measurement (mass/volume)Ordered By: Dr. Robles on 02-19-2023 Cholesterol in HDL [Mass/Vol] 96 mg/dL >40 [facility] Comment on above: The drugs N-Acetylcy steine and Metamizole may falsely depress this assay. Reference Range HDL <40 mg/dL Low HDL Cholesterol HDL >or= 60 mg/dL High HDL Cholesterol Serum or plasma cholesterol in VLDL measurement (mass/volume)Ordered By: Dr. Robles on 02-19-2023 Cholesterol in VLDL [Mass/Vol] 8 mg/dL 5-40 [facility] Serum or plasma creatinine m easurement (mass/volume)Ordered [...] Cholesterol in LDL [Mass/Vol] 96 mg/dL 0-130 [facility] Serum or plasma urea nitroge n measurement (mass/volume)Ordered By: Dr. Robles on 02-19-2023 Urea nitrogen [Mass/Vol] 15 mg/dL 7-18 [facility] Thin prep Papanicolaou smear with manual screeningOrdered By: Dr. Robles on 02-19-2023 Thin prep Papanicolaou smear with manual screening 22 U/L 15-37 [facility] Thin prep Papanicolaou smear with manual screening 9 5-15 [facility] Thin prep Papanicolaou smear with manual screening 14.6 mg/L NO RANGE EST. [facility] Whole blood hemoglobin A1c/t otal hemoglobin ratio (mass fraction)Ordered By: Dr. Robles on 02-19-2023 HbA1c (Bld) [Mass fraction] 5.9 % 3.8-5.6 [facility] Comment on above: Normal < 5.7 % Predi abetic 5.7 - 6.4 % Diabetic >or= 6.5 % Please note range changes. Glucose Glucometer (BldC) [M ass/Vol]Ordered By: Gunner Nolen on 12-03-2022 Glucose [Mass/Vol] 91 mg/dL 74-106 [facility] Comment on above: MANAGEMENT OF PATIEN T CARE PER NURSING PROTOCOL Basophil percentageOrdered B y: Dr. Robles on 11-03-2022 Bilirubin [Mass/Vol] 1.10 mg/dL 0.20-1.00 [facility] Comment on above: For patients on eltr ombopag therapy, use of Dimension [place] TBIL is not recommended. Chloride [Moles/Vol] 104 mmol/L 98-107 [facility] Glucose [Mass/Vol] 101 mg/dL 74-106 [facility] Comment on above: Fasting Glucose resu lt from 100 to 125 mg/dL suggests IMPAIRED HOMEOSTASIS per A.D.A. criteria. Potassium [Moles/Vol] 4.3 mmol/L 3.5-5.1 [facility] Protein [Mass/Vol] 7.0 g/dL 6.4-8.2 [facility] Sodium [Moles/Vol] 138 mmol/L 136-145 [facility] Laboratory - Chemistry and C hemistry - challengeOrdered By: Dr. Robles on 11-03-2022 ALP [Catalytic activity/Vol] 49 U/L 45-117 [facility] ALT [Catalytic activity/Vol] 41 U/L 13-56 [facility] CO2 [Moles/Vol] 31.0 mmol/L 21.0-32.0 [facility] Globulin (S) [Mass/Vol] 3.3 g/dL 2.2-4.2 [facility] Urea nitrogen/Creatinine [Mass ratio] 23.0 mg/mg 10-20 [facility] No Panel InformationOrdered By: Dr. Robles on 11-03-2022 Estimated GFR (MDRD) Amer 102 mL/min >60 [facility] Comment on above: GFR Calc Estimated GFR (MDRD) Non-Af Amer 85 mL/min >60 [facility] Comment on above: Non- GFR Calc Thyroid Stimulating Hormone (TSH) 1.99 uIU/mL 0.358-3.74 [facility] Serum or plasma albumin chasidy urement (mass/volume)Ordered By: Dr. Robles on 11-03-2022 Albumin [Mass/Vol] 3.7 g/dL 3.2-5.0 [facility] Serum or plasma albumin/glob ulin mass ratioOrdered By: Dr. Robles on 11-03-2022 Albumin/Globulin [Mass ratio] 1.1 {ratio} 0.9-2.4 [facility] Serum or plasma calcium chasidy urement (mass/volume)Ordered By: Dr. Robles on 11-03-2022 Calcium [Mass/Vol] 9.0 mg/dL 8.5-10.1 [facility] Serum or plasma creatinine m easurement [...] 11-03-2022 Urea nitrogen [Mass/Vol] 17 mg/dL 7-18 [facility] Thin prep Papanicolaou smear with manual screeningOrdered By: Dr. Robles on 11-03-2022 Thin prep Papanicolaou smear with manual screening 26 U/L 15-37 [facility] Thin prep Papanicolaou smear with manual screening 3 5-15 [facility] Whole blood hemoglobin A1c/t otal hemoglobin ratio (mass fraction)Ordered By: Dr. Robles on 11-03-2022 HbA1c (Bld) [Mass fraction] 6.2 % 3.8-5.6 [facility] Comment on above: Normal < 5.7 % Predi abetic 5.7 - 6.4 % Diabetic >or= 6.5 % Please note range changes. Basophil percentageon 2021 Bilirubin [Mass/Vol] 1.00 mg/dL 0.20-1.00 [facility] Work Phone: Comment on above: For patients on eltr ombopag therapy, use of Dimension [place] TBIL is not recommended. Chloride [Moles/Vol] 105 mmol/L 98-107 [facility] Work Phone: Cholesterol [Mass/Vol] 192 mg/dL <200 [facility] Work Phone: Comment on above: <200 mg/dL Desirable 200-240 mg/dL Borderline >240 mg/dL High Risk Glucose [Mass/Vol] 80 mg/dL 74-106 [facility] Work Phone: Potassium [Moles/Vol] 3.7 mmol/L 3.5-5.1 [facility] Work Phone: Protein [Mass/Vol] 6.8 g/dL 6.4-8.2 [facility] Work Phone: Sodium [Moles/Vol] 139 mmol/L 136-145 [facility] Work Phone: Triglyceride [Mass/Vol] 47 mg/dL <199 [facility] Work Phone: Comment on above: The drugs N-Acetylcy steine and Metamizole may falsely depress this assay.Serum Triglycerides Reference Interval Normal <150 mg/dL Borderline high 150 - 199 mg/dL High 200 - 499 mg/dL Very High > or = 500 mg/dL Laboratory - Chemistry and C hemistry - challengeon 06-20-2022 ALP [Catalytic activity/Vol] 49 U/L 45-117 [facility] Work Phone: ALT [Catalytic activity/Vol] 43 U/L 13-56 [facility] Work Phone: CO2 [Moles/Vol] 29.0 mmol/L 21.0-32.0 [facility] Work Phone: Globulin (S) [Mass/Vol] 3.0 g/dL 2.2-4.2 [facility] Work Phone: Urea nitrogen/Creatinine [Mass ratio] 25.5 mg/mg 10-20 [facility] Work Phone: No Panel Informationon 06-20 Estimated GFR (MDRD) Amer 101 mL/min >60 [facility] Work Phone: Comment on above: GFR Calc Estimated GFR (MDRD) Non-Af Amer 84 mL/min >60 [facility] Work Phone: Comment on above: Non- GFR Calc Vitamin D 25-Hydroxy 77.5 ng/mL [facility] Work Phone: Comment on above: Vitamin D 25(OH) Sta tus Range Deficiency <20 ng/mL (50nmol/L) Insufficiency 20 - 30 ng/mL (50 - 75 nmol/L) Sufficiency 30 - 100 ng/mL (75 - 250 nmol/L) Toxicity >100 ng/mL (>250 nmol/L) Serum or plasma albumin chasidy urement (mass/volume)on 06-20-2022 Albumin [Mass/Vol] 3.8 g/dL 3.2-5.0 [facility] Work Phone: Serum or plasma albumin/glob ulin mass ratioon 06-20-2022 Albumin/Globulin [Mass ratio] 1.3 {ratio} 0.9-2.4 [facility] Work Phone: Serum or plasma calcium chasidy urement (mass/volume)on 06-20-2022 Calcium [Mass/Vol] 8.7 mg/dL 8.5-10.1 [facility] Work Phone: Serum or plasma cholesterol in HDL measurement (mass/volume)on 06-20-2022 Cholesterol in HDL [Mass/Vol] 96 mg/dL >40 [facility] Work Phone: Comment on above: The drugs N-Acetylcy steine and Metamizole may falsely depress this assay. Reference Range HDL <40 mg/dL Low HDL Cholesterol HDL >or= 60 mg/dL High HDL Cholesterol Serum or plasma cholesterol in VLDL measurement (mass/volume)on 06-20-2022 Cholesterol in VLDL [Mass/Vol] 9 mg/dL 5-40 [facility] Work Phone: Serum or plasma creatinine m easurement (mass/volume)on 06-20-2022 Creatinine [Mass/Vol] 0.74 mg/dL 0.55-1.02 [facility] Work Phone: Comment on above: The validity of the calculated GFR & GFRAA in patients over 70 years has not been determined. Clinical correlation is essential. Serum or plasma low density lipoprotein (LDL) cholesterol measurement (mass/volume)on 06-20-2022 Cholesterol in LDL [Mass/Vol] 87 mg/dL 0-130 [facility] Work Phone: Serum or plasma urea nitroge n measurement (mass/volume)on 06-20-2022 Urea nitrogen [Mass/Vol] 19 mg/dL 7-18 [facility] Work Phone: Thin prep Papanicolaou smear with manual screeningon 06-20-2022 Thin prep Papanicolaou smear with manual screening 28 U/L 15-37 [facility] Work Phone: Thin prep Papanicolaou smear with manual screening 5 5-15 [facility] Work Phone: Basophil percentageon 2021 Bilirubin [Mass/Vol] 0.90 mg/dL 0.20-1.00 [facility] Work Phone: Comment on above: For patients on eltr ombopag therapy, use of Dimension [place] TBIL is not recommended. Chloride [Moles/Vol] 107 mmol/L 98-107 [facility] Work Phone: Cholesterol [Mass/Vol] 205 mg/dL <200 [facility] Work Phone: Comment on above: <200 mg/dL Desirable 200-240 mg/dL Borderline >240 mg/dL High Risk Glucose [Mass/Vol] 81 mg/dL 74-106 [facility] Work Phone: Potassium [Moles/Vol] 3.8 mmol/L 3.5-5.1 [facility] Work Phone: Protein [Mass/Vol] 6.6 g/dL 6.4-8.2 [facility] Work Phone: Sodium [Moles/Vol] 141 mmol/L 136-145 [facility] Work Phone: Triglyceride [Mass/Vol] 42 mg/dL <199 [facility] Work Phone: Comment on above: The drugs N-Acetylcy steine and Metamizole may falsely depress this assay.Serum Triglycerides Reference Interval Normal <150 mg/dL Borderline high 150 - 199 mg/dL High 200 - 499 mg/dL Very High > or = 500 mg/dL Laboratory - Chemistry and C hemistry - challengeon 02-26-2022 ALP [Catalytic activity/Vol] 55 U/L 45-117 [facility] Work Phone: ALT [Catalytic activity/Vol] 39 U/L 13-56 [facility] Work Phone: CO2 [Moles/Vol] 29.0 mmol/L 21.0-32.0 [facility] Work Phone: Globulin (S) [Mass/Vol] 2.9 g/dL 2.2-4.2 [facility] Work Phone: Urea nitrogen/Creatinine [Mass ratio] 18.2 mg/mg 10-20 [facility] Work Phone: No Panel Informationon 02-26 Estimated GFR (MDRD) Amer 90 mL/min >60 [facility] Work Phone: Comment on above: GFR Calc Estimated GFR (MDRD) Non-Af Amer 74 mL/min >60 [facility] Work Phone: Comment on above: Non- GFR Calc Thyroid Stimulating Hormone (TSH) 2.54 uIU/mL 0.358-3.74 [facility] Work Phone: Urine Microalbumin/Creatini ne Ratio 10.3 mg/g CRE <30 [facility] Work Phone: Serum or plasma albumin chasidy urement (mass/volume)on 02-26-2022 Albumin [Mass/Vol] 3.7 g/dL 3.2-5.0 [facility] Work Phone: Serum or plasma albumin/glob ulin mass ratioon 02-26-2022 Albumin/Globulin [Mass ratio] 1.3 {ratio} 0.9-2.4 [facility] Work Phone: Serum or plasma calcium chasidy urement (mass/volume)on 02-26-2022 Calcium [Mass/Vol] 8.9 mg/dL 8.5-10.1 [facility] Work Phone: Serum or plasma cholesterol in HDL measurement (mass/volume)on 02-26-2022 Cholesterol in HDL [Mass/Vol] 97 mg/dL >40 [facility] Work Phone: Comment on above: The drugs N-Acetylcy steine and Metamizole may falsely depress this assay. Reference Range HDL <40 mg/dL Low HDL Cholesterol HDL >or= 60 mg/dL High HDL Cholesterol Serum or plasma cholesterol in VLDL measurement (mass/volume)on 02-26-2022 Cholesterol in VLDL [Mass/Vol] 8 mg/dL 5-40 [facility] Work Phone: Serum or plasma creatinine m easurement (mass/volume)on 02-26-2022 Creatinine [Mass/Vol] 0.83 mg/dL 0.55-1.02 [facility] Work Phone: Comment on above: The validity of the calculated GFR & GFRAA in patients over 70 years has not been determined. Clinical correlation is essential. Serum or plasma low density lipoprotein (LDL) cholesterol measurement (mass/volume)on 02-26-2022 Cholesterol in LDL [Mass/Vol] 100 mg/dL 0-130 [facility] Work Phone: Serum or plasma urea nitroge n measurement (mass/volume)on 02-26-2022 Urea nitrogen [Mass/Vol] 15 mg/dL 7-18 [facility] Work Phone: Thin prep Papanicolaou smear with manual screeningon 02-26-2022 Thin prep Papanicolaou smear with manual screening 21 U/L 15-37 [facility] Work Phone: Thin prep Papanicolaou smear with manual screening 5 5-15 [facility] Work Phone: Thin prep Papanicolaou smear with manual screening 7.0 mg/L NO RANGE EST. [facility] Work Phone: Urine creatinine measurement (mass/volume)on 02-26-2022 Creatinine (U) [Mass/Vol] 67.70 mg/dL NO RANGE EST. [facility] Work Phone: Whole blood hemoglobin A1c/t otal hemoglobin ratio (mass fraction)on 02-26-2022 HbA1c (Bld) [Mass fraction] 6.0 % 3.8-5.6 [facility] Work Phone: Comment on above: Normal < 5.7 % Predi abetic 5.7 - 6.4 % Diabetic >or= 6.5 % Please note range changes. Laboratory - Microbiology an d Antimicrobial susceptibilityon 11-21-2021 SARS-CoV-2 (COVID-19) RNA ZULLY+probe Ql (Unsp spec) Not detected Not Detect [facility] Work Phone: Comment on above: Normal Reference [...] percentageon 2020 Bilirubin [Mass/Vol] 0.90 mg/dL 0.20-1.00 [facility] Work Phone: Comment on above: For patients on eltr ombopag therapy, use of Dimension [place] TBIL is not recommended. Chloride [Moles/Vol] 104 mmol/L 98-107 [facility] Work Phone: Glucose [Mass/Vol] 100 mg/dL 74-106 [facility] Work Phone: Comment on above: Fasting Glucose resu lt from 100 to 125 mg/dL suggests IMPAIRED HOMEOSTASIS per A.D.A. criteria.Please note revised GLUCOSE reference range effective 2017. Potassium [Moles/Vol] 3.7 mmol/L 3.5-5.1 [facility] Work Phone: Protein [Mass/Vol] 6.5 g/dL 6.4-8.2 [facility] Work Phone: Sodium [Moles/Vol] 140 mmol/L 136-145 [facility] Work Phone: Laboratory - Chemistry and C hemistry - challengeon 11-14-2021 ALP [Catalytic activity/Vol] 51 U/L 45-117 [facility] Work Phone: ALT [Catalytic activity/Vol] 37 U/L 13-56 [facility] Work Phone: CO2 [Moles/Vol] 29.0 mmol/L 21.0-32.0 [facility] Work Phone: Globulin (S) [Mass/Vol] 2.9 g/dL 2.2-4.2 [facility] Work Phone: Urea nitrogen/Creatinine [Mass ratio] 23.2 mg/mg 10-20 [facility] Work Phone: No Panel Informationon 11-14 Estimated GFR (MDRD) Amer 111 mL/min >60 [facility] Work Phone: Comment on above: GFR Calc Estimated GFR (MDRD) Non-Af Amer 92 mL/min >60 [facility] Work Phone: Comment on above: Non- GFR Calc Serum or plasma albumin chasidy urement (mass/volume)on 11-14-2021 Albumin [Mass/Vol] 3.6 g/dL 3.2-5.0 [facility] Work Phone: Serum or plasma albumin/glob ulin mass ratioon 11-14-2021 Albumin/Globulin [Mass ratio] 1.2 {ratio} 0.9-2.4 [facility] Work Phone: Serum or plasma calcium chasidy urement (mass/volume)on 11-14-2021 Calcium [Mass/Vol] 8.9 mg/dL 8.5-10.1 [facility] Work Phone: Serum or plasma creatinine m easurement (mass/volume)on 11-14-2021 Creatinine [Mass/Vol] 0.69 mg/dL 0.55-1.02 [facility] Work Phone: Comment on above: The validity of the calculated GFR & GFRAA in patients over 70 years has not been determined. Clinical correlation is essential. Serum or plasma urea nitroge n measurement (mass/volume)on 11-14-2021 Urea nitrogen [Mass/Vol] 16 mg/dL 7-18 [facility] Work Phone: Thin prep Papanicolaou smear with manual screeningon 11-14-2021 Thin prep Papanicolaou smear with manual screening 23 U/L 15-37 [facility] Work Phone: Thin prep Papanicolaou smear with manual screening 7 5-15 [facility] Work Phone: Whole blood hemoglobin A1c/t otal hemoglobin ratio (mass fraction)on 11-14-2021 HbA1c (Bld) [Mass fraction] 5.8 % 3.8-5.6 [facility] Work Phone: Comment on above: Normal < 5.7 % Predi abetic 5.7 - 6.4 % Diabetic >or= 6.5 % Please note range changes. Vital Signs Date Time Vital Sign Value Performing Clinician Faci lity 12-03-2022 10:15-0500 Body temperature 97 [degF] DO Deena Shai Work Phone: [facility] 12-03-2022 10:15-0500 Diastolic blood pressure 59 mm[Hg] DO Deena Negretenger Work Phone: [facility] 12-03-2022 10:15-0500 Heart rate 60 /min DO Deena Negretenger Work Phone: [facility] 12-03-2022 10:15-0500 Respiratory rate 16 /min DO Deena Negretenger Work Phone: [facility] 12-03-2022 10:15-0500 SaO2% (BldA) [Mass fraction] 100 % DO Deena Negretenger Work Phone: [facility] 12-03-2022 10:15-0500 Systolic blood pressure 101 mm[Hg] DO Deena Negretenger Work Phone: [facility] 12-03-2022 09:13-0500 Body height 162.56 cm DO Deena Negretenger Work Phone: [facility] 12-03-2022 09:13-0500 Body mass index (BMI) [Ratio] 18.9 kg/m2 DO Deena Negretenger Work Phone: [facility] 12-03-2022 09:13-0500 Body weight 50 kg DO Deena Negretenger Work Phone: [facility] 10-06-2022 10:33-0500 Body height 165.1 cm DO Deena Negretenger Work Phone: [facility] Work Phone: 10-06-2022 10:33-0500 Body mass index (BMI) [Ratio] 18.8 kg/m2 DO Deena Negretenger Work Phone: [facility] 10-06-2022 10:33-0500 Body weight 51.25 kg DO Deena Negretenger Work Phone: [facility] Encounters Encounter Date Encounter Type Care Provider Facility Start: 10-10-2025 ambulatory Gerg Michaud Facility:[facility] Start: 05-30-2025 End: 05-30-2025 ambulatory Greg Michaud MD Work Phone: [facility] [place] Start: 05-30-2025 End: 05-30-2025 Patient encounter procedure ANY ROSALIE NM -[facility] [place] Work Phone: Start: 05-30-2025 End: 05-30-2025 ambulatory ANY WIGGINS Facility:[facility] Start: 03-02-2025 End: 03-02-2025 ambulatory Greg Michaud MD Work Phone: [facility] Work Phone: Start: 03-02-2025 End: 03-02-[address] [facility] [place] Work Phone: Start: 03-02-2025 End: 03-02-[facility] Start: 12-02-2024 End: 12-02-[address] [facility] [place] Work Phone: Start: 12-02-2024 End: 12-02-2024 [facility] Start: 09-29-2024 End: 09-29-2024 ambulatory Lori Mason NP Facility:[facility] Start: 02-22-2024 End: 02-22-2024 ambulatory [facility] Work Phone: Start: 02-22-2024 End: 02-22-2024 [facility] [place] Work [facility]: Start: 11-24-2023 End: 11-24-2023 ambulatory [facility] Work Phone: Start: 11-24-2023 End: 11-24-2023 [facility] [place] Work Phone: Start: 09-16-2023 End: 09-16-2023 ambulatory [facility] Work Phone: Start: 09-16-2023 End: 09-16-2023 Patient encounter procedure [facility]-Outpatient [facility] Imaging Work Phone: Start: 08-19-2023 End: 08-19-2023 [facility] encounter [facility] Work [facility]: Start: 02-19-2023 End: 02-19-2023 ambulatory DO Deena M Shai Work Phone: [facility] Work Phone: Start: 02-19-2023 End: 02-19-2023 Patient encounter procedure DO Deena Negretenger Work Phone: [facility] Start: 12-03-2022 Non-patient / Non-visit DO Skyler Castroer Work Phone: [facility] Start: 12-03-2022 End: 12-03-2022 Admission to same day surgery center DO Deena Negretenger Work Phone: [facility]-Endoscopy Start: 12-03-2022 End: 12-03-2022 ambulatory DO Deena M Shai Work Phone: [facility] Work Phone: Start: 11-03-2022 End: 11-03-2022 ambulatory DO Deena M Shai Work Phone: [facility] Work Phone: Start: 11-03-2022 End: 11-03-2022 Patient encounter procedure DO Deena Negretenger Work Phone: [facility]-Laboratory Start: 10-06-2022 Non-patient / Non-visit DO Skyler Negretenger Work Phone: [facility] Start: 07-14-2022 End: 07-14-2022 ambulatory [facility] Work Phone: Start: 07-14-2022 End: 07-14-2022 Patient encounter procedure [facility]Out[facility] Start: 06-20-2022 End: 06-20-2022 Patient encounter [facility] Start: 02-26-2022 End: 02-26-2022 Patient encounter procedure [facility] STON[facility]-Myriam MontanezEvelia Diamond Work Phone: [facility] Start: 11-21-2021 End: 11-21-2021 Patient encounter procedure [facility]-Myriam Fields [facility] Start: 11-14-2021 Patient encounter procedure [facility] STON[facility]-Myriam MontanezEvelia Diamond Work Phone: [facility] Procedures Date Procedure Procedure Detail Performing Clinician Start: 03-02-2025 Insulin C-peptide measurement Greg Michaud MD Work Phone: Comment on above: C-Peptide reference interval is for fasting patients.Performed at: [facility] [id number] Director: Mac Padilla PhD, Phone: [phone] Start: 09-16-2023 Screening mammography Start: 12-03-2022 Colonoscopy DO Deena Gibbons Work Phone: Start: 07-14-2022 Screening mammography Plan of Treatment Date Care Activity Detail Author Start: 12-03-2022 Patient discharge [facility] Colonoscopy [facility] Work Phone: Colonoscopy [facility] Patient referral [facility] Work Phone: Immunizations Immunization Date Immunization Notes Care Provider Fa cilishonda 09-18-2021 influenza, injectabl e, quadrivalent, preservative free [facility] 09-18-2021 influenza, seasonal, injectable [facility] STON[facility]-Myriam Fields Work Phone: [facility] 12-17-2020 Covid (Moderna) [facility]ON[facility]-Myriam Fields Work Phone: [facility] 11-19-2020 Covid (Moderna) [facility] STON[facility]-C Evelia Barkman Work Phone: [facility] 09-24-2020 influenza, injectabl e, quadrivalent, preservative free [facility] 09-24-2020 influenza, seasonal, injectable [facility]-C Evelia Barkman Work Phone: [facility] 08-31-2019 influenza, injectabl e, quadrivalent, preservative free [facility] 08-31-2019 influenza, seasonal, injectable [facility]-C Evelia Barkman Work Phone: [facility] 08-25-2018 influenza, injectabl e, quadrivalent, preservative free [facility] 08-25-2018 influenza, seasonal, injectable [facility] [facility]ON[facility]-C Evelia Barkman Work Phone: [facility] 09-02-2017 influenza, injectabl e, quadrivalent, preservative free [facility] 09-02-2017 influenza, seasonal, injectable [employer] [facility]ON[facility]-C Evelia Barkman Work Phone: [facility] 08-14-2016 influenza, injectabl e, quadrivalent, preservative free [facility] 08-14-2016 influenza, seasonal, injectable [facility] [facility]-C Evelia Barkman Work Phone: [facility] 08-16-2015 influenza, injectabl e, quadrivalent, preservative free [facility] 08-16-2015 influenza, seasonal, injectable [employer] [facility]-C Evelia Barkman Work Phone: [facility] 08-16-2014 influenza, injectabl e, quadrivalent, preservative free [facility] 08-16-2014 influenza, seasonal, injectable [facility] [facility]-C Evelia Barkman Work Phone: [facility] Payers Date Payer Category Payer Medicare [id number] 2024 Self-pay [id number] 2024 [facility] [id number] Unknown [id number] [id number] [id number] Unknown [id number] Unknown [id number] [id number] [id number] Unknown 2022 [id number] [id number] Unknown [id number] [id number] [id number] Social History Date Type Detail Facility Start: 04-02-2021 End: 11-28-2022 Tobacco smoking status NHIS Unknown if ever smoked [facility] Start: 01-24-2021 Occasional [facility] Start: 01-24-2021 None [facility] Start: 01-24-2021 Spouse/ Signif icant Other [facility] Start: 01-24-2021 Non-smoker [facility] Start: 1960 Sex Assigned At Female W [facility] Start: 11-28-2022 Tobacco smoking status NHIS Never smoked tobacco (finding) [facility] Start: 03-07-2025 Sex Female (finding) [facility] Medical Equipment Procedure Code Equipment Code [...] Assessment Result Facility 12-03-2022 Cognitive function Voice/Name [facility] Work Phone: Procedure note 12-03-2022 Note Date & Type Note Facility 12-03-2022 Procedure note [facility] Procedure note 12-03-2022 Note Date & Type Note Facility 12-03-2022 Procedure note [facility] Evaluation note Note Date & Type Note Facility Evaluation note No assessment information availa ble [facility] Work Phone: Evaluation note Note Date & Type Note Facility Evaluation note Diagnosis Onset Date Encounter for screening for malignant neoplasm of colon acute [facility] Work Phone: History and physical note Note Date & Type Note Facility History and physical note Note Date/Time December 03, 2022 9:25am [facility] Medical Records Department [address] [place] [address] History & Physical Exam 12/03/22 0923 MR#: [id number] Acct: [id number] Name: TEMITOPE WELLS Rep #:[id number] : 1960 62 From: Gunner Friend DO PCP: Deena Gibbons DO Status:REG S DC Location: [place] [address] HPI - General General Date of Admission: [...] negative except as per body mentioned HPI. [facility] Medical History (Updated 11/28/22 @ 11:20 by [...] Deena Gibbons DO; Gunner Nolen DO~ Signed [facility] Work Phone: Reason for referral (narrative) Note Date & Type Note Facility Reason for referral (narrative) No reason for referral information available [facility] Work Phone: Chief Complaint and Reason for [...] No January 24, 2021 12:17pm Power of Tableau Administrator No January 24 12:17pm Advance Directive Response Recorded Date/ Time Living Will No January 24, 2021 11:17am Power of Tableau Administrator No January 24 11:17am Advance Directive Response Recorded Date/ Time Name of Medical Power of Tableau Administrator SOFIE WELLS November 28, 2022 11:20am Living Will Yes November 28 11:20am Power of Tableau Administrator Yes November 28, 2022 11:20am Advance Directive Response Recorded Date/ Time Name of Medical Power of Tableau Administrator SOFIE WELLS November 28, 2022 12:20pm Living Will Yes November 28 12:20pm Power of Tableau Administrator Yes November 28, 2022 12:20pm Advance Directive Response Recorded Date/ Time Living Will Yes November 28 11:20am Power of Tableau Administrator Yes November 28, 2022 11:20am Advance Directive Response Recorded Date/ Time Living Will Yes November 28 12:20pm Power of Tableau Administrator Yes November 28, 2022 12:20pm Summary Purpose [...] Active Member Role Status Dates Deena Gibbons DO Primary Care Provider Active Martha Crawford [...] Active Team Status: Inactive Member Role Status Kathy Michaud MD Primary Care Provider Active Dr. Curt Robles DO Attending Provider, Referring Provider Active Team Status: Inactive Member Role Status Kathy Michaud MD Primary Care Provider Active St art: December 02, 2024 End: December 02, 2024 Dr. Curt Robles DO Attending Provider Active Start: December 02, 2024 End: December 02, 2024 Dr. Curt Robles DO Referring Provider Active Start: December 02, 2024 End: December 02, 2024 Team Status: Inactive Member Role Status Kathy Michaud MD Primary Care Provider Active St art: March 02, 2025 End: March 02, 2025 Dr. Curt Robles DO Attending Provider Active Start: March 02, 2025 End: March 02, 2025 Dr. Curt Rboles DO Referring Provider Active Start: March 02, 2025 End: March 02, 2025 Team Status: Active Member Role/Relationship Status Dates Dr. Alfredo Hodgson MD Family Provider Active Greg Mcihaud MD Primary Care Provider Active Team Status: Inactive Member Role/Relationship Status Kathy Michaud MD Primary Care Provider Active St art: March 02, 2025 End: March 02, 2025 Dr. Curt Robles DO Attending Provider Active Start: March 02, 2025 End: March 02, 2025 Dr. Curt Robles DO Referring Provider Active Start: March 02, 2025 End: March 02, 2025 Team Status: Inactive Member Role/Relationship Status Kathy Michaud MD Primary Care Provider Active St art: May 30, 2025 End: May 30, 2025 SOFÍA MONTANO Attending Provider Active St art: May 30, 2025 End: May 30, 2025 SOFÍA MONTANO Referring Provider Active St art: May 30, 2025 End: May 30, 2025 INFORMATION SOURCE (unrecogn ized section and content) DATE CREATED AUTHOR 09/21/2025 [facility] FOR RECORDS PERTAINING TO PATIENTS WHO ARE [...] BE BASED ON THE PRIMARY CLINICAL RECORDS. [facility] [employer] [facility]. provides no warranty or guarantee of the accuracy or completeness of information in this document.
[2025-09-26 10:43] LABS: AST(SGOT) 30 U/L (<=31); Alanine Aminotransfer ALT/SGPT 32 U/L (<=34); Albumin, Serum 4.3 g/dL (3.4-4.8); Alkaline Phosphatase 42 U/L (35-104); Anion Gap 9 (5-15); BUN 17 mg/dL (4-19); BUN/Creat Ratio 22.1 RATIO (10-20); Calcium,Total 9.2 mg/dL (7.6-11.0); Carbon Dioxide 28.6 mmol/L (21.0-32.0); Chloride 101 mmol/L (98-108); Globulin 2.1 g/dL (2.2-4.2); Glucose 96 mg/dL (70-99); Potassium 3.9 mmol/L (3.3-5.1); Vitamin D,25 Hydroxy 50.8 ng/mL (30-100)
== END | disposition home or self-care (01) ==
LOC: MTLAB 07:42
PROVIDERS: PCP Family Medicine; Referring Provider Physician Assistant Medical; Visit Provider Physician Assistant Medical
DX: E10.9 Type 1 diabetes mellitus without complications (principal); E55.9 Vitamin D deficiency, unspecified; E06.3 Autoimmune thyroiditis
CPT/HCPCS: 36415; 80053; 82306; 83036; 84443

== ENCOUNTER → 2025-10-10 | Outpatient (CLI) | payer MEDICARE, OTHER, SELFPAY ==
--- NOTE | 2025-10-10 08:20 | BI_ITS ---
EXAM: SCRN MAMM (CAD)W/RINKU BILAT DATE: 10/10/2025 CLINICAL HISTORY: F, Age 65 y/o , SCREENING FOR BREAST CANCER FAMILY HISTORY TECHNIQUE: Procedure Code: [id number] Modality: MG Procedure: SCRN MAMM (CAD)W/RINKU BILAT COMPARISON: Prior exam(s) dated 09/29/2024, 09/16/2023 and 07/14/2022. FINDINGS: TISSUE DENSITY: The breasts are extremely dense, which lowers the sensitivity of mammography. Bilateral Breast Mammographic Findings: No significant masses, calcifications or other abnormalities are identified. There is a stable 1 cm density in the superior middle 3rd aspect of the right breast. BI/SCRN MAMM (CAD)W/RINKU BILAT IMPRESSION: Benign screening mammogram OVERALL FINAL ASSESSMENT BI-RADS 2: BENIGN RECOMMENDATION: Routine annual follow-up in 1 Year Additional Recommendation none A letter with findings and recommendations will be mailed to the patient. Reading Location: [id number]
== END | disposition home or self-care (01) ==
PROVIDERS: PCP Family Medicine; Referring Provider Family Medicine; Visit Provider Family Medicine
DX: Z12.31 Encounter for screening mammogram for malignant neoplasm of breast (principal)
CPT/HCPCS: 77063; 77067